=== PATIENT | male | born 1960 | race Caucasian/White ===

== ENCOUNTER 2023-09-20 12:23 | Outpatient (CLI) | payer BC, SELFPAY ==
--- OUTSIDE RECORDS SUMMARY | 2023-09-20 12:26 | XMS_ITS | Clinical Summary ---
Author Name Unknown Organization [facility] Address [address] [place] [address] Care Team Providers Care Welt Sole Layer Name Role Phone [facility]- Rabia vailable Irvin Lyons MD Primary Care Provider + Allergies No known active allergies Social History Tobacco Use Types Packs/Day Years Used Date Smoking Tobacco: Never Assessed Sex and Gender Information Value Date Recorded Sex Assigned at Not on file Gender Identity Not on file Sexual Orientation Not on file Last Filed Vital Signs Vital Sign Reading Time Taken Comments Blood Pressure - - Pulse - - Temperature - - Respiratory Rate - - Oxygen Saturation - - Inhaled Oxygen Concentration - - Weight 117.9 kg (260 lb) 05/26/2023 11:00 AM CDT Height 190.5 cm (6' 3) 05/26/2023 11:00 AM CDT Body Mass Index 32.5 05/26/2023 11:00 AM CDT Plan of Treatment Upcoming Encounters Date Type Department Care Team (Latest Contact Info) Description 09/26/2023 7:00 AM FAMILY PRACTICE PHYSICIAN ASSISTANT Hospital Encounter [facility] Patient Care Center [address] [place] [address] DARIANA CHEN [address] Jose L Marion MD [address] [place] [address] [place] [address] Malignant neoplasm of prostate (HCC) 09/26/2023 7:00 AM FAMILY PRACTICE PHYSICIAN ASSISTANT - 09/26/2023 11:10 AM FAMILY PRACTICE PHYSICIAN ASSISTANT Surgery [facility] Operating Room [address] [place] [address] DARIANA Skinner [address] Jose L Marion MD [address] [place] [address] ROBOTIC XI ASSISTED LAPAROSCOPIC RADICAL PROSTATECTOMY, BILATERAL PELVIC LYMPH NODE DISSECTION Scheduled Procedures Name Priority Associated Diagnoses Date/Ti me ROBOTIC XI ASSISTED LAPAROSCOPIC PROSTATECTOMY RADICAL Malignant neoplasm of prostate (HCC) 09/26/2023 7:00 AM FAMILY PRACTICE PHYSICIAN ASSISTANT Health Maintenance Due Date Last Done Comments Colonoscopy 1961 Diabetes Screening 1961 Hepatitis C Screening 1961 Lipid Screening 1961 Anxiety Screening (ADRIANA-2) 1962 Depression Assessment (PHQ-2) 1962 Yearly Review of HCD 2011 RSV (1 - 1-dose 60+ series) 2021 Zoster Vaccine (2 of 2) 01/19/2023 11/24/2022 COVID-19 Vaccine (3 - 2022-2 4 season) 2023 12/26/2020, 12/05/2020 Influenza Vaccine (#1) 2023 Adult Tetanus Booster 11/24/2032 11/24/2022 Pneumococcal <65 Aged Out No longer e ligible based on patient's age to complete this topic Care Teams Welt Sole Layer Relationship Specialty Start Date End Date [facility]- [address] [place] [address] PCP - Primary Care Clinic 05/13/23 Irvin Lyons MD [address] [facility] [address] PCP - General Family Medicine 05/13/23
--- OUTSIDE RECORDS SUMMARY | 2023-09-20 12:26 | XMS_ITS | Referral Summary ---
Author Name Unknown Organization [facility] Address [address] [place] [address] Care Team Providers Care Dye And Chemical Coordinator Name Role Phone [facility]- Rabia vailable Irvin Lyons MD Primary Care [...] (Latest Contact Info) Description 09/26/2023 7:00 AM DOLL MAKER Hospital Encounter [facility] Patient Care Center [address] [facility] DARIANA CHEN [address] Jose L Marion MD [address] [place] [address] [place] Chen [address] Malignant neoplasm of prostate (HCC) 09/26/2023 7:00 AM DOLL MAKER - 09/26/2023 11:10 AM DOLL MAKER Surgery [facility] Operating Room [address] [place] [address] DARIANA Skinner [address] Jose L Marion MD [address] [place] [address] ROBOTIC XI ASSISTED LAPAROSCOPIC RADICAL PROSTATECTOMY, BILATERAL PELVIC LYMPH NODE DISSECTION Scheduled Procedures Name Priority Associated Diagnoses Date/Ti me ROBOTIC XI ASSISTED LAPAROSCOPIC PROSTATECTOMY RADICAL Malignant neoplasm of prostate (HCC) 09/26/2023 7:00 AM DOLL MAKER Care Teams Dye And Chemical Coordinator Relationship Specialty Start Date End Date [facility]- [address] [place] [address] PCP - Primary Care Clinic 05/13/23 Irvin Lyons MD [address] [place] [address] PCP - General Family Medicine 05/13/23
--- OUTSIDE RECORDS SUMMARY | 2023-09-20 12:27 | XMS_ITS | Encounter Summary ---
Author Name Unknown Organization [facility] Address [address] [place] [address] Care Team Providers Care Apprentice Pattern Maker Name Role Phone [facility]- Rabia vailable Irvin Lyons MD Primary Care Provider + Encounter Details Date Type Department Care Team (Latest Contact Info) Description 05/26/2023 Travel Social History Tobacco Use Types Packs/Day Years Used Date Smoking Tobacco: Never Assessed Sex and Gender Information Value Date Recorded Sex Assigned at Not on file Gender Identity Not on file Sexual Orientation Not on file documented as of this encounter Plan of Treatment Upcoming Encounters Date Type Department Care Team (Latest Contact Info) Description 09/26/2023 7:00 AM [facility] Hospital Encounter [facility] Patient Care Center [address] [place] [address] [place] [address] Jose L Marion MD [address] [address] Malignant neoplasm of prostate (HCC) 09/26/2023 7:00 AM [facility] - 09/26/2023 11:10 AM [facility] Surgery [facility] Operating Room [address] [place], [place] [address] [place] [address] Jose L Marion MD [address] [place] [address] [place] [address] ROBOTIC XI ASSISTED LAPAROSCOPIC RADICAL PROSTATECTOMY, BILATERAL PELVIC LYMPH NODE DISSECTION Scheduled Procedures Name Priority Associated Diagnoses Date/Ti mt ROBOTIC XI ASSISTED LAPAROSCOPIC PROSTATECTOMY RADICAL Malignant neoplasm of prostate (HCC) 09/26/2023 7:00 AM ACCOUNT RETENTION REPRESENTATIVE documented as of this encounter Visit Diagnoses Not on filedocumented in this encounter Care Teams Apprentice Pattern Maker Relationship Specialty Start Date End Date [facility]- [address] [place] [address] PCP - Primary Care Clinic 05/13/23 Irvin Lyons MD [address] [place] [address] PCP - General Family Medicine 05/13/23 documented as of this encounter
--- OUTSIDE RECORDS SUMMARY | 2023-09-20 12:27 | XMS_ITS | Encounter Summary ---
Author Name Unknown Organization [facility] Address [address] [place] [address] Care Team Providers Care Pizza Baker Name Role Phone [facility] [place]- Rabia vailable Irvin Lyons MD Primary Care Provider + Reason for Referral * (Routine) - Closed Specialty Diagnoses / Procedures Referred By Contac t Referred To Contact Diagnoses Malignant tumor of prostate (HCC) Procedures CT ABDOMEN & PELVIS W/O ORAL W IV Jose L Alfaro MD [address] [place] [address] [address] Referral ID Status Reason Start Date Expiration Date Visits Re quested Visits Authorized [id number] Closed 05/26/2023 1 1 Reason for Visit * (Routine) - Closed Specialty Diagnoses / Procedures Referred By Contstan lopez Referred To Contact Diagnoses Malignant tumor of prostate (HCC) Procedures CT ABDOMEN & PELVIS W/O ORAL W IV Jose L Alfaro MD [address] [place] [address] Referral ID Status Reason Start Date Expiration Date Visits Re quested Visits Authorized [id number] Closed 05/26/2023 1 1 Encounter Details Date Type Department Care Team (Latest Contact Info) Description 05/26/2023 11:04 AM CDT - 05/26/2023 11:59 PM CDT Hospital Encounter [facility] - [facility] [address] [facility] [place] [address] Discharge Disposition: Returning Home/Self Care Social History Tobacco Use Types Packs/Day Years Used Date Smoking Tobacco: Never Assessed Sex and Gender Information Value Date Recorded Sex Assigned at Not on file Gender Identity Not on file Sexual Orientation Not on file documented as of this encounter Plan of Treatment Upcoming Encounters Date Type Department Care Team (Latest Contact Info) Description 09/26/2023 7:00 AM WOODS OVERSEER Hospital Encounter [facility] Patient Care Center [address] [facility] [place] [address] Jose L Marion MD [address] [address] Malignant neoplasm of prostate (HCC) 09/26/2023 7:00 AM WOODS OVERSEER - 09/26/2023 11:10 AM WOODS OVERSEER Surgery [facility] Operating Room [address] [facility] [place] [address] Jose L Marion MD [address] [address] ROBOTIC XI ASSISTED LAPAROSCOPIC RADICAL PROSTATECTOMY, BILATERAL PELVIC LYMPH NODE DISSECTION Scheduled Procedures Name Priority Associated Diagnoses Date/Ti me ROBOTIC XI ASSISTED LAPAROSCOPIC PROSTATECTOMY RADICAL Malignant neoplasm of prostate (HCC) 09/26/2023 7:00 AM WOODS OVERSEER documented as of this encounter Procedures Procedure Name Priority Date/Time Associated Diagnosis Comments CT ABDOMEN & PELVIS W/O ORAL W IV CON Routine 05/26/2023 11:38 AM CDT Malignant tumor of prostate (HCC) documented in this encounter Results * CT ABDOMEN & PELVIS W/O ORAL W IV CON (05/26/2023 11:38 AM CDT) Anatomical Region Laterality Modality ABD/Pelvis Computed Tomogra phy 05/26/2023 1:29 PM CDT Impressions 05/26/2023 1:34 PM CDT IMPRESSION: ?? 1. ??No finding of metastatic disease. No adenopathy. No suspicious bone lesion. REPORT SIGNED BY DR. TIN VIDALES Narrative 05/26/2023 1:34 PM CDT EXAM: ??CT ABDOMEN & PELVIS W/O ORAL W IV CON DATE: 05/26/2023 11:37 AM CLINICAL DATA: ??C61 Malignant neoplasm of prostate COMPARISON: ??None available TECHNIQUE: Thin section contiguous transaxial images were obtained through the abdomen and pelvis with intravenous contrast. ??No oral contrast given. ??Coronal reformations were also obtained through the abdomen and pelvis. ?? CONTRAST: 100 cc intravenous injection of nonionic contrast. FINDINGS: ?? Bibasilar atelectasis. Calcified granuloma at the right lung base. No pleural effusion. Cardiomegaly. Heterogeneous density to the hepatic parenchyma, in part related to the phase of the intravenous contrast. No perceptible hepatic mass. Normal liver contour. No calcified gallstones. Coarse calcifications near the head of the pancreas. No dilatation of the main pancreatic duct. Splenic vein remains patent. Splenic calcification. No adrenal mass. The nephrograms are symmetric. No hydronephrosis or renal parenchymal thinning. Punctate nonobstructing calcification in the upper left kidney suspected. Visible ureters are decompressed. Bladder is partially distended. Mild enlargement of the prostate. Seminal vesicles are normal. Colonic diverticulosis. No extraluminal gas or drainable fluid collection. Small bowel is decompressed. Stomach is collapsed. No aortic aneurysm. Atherosclerotic changes in the aorta and its major branches. Distended IVC. Subcentimeter retroperitoneal and pelvic lymph nodes are typically reactive. No distinct lytic or blastic bone lesion. Degenerative changes. Curvature of the spine. Procedure Note Tin Vidales MD - 05/26/2023 EXAM: CT ABDOMEN & PELVIS W/O ORAL W IV CON DATE: 05/26/2023 11:37 AM CLINICAL DATA: C61 Malignant neoplasm of prostate COMPARISON: None available TECHNIQUE: Thin section contiguous transaxial images were obtained throughthe abdomen and pelvis with intravenous contrast. No oral contrast given.Coronal reformations were also obtained through the abdomen and pelvis. CONTRAST: 100 cc intravenous injection of nonionic contrast. FINDINGS: Bibasilar atelectasis. Calcified granuloma at the right lung base. Nopleural effusion. Cardiomegaly. Heterogeneous density to the hepatic parenchyma, in part related to thephase of the intravenous contrast. No perceptible hepatic mass. Normalliver contour. No calcified gallstones. Coarse calcifications near thehead of the pancreas. No dilatation of the main pancreatic duct. Splenicvein remains patent. Splenic calcification. No adrenal mass. The nephrograms are symmetric. No hydronephrosis or renalparenchymal thinning. Punctate nonobstructing calcification in the upperleft kidney suspected. Visible ureters are decompressed. Bladder ispartially distended. Mild enlargement of the prostate. Seminal vesiclesare normal. Colonic diverticulosis. No extraluminal gas or drainable fluid collection.Small bowel is decompressed. Stomach is collapsed. No aortic aneurysm. Atherosclerotic changes in the aorta and its majorbranches. Distended IVC. Subcentimeter retroperitoneal and pelvic lymphnodes are typically reactive. No distinct lytic or blastic bone lesion. Degenerative changes. Curvatureof the spine. IMPRESSION IMPRESSION: 1. No finding of metastatic disease. No adenopathy. No suspicious bonelesion. REPORT SIGNED BY DR. TIN VIDALES Jose L Marion MD CT ORDERABLE documented in this encounter Visit Diagnoses Diagnosis Malignant tumor of prostate (HCC) Malignant neoplasm of prostate Malignant neoplasm of prostate (HCC) Malignant neoplasm of prostate documented in this encounter Administered Medications Inactive Administered Medications - up to 3 most recent administrations Medication Order MAR Action Action Date Dose Rate Site saline FLUSH syringe 1-10 mL 1-10 mL, Intravenous, INTRA-PROCEDURE NEEDED, Starting on Neli 05/26/23 at 1139, Until Neli 05/26/23 at 2338, Line Care, per procedure Given 05/26/2023 11:39 AM CDT 20 mL iohexol 350 mgI/mL (OMNIPAQUE) 1-150 mL 1-150 mL, Intravenous, INTRA-PROCEDURE ONE TIME DOSE NEEDED, 1 dose, Starting on Neli 05/26/23 at 1139, Until Neli 05/26/23 at 1139, per procedure Given 05/26/2023 11:39 AM CDT 100 mL documented in this encounter Care Teams Pizza Baker Relationship Specialty Start Date End Date [facility] [place]- [address] [place] [address] PCP - Primary Care Clinic 05/13/23 Irvin Lyons MD [address] [place] [address] DARIANA RIVERA [address] PCP - General Family Medicine 05/13/23 documented as of this encounter
--- OUTSIDE RECORDS SUMMARY | 2023-09-20 12:27 | XMS_ITS | Encounter Summary ---
Author Name Unknown Organization [facility] Address [address] [place] [address] Care Team Providers Care Ingredient Handler Name Role Phone [facility]- Rabia vailable Irvin Lyons MD Primary Care Provider + Reason for Referral * (Routine) - Closed Specialty Diagnoses / Procedures Referred By Contac t Referred To Contact Diagnoses Malignant tumor of prostate (HCC) Procedures NM BONE SCAN WHOLE BODY Jose L Marion MD [address] [place] [address] Referral ID Status Reason Start Date Expiration Date Visits Re quested Visits Authorized [id number] Closed 05/26/2023 2 2 Reason for Visit * (Routine) - Closed Specialty Diagnoses / Procedures Referred By Contac t Referred To Contact Diagnoses Malignant tumor of prostate (HCC) Procedures NM BONE SCAN WHOLE BODY Jose L Marion MD [address] [place] [address] Referral ID Status Reason Start Date Expiration Date Visits Re quested Visits Authorized [id number] Closed 05/26/2023 2 2 Encounter Details Date Type Department Care Team (Latest Contact Info) Description 05/26/2023 10:56 AM CDT - 05/26/2023 11:03 AM CDT Hospital Encounter [facility] Imaging - Nuclear Medicine [address] [place] [address] Discharge Disposition: Returning Home/Self Care Social History Tobacco Use Types Packs/Day Years Used Date Smoking Tobacco: Never Assessed Sex and Gender Information Value Date Recorded Sex Assigned at Not on file Gender Identity Not on file Sexual Orientation Not on file documented as of this encounter Last Filed Vital Signs Vital Sign Reading Time Taken Comments Blood Pressure - - Pulse - - Temperature - - Respiratory Rate - - Oxygen Saturation - - Inhaled Oxygen Concentration - - Weight 117.9 kg (260 lb) 05/26/2023 11:00 AM CDT Height 190.5 cm (6' 3) 05/26/2023 11:00 AM CDT Body Mass Index 32.5 05/26/2023 11:00 AM CDT documented in this encounter Plan of Treatment Upcoming Encounters Date Type Department Care Team (Latest Contact Info) Description 09/26/2023 7:00 AM ALTERATIONS WORKROOM CLERK Hospital Encounter [facility] Patient Care Center [address] [facility] [place] [address] Jose L Marion MD [address] [id number] Malignant neoplasm of prostate (HCC) 09/26/2023 7:00 AM ALTERATIONS WORKROOM CLERK - 09/26/2023 11:10 AM ALTERATIONS WORKROOM CLERK Surgery [facility] Operating Room [address] [place] [address] Jose L Marion MD [address] [place] [address] [place], [place] [address] ROBOTIC XI ASSISTED LAPAROSCOPIC RADICAL PROSTATECTOMY, BILATERAL PELVIC LYMPH NODE DISSECTION Scheduled Procedures Name Priority Associated Diagnoses Date/Ti me ROBOTIC XI ASSISTED LAPAROSCOPIC PROSTATECTOMY RADICAL Malignant neoplasm of prostate (HCC) 09/26/2023 7:00 AM ALTERATIONS WORKROOM CLERK documented as of this encounter Procedures Procedure Name Priority Date/Time Associated Diagnosis Comments NM BONE SCAN WHOLE BODY Routine 05/26/2023 2:33 PM CDT Malignant tumor of prostate (HCC) documented in this encounter Results * NM BONE SCAN WHOLE BODY (05/26/2023 2:33 PM CDT) Anatomical Region Laterality Modality Nuclear Medicine 05/26/2023 3:35 PM CDT Impressions 05/26/2023 3:37 PM CDT IMPRESSION: 1. ??No scintigraphic finding of osseous metastatic disease. REPORT SIGNED BY DR. Giancarlo Mendoza [facility] 05/26/2023 3:37 PM CDT EXAM: NM BONE SCAN WHOLE BODY DATE: 05/26/2023 11:11 AM CLINICAL DATA: C61 Malignant neoplasm of prostate - COMPARISON: Same day DOSE: ??25.6 mCi Tc99m MDP IV BMI: 32.5 TECHNIQUE: Following IV administration of radiopharmaceutical, 3 hour delayed whole body images acquired. FINDINGS: Expected distribution of the radiotracer throughout the axial and appendicular skeleton. Faint excreted activity from both kidneys. Collected activity in the urinary bladder. Procedure Note Giancarlo Mendoza MD - 05/26/2023 EXAM: NM BONE SCAN WHOLE BODY DATE: 05/26/2023 11:11 AM CLINICAL DATA: C61 Malignant neoplasm of prostate - COMPARISON: Same day DOSE: 25.6 mCi Tc99m MDP IV BMI: 32.5 TECHNIQUE: Following IV administration of radiopharmaceutical, 3 hourdelayed whole body images acquired. FINDINGS: Expected distribution of the radiotracer throughout the axialand appendicular skeleton. Faint excreted activity from both kidneys. Collected activity in theurinary bladder. IMPRESSION IMPRESSION: 1. No scintigraphic finding of osseous metastatic disease. REPORT SIGNED BY DR. Giancarlo Mendoza Jose L Marion MD [facility] ORDERABLE documented in this encounter Visit Diagnoses Diagnosis Malignant tumor of prostate (HCC) Malignant neoplasm of prostate Malignant neoplasm of prostate (HCC) Malignant neoplasm of prostate documented in this encounter Care Teams Ingredient Handler Relationship Specialty Start Date End Date [facility]- [address] [place] [address] PCP - Primary Care Clinic 05/13/23 Irvin Lynos MD [address] [place] [address] PCP - General Family Medicine 05/13/23 documented as of this encounter
--- OUTSIDE RECORDS SUMMARY | 2023-09-20 12:27 | XMS_ITS | Encounter Summary ---
Author Name Unknown Organization [facility] Address [address] [place] [address] Care Team Providers Care Drier Take Off Tender Name Role Phone [facility]- Rabia vailable Irvin Lyons MD Primary Care Provider + Reason for Visit * (Routine) - Closed Specialty Diagnoses / Procedures Referred By Sabine t Referred To Contact Diagnoses Malignant tumor of prostate (HCC) Procedures NM BONE SCAN WHOLE BODY Jose L Marion MD [address] [address] Referral ID Status Reason Start Date Expiration Date Visits Re quested Visits Authorized [id number] Closed 05/26/2023 2 2 Encounter Details Date Type Department Care Team (Latest Contact Info) Description 05/26/2023 11:04 AM CDT - 05/26/2023 11:59 PM CDT Hospital Encounter [facility] Imaging - Nuclear Medicine [address] [place] [address] [place], [place] [id number] Discharge Disposition: Returning Home/Self Care Social History Tobacco Use Types Packs/Day Years Used Date Smoking Tobacco: Never Assessed Sex and Gender Information Value Date Recorded Sex Assigned at Not on file Gender Identity Not on file Sexual Orientation Not on file documented as of this encounter Plan of Treatment Upcoming Encounters Date Type Department Care Team (Latest Contact Info) Description 09/26/2023 7:00 AM AUTOMATIC TIRE TESTER Hospital Encounter [facility] Patient Care Center [address] [facility] [place] [address] [place] [address] [place] [address] [address] z[address]orano [address] Malignant neoplasm of prostate (HCC) 09/26/2023 7:00 AM AUTOMATIC TIRE TESTER - 09/26/2023 11:10 AM AUTOMATIC TIRE TESTER Surgery [facility] Operating Room [address] [place] [address] Jose L Marion MD [address] [place] [address] ROBOTIC XI ASSISTED LAPAROSCOPIC RADICAL PROSTATECTOMY, BILATERAL PELVIC LYMPH NODE DISSECTION Scheduled Procedures Name Priority Associated Diagnoses Date/Ti me ROBOTIC XI ASSISTED LAPAROSCOPIC PROSTATECTOMY RADICAL Malignant neoplasm of prostate (HCC) 09/26/2023 7:00 AM AUTOMATIC TIRE TESTER documented as of this encounter Procedures Procedure Name Priority Date/Time Associated Diagnosis Comments NM BONE SCAN WHOLE BODY Routine 05/26/2023 2:33 PM CDT Malignant tumor of prostate (HCC) documented in this encounter Visit Diagnoses Not on filedocumented in this encounter Administered Medications Inactive Administered Medications - up to 3 most recent administrations Medication Order MAR Action Action Date Dose Rate Site Tc-99m medronate (MDP) injection 5-30 millicurie 5-30 millicurie, Intravenous, INTRA-PROCEDURE ONE TIME DOSE NEEDED, 1 dose, Starting on Neli 05/26/23 at 1432, Until Neli 05/26/23 at 1115, per procedure Given 05/26/2023 11:15 AM CDT 25 millicuries documented in this encounter Care Teams Drier Take Off Tender Relationship Specialty Start Date End Date [facility]- [address] [place] [address] PCP - Primary Care Clinic 05/13/23 Irvin Lyons MD [address] [place] [address] DARIANA RIVERA [address] PCP - General Family Medicine 05/13/23 documented as of this encounter
== END 2023-09-20 12:24 | disposition home or self-care (01) ==
PROVIDERS: PCP Family Medicine; Visit Provider Family Medicine
DX: I10 Essential (primary) hypertension (principal); R53.83 Other fatigue; Z13.220 Encounter for screening for lipoid disorders
CPT/HCPCS: 80048; 80061; 84443; 85025

== ENCOUNTER 2024-01-11 20:06 | Outpatient (CLI) | payer BC, SELFPAY ==
--- OUTSIDE RECORDS SUMMARY | 2024-01-11 20:10 | XMS_ITS ---
Author Name Unknown Organization [facility] Address [address] [place] [address] Care Team Providers Care Medical Research Tech Name Role Phone Irvin Lyons MD Primary Care Provider + Active Problems Problem Noted Date Diagnosed Date Elevated serum creatinine 10/02/2023 NOÉ (obstructive sleep apnea) 09/29/2023 HFrEF (heart failure with reduced ejection fract ion) 09/29/2023 Atrial fibrillation with rapid ventricular respo nse 09/29/2023 Prostate cancer 09/26/2023 Current Oncology Plans No current plan information found. Past Plans No past plan information found. Radiation Treatments * No radiation treatments are documented for this patient in [facility]. Treatments may have been administered in another system. Lifetime Dose Tracking * Chemical Lifetime Dose Automatic Entry Manual Entr y CT Radiation 1,104.6 mGy 1,104.6 mGy 0 mGy Resolved Problems Problem Noted Date Diagnosed Date Resolved Date Acute hypoxic respiratory failure 09/29/2023 09/29/2023 Severe Pneumonia, Suspected Bacterial 09/26/2023 09/29/2023
--- OUTSIDE RECORDS SUMMARY | 2024-01-11 20:10 | XMS_ITS | Encounter Summary ---
Author Name Unknown Organization [facility] Address [address] [place] [address] Care Team Providers Care Construction Project Coordinator Name Role Phone Irvin Lyons MD Primary Care Provider + Encounter Details Date Type Department Care Team (Late st Contact Info) Description 10/03/2023 Test Claim [facility] - [address] [address] Jose Antonio Roldan, Pharm D [address] [place] [phone] Social History Tobacco Use Types Packs/Day Years Used Date Smoking Tobacco: Every Day Cigarettes 1 40 Smokeless Tobacco: Never Comments:Trying to quit Alcohol Use Standard Drinks/Week Comments Yes 0 (1 standard drink = 0.6 oz pur e alcohol) very little Sex and Gender Information Value Date Recorded Sex Assigned at Not on file Gender Identity Not on file Sexual Orientation Lesbian or Salcedo 09/26/2023 10 :52 AM JUNIOR ACCOUNT MANAGER documented as of this encounter Progress Notes * Jose Antonio Roldan, Pharm D - 10/03/2023 11:03 AM CST On 10/03/2023 [facility] was consulted by Dr. Toeny to ensure adequate outpatient insurance coverage before starting a new medication. Pharmacy ran a test claim through [employer] for Eliquis quantity of 60. As of today's date the peres of the medication is $169.60. Xarelto quantity of 30. As of today's date the peres of the medication is $162.52 Jardiance quantity of 30. As of today's date the peres of the medication is $174.36. Farxiga quantity of 30. As of today's date the peres of the medication is $166.13. Entresto quantity of 60. This medication requires a prior authorization. The phone number is The patient has commercial insurance so would currently be eligible for coupons Thank you for the consult to participate in care of the patient. Bridgett Regalado D OR ACCOUNT MANAGER documented in this encounter Plan of Treatment Not on file documented as of this encounter Visit Diagnoses Not on filedocumented in this encounter Care Teams Construction Project Coordinator Relationship Specialty Start Date End Date Irvin Lyons MD [address] [place] [id number] PCP - General Family Medicine 05/13/23 documented as of this encounter
--- OUTSIDE RECORDS SUMMARY | 2024-01-11 20:10 | XMS_ITS | Referral Summary ---
Author Name Unknown Organization [facility] Address [address] [place] [address] Care Team Providers Care E Business Project Manager Name Role Phone Irvin Lyons MD Primary Care Provider + Allergies No known active allergies Medications Medication Sig Dispensed Refills Start Date End Date Status metoprolol succinate, XL, (TOPROL XL) 100 mg oral extended release tablet 24 HR Take 1 tablet (100 mg) by mouth twice a day. 180 tablet 3 10/03/2023 Active acetaminophen (TYLENOL) 500 mg oral tablet Take 2 tablets (1,000 mg) by mouth every 6 (six) hours as needed for fever or pain. 20 tablet 10/03/2023 Active apixaban (ELIQUIS) 5 mg oral tabletIndications:A trial Fibrillation (Non-Valvular) Take 1 tablet (5 mg) by mouth twice a day Indications: Atrial Fibrillation (Non-Valvular). 180 tablet 3 10/03/2023 Active bacitracin 500 unit/gram Top Oint ointment Apply 1 Application to skin twice a day as needed (for discomfort). 28 g 1 10/03/2023 Active digoxin (LANOXIN) 125 mcg (0.125 mg) oral tablet Take 0.5 tablets (62.5 mcg) by mouth once daily. 90 tablet 3 10/04/2023 Active polyethylene glycol (MIRALAX) 17 gram oral powder Take 17 g by mouth once a day as needed for constipation. Mix each dose in 4-8 ounces of liquid as directed. 510 g 10/03/2023 Active cefuroxime (CEFTIN) 500 mg oral tablet Take 1 tablet (500 mg) by mouth once daily. 7 tablet 10/03/2023 Active Active Problems Problem Noted Date Diagnosed Date Elevated serum creatinine 10/02/2023 NOÉ (obstructive sleep apnea) 09/29/2023 HFrEF (heart failure with reduced ejection fract ion) 09/29/2023 Atrial fibrillation with rapid ventricular respo nse 09/29/2023 Prostate cancer 09/26/2023 Resolved Problems Problem Noted Date Diagnosed Date Resolved Date Acute hypoxic respiratory failure 09/29/2023 09/29/2023 Severe Pneumonia, Suspected Bacterial 09/26/2023 09/29/2023 Social History Tobacco Use Types Packs/Day Years [...] Lesbian or Salcedo 09/26/2023 10 :52 AM CLOTH SHRINKER Last Filed Vital Signs Vital Sign Reading Time Taken Comments Blood Pressure 95/70 10/03/2023 10:37 AM CLOTH SHRINKER Pulse 49 10/03/2023 8:57 AM CLOTH SHRINKER Temperature 36.6 ??C (97.8 ??F) 10/03/2023 8:53 AM CS T Respiratory Rate 18 10/03/2023 8:53 AM CLOTH SHRINKER Oxygen Saturation 94% 10/03/2023 8:53 AM CLOTH SHRINKER Inhaled Oxygen Concentration - - Weight 118.4 kg (261 lb 1.6 oz) 10/01/2023 6:20 AM CLOTH SHRINKER Height 190.5 cm (6' 3) 09/22/2023 1:18 PM CLOTH SHRINKER Body Mass Index 32.64 09/22/2023 1:18 PM CLOTH SHRINKER Plan of Treatment Not on file Procedures Procedure Name Priority Date/Time Associated Diagnosis Comments BASIC METAB PROFILE Routine 10/03/2023 8 :17 AM CLOTH SHRINKER LIPID PROFILE CASCADE Add On 09/27/2023 8:[address] CHEST PULMONARY ANGIO Routine 09/26/2023 5:13 PM CLOTH SHRINKER from Last 3 Months or Most Recently Relevant to Health Maintenance Results * (ABNORMAL) Basic Metab Profile (10/03/2023 8:17 AM CLOTH SHRINKER) Sodium 137 136 - 145 mmol/L 10/03/2023 8:58 AM [facility] Potassium 4.2 3.4 - 5.1 mmol/L 10/03/2023 8:58 AM [facility] Chloride 107 98 - 108 mmol/L 10/03/2023 8:58 AM [facility] Carbon Dioxide 23 20 - 31 mmol/L 10/03/2023 8:58 AM [facility] BUN (Urea Nitro) 21 9 - 23 mg/dL 10/03/2023 8:58 AM [facility] Creatinine 1.38(H) 0.73 - 1.18 mg/dL 10/03/2023 8:58 AM [facility] Est GFR (CKD-EPI) 57.82(L) >60.00 mL/min/1. 73m2 10/03/2023 8:58 AM [facility] Comment:Calculation based on the Chronic Kidney Disease Epidemiology Collaboration (CKD-EPI) equation refit without adjustment for race. Glucose 97 74 - 106 mg/dL 10/03/2023 8:58 AM [facility] Calcium, Serum 9.4 8.7 - 10.4 mg/dL 10/03/2023 8:58 AM [facility] Anion Gap 7.0 0.0 - 15.0 mmol/L 10/03/2023 8:58 AM [facility] Blood Venipuncture / Unknown 10/03/2023 8:17 AM CLOTH SHRINKER 10/03/2023 8:27 AM [facility] Pastor Burch MD CHEMISTRY ORDERABLE [facility] [address] [place] [address] * (ABNORMAL) Lipid Profile [place] (09/27/2023 8:18 AM [facility]) SPECIMEN TYPE 09/27/2023 2:26 PM [facility] CHOLESTEROL 144 <200 mg/dL 09/27/2023 2:26 PM [facility] Triglycerides Profile 123 <150 mg/dL 09/27/2023 2:26 PM [facility] LDL CHOL, CALC 81 <100 mg/dL 09/27/2023 2:26 PM [facility] HDL CHOLESTEROL 38(L) >=40 mg/dL 2:26 PM [facility] CHOL/HDL RATIO 3.8 0.0 - 4.9 09/27/2023 2:26 PM [facility] Blood Venipuncture / Unknown 09/27/2023 8:18 AM CLOTH SHRINKER 09/27/2023 8:38 AM CLOTH SHRINKER Narrative [facility] - 09/27/2023 2:26 PM CLOTH SHRINKER LDL CHOLESTEROL REFERENCE RANGES: (FOR PATIENTS W/O HEART DISEASE) <100 mg/dL = Optimal 100-129 mg/dL = Near/Above Optimal 130-159 mg/dL = Borderline High 160-189 mg/dL = High >/= 190 mg/dL = Very High Pastor Burch MD CHEMISTRY ORDERABLE Performing Organization Address City/State/[facility] Co de Phone Number [facility] [address] [place] [address] * CT Chest Pulmonary Angio (09/26/2023 5:13 PM CLOTH SHRINKER) Anatomical Region Laterality Modality Chest Computed Tomogra phy 09/26/2023 5:18 PM CLOTH SHRINKER Impressions 09/26/2023 5:21 PM CLOTH SHRINKER IMPRESSION: 1. ??No pulmonary embolus identified. 2. ??Bilateral lower lobe infiltrates left greater than right. 3. ??Postoperative free air in the upper abdomen. REPORT SIGNED BY DR. Fabio Wesley Narrative 09/26/2023 5:21 PM CLOTH SHRINKER EXAM: CT CHEST PULMONARY ANGIO DATE: 09/26/2023 5:03 PM CLINICAL DATA: Shortness of breath. Assess for pulmonary embolus.. COMPARISON: None TECHNIQUE: A CT angiogram (CTA) of the pulmonary arteries and chest was performed. ??Specifically, preliminary unenhanced images were obtained through the pulmonary arteries. ??Following this, during bolus infusion of intravenous contrast, thin-section contiguous transaxial images were obtained through the thorax. ?? In addition, multiplanar and three dimensional (3D) reformations through the pulmonary arterial tree were generated from the acquisition scanner and reviewed. A total of 100 cc's of Omnipaque 350 IV FINDINGS: No filling defect in the pulmonary arterial system. Bilateral perihilar and lower lobe infiltrates left greater than right. Atelectasis. No significant effusion. No endobronchial pathology. No acute mediastinal findings. No pericardial effusion. No acute upper abdominal findings. Nonspecific perinephric stranding noted bilaterally. Postoperative free air in the upper abdomen. Procedure Note de Fabio Noonan MD - 09/26/2023 EXAM: CT CHEST PULMONARY ANGIO DATE: 09/26/2023 5:03 PM CLINICAL DATA: Shortness of breath. Assess for pulmonary embolus.. COMPARISON: None TECHNIQUE: A CT angiogram (CTA) of the pulmonary arteries and chest wasperformed. Specifically, preliminary unenhanced images were obtainedthrough the pulmonary arteries. Following this, during bolus infusion ofintravenous contrast, thin- section contiguous transaxial images wereobtained through the thorax. In addition, multiplanar and three dimensional (3D) reformations throughthe pulmonary arterial tree were generated from the acquisition scannerand reviewed. A total of 100 cc's of Omnipaque 350 IV FINDINGS: No filling defect in the pulmonary arterial system. Bilateral perihilar and lower lobe infiltrates left greater than right.Atelectasis. No significant effusion. No endobronchial pathology. No acute mediastinal findings. No pericardial effusion. No acute upper abdominal findings. Nonspecific perinephric stranding notedbilaterally. Postoperative free air in the upper abdomen. IMPRESSION IMPRESSION: 1. No pulmonary embolus identified. 2. Bilateral lower lobe infiltrates left greater than right. 3. Postoperative free air in the upper abdomen. REPORT SIGNED BY DR. Fabio Wesley Yaneth Cornelius MD CT ORDERABLE from Last 3 Months or Most Recently Relevant to Health Maintenance Advance Directives For more information, please contact: [phone] * Full Code (Latest Code Status on File) Date Activated Date Inactivated Comments 09/26/2023 10:38 AM 10/03/2023 9:03 PM Question Answer Comments How was code status determined? Patient Care Teams E Business Project Manager Relationship Specialty Start Date End Date Irvin Lyons MD [address] [place] [address] EVERAnitra D[place]IANA DAY [address] PCP - General Family Medicine 05/13/23
--- OUTSIDE RECORDS SUMMARY | 2024-01-11 20:10 | XMS_ITS | Clinical Summary ---
Author Name Unknown Organization [facility] Address [address] [place] [address] Care Team Providers Care Otr Flatbed Driver Name Role Phone Irvin Lyons MD Primary [...] 09/29/2023 Severe Pneumonia, Suspected Bacterial 09/26/2023 09/29/2023 Family History Medical History Relation Comments No Known Problems Mother Relation Status Comments Mother Social History Tobacco Use Types Packs/Day Years [...] Lesbian or Salcedo 09/26/2023 10 :52 AM CALENDER ROLL OPERATOR Last Filed Vital Signs Vital Sign Reading Time Taken Comments Blood Pressure 95/70 10/03/2023 10:37 AM CALENDER ROLL OPERATOR Pulse 49 10/03/2023 8:57 AM CALENDER ROLL OPERATOR Temperature 36.6 ??C (97.8 ??F) 10/03/2023 8:53 AM CS T Respiratory Rate 18 10/03/2023 8:53 AM CALENDER ROLL OPERATOR Oxygen Saturation 94% 10/03/2023 8:53 AM CALENDER ROLL OPERATOR Inhaled Oxygen Concentration - - Weight 118.4 kg (261 lb 1.6 oz) 10/01/2023 6:20 AM CALENDER ROLL OPERATOR Height 190.5 cm (6' 3) 09/22/2023 1:18 PM CALENDER ROLL OPERATOR Body Mass Index 32.64 09/22/2023 1:18 PM CALENDER ROLL OPERATOR Plan of Treatment Health Maintenance Due Date Last Done Comments Colonoscopy 1961 Hepatitis C Screening 1961 Anxiety Screening (ADRIANA-2) 1962 Depression Assessment (PHQ-2) 1962 Pneumococcal <65 (1 of 2 - PCV) 1967 Yearly Review of HCD 2011 RSV 60+ Yrs (1 - 1-dose 60+ series) 2021 Zoster Vaccine (2 of 2) 01/19/2023 11/24/2022 COVID-19 Vaccine (3 - 2022-2 4 season) 2023 12/26/2020, 12/05/2020 Influenza Vaccine (Season Ended) [address] 09/26/2024 09/26/2023 Diabetes Screening 10/03/2026 10/03/2023, 0 10/02/2023, 10/01/2023, Additional history exists Lipid Screening 09/27/2028 09/27/2023 Adult Tetanus Booster 11/24/2032 11/24/2022 Procedures Procedure Name Priority Date/Time Associated Diagnosis Comments BASIC METAB PROFILE Routine 10/03/2023 8 :17 AM CALENDER ROLL OPERATOR LIPID PROFILE CASCADE Add On 09/27/2023 8:18 AM CALENDER ROLL OPERATOR CT CHEST PULMONARY ANGIO Routine 09/26/2023 5:13 PM CALENDER ROLL OPERATOR from Last 3 Months or Most Recently Relevant to Health Maintenance Results * (ABNORMAL) Basic Metab Profile (10/03/2023 8:17 AM CALENDER ROLL OPERATOR) Sodium 137 136 - 145 mmol/L 10/03/2023 8:58 AM [facility] Potassium 4.2 3.4 - 5.1 mmol/L 10/03/2023 8:58 AM [facility] Chloride 107 98 - 108 mmol/L 10/03/2023 8:58 AM [facility] Carbon Dioxide 23 20 - 31 mmol/L 10/03/2023 8:58 AM [facility] BUN (Urea Nitro) 21 9 - 23 mg/dL 10/03/2023 8:58 AM [facility] Creatinine 1.38(H) 0.73 - 1.18 mg/dL 10/03/2023 8:58 AM [facility] Est GFR (CKD-EPI) 57.82(L) >60.00 mL/min/1. 73m2 10/03/2023 8:58 AM [facility] Comment:Calculation based on the Chronic Kidney Disease Epidemiology Collaboration (CKD-EPI) equation refit without adjustment for race. Glucose 97 74 - 106 mg/dL 10/03/2023 8:58 AM [facility] Calcium, Serum 9.4 8.7 - 10.4 mg/dL 10/03/2023 8:58 AM [facility] Anion Gap 7.0 0.0 - 15.0 mmol/L 10/03/2023 8:58 AM [facility] Blood Venipuncture / Unknown 10/03/2023 8:17 AM CALENDER ROLL OPERATOR 10/03/2023 8:27 AM CALENDER ROLL OPERATOR Pastor Burch MD CHEMISTRY ORDERABLE [facility] [address] [place] [address] * (ABNORMAL) Lipid Profile [place] (09/27/2023 8:18 AM [facility]) SPECIMEN TYPE 09/27/2023 2:26 PM [facility] CHOLESTEROL 144 <200 mg/dL 09/27/2023 2:26 PM [facility] Triglycerides Profile 123 <150 mg/dL 09/27/2023 2:26 PM [facility] LDL CHOL, CALC 81 <100 mg/dL 09/27/2023 2:26 PM [facility] HDL CHOLESTEROL 38(L) >=40 mg/dL 2:26 PM [facility] CHOL/HDL RATIO 3.8 0.0 - 4.9 09/27/2023 2:26 PM [facility] Blood Venipuncture / Unknown 09/27/2023 8:18 AM CALENDER ROLL OPERATOR 09/27/2023 8:38 AM CALENDER ROLL OPERATOR Narrative [facility] - 09/27/2023 2:26 PM [facility] LDL CHOLESTEROL REFERENCE RANGES: (FOR PATIENTS W/O HEART DISEASE) <100 mg/dL = Optimal 100-129 mg/dL = Near/Above Optimal 130-159 mg/dL = Borderline High 160-189 mg/dL = High >/= 190 mg/dL = Very High Pastor Burch MD CHEMISTRY ORDERABLE [facility] [address] [place] [id number] * CT Chest Pulmonary Angio (09/26/2023 5:13 PM CALENDER ROLL OPERATOR) Anatomical Region Laterality Modality Chest Computed Tomogra phy 09/26/2023 5:18 PM CALENDER ROLL OPERATOR Impressions 09/26/2023 5:21 PM CALENDER ROLL OPERATOR IMPRESSION: 1. ??No pulmonary embolus identified. 2. ??Bilateral lower lobe infiltrates left greater than right. 3. ??Postoperative free air in the upper abdomen. REPORT SIGNED BY DR. Fabio Wesley Narrative 09/26/2023 5:21 PM CALENDER ROLL OPERATOR EXAM: CT CHEST PULMONARY ANGIO DATE: 09/26/2023 [...] Advance Directives For more information, please contact: [phone] * Full Code (Latest Code Status on File) Date Activated Date Inactivated Comments 09/26/2023 10:38 AM 10/03/2023 9:03 PM Question Answer Comments How was code status determined? Patient Care Teams Otr Flatbed Driver Relationship Specialty Start Date End Date Irvin Lyons MD [address] [facility] [address] PCP - General Family Medicine 05/13/23
--- OUTSIDE RECORDS SUMMARY | 2024-01-11 20:10 | XMS_ITS | Clinical Summary ---
Author Name Unknown Organization [employer] Address [place], [place] [address] Care Team Providers Care Counselor Supervisor Name Role Phone Isabella Raza Primary Care Provider Allergies No known active allergies Medications Medication Sig Dispensed Refills Start Date End Date Status apixaban (ELIQUIS) 5 mg tabletIndications: Chronic atrial fibrillation (HC) Take 1 Tablet (5 mg) by mouth two times daily. 180 Tablet 1 10/31/2023 Active losartan (COZAAR) 25 mg tabletIndications: HFrEF (heart failure with reduced ejection fraction) (HC) Take 0.5 Tablets (12.5 mg) by mouth once daily. 30 Tablet 5 11/22/2023 Active amiodarone (CORDARONE) 200 mg tabletIndications: Atrial fibrillation, unspecified type (HC) Take 1 Tablet (200 mg) by mouth once daily. Take amiodarone 400 mg (2 tablets) 2 times daily. On 12/19/23 decrease to 200 mg (1 tablet) 2 times daily. On 01/02/24 decrease amiodarone to 200 mg (1 tablet) once daily and continue on this dose. 63 Tablet 3 12/12/2023 Active metoprolol succinate (TOPROL XL) 25 mg Sustained-Release tabletIndications: HFrEF (heart failure with reduced ejection fraction) (HC),Atrial fibrillation, unspecified type (HC),Primary hypertension Take 1 Tablet (25 mg) by mouth once daily. 90 Tablet 3 12/16/2023 Active dapagliflozin propanediol (Farxiga) 5 mg tabletIndications: HFrEF (heart failure with reduced ejection fraction) (HC) Take 2 Tablets (10 mg) by mouth once daily. 180 Tablet 3 12/16/2023 Active digoxin (LANOXIN) 125 mcg (0.125 mg) tablet Take by mouth once daily. 10/04/2023 4 Discontinued (*IP Discontinued ) metoprolol succinate (TOPROL XL) 100 mg Sustained-Release tabletIndications: Atrial fibrillation, unspecified type (HC),HFrEF (heart failure with reduced ejection fraction) (HC),HTN (hypertension) Take 0.5 Tablets (50 mg) by mouth once daily. 90 Tablet 12/12/2023 4 Discontinued (*Medication adjustment) amoxicillin-clavul anate 875-125 mg tablet (AUGMENTIN)Indicat ions:Recurrent boils Take 1 Tablet by mouth two times daily with meals for 10 days. 20 Tablet 12/26/2023 4 Active Problems Problem Noted Date Diagnosed Date HTN (hypertension) 10/24/2023 Colon polyp 10/24/2023 Vitamin D deficiency 10/24/2023 H/O acute pancreatitis 10/24/2023 History of DVT (deep vein thrombosis) 10/24/2023 Prediabetes 10/24/2023 Tobacco dependence 10/24/2023 Overview: Quit in August 2023 Elevated serum creatinine 10/02/2023 Chronic atrial fibrillation 09/29/2023 HFrEF (heart failure with reduced ejection fract ion) 09/29/2023 NOÉ (obstructive sleep apnea) 09/29/2023 Prostate cancer 06/13/2023 Overview: [place] 3+4 from left apex and 3+3 in other sites. Encounters Date Type Department Care Team Description 01/11/2024 9:00 AM CDT Orders Only [facility] [address] [facility] [place] [address] 1 scan: (1-Ord) ECHO TTE LIMITED WO CONTRAST W COLOR W LTD DOPPLER ([id number]) 01/11/2024 Travel 01/05/[address] [facility] [address] [place] [address] [address] [place] [address] Rosa Suarez NP Results (Zio ) 01/03/[address] [address] Isabella Raza, Follow Up 12/27/2023 9:25 AM CDT Telemedicine [facility] [address] [place] [phone] Martha Lima PA Arrhythmia (Virtual- no vitals taken) 12/27/[address] [facility] [place] [address] [place] [address] [address] [place] [phone] Rosa Suarez NP Medication Management 12/26/2023 11:30 AM CDT Office Visit [address] [address] Leonid Hernandez MD Consult (Recurrent boil on top of buttocks. Bumped into cactus and that may have caused the issue) 12/26/2023 Travel 12/19/2023 Telephone [facility] [address] [place] [address] Ronni Verdugo MD schedule sleep study at hospital 12/16/2023 1:40 PM CDT Office Visit [address] [address] Isabella Raza, Hospital F/U (Heart issues, cardioversion 12/12/23); Sleep Problem (Discuss sleep study) 12/16/2023 9:30 AM CDT Office Visit [facility] [address] [facility] [address] [place] [phone] Rosa Suarez NP Follow Up; Consult (initial champ ref by mark, labs prior, ekg prior, cardioversion 12/11. Pt states feeling good, had a headache start last night and today - worried about blood thinners. No cardiac symptoms at this time.) 12/16/[address] [address] Ry, Isabella Orozco, Referral 12/16/2023 Orders Only [facility] [address] [facility] [address] [place] [address] Rosa Suarez NP <No scans attached> 12/16/2023 Travel 12/12/2023 12:58 PM CDT Anesthesia Event [facility] [address] [place] [address] Miki Vasquez MD Leech, Jeffrey Alan II, NOY 12/12/2023 10:12 AM CDT - 12/12/2023 3:30 PM CDT Hospital Encounter [facility] [address] [place] [address] Shane Zamora MD Atrial fibrillation, unspecified type (HC); HFrEF (heart failure with reduced ejection fraction) (HC); HTN (hypertension) Discharge Disposition: Home Self Care 12/12/2023 Orders Only [facility] [address] [place] [address] Carol Allred PA <No scans attached> 12/12/2023 Travel 12/06/2023 10:50 AM CDT Orders Only [address] [address] [facility] 12/06/2023 Travel 12/05/2023 Orders Only [facility] [address] [place] [address] [facility] <No scans attached> 12/05/2023 Telephone [facility] [address] [place] [address] Shane Zamora MD Lab 12/02/2023 Telephone [facility] [address] [place] [address] Cardiology, Anw Cardiology Appointment 11/25/2023 Telephone [facility] [address] [place] [address] Clinic, [place] Referral ([facility] referral) 11/24/[address] [address] Isabella Raza DO Questions (call back) 11/22/2023 1:50 PM CDT Orders Only [address] [phone] Lab, [facility] 11/22/2023 11:00 AM CDT Office Visit [facility] [address] [address] Shane Zamora MD Telehealth; Consult (HFrEF; Afib) 11/22/2023 Telephone [facility] [address] [address] Shane Zamora MD Results 11/22/2023 Telephone [facility] [address] [address] Shane Zamora MD Form 11/22/[address] [address] Isabella Raza DO Occ Med (Needs disability paperwork?) 11/22/2023 Travel 11/17/2023 11:18 AM CDT - 11/17/2023 11:59 PM CDT Hospital Encounter [facility] [id number] [place] [address] Isabella Raza DO HFrEF (heart failure with reduced ejection fraction) (HC) 11/17/2023 Travel 11/03/2023 9:50 AM RETAIL PHARMACY TECHNICIAN Nurse/Clinic Staff Only [address] [address] Device Check (HST drop off - [place] ) 11/03/2023 Procedure Only [address] [address] Ronni Verdugo MD Results (HST) 11/02/2023 1:30 PM RETAIL PHARMACY TECHNICIAN Nurse/Clinic Staff Only [address] [place] [address] Device Check (HSt mechanical supervisor - [place] ) 11/02/2023 Travel 10/31/[address] [place] [address] Isabella Raza DO Letter For Work (form) 10/31/[address] [place] [address] Isabella Raza DO Refill Request (ELIQUIS) 10/25/[address] [place] [address] Isabella Raza DO Form 10/24/2023 1:50 PM RETAIL PHARMACY TECHNICIAN Nurse/Clinic Staff Only [address] [place] [address] Testing (7 Day Zio Patch Application, Isabella Raza DO) 10/24/2023 11:30 AM RETAIL PHARMACY TECHNICIAN Office Visit [address] [place] [address] Isabella Raza DO Heart Problem 10/24/2023 Travel 10/21/2023 Orders Only [facility] Scanner 1 scan: (1-Ord) INCOMING RECORDS-SLEEP STUDY, [facility], 10/21/2023 10/21/2023 Orders Only [facility] Scanner 1 scan: (1-Ord) INCOMING RECORDS-AUDIOGRAM, [facility], 10/21/2023 10/21/2023 Orders Only [facility] Scanner 1 scan: (1-Ord) INCOMING RECORDS-EKG, [facility], 10/21/2023 10/21/2023 Orders Only [facility] Scanner 1 scan: (1-Ord) INCOMING RECORDS-LABS, [facility], 10/21/2023 from Last 3 Months Immunizations Name Administration Dates Next Due Tdap 11/24/2022 Zoster (Shingrix-RZV, recombinant) 11/24/2022 Family History Medical History Relation Name Comments Cancer-colon Father Diabetes Father Relation Name Status Comments Father Social History Tobacco Use Types Packs/Day Years Used Date Smoking Tobacco: Former Cigarettes Q uit: 09/24/2023 Passive Smoke Exposure: Past Smokeless Tobacco: Never Tobacco Cessation:Counseling Given: Not Answered Alcohol Use Standard Drinks/Week Comments Not Currently 0 (1 standard drink = 0.6 oz pur e alcohol) Social Connections Answer Date Recorded Frequency of Communication with Friends and Fami ly Not on file 10/24/2023 Sex and Gender Information Value Date Recorded Sex Assigned at Not on file Gender Identity Not on file Sexual Orientation Not on file Obstetrics History Last Filed Vital Signs Vital Sign Reading Time Taken Comments Blood Pressure 98/58 12/26/2023 11:17 AM CDT Pulse 55 12/26/2023 11:17 AM CDT Temperature 36.4 ??C (97.5 ??F) 12/12/2023 2:04 PM CD T Respiratory Rate 16 12/16/2023 2:03 PM CDT Oxygen Saturation 96% 12/26/2023 11:17 AM CDT Inhaled Oxygen Concentration - - Weight 123.4 kg (272 lb) 12/26/2023 11:17 AM CDT Height 190.5 cm (6' 3) 12/16/2023 9:40 AM CDT Body Mass Index 34 12/16/2023 9:40 AM CDT Plan of Treatment Upcoming Encounters Date Type Department Care Team (Late st Contact Info) Description 01/13/2024 1:00 PM CDT Office Visit [facility] [address] [place] [address] Isabella Raza DO [address] [place] [address] 01/16/2024 11:30 AM CDT Office Visit [facility] [address] [place] [address] Ronni Verdugo MD [address] [place] [address] 01/18/2024 10:30 AM CDT Office Visit [facility] [address] [facility] [address] [place] [phone] Rosa Suarez, ADVISORY SERVICES ASSOCIATE [address] [place] [address] 01/27/2024 10:30 AM CDT Office Visit [facility] [address] [place] [address] Leonid Hernandez MD [address] [place], [place] [phone] Health Maintenance Due Date Last Done Comments Pneumococcal series for age 6-64 (1 of 2 - PCV) 1967 Depression screening for age 12+ 1973 HIV for age 15-65 1976 Hepatitis C screening for age 18-79 1979 Colonoscopy through age 75 2006 Lipids for age 45-75 2006 COVID-19 vaccine series (3 - Pfizer risk series) 01/23/2021 12/26/2020, 12/05/2020 Zoster (shingles) series for age 50+ (2 of 2) 01/19/2023 11/24/2022 Influenza for age 50-64 04/29/2024 BMI (ht and wt on same day) for age 18+ 12/15/2024 0 12/16/2023, 11/02/2023 Tetanus booster 11/24/2032 11/24/2022 Tdap Completed 11/24/2022 Procedures Procedure Name Priority Date/Time Associated Diagnosis Comments ECHO TTE LIMITED WO CONTRAST W COLOR W LTD DOPPLER Routine 01/11/2024 9:39 AM CDT HFrEF (heart failure with reduced ejection fraction) (HC) EXTENDED HOLTER Routine 01/06/2024 8:35 AM CDT Atrial fibrillation, unspecified type (HC) EKG 12 LEAD Today 12/16/2023 9:31 AM CDT Routine general medical examination at a health care facility CT CARDIAC CORONARY ARTERIES DUAL READ Routine 12/12/2023 3:12 PM CDT HFrEF (heart failure with reduced ejection fraction) (HC) Atrial fibrillation, unspecified type (HC) ECHO ZHANE WO CONTRAST W COLOR Routine 12/12/2023 1:15 PM CDT Atrial fibrillation, unspecified type (HC) EKG 12 LEAD Post Op 12/12/2023 1:06 PM CDT POTASSIUM,ISTAT Timed 12/12/2023 11:07 AM CDT EKG 12 LEAD Preop 12/12/2023 10:29 AM CDT SCAN-CARDIAC STRIP 12/12/2023 12 :00 AM CDT PRO-BNP Routine 12/06/2023 10:52 AM CDT HFrEF (heart failure with reduced ejection fraction) (HC) BASIC METABOLIC PANEL Routine 12/06/2023 10:52 AM CDT HFrEF (heart failure with reduced ejection fraction) (HC) PRO-BNP Routine 11/22/2023 12:54 PM CDT HFrEF (heart failure with reduced ejection fraction) (HC) T4,FREE Routine 11/22/2023 12:54 PM CDT HFrEF (heart failure with reduced ejection fraction) (HC) TSH Routine 11/22/2023 12:54 PM CDT HFrEF (heart failure with reduced ejection fraction) (HC) BASIC METABOLIC PANEL Routine 11/22/2023 12:54 PM CDT HFrEF (heart failure with reduced ejection fraction) (HC) ECHO TTE COMPLETE W CONTRAST Routine 11/17/2023 12:33 PM CDT HFrEF (heart failure with reduced ejection fraction) (HC) EXTENDED HOLTER Routine 11/08/2023 Atrial fibrillation, unspecified type (HC) HOME SLEEP STUDY UNATTENDED BY TECH Routine 11/03/2023 11:59 PM RETAIL PHARMACY TECHNICIAN NOÉ (obstructive sleep apnea) BASIC METABOLIC PANEL Routine 10/24/2023 1:50 PM RETAIL PHARMACY TECHNICIAN Elevated serum creatinine SCAN CORRESP-EKG RESULTS 10/21/2023 12:00 AM RETAIL PHARMACY TECHNICIAN SCAN CORRESP-LABORATORY RESULTS 10/21/2023 12:00 AM RETAIL PHARMACY TECHNICIAN SCAN CORRESP-DIAGNOSTICS 10/21/2023 12:00 AM RETAIL PHARMACY TECHNICIAN SCAN CORRESP-DIAGNOSTICS 10/21/2023 12:00 AM RETAIL PHARMACY TECHNICIAN from Last 3 Months Results * ECHO TTE LIMITED WO CONTRAST W COLOR W LTD DOPPLER (01/11/2024 9:39 AM CDT) AORTIC VALVE MEAN PG 4 mmHg EJECTION FRACTION 51 % LVEDD 5.2 cm Anatomical Region Laterality Modality Ultrasound 01/11/2024 9:15 AM CDT Narrative 01/11/2024 10:07 AM CDT ECHOCARDIOGRAM ALEKS URENA ?Accession#: ?? [id number] : ?1960 63 years Study Date: ?? 01/11/2024 9:15:59 AM Gender: M ? BP: ? 110/62 mmHg Height: 191.00 cm ? BSA: ?2.51 m? ? ? Weight: 124.00 kg ? Tech: ? MCK ?Referring MD: CAROL ALLRED Site: ? [facility] Reading Location: Mobile-OP Patient Location: Outpatient. Procedure: Limited 2D , Color Doppler and Limited Spectral Doppler. Indication for study: Heart Failure with reduced EF Cardiac Rhythm: Sinus bradycardia.Study quality: Fair. Imaging limitations: This study was subject to imaging limitations due to body habitus and a prominent lung artifact. Final Impressions: Limited Echocardiogram performed 1. Normal left ventricular size, borderline wall thickness, low normal global systolic function, calculated EF of 51 %. 2. Right ventricular cavity size is normal, global systolic RV function is normal. 3. The aortic valve is trileaflet, and no regurgitation. Comparison Compared to prior exam images and report of 11/17/2023: - The left ventricular function has increased. Chamber Sizes and Function Normal left ventricular size, borderline wall thickness, low normal global systolic function, calculated EF of 51 %. Left atrial size is normal. Right ventricular cavity size is normal, global systolic RV function is normal. RV wall thickness is normal. The pulmonary artery is not well visualized. Valves, RV Pressures and Diastolic Function The aortic valve is trileaflet, and no regurgitation. Masses, Effusion, Shunts There is no pericardial effusion. The inferior vena cava is normal sized, respiratory size variation greater than 50%. MEASUREMENTS AND CALCULATIONS 2-D Measurements and LV Function: LVID (d) 5.2 cm Planimetered EF 51 % LVID (s) 3.9 cm LV FS% (2D) ? 24 % IVS (d) ??1.2 cm LVOT diameter ?? 2.5 cm LVPW (d) 1.3 cm HR ?43 bpm Ao Sinus 4.1 cm LA Vol index ?24 ml/m2 Asc Ao ?? 4.1 cm LA ? 4.6 cm Diastology: Mitral E Peak 0.49 m/s A Peak 0.73 m/s E/A ?0.7 DT ? 274 msec Aortic Valve: Vmax ? 1.4 m/s ??GILLES (V) ?? 3.44 cm? ? ? VTI ?0.33 m ?? GILLES (I) ?? 3.20 cm? ? ? LVOT V max 1.0 m/s ??Max PG ?7 mmHg LVOT VTI ?? 0.22 m ?? Mean PG ?? 4 mmHg SV ? 106 ml ?? Dim Index 0.65 SV index ?? 42 ml/m? ? ? CO ?4.6 l/min ?CI ?1.8 l/min/m? ? ? Mitral Valve: MVA ?2.8 cm? ? ? MV P 1/2 79 msec . This study was interpreted by an [facility] accredited facility. ??Final ?? Procedure Note Irvin Espana MD - 01/11/2024 ECHOCARDIOGRAM ALEKS URENA : 1960 63 years Study Date: 01/11/2024 9:15:59 AM Gender: M BP: 110/62 mmHg Height: 191.00 cm BSA: 2.51 m? ? ? Weight: 124.00 kg Tech: [facility] Referring MD: CAROL ALLRED Site: [facility] Reading Location: Mobile-OP Patient Location: Outpatient. Procedure: Limited 2D , Color Doppler and Limited Spectral Doppler. Indication for study: Heart Failure with reduced EF Cardiac Rhythm: Sinus bradycardia.Study quality: Fair. Imaging limitations: This study was subject to imaging limitations due tobody habitus and a prominent lung artifact. Final Impressions: Limited Echocardiogram performed 1. Normal left ventricular size, borderline wall thickness, low normalglobal systolic function, calculated EF of 51 %. 2. Right ventricular cavity size is normal, global systolic RV functionis normal. 3. The aortic valve is trileaflet, and no regurgitation. Comparison Compared to prior exam images and report of 11/17/2023: - The left ventricular function has increased. Chamber Sizes and Function Normal left ventricular size, borderline wall thickness, low normal globalsystolic function, calculated EF of 51 %. Left atrial size is normal.Right ventricular cavity size is normal, global systolic RV function isnormal. RV wall thickness is normal. The pulmonary artery is not wellvisualized. Valves, RV Pressures and Diastolic Function The aortic valve is trileaflet, and no regurgitation. Masses, Effusion, Shunts There is no pericardial effusion. The inferior vena cava is normal sized,respiratory size variation greater than 50%. MEASUREMENTS AND CALCULATIONS 2-D Measurements and LV Function: LVID (d) 5.2 cm Planimetered EF 51 % LVID (s) 3.9 cm LV FS% (2D) 24 % IVS (d) 1.2 cm LVOT diameter 2.5 cm LVPW (d) 1.3 cm HR 43 bpm Ao Sinus 4.1 cm LA Vol index 24 ml/m2 Asc Ao 4.1 cm LA 4.6 cm Diastology: Mitral E Peak 0.49 m/s A Peak 0.73 m/s E/A 0.7 DT 274 msec Aortic Valve: Vmax 1.4 m/s GILLES (V) 3.44 cm? ? ? VTI 0.33 m GILLES (I) 3.20 cm? ? ? LVOT V max 1.0 m/s Max PG 7 mmHg LVOT VTI 0.22 m Mean PG 4 mmHg SV 106 ml Dim Index 0.65 SV index 42 ml/m? ? ? CO 4.6 l/min CI 1.8 l/min/m? ? ? Mitral Valve: MVA 2.8 cm? ? ? MV P 1/2 79 msec . This study was interpreted by an [facility] accredited facility. Final Carol CARMONA ECHO ORD * ZIO PATCH XT - weekly to monthly symptoms. (01/06/2024 8:35 AM CDT) Rosa Suarez NP CARDIAC SERVICES O RD * EKG 12 LEAD (12/16/2023 9:31 AM CDT) Only the most recent of3 resultswithin the time period is included. Interpretation Marked sinus bradycardia T wave abnormality, consider anterolateral ischemia Abnormal ECG When compared with ECG of 12-DEC-2023 13:06, Nonspecific T wave abnormality no longer evident in Inferior leads T wave inversion more evident in Lateral leads Ventricular Rate 43 BPM Atrial Rate 43 BPM P-R Interval 174 ms QRS Duration 100 ms QT 538 ms QTc 454 ms P [place] 42 degrees R [place] 82 degrees T [place] 113 degrees 12/16/2023 9:31 AM CDT 12/27/2023 10:43 AM CDT Rosa Suarez ADVISORY SERVICES ASSOCIATE EKG ORD * CT CARDIAC CORONARY ARTERIES DUAL READ (12/12/2023 3:12 PM CDT) Anatomical Region Laterality Modality HEART Computed Tomogra phy 12/12/2023 3:16 PM CDT Impressions 12/14/2023 3:16 PM CDT 1. ??Please see dedicated cardiac imaging report 2. ??No acute or suspicious extracardiac imaging abnormality. Narrative 12/14/2023 3:16 PM CDT ?[facility] ? Cardiac CT Report ??MRN: ?[id number] ?Name: ? ALEKS URENA ?: ?Scan Date: ?Accession Number: ?[id number] ?Status: ?Final ? Electronically signed by Allison Osullivan 15:51:19 VITALS HEIGHT: 75 in ?(190 cm) WEIGHT: 264 lbs ?(120 kgs) BSA: 2.47 m^2 BMI: 33 kg/m^2 BP: 90 / 63 mmHg BASELINE HR: 60 BPM HEART RHYTHM: PACs FINAL IMPRESSION 1. Normal epicardial coronary arteries without atherosclerosis, stenosis, or anomaly. 2. Coronary calcium score is 0. 3. Dilated aortic root at 4.2 cm maximum diameter (cusp to cusp). No evidence of epicardial coronary artery disease to explain recent finding of biventricular systolic dysfunction. Please see radiology section at end of report for noncardiac findings. RECOMMENDATIONS: Consider potential noncoronary causes of patient? s symptoms. STUDY QUALITY: Study quality is adequate. Misalignment artifact(s) due to patient breathing noted. CAD-RADS: CAD-RADS Classification 0 (0% stenosis). CALCIUM SCORING: Total coronary artery calcium score 0. DOMINANCE: Right dominant coronary artery system. LM: The LM is normal. LAD: The LAD is normal. D1: The first diagonal is normal. D2: The second diagonal is normal. D3: The third diagonal is normal. RAMUS: The ramus is normal. LCX: The LCx is normal. OM1: The first obtuse marginal is normal. OM2: The second obtuse marginal is normal. LEFT PLB: The left posterolateral branch is normal. RCA: The RCA is normal. RIGHT PDA: The right PDA is normal. RIGHT PLB: The right posterolateral branch is normal. OTHER FINDINGS: Thoracic aorta: ??Aortic sinus maximum cusp-cusp: 42 x 40 x 37 mm and area of 11.4 cm2. ??Ascending aorta maximum diameters: 33 x 32 mm and area of 8.4 cm2. ??Descending thoracic aorta maximum diameters: 25 x 26 mm. Pericardium: No effusion. Left atrium: Incomplete ANDREA opacification (no delayed acquisition was performed). Atrial septum: No evidence of shunt. Pulmonary veins: Normal anatomy. CALCIUM SCORING TABLE . . ? Number of Lesions Pattern of Calcium Volume Total Score +-------+ + +--------+ + LM ? 0 ? 0 LAD ? 0 ? 0 LCx ? 0 ? 0 RCA ? 0 ? 0 Ramus ? 0 ? 0 '-------+ + +--------+ ' SCAN INFO TEST TYPE: ??Calcium score, Coronary CT Angiography SCANNER CERTIFIED PEDIATRIC NURSE PRACTITIONER: ??SIEMENS SCANNER MODEL: ??Biogenic Reagents DOSE REDUCTION ALGORITHM: ??Prospective/[id number] PHASE UNITS: ??ms START PHASE: ??280 ms END PHASE: ??400 ms EKG GATED: ??Yes PRE-CONTRAST: ??Yes POST-CONTRAST: ??Yes 3D RECONSTRUCTION: ??Yes GENERAL ?CONTRAST AGENT ?CONTRAST AGENT USED?: ??Yes ?TYPE: ??Omnipaque 350 ?DOSE: ??135 ml ?RATE: ??8 ml/s ?ROUTE: ??IV ?ARM: ??Right ?BOLUS TECHNIQUE: ??Biphasic ?SERUM CREATININE: ??1.27 mg/dL ?CREATININE DATE: ??2023- ?CT CONTRAST REACTION: ??None ?MEDICATION ADMINISTERED DURING SCAN ?TYPE: ??Nitroglycerin, sublingual ?NITROGLYCERIN, TOTAL DOSE: ??0.8 mg ?RADIATION DOSE ?DLP: ??240 ?KV: ??110 ?SETUP ?PATIENT TYPE: ??Outpatient ?REASON(S) FOR SCAN: ??Other... ?OTHER, SPECIFY:: ??HF, afib ?REFERRING PHYSICIAN: ??SHANE ZAMORA ?ATTENDING PHYSICIAN: ??SHANE ZAMORA ?TECHNOLOGIST: ??Livier Aponte BILLING Patient Account ?[id number] ICD10 Codes ?I50.20, I48.91 Report generated by doo, a product of [employer] OVER READ OVER READ OVER READ OVER READ CARDIAC CTA RADIOLOGY REPORT (NONCARDIAC STRUCTURES) TECHNIQUE CT evaluation of the extracardiac structures. Please see the dedicated cardiac imaging report. COMPARISON: No comparison. FINDINGS Mediastinal structures: No suspicious adenopathy. Aorta: ??No signs for dissection for acute aortic syndrome. Pulmonary arteries: Bolus timing limits evaluation. Lungs and pleura: No suspicious nodules, acute consolidation or pleural fluid. Miscellaneous: Benign granulomatous mediastinal lymph node calcification. Shane Zamora MD CT * ECHO ZHANE WO CONTRAST W COLOR (12/12/2023 1:15 PM CDT) EJECTION FRACTION 20 - 25% Anatomical Region Laterality Modality Ultrasound 12/12/2023 10:1 5 AM CDT Narrative 12/12/2023 1:26 PM CDT TRANSESOPHAGEAL ECHOCARDIOGRAM ALEKS URENA ?Accession#: ?? [id number] : ?1960 63 years Study Date: ?? 12/12/2023 10:15:46 AM Gender: M ? BP: ? 99/77 mmHg Height: 190.50 cm ? BSA: ?2.46 m? ? ? Weight: 119.01 kg ? Tech: ? Dr. Zacarias ?Referring MD: SHANE ZAMORA Site: ? [facility] Reading Location: [facility] ZHANE Patient Location: Outpatient. Procedure: ZHANE and Color Doppler. Indication for study: DCCV Cardiac Rhythm: Atrial fibrillation.Study quality: Final Impressions: 1. Mildly increased left ventricular size, severe decreased global systolic function with an estimated EF of 20 - 25%. 2. Right ventricular cavity size is enlarged, global systolic RV function is moderately reduced. 3. Severe biatrial enlargement. 4. No intracardiac thrombus identified. 5. No significant valve disease detected. Procedure comments: Indications, goals, risks and alternatives of the procedure were discussed with the patient and informed consent was obtained. The patient received sedation of intravenous Propofol . See procedural record for anesthesia details. Prior to performance of procedure, time out was called to accurately identify the patient and procedure. The Delta probe was passed without difficulty. ZHANE and Color Doppler was performed. The patient developed no apparent complications during the procedure. Estimated Blood Loss: 0 ml Chamber Sizes and Function Mildly increased left ventricular size, severe decreased global systolic function with an estimated EF of 20 - 25%. Left atrial size is severely enlarged. The left atrial appendage is well visualized and there is evidence of significant smoke. Not well visualized left atrial appendage flow velocities. Right ventricular cavity size is mildly enlarged, global systolic RV function is moderately reduced. The right atrium is severely enlarged. The pulmonary artery is not well visualized. The sinus of Valsalva is normal sized. The ascending aorta is normal sized. Aortic arch is normal sized with no significant plaque visualized. Descending aorta is normal sized with no significant plaque visualized. Valves, RV Pressures and Diastolic Function The aortic valve is normal in structure and trileaflet, no stenosis and no regurgitation. The mitral valve is normal in structure, trace mitral regurgitation. The tricuspid valve is normal in structure. Tricuspid regurgitation is trace regurgitation. The pulmonic valve is normal. Trace pulmonary regurgitation. Masses, Effusion, Shunts There is no pericardial effusion. Atrial septum is intact. Agitated saline injection not done. MEASUREMENTS AND CALCULATIONS 2-D Measurements and LV Function: HR 127 bpm . This study was interpreted by an [facility] accredited facility. ??Final ?? Procedure Note Lance Zacarias MD - 12/12/2023 TRANSESOPHAGEAL ECHOCARDIOGRAM ALEKS URENA : 1960 63 years Study Date: 12/12/2023 10:15:46 AM Gender: M BP: 99/77 mmHg Height: 190.50 cm BSA: 2.46 m? ? ? Weight: 119.01 kg Tech: Dr. Rell Harmon MD: SHANE ZAMORA Site: [facility] Reading Location: [facility] Patient Location: Outpatient. Procedure: ZHANE and Color Doppler. Indication for study: DCCV Cardiac Rhythm: Atrial fibrillation.Study quality: Final Impressions: 1. Mildly increased left ventricular size, severe decreased globalsystolic function with an estimated EF of 20 - 25%. 2. Right ventricular cavity size is enlarged, global systolic RV functionis moderately reduced. 3. Severe biatrial enlargement. 4. No intracardiac thrombus identified. 5. No significant valve disease detected. Procedure comments: Indications, goals, risks and alternatives of theprocedure were discussed with the patient and informed consent wasobtained. The patient received sedation of intravenous Propofol . Seeprocedural record for anesthesia details. Prior to performance ofprocedure, time out was called to accurately identify the patient andprocedure. The Delta probe was passed without difficulty. ZHANE and ColorDoppler was performed. The patient developed no apparent complicationsduring the procedure. Estimated Blood Loss: 0 ml Chamber Sizes and Function Mildly increased left ventricular size, severe decreased global systolicfunction with an estimated EF of 20 - 25%. Left atrial size is severelyenlarged. The left atrial appendage is well visualized and there isevidence of significant smoke. Not well visualized left atrial appendageflow velocities. Right ventricular cavity size is mildly enlarged, globalsystolic RV function is moderately reduced. The right atrium is severelyenlarged. The pulmonary artery is not well visualized. The sinus ofValsalva is normal sized. The ascending aorta is normal sized. Aortic archis normal sized with no significant plaque visualized. Descending aorta isnormal sized with no significant plaque visualized. Valves, RV Pressures and Diastolic Function The aortic valve is normal in structure and trileaflet, no stenosis and noregurgitation. The mitral valve is normal in structure, trace mitralregurgitation. The tricuspid valve is normal in structure. Tricuspidregurgitation is trace regurgitation. The pulmonic valve is normal. Tracepulmonary regurgitation. Masses, Effusion, Shunts There is no pericardial effusion. Atrial septum is intact. Agitated salineinjection not done. MEASUREMENTS AND CALCULATIONS 2-D Measurements and LV Function: HR 127 bpm . This study was interpreted by an [facility] accredited facility. Final Shane Zamora MD ECHO ORD * POTASSIUM,ISTAT (12/12/2023 11:07 AM CDT) Pathologist [facility] POTASSIUM, POCT 4.5 3.5 - 5.0 mmol/L 12/12/2023 3:12 PM CDT [facility] Blood BLOOD SPECIMEN / Unknown 12/12/2023 11:07 AM CDT 12/12/2023 3:12 PM CDT Shane Zamora MD CHEMISTRY [facility] [address] [place] [address], * SCAN-CARDIAC STRIP (12/12/2023 12:00 AM CDT) Narrative 12/12/2023 12:00 AM CDT Ordered by an unspecified provider. Other Clinical Staff OTHER * (ABNORMAL) PRO-BNP (12/06/2023 10:52 AM CDT) Only the most recent of2 resultswithin the time period is included. PRO-BNP 947(H) <125 pg/mL 12/06/2023 12:04 PM CDT [facility] Blood BLOOD SPECIMEN / Unknown Venipuncture / Unknown 12/06/2023 10:52 AM CDT 12/06/2023 10:52 AM CDT Narrative [facility] - 12/06/2023 12:04 PM CDT The following cut-points have been suggested for the use of proBNP for the diagnostic evaluation of heart failure (HF) in patient with acute dyspnea. Patients with eGFR >= 60 Diagnosis (rule in CHF) ? <50 Years Old ?450 pg/mL 50 - 75 Years Old ?900 pg/mL >75 Years Old ? 1800 pg/mL Exclusion (rule out CHF) Age Independent ?300 pg/mL A cutoff of 1200 pg/mL for patients with an eGFR <60 yields a diagnostic sensitivity of 89% and specificity of 72% for acute congestive heart failure. ? Rosa Suarez ADVISORY SERVICES ASSOCIATE SEND OUTS [facility] [address] [place] [address] * (ABNORMAL) BASIC METABOLIC PANEL (12/06/2023 10:52 AM CDT) Only the most recent of3 resultswithin the time period is included. SODIUM 140 136 - 145 mmol/L 12/06/2023 12:04 PM [facility] POTASSIUM 4.5 3.5 - 5.1 mmol/L 12/06/2023 12:04 PM [facility] CHLORIDE 105 98 - 107 mmol/L 12/06/2023 12:04 PM [facility] CO2,TOTAL 25 22 - 29 mmol/L 12/06/2023 12:04 PM [facility] ANION GAP 10 5 - 18 12/06/2023 12:04 PM [facility] GLUCOSE 83 70 - 99 mg/dL 12/06/2023 12:04 PM [facility] CALCIUM 9.3 8.8 - 10.2 mg/dL 12/06/2023 12:04 PM [facility] BUN 25(H) 8 - 23 mg/dL 12/06/2023 12:04 PM [facility] CREATININE 1.27(H) 0.70 - 1.20 mg/dL 12/06/2023 12:04 PM [facility] BUN/CREAT RATIO 20 10 - 20 12:04 PM [facility] eGFR 64(L) >90 mL/min/1.7 3m2 12/06/2023 12:04 PM [facility] Comment:As of 2021, eG FR is calculated by the CKD-EPI creatinine equation without race adjustment. ??eGFR can be influenced by muscle mass, exercise, and diet. ??The reported eGFR is an estimation only and is only applicable if the renal function is stable. Blood BLOOD SPECIMEN / Unknown Venipuncture / Unknown 12/06/2023 10:52 AM CDT 12/06/2023 10:52 AM CDT Shane Zamora MD CHEMISTRY Performing Organization Address [facility] Co de Phone Number [facility] [address] [place] [address] * TSH (11/22/2023 12:54 PM CDT) TSH 2.67 0.27 - 4.20 uIU/mL 11/22/2023 1:46 PM CDT [facility] Blood BLOOD SPECIMEN / Unknown Venipuncture / Unknown 11/22/2023 12:54 PM CDT 11/22/2023 12:55 PM CDT Narrative [facility] - 11/22/2023 1:46 PM CDT In Adults, TSH values between 5.00 and 10.00 uIU/ml do not necessarily indicate the presence of Hypothyroidism. Correlation with clinical findings such as presence of goiter and/or Thyroperoxidase (TPO) Antibody may be helpful. For more information please refer to HUSSEIN 2004; 291: 228-238. Shane Zamora MD CHEMISTRY Performing Organization Address [facility]/ZIP Co de Phone Number [facility] [address] [place] [address] * T4,FREE (11/22/2023 12:54 PM CDT) T4,FREE 1.15 0.93 - 1.70 ng/dL 11/22/2023 9:47 PM CDT [facility] Blood BLOOD SPECIMEN / Unknown Venipuncture / Unknown 11/22/2023 12:54 PM CDT 11/22/2023 12:55 PM CDT Shane Zamora MD CHEMISTRY [facility] [address] [place] [address], * ECHO TTE COMPLETE W CONTRAST (11/17/2023 12:33 PM CDT) AORTIC VALVE MEAN PG 3 mmHg LVEDD 5.7 cm EJECTION FRACTION 20 - 25% Anatomical Region Laterality Modality Ultrasound, Comp uted Tomography 11/17/2023 11:3 4 AM CDT Narrative 11/17/2023 4:56 PM CDT ECHOCARDIOGRAM ALEKS URENA ?Accession#: ?? [id number] : ?1960 63 years Study Date: ?? 11/17/2023 11:34:00 AM Gender: M ? BP: ? 140/67 mmHg Height: 193.00 cm ? BSA: ?2.49 m? ? ? Weight: 119.01 kg ? Tech: ? NKM ?Referring MD: ISABELLA RAZA Site: ? [facility] Reading Location: [facility] Patient Location: Outpatient. Procedure: 2D w/ Contrast, Color Doppler and Spectral Doppler. Indication for study: HFrEF Cardiac Rhythm: Atrial fibrillation.Study quality: Final Impressions: 1. Mildly increased LV size, mildly increased wall thickness, severely reduced global systolic function with an estimated EF of 20 - 25%. 2. There is severe global left ventricular hypokinesis. 3. Mildly enlarged left atrium. 4. Right ventricular cavity size is mildly enlarged, global systolic RV function is mildly reduced. 5. Echo contrast was administered to enhance visualization of all left ventricular segments. 6. The aortic sinus is dilated with a maximal diameter of 4.3 cm. Comparison Compared to prior exam report of [facility], there has been no significant change. EF was 20-25% on prior echo at [facility]. Chamber Sizes and Function Mildly increased left ventricular size, mildly increased wall thickness, severely reduced global systolic function with an estimated EF of 20 - 25%. There is severe global left ventricular hypokinesis. Left atrial size is mildly enlarged. Right ventricular cavity size is mildly enlarged, global systolic RV function is mildly reduced. The right atrium is moderately enlarged. Right atrial area is 23 cm? ? ?. The pulmonary artery is not well visualized. The sinus of Valsalva is dilated. The ascending aorta is normal sized. Valves, RV Pressures and Diastolic Function The aortic valve is trileaflet, no stenosis and no regurgitation. The mitral valve is normal in structure, no mitral regurgitation. Indeterminate pattern of LV diastolic filling. The tricuspid valve is normal in structure. Tricuspid regurgitation is regurgitation is not evident. The pulmonic valve is normal. Trace pulmonary regurgitation. Masses, Effusion, Shunts There is no pericardial effusion. The inferior vena cava is normal sized, respiratory size variation greater than 50%. No left to right shunting was detected by limited color flow Doppler interrogation of the interatrial septum. MEASUREMENTS AND CALCULATIONS 2-D Measurements and LV Function: LVID (d) 5.7 cm LVOT diameter 2.5 cm IVS (d) ??1.1 cm HR ?97 bpm LVPW (d) 1.2 cm LA Vol index ??41 ml/m2 Ao Sinus 4.3 cm RA area ? 23 cm? ? ? Asc Ao ?? 3.6 cm RV Max 4C (d) 4.8 cm LA ? 4.5 cm Diastology: Mitral E Peak 0.5 m/s Aortic Valve: Vmax ? 1.1 m/s ??GILLES (V) ?? 3.43 cm? ? ? VTI ?0.19 m ?? GILLES (I) ?? 3.07 cm? ? ? LVOT V max 0.8 m/s ??Max PG ?5 mmHg LVOT VTI ?? 0.12 m ?? Mean PG ?? 3 mmHg SV ? 57 ml ?Dim Index 0.62 SV index ?? 23 ml/m? ? ? CO ?5.6 l/min ?CI ?2.2 l/min/m? ? ? Tricuspid Valve and estimated PA pressures: TAPSE 1.5 cm Pulmonic Valve: PV Vmax 0.6 m/s PADP 5 mmHg Contrast documentation: 5.0 ml diluted Definity, lot #[id number] was administered peripherally to enhance visualization of all left ventricular segments. . This study was interpreted by an [facility] accredited facility. ??Final ?? Procedure Note Shane Zamora MD - 11/17/2023 ECHOCARDIOGRAM ALEKS URENA : 1960 63 years Study Date: 11/17/2023 11:34:00 AM Gender: M BP: 140/67 mmHg Height: 193.00 cm BSA: 2.49 m? ? ? Weight: 119.01 kg Tech: ERIC Referring MD: ISABELLA RAZA Site: [facility] Reading Location: [facility] Patient Location: Outpatient. Procedure: 2D w/ Contrast, Color Doppler and Spectral Doppler. Indication for study: HFrEF Cardiac Rhythm: Atrial fibrillation.Study quality: Final Impressions: 1. Mildly increased LV size, mildly increased wall thickness, severelyreduced global systolic function with an estimated EF of 20 - 25%. 2. There is severe global left ventricular hypokinesis. 3. Mildly enlarged left atrium. 4. Right ventricular cavity size is mildly enlarged, global systolic RVfunction is mildly reduced. 5. Echo contrast was administered to enhance visualization of all leftventricular segments. 6. The aortic sinus is dilated with a maximal diameter of 4.3 cm. Comparison Compared to prior exam report of [facility], there has been no significantchange. EF was 20-25% on prior echo at [facility]. Chamber Sizes and Function Mildly increased left ventricular size, mildly increased wall thickness,severely reduced global systolic function with an estimated EF of 20 -25%. There is severe global left ventricular hypokinesis. Left atrial sizeis mildly enlarged. Right ventricular cavity size is mildly enlarged,global systolic RV function is mildly reduced. The right atrium ismoderately enlarged. Right atrial area is 23 cm? ? ?. The pulmonary artery isnot well visualized. The sinus of Valsalva is dilated. The ascending aortais normal sized. Valves, RV Pressures and Diastolic Function The aortic valve is trileaflet, no stenosis and no regurgitation. Themitral valve is normal in structure, no mitral regurgitation.Indeterminate pattern of LV diastolic filling. The tricuspid valve isnormal in structure. Tricuspid regurgitation is regurgitation is notevident. The pulmonic valve is normal. Trace pulmonary regurgitation. Masses, Effusion, Shunts There is no pericardial effusion. The inferior vena cava is normal sized,respiratory size variation greater than 50%. No left to right shunting wasdetected by limited color flow Doppler interrogation of the interatrialseptum. MEASUREMENTS AND CALCULATIONS 2-D Measurements and LV Function: LVID (d) 5.7 cm LVOT diameter 2.5 cm IVS (d) 1.1 cm HR 97 bpm LVPW (d) 1.2 cm LA Vol index 41 ml/m2 Ao Sinus 4.3 cm RA area 23 cm? ? ? Asc Ao 3.6 cm RV Max 4C (d) 4.8 cm LA 4.5 cm Diastology: Mitral E Peak 0.5 m/s Aortic Valve: Vmax 1.1 m/s GILLES (V) 3.43 cm? ? ? VTI 0.19 m GILLES (I) 3.07 cm? ? ? LVOT V max 0.8 m/s Max PG 5 mmHg LVOT VTI 0.12 m Mean PG 3 mmHg SV 57 ml Dim Index 0.62 SV index 23 ml/m? ? ? CO 5.6 l/min CI 2.2 l/min/m? ? ? Tricuspid Valve and estimated PA pressures: TAPSE 1.5 cm Pulmonic Valve: PV Vmax 0.6 m/s PADP 5 mmHg Contrast documentation: 5.0 ml diluted Definity, lot #[id number] wasadministered peripherally to enhance visualization of all left ventricularsegments. . This study was interpreted by an [facility] accredited facility. Final Isabella Raza DO ECHO ORD * ZIO PATCH XT - weekly to monthly symptoms. (11/08/2023) Isabella Raza DO CARDIAC SERVICES ORD * HOME SLEEP STUDY UNATTENDED BY TECH (11/03/2023 11:59 PM RETAIL PHARMACY TECHNICIAN) Narrative Ronni Verdugo MD - 11/03/2023 11:59 PM RETAIL PHARMACY TECHNICIAN Ronni Verdugo MD ? 11/08/2023 ??8:10 PM Home Sleep Test Name: ??Aleks ??Romel Location: ??[facility] Study notes: This is a single night home sleep apnea test. The study is performed in the context of a clinical suspicion for sleep apnea. Aleks ??Romel ( 1960) is studied using a T3 Device using nasal pressure transducer, thoracoabdominal respiratory impedence plethysmography belts, pulse oximetry, snore microphone and actigraphy for body position. ?? The study is scored by a RPSGT and interpreted by a Diplomate of the [employer]. ??Raw summary data is scanned into this report as a separate document. ??An epoch by epoch review of the data has been performed by the interpreting physician. Scored following the AASM Manual for the Scoring of Sleep and Associated Events v 2.6. Respiratory Event Index (FLORIAN) ??Oxygen Desaturation Index (LIANG) REI4% ??14.4 ??ODI4%: ??10.7 Supine FLORIAN: 17.5 ??ODI3%: ??10.7 Lateral FLORIAN: 14.1 ??Maco Saturation 81 % ?? Time Below 88% 179.7 ??minutes ?? Weight: Wt Readings from Last 1 Encounters: 11/02/23 119.2 kg (262 lb 12.8 oz) Other data: Recording Duration: 600.0 minutes Time in Bed: ??596 minutes Estimated sleep efficiency [%]: 96 % Oximeter Quality: 99.6 % Flow Quality: 100.0 % RIP Quality: 100.0 % Supine time: 44.5 minutes Average SpO2: 89.7 % Pulse Average: 68.2 bpm Additional Comments: None IMPRESSION: Obstructive Sleep Apnea (327.23, G47.33) Primary Central Sleep Apnea (327.21, G47.31) RECOMMENDATIONS: - This is mild to moderate sleep apnea. ??There were many central events- they did not appear to be ya myers. - Consider a PSG- hospital based if concerned about central apneas. ??Chest Straps from the HST can be loose and give central events - Follow-up with a provider to discuss results is recommended. - Patients should be advised to avoid critical tasks, such as driving, whenever drowsy. - Patients should try to achieve at least 7-8 hours of sleep on a consistent basis. - The FLORIAN is a surrogate for AHI. ??For reimbursement and/or prior authorization purposes, it would be appropriate to list the FLORIAN as an AHI when the latter is accepted, but not the former. Ronni Verdugo M.D. Diplomate, Board of Sleep Medicine Recording Information Recording Date: 11/02/2023 ??Analysis Start Time: 10:04 PM Recording Tags: ?? Analysis Stop Time: 8:00 AM Device Type: T3S ??Analysis Duration (TRT): 9h 56m ?? Est. Total Sleep Time: 9h 51m Position and Analysis Time Duration Percentage Supine (in TST): 44.5 m 7.5 % Non-Supine (in TST): 547.3 m 92.5 % Upright (in TRT): 4.3 m 0.7 % Movement (in TST): 25.1 m 4.2 % Invalid Data (Excluded): 0 m 0 % Respiratory Indices Index ?? Total ??Supine ??Non-supine Count Apneas + Hypopneas (AH): 14.4 /h 17.5 /h 14.1 /h 142 Apneas: 8.1 /h 17.5 /h 7.3 /h 80 Obstructive (OA): 0.2 /h 0 /h 0.2 /h 2 Mixed (MA): 0.4 /h 1.3 /h 0.3 /h 4 Central (CA): 7.5 /h 16.2 /h 6.8 /h 74 Hypopneas: ??6.3 /h 0 /h 6.8 /h 62 Respiration Rate (per m): 16.1 /m 11.7 /m 16.4 /m ?? Percentage of Sleep Duration Snore: 13.6 % 25.5 % 12.7 % 80.6 m Flow Limitation: 0 % 0 % 0 % 0 m Average Snore Volume 66.6 dB Percent of time greater than 80dB: Percent of 9.2 % Oxygen Saturation (SpO2) Total Supine ?Non-supine Oxygen Desaturation Index (LIANG): 10.7 /h ??1.3 /h 11.5 /h Average SpO2: 89.7 % ??93 % 89.4 % Minimum SpO2: 81 % ??88 % 81 % SpO2 Duration < 90% 52.4 % (310.2m) 0.4 % 56.6 % SpO2 Duration ? 88% 30.4 % (179.7m) 0.1 % 32.8 % Pulse in TST ?? Quality ?? Average: 68.2 bpm Oximeter: 99.6 % Maximum: 97 bpm Nasal Cannula: 100 % Minimum: 37 bpm Abdomen RIP: 100 % Duration < 40 bpm: 0.1 m Thorax RIP: 100 % Duration > 100 bpm: 0 m ? [facility] * SCAN CORRESP-LABORATORY RESULTS (10/21/2023 12:00 AM RETAIL PHARMACY TECHNICIAN) Scanner OTHER * SCAN CORRESP-EKG RESULTS (10/21/2023 12:00 AM RETAIL PHARMACY TECHNICIAN) Scanner OTHER * SCAN CORRESP-DIAGNOSTICS (10/21/2023 12:00 AM RETAIL PHARMACY TECHNICIAN) Scanner OTHER * SCAN CORRESP-DIAGNOSTICS (10/21/2023 12:00 AM RETAIL PHARMACY TECHNICIAN) Scanner OTHER from Last 3 Months Care Teams Counselor Supervisor Relationship Specialty Start Date End Date Isabella Raza DO [address] [place] [address] Ave [place]ARIANA DAY [id number] PCP - General Internal Medicine 10/24/23
--- OUTSIDE RECORDS SUMMARY | 2024-01-11 20:11 | XMS_ITS | Encounter Summary ---
Author Name Unknown Organization [facility] Address [address] [place] [address] Care Team Providers Care Solvent Mixer Name Role Phone Shama Olmstead MD Primary Care Provider + Reason for Referral * (Routine) - Open Specialty Diagnoses / Procedures Referred By Contac t Referred To Contact Alysha Lane PA-C [address] [place] [address] Jose L Cruz MD [address] [facility] [address] [place] [address] Referral ID Status Reason Start Date Expiration Date Visits Re quested Visits Authorized [id number] Open 10/03/2023 1 1 Question Answer Specify time frame for follow up? 1 Week Instructions to follow-up provider postop Comments Follow up with Dr. Cruz next Tuesday, October 10, at 1:20pm at the [facility] for staple and catheter removal. Please call [phone] with any questions or changes. [place] MAINTENANCE TECHNICIAN * (Routine) - Open Specialty Diagnoses / Procedures Referred By Contac t Referred To Contact Procedures Soft Alysha Lane PA-C [address] [place] [address] Referral ID Status Reason Start Date Expiration Date Visits Re quested Visits Authorized [id number] Open 10/03/2023 1 1 [place] MAINTENANCE TECHNICIAN * (Routine) - Open Specialty Diagnoses / Procedures Referred By Contac t Referred To Contact Procedures Change dressing (specify) Alysha Lane PA-C [address] [place] [address] Referral ID Status Reason Start Date Expiration Date Visits Re quested Visits Authorized [id number] Open 10/03/2023 1 1 [place] MAINTENANCE TECHNICIAN * (Routine) - Open Specialty Diagnoses / Procedures Referred By Contac t Referred To Contact Procedures Showering instructions Alysha Lane PA-C [address] [place] [address] Referral ID Status Reason Start Date Expiration Date Visits Re quested Visits Authorized [id number] Open 10/03/2023 1 1 [place] MAINTENANCE TECHNICIAN * (Routine) - Open Specialty Diagnoses / Procedures Referred By Contac t Referred To Contact Procedures No driving Alysha Lane PA-C [address] [place] [address] Referral ID Status Reason Start Date Expiration Date Visits Re quested Visits Authorized [id number] Open 10/03/2023 1 1 [place] MAINTENANCE TECHNICIAN * (Routine) - Open Specialty Diagnoses / Procedures Referred By Contac t Referred To Contact Procedures No strenuous activity Alysha Lane PA-C [address] [place] [address] Referral ID Status Reason Start Date Expiration Date Visits Re quested Visits Authorized [id number] Open 10/03/2023 1 1 [place] MAINTENANCE TECHNICIAN * (Routine) - Open Specialty Diagnoses / Procedures Referred By Contac t Referred To Contact Procedures Discharge Instructions Kerry Lucas MD [address] [place] [address] Referral ID Status Reason Start Date Expiration Date Visits Re quested Visits Authorized [id number] Open 10/03/2023 1 1 [place] MAINTENANCE TECHNICIAN * (Routine) - Open Specialty Diagnoses / Procedures Referred By Contac t Referred To Contact Kerry Lucas MD [address] [place] [place] [address] Shama Olmstead MD [address] [place] [id number] Referral ID Status Reason Start Date Expiration Date Visits Re quested Visits Authorized [id number] Open 10/03/2023 1 1 Question Answer Specify time frame for follow up? 1 Week Instructions to follow-up provider hospital follow up [place] MAINTENANCE TECHNICIAN * (Routine) - Open Specialty Diagnoses / Procedures Referred By Contac t Referred To Contact Procedures Other restrictions Cydney Toney APRN, CRITICAL CARE CNS [address] [facility] [address] [place] [address] Referral ID Status Reason Start Date Expiration Date Visits Re quested Visits Authorized [id number] Open 10/03/2023 1 1 [place] MAINTENANCE TECHNICIAN * (Routine) - Open Specialty Diagnoses / Procedures Referred By Contac t Referred To Contact Cardiology Cydney Toney APRN, CRITICAL CARE CNS [address] [facility] [address] [place] [address] [facility] [address] [facility], [facility] [address] [place] [address] Referral ID Status Reason Start Date Expiration Date Visits Re quested Visits Authorized [id number] Open 10/03/2023 1 1 Question Answer To be seen by: [employer]PA Reason for follow up: CHF Clinic (ACT) Follow up appointment Other: please specify - 4-5 weeks Comments Follow up appointment on 11/02/[address] [facility] on second floor. Check in at 1:20pm Please bring in a list of all current medications and daily weights with you to your follow up appointments. [place] MAINTENANCE TECHNICIAN Reason for Visit * Inpatient Admission (Routine) Specialty Diagnoses / Procedures Referred By Sabine lopez Referred To Contact Diagnoses Malignant neoplasm of prostate (HCC) Malignant neoplasm of prostate (HCC) [C61] Procedures LAP,PROSTATECTOMY,RADICAL,W/NERVE SPARE,INCL ROBOTIC LAP,PELVIC LYMPHADENECTOMY ROBOTIC XI ASSISTED LAPAROSCOPIC RADICAL PROSTATECTOMY, BILATERAL PELVIC LYMPH NODE DISSECTION Referral ID Status Reason Start Date Expiration Date Visits Re quested Visits Authorized [id number] 1 1 Encounter Details Date Type Department Care Team (Latest Contact Info) Description 09/26/2023 5:44 AM RETAIL MAINTENANCE TECHNICIAN - 10/03/2023 2:58 PM RETAIL MAINTENANCE TECHNICIAN Hospital Encounter [id number] [facility] [place] [address] Jose L Cruz MD [address] [facility] [address] [place], [place] [address] Prostate cancer (HCC) Discharge Disposition: Returning Home/Self Care Social History [...] Lesbian or Salcedo 09/26/2023 10 :52 AM RETAIL MAINTENANCE TECHNICIAN documented as of this encounter Last Filed Vital Signs Vital Sign Reading Time Taken Comments Blood Pressure 95/70 10/03/2023 10:37 AM RETAIL MAINTENANCE TECHNICIAN Pulse 49 10/03/2023 8:57 AM RETAIL MAINTENANCE TECHNICIAN Temperature 36.6 ??C (97.8 ??F) 10/03/2023 8:53 AM CS T Respiratory Rate 18 10/03/2023 8:53 AM RETAIL MAINTENANCE TECHNICIAN Oxygen Saturation 94% 10/03/2023 8:53 AM RETAIL MAINTENANCE TECHNICIAN Inhaled Oxygen Concentration - - Weight 118.4 kg (261 lb 1.6 oz) 10/01/2023 6:20 AM RETAIL MAINTENANCE TECHNICIAN Height 190.5 cm (6' 3) 09/22/2023 1:18 PM RETAIL MAINTENANCE TECHNICIAN Body Mass Index 32.64 09/22/2023 1:18 PM RETAIL MAINTENANCE TECHNICIAN documented in this encounter Discharge Summaries * Alysha Lane PA-C - 10/03/2023 2:58 PM CST HOSPITAL DISCHARGE SUMMARY Patient Name: Aleks Moura Date of : 1960 Attending Provider: Jose L Cruz MD Admission Date: 09/26/2023 Discharge Date: 10/03/2023 He will be discharged on 10/03/2023 to home. PRINCIPAL DIAGNOSIS 1. Prostate cancer PROCEDURES PERFORMED DURING HOSPITALIZATION 1. Robot-assisted laparoscopic prostatectomy with bilateral pelvic lymph node dissection BRIEF HOSPITAL COURSE: Pt underwent above surgery without complication. Postoperatively, pt developed respiratory insufficiency and afib with RVR. Hospitalist was consulted. Pt was started on beta-jasmina. Echocardiogram revealed ejection fraction of 26% as well as bilateral atrial enlargement and moderate mitral regurgitation. Cardiology was also consulted who started pt on Eliquis. Pt underwent further evaluation with HANSEL on 09/30 which demonstrated ANDREA thrombus. Pt ultimately was cleared for discharge on 10/03. He will follow up with cardiology in ~4 weeks for repeat echocardiogram. In additional, nephrology was also consulted for elevated creatinine. Plan to recheck BMP in one month. If Cr still elevated, then pt can f/u as outpatient with nephrology. Prior to discharge, pt was ambulating, tolerating diet, and passing flatus. CORINNE drain was removed. Pt was discharged home on 10/03 in stable condition with delatorre to leg bag. LABS: Recent Labs 10/03/23 0817 WBC 11.3* RBC 5.13 HEMOGLOBIN 16.2 HEMATOCRIT 46.7 MCV 91 MCH 32 RDW 13.0 PLATELETCT 248 Recent Labs 10/03/23 0817 SODIUM 137 POTASSIUM 4.2 CHLORIDE 107 CARBONDIOXI 23 ANIONGAP 7.0 GLUCOSE 97 BUNUREANRO 21 CREATININE 1.38* CALCIUMSERUM 9.4 ESTGFRMDRD 57.82* PATHOLOGY: Final Diagnosis A.Prostate, prostatectomy: Milagros 3+4=7 adenocarcinoma, acinar type B. Lymph node, left, NOS biopsy:1 lymph node negative for malignancy C. Lymph node, right, NOS biopsy:1 lymph node negative for malignancy CAP Synoptic Report (v4.3.0.0) Procedure: Radical prostatectomy Histologic Type: Acinar adenocarcinoma, conventional (usual) Histologic Grade Grade group and Amarillo score: Grade group 2 (Amarillo score 3+4=7) Percentage of pattern 4 in Milagros Score 7: 6 - 10% Minor Tertiary Pattern 5 (less than 5%) in overall Amar[place] score 7: Not applicable Intraductal Carcinoma (not incorporated into grade): Not identified Cribriform Glands (Milagros score 7 or 8 cancer only): Not applicable Treatment Effect: No known presurgical therapy Tumor Quantitation Estimated percentage of prostate involved: 11 - 20% Dominant nodule: 9 mm Extraprostatic Extension: Not identified Urinary Bladder Neck Invasion: Cannot be determined Seminal Vesicle Invasion: Not identified Lymphatic and / or Vascular Invasion: Not identified Perineural Invasion: Present Margin Status: Invasive carcinoma present at margin(s); less than 3 mm (limited); location(s) left bladder base Regional Lymph Node Status: 0/2 (number involved/examined) Distant Metastasis: Not applicable Tumor block(s) for molecular/send out tests: A12 Pathologic Stage Classification (AJCC 8th ed): pT2 N 0 DISCHARGE MEDICATIONS Medication List START taking these medications acetaminophen 500 mg tablet Commonly known as: TYLENOL Take 2 tablets (1,000 mg) by mouth every 6 (six) hours as needed for fever or pain. bacitracin 500 unit/gram Oint ointment Apply 1 Application to skin twice a day as needed (for discomfort). cefuroxime 500 mg tablet Commonly known as: CEFTIN Take 1 tablet (500 mg) by mouth once daily. digoxin 125 mcg (0.125 mg) tablet Commonly known as: Lanoxin Take 0.5 tablets (62.5 mcg) by mouth once daily. Eliquis 5 mg tablet Generic drug: apixaban Take 1 tablet (5 mg) by mouth twice a day Indications: Atrial Fibrillation (Non-Valvular). polyethylene glycol 17 gram powder Commonly known as: MIRALAX Take 17 g by mouth once a day as needed for constipation. Mix each dose in 4-8 ounces of liquid as directed. CHANGE how you take these medications metoprolol succinate (XL) 100 mg extended release tablet 24 HR Commonly known as: TOPROL XL Take 1 tablet (100 mg) by mouth twice a day. What changed: medication strength how much to take when to take this Where to Get Your Medications These medications were sent to [address] [address] Hours: Mon-Fri: 7:30AM-6PM / Sat: 9AM-3PM / Sun: 9AM-3PM acetaminophen 500 mg tablet bacitracin 500 unit/gram Oint ointment cefuroxime 500 mg tablet digoxin 125 mcg (0.125 mg) tablet Eliquis 5 mg tablet metoprolol succinate (XL) 100 mg extended release tablet 24 HR polyethylene glycol 17 gram powder DISCHARGE PROCEDURES AND FOLLOW-UP Discharge Procedure Orders Other restrictions Remember the importance of maintaining a low sodium diet, with no more than 2,000 mg daily or 140 mg per serving. Remember to avoid table salt to food and to avoid canned goods, frozen or boxed meals, and processed meats. Weigh yourself on a daily basis. Please call if you notice any of the following: -A 3-pound weight gain overnight, or a 5-pound weight gain in one week - Increased shortness of breath when lying flat. - Increased edema in the lower extremities Elevated legs when sitting Please call the office if you develop any new/worsening symptoms at [phone], select option 3 The following are good ways to add flavor to food without extra sodium: NuSalt Pleasonings Mini-Mini Salt Garlic powder Pepper Onion powder MrsAvtar Hernandez Things you can do to help prevent/manage atrial fibrillation: Treatment of a sleep disorder if present- follow-up with sleep medicine Continue to limit alcohol and caffeine Stay hydrated (48-64 oz of fluid a day with more than half being water) Exercise (120-150 minutes/week) Keep blood pressure controlled (goal <130/80) Keep blood sugars controlled Do not smoke or vape Keep weight controlled Discharge Instructions You will need to follow up with PCP in 1-2 weeks to monitor blood work (need BMP to check Creatinine/kidney function). If elevated, you will need to see a kidney doctor. Please follow up with heart doctors in 4 weeks. No strenuous activity Avoid strenuous activity, heavy lifting over 10-15 pounds for 1 month No driving No driving while you have the catheter in Showering instructions OK to shower Change dressing (specify) Change dressing as needed. Once wound (previous drain site) heals over, OK to leave open to air. Change Dressing: other Soft Eat small meals frequently Follow Up with Cardiology Referral Priority: Routine Referral Location: [facility] - [facility] Specialty: Cardiology Number of Visits Requested: 1 Follow Up with External Provider Referral Priority: Routine Referred to Provider: SHAMA OLMSTEAD Number of Visits Requested: 1 Follow Up with External Provider Referral Priority: Routine Referred to Provider: JOSE L CRUZ Number of Visits Requested: [address] PA-C [facility] Office [phone] [place] MAINTENANCE TECHNICIAN documented in this encounter Discharge Instructions * Attachments The following attachments cannot be sent through Care Everywhere. * How to Change a Catheter Drainage Bag (Discharge Care) (Sierra Leonean) * Delatorre Catheter Placement and Care (Discharge Care) ([place]an) * Heart Healthy Diet (Video Poker Floorman) ([place]an) documented in this encounter Medications at Time of Discharge Medication Sig Dispensed Refills Start Date End Date acetaminophen (TYLENOL) 500 mg oral tablet Take 2 tablets (1,000 mg) by mouth every 6 (six) hours as needed for fever or pain. 20 tablet 10/03/2023 apixaban (ELIQUIS) 5 mg oral tabletIndications:Atri al Fibrillation (Non-Valvular) Take 1 tablet (5 mg) by mouth twice a day Indications: Atrial Fibrillation (Non-Valvular). 180 tablet 3 10/03/2023 bacitracin 500 unit/gram Top Oint ointment Apply 1 Application to skin twice a day as needed (for discomfort). 28 g 1 10/03/2023 cefuroxime (CEFTIN) 500 mg oral tablet Take 1 tablet (500 mg) by mouth once daily. 7 tablet 10/03/2023 digoxin (LANOXIN) 125 mcg (0.125 mg) oral tablet Take 0.5 tablets (62.5 mcg) by mouth once daily. 90 tablet 3 10/04/2023 metoprolol succinate, XL, (TOPROL XL) 100 mg oral extended release tablet 24 HR Take 1 tablet (100 mg) by mouth twice a day. 180 tablet 3 10/03/2023 polyethylene glycol (MIRALAX) 17 gram oral powder Take 17 g by mouth once a day as needed for constipation. Mix each dose in 4-8 ounces of liquid as directed. 510 g 10/03/2023 documented as of this encounter Progress Notes * Emerita eRno RN - 10/03/2023 2:52 PM CST Aleks Moura [id number] P: Discharge A: Discharged via wheelchair to home at 1450 escorted by volunteer I: Discharge information and arrangements included: review of written discharge instructions R:Patient expressed understanding of information.. [place] MAINTENANCE TECHNICIAN * Frank [place] - 10/03/2023 1:53 PM CST I visited Aleks to provide support and care. Aleks was with his Sofía when I came in. Aleks informed me he is not interested in spiritual care at this time as he is about to be discharged. He saidhe and his are in a good place right now. I wished him well in his recovery. Rev. Randall [place] Electro Mechanical Engineer IL MAINTENANCE TECHNICIAN * Emerita Reno RN - 10/03/2023 1:25 PM CST Pt is alert and oriented, denies any pain. Pt is d/c this afternoon with the Delatorre , Delatorre teaching was done and able to understand [place] MAINTENANCE TECHNICIAN * Kerry Lucas MD - 10/03/2023 1:16 PM CST Images from the original note were not included. HOSPITALIST DIVISION CONSULTATION PROGRESS NOTE CHIEF COMPLAINT: Shortness of breath ASSESSMENT & PLAN Principal Problem: Prostate cancer (HCC) Active Problems: NOÉ (obstructive sleep apnea) HFrEF (heart failure with reduced ejection fraction) (HCC) Atrial fibrillation with rapid ventricular response (HCC) Elevated serum creatinine Patient is a 63-year-old male with past medical history of paroxysmal A-fib not on anticoagulation prior to admission, NOÉ not on CPAP prior to admission who was admitted following elective prostatectomy for malignant neoplasm of the prostate. #. Malignant neoplasm of prostate status post laparoscopic prostatectomy and lymph node dissection 09/26 -Pain management, drain management, dietary progression, therapy assessment, anticoagulation, and disposition planning per primary team -Follow-up surgical pathology #. Heart failure with reduced ejection fraction, not in acute exacerbation, new diagnosis As part of evaluation for respiratory insufficiency as below, BNP was obtained and noted to be mildly elevated. Because of this, an echocardiogram was ordered. The echocardiogram was revealing of a severely reduced ejection fraction at 26% as well as bilateral atrial enlargement and moderate mitralregurgitation. All of these represent new findings. Patient with no known history of ischemic coronary disease. Patient does have history of atrial fibrillation and NOÉ. No current exam findings suggestive of decompensation. -Cardiology consult placed, appreciate recommendations and management - new cardiomyopathy in setting of rapid afib. If LVEF does not show improvement in future, recommend ischemic evaluation. -Patient currently unable to tolerate further GDMT given hypotension -Continue metoprolol as below per cardiology recommendations #. Atrial fibrillation with RVR Patient developed A-fib with RVR in the postoperative setting. He does have known history of atrialfibrillation and does take metoprolol prior to admission. He reports not taking his metoprolol since the morning of the day prior to surgery. Initially, his heart rate improved with maintenance IV fluid administration as well as resumption of beta-blockade. However, the patient experienced recurrent episodes of atrial fibrillation with RVR overnight 09/27 to 09/28 and has intermittently continued to have rapid rates. -Cardiology consulted as above -Continue telemetry -transition metoprolol tartrate to metoprolol succinate 100 mg BID -Patient initiated on digoxin load 2/3 per cardiology, maintenance dosing to initiate 10/03 with doseof 62.5 mcg daily -Patient initiated on Eliquis 09/28, continue lifelong. After 4 weeks of AC therapy, recommend outpatient cardioversion/HANSEL. Follow up with cardiology outpatient in 4 weeks. -Plan for HANSEL cardioversion 2/2 per cardiology, unfortunately patient found to have a left atrial appendage thrombus so cardioversion was not pursued during this hospitalization. #. SHANNAN #. Concern for possible underlying CKD Baseline renal function unknown. Patient noted to have elevated serum creatinine to 1.44 on initialassessment. Suspect prerenal injury given hypovolemia. Creatinine somewhat improved following fluidadministration. FeNa obtained and consistent with prerenal injury. To range of 1.3. Creatinine failed to improve with further IV fluid administration. IV fluids discontinued as patient was having fair oral intake. Creatinine now downtrending to Cr 1.38 -Nephrology consult placed, appreciate recommendations -Continue to monitor - recommend repeat BMP in 1 month with PCP. If Cr still elevated, recommend follow up with nephrology. Follow up with PCP in 1-2 weeks. #. Acute postoperative respiratory insufficiency, resolved # Acute respiratory failure with hypoxia, resolved #. Untreated NOÉ Patient developed postoperative respiratory insufficiency initially requiring as much is 8 L/min nasal cannula prior to being down titrated. Initial concern for possible pulmonary embolus based off patient's history of atrial fibrillation not on anticoagulation. CT PE obtained and unrevealing. Pneumonia considered as well, but imaging more suggestive of possible atelectasis and procalcitonin not significantly elevated. Pulmonary edema was considered as well especially given elevated BNP as above. Imaging did not reveal significant pulmonary edema; however, echocardiogram was pursued as above.Overall suggest postoperative atelectasis complicated by untreated sleep apnea. Empiric antibioticswere discontinued and patient showed no ongoing evidence of infection and was stable on room air. -Patient will need referral for outpatient sleep study at discharge #. Hyperkalemia, mild Patient noted to have mild hyperkalemia 2/4 AM with potassium level of 5.4. Possibly related to digoxin load. -Continue to monitor #. Leukocytosis, resolved Suspect stress reaction in the postoperative setting. Consideration of possible pneumonia as above.No additional acute infectious symptoms. -Continue to monitor #. Acute blood loss anemia, resolved Mild. In postoperative setting. Resolved. -Continue to monitor #. Chronic constipation -Bowel regimen ordered #. Small pustular lesion on glute Patient reports he has intermittently suffered from pustular lesions in this area for many months. He reported some discomfort on his backside which she felt was consistent with recurrent lesion. Exam notable for a small approximately half a centimeter diameter pustular lesion. -Will trial ordered bacitracin # Code status: Full code Remainder of cares per primary team. Patient medically stable for discharge. I thank Dr. Cruz for allowing me to take part in the care of this patient. Kerry Lucas MD [facility] Medicine SUBJECTIVE No acute events overnight. Patient's heart rate ranging from 50-90, Denies lightheadedness, dizziness, or chest pain. Eager to go home OBJECTIVE BP 95/70 Pulse (!) 49 Temp 97.8 ??F (36.6 ??C) Resp 18 Ht 6' 3 (1.905 m) Wt 118.4 kg (261 lb 1.6 oz) SpO2 94% BMI 32.64 kg/m?? Intake/Output Summary (Last 24 hours) at 10/03/2023 1317 Last data filed at 10/03/2023 0603 Gross per 24 hour Intake 900 ml Output 1050 ml Net -150 ml GENERAL APPEARANCE: He is awake, alert and in no acute distress. HEENT: Head - Normocephalic, atraumatic. Eyes - Normal lids and conjuntivae, PERRLA, EOMs intact. Nose - No deformity. Moist mucous membranes. NECK: Supple, no appreciated JVD RESPIRATORY: Good air entry, no wheezes, rhonchi, rales, or increased work of breathing CARDIOVASCULAR: Normal S1, normal S2, irregularly irregular GASTROINTESTINAL: Soft, non-tender, normal bowel sounds, mildly distended, no rebound SKIN: Intact, warm, dry. No appreciated rashes NEUROLOGIC: Alert and oriented X 4, moves all extremities equally. Non-focal exam, power 5/5 in UE,sensation grossly intact EXTREMITIES: Distal Pulses are palpable, no lower extremity edema. Current Facility-Administered Medications: acetaminophen (TYLENOL) tablet 1,000 mg, 1,000 mg, oral, Q6H PRN OR acetaminophen (TYLENOL) rectal suppository 650 mg, 650 mg, Rectal, Q6H PRN, Stephanie Zacarias, INTERDISCIPLINARY PROFESSOR, CRITICAL CARE CNS apixaban (ELIQUIS) tablet 5 mg, 5 mg, oral, Twice Daily, Jericho Batista MD, 5 mg at 10/03/23 0858 bacitracin (BACIGUENT) packet 1 Application , 1 Application , topical, BID PRN, Jose L Cruz MD, 1 Application at 10/02/23 1240 bisacodyl (DULCOLAX) delayed released tablet 5-15 mg, 5-15 mg, oral, DAILY PRN, Jericho Batista MD digoxin (Lanoxin) tablet 62.5 mcg, 62.5 mcg, oral, DAILY, Fruechte, Arnulfo Kruger MD, 62.5 mcg at 10/03/23 1037 diphenhydrAMINE (BENADRYL) injection 12.5-25 mg, 12.5-25 mg, Intravenous, Q4H PRN, Jose L Cruz MD docusate sodium (COLACE) capsule 100 mg, 100 mg, oral, Twice Daily, Jose L Cruz MD, 100 mg at 10/01/23 0801 glycopyrrolate (ROBINUL) injection 0.1 mg, 0.1 mg, IntraMUSCULAR, Q4H PRN, Jose L Cruz MD magnesium hydroxide (MILK OF MAGNESIA) suspension 30 mL, 30 mL, oral, DAILY PRN, Jericho Batista MD MAGNESIUM REPLACEMENT INTRAVENOUS - NOT FOR DOCUMENTATION PURPOSES, , Intravenous, PER PROTOCOL, Jericho Batista MD metoprolol (LOPRESSOR) injection 5 mg, 5 mg, Intravenous, Q6H PRN, Yaneth Cornelius MD, 5 mg at 09/29/23 1626 metoprolol succinate (XL) (TOPROL XL) extended release tablet 24 HR 100 mg, 100 mg, oral, Twice Daily, Cydney Toney, INTERDISCIPLINARY PROFESSOR, CRITICAL CARE CNS naloxone (NARCAN) injection 0.1 mg, 0.1 mg, Intravenous, Q1 MINUTE PRN, Jose L Cruz MD naloxone (NARCAN) injection 0.1 mg, 0.1 mg, Intravenous, Q1 MINUTE PRN, Jose L Cruz MD ondansetron (ZOFRAN) injection 4 mg, 4 mg, Intravenous, Q12H PRN, Jose L Cruz MD oxyCODONE (immediate release) (ROXICODONE) tablet 5-10 mg, 5-10 mg, oral, Q4H PRN, Jose L Cruz MD polyethylene glycol (MIRALAX) packet 17 g, 17 g, oral, DAILY PRN, Jericho Batista MD POTASSIUM REPLACEMENT ORAL - NOT FOR DOCUMENTATION PURPOSES, , oral, PER PROTOCOL OR POTASSIUM REPLACEMENT INTRAVENOUS - NOT FOR DOCUMENTATION PURPOSES, , Intravenous, PER PROTOCOL, Jericho Batista MD senna (SENOKOT) tablet 8.6-17.2 mg, 1-2 tablet, oral, Twice Daily, Jericho Batista MD, 8.6 mg at 10/01/23 0802 sodium chloride 0.9 % IV solution, , Intravenous, CONTINUOUS PRN, Jose L Cruz MD sodium chloride 0.9% irrigation solution 250 mL, 250 mL, Irrigation, PRN, Jose L Cruz MD LABS Recent Labs 10/01/23195410/03/23 0817 WBC -- 11.3* RBC -- 5.13 HEMOGLOBIN 15.4 16.2 HEMATOCRIT -- 46.7 MCV -- 91 MCH -- 32 RDW -- 13.0 PLATELETCT -- 248 No Lab Results Found (last 72 hours) Recent Labs 10/01/23 0837 10/01/23195410/02/23 0805 10/03/23 0817 SODIUM 138 -- 139 137 POTASSIUM 3.9 4.0 5.4* 4.2 CHLORIDE 107 -- 107 107 CARBONDIOXI 25 -- 25 23 ANIONGAP 6.0 -- 7.0 7.0 GLUCOSE 91 -- 93 97 BUNUREANRO 18 -- 21 21 CREATININE 1.47* 1.53* 1.48* 1.38* CALCIUMSERUM 9.0 -- 9.4 9.4 ESTGFRMDRD 53.60* 51.08* 53.16* 57.82* ABG: No Lab Results Found (last 72 hours) VBG: No Lab Results Found (last 72 hours) Invalid input(s): O2SV Micro: No results found for this visit on 09/26/23. Surgical/Procedure Site Anterior;Lower Abdomen (Active) Incision Date/Incision Time: 09/26/23 0818 Incision Type: Incision Orientation: Anterior;Lower Location: Abdomen Description: Trochar sites x 6 Additional comments: I reviewed the patient's new clinical lab test results. I reviewed the patient's medications. I reviewed the patient's new imaging test results. I discussed the patient's care with the patient, his spouse, nephrology team provider. Imaging Reviewed in [facility] [place] MAINTENANCE TECHNICIAN * Lance Loza MD - 10/03/2023 11:37 AM CST Images from the original note were not included. Renal Follow-up Note Date of Service: 10/03/2023 Chief Complaint: Elevated Creatinine Subjective: Since last evaluation he says he feels fine and is looking forward to discharge. Assessment/Plan: Elevated Creatinine. Unclear whether this is new. He says he had labs done last April in [place]. CT scan has shown normal looking kidneys without hydro. A prerenal / cardiorenal state could be a factor as he has a low EF and is in atrial fibrillation. Cr 1.48-->1.38. - Check UA, urine pr/cr, FLC. - If discharged would recheck bmp in one month. If cr still elevated, then we can see in fu. - OK from renal standpoint for dc. 2. Atrial Fibrillation - On metoprolol and Eliquis. 3. Prostate Cancer. S/P Robotic prostatectomy 09/26. Path pending. - Per urology. 4. Cardiomyopathy. - Per cards. Lance Loza MD Office [phone] [facility] Objective: BP 95/70 Pulse (!) 49 Temp 97.8 ??F (36.6 ??C) Resp 18 Ht 6' 3 (1.905 m) Wt 118.4 kg (261 lb 1.6 oz) SpO2 94% BMI 32.64 kg/m?? Intake/Output Summary (Last 24 hours) at 10/03/2023 1138 Last data filed at 10/03/2023 0603 Gross per 24 hour Intake 1389.91 ml Output 1050 ml Net 339.91 ml Patient Vitals for the past 120 hrs: Weight 10/01/23 0620 118.4 kg (261 lb 1.6 oz) 09/30/23 0600 119.2 kg (262 lb 11.2 oz) GENERAL APPEARANCE: He is alert, cooperative, in no acute distress. EYES: sclera nonicteric, PERRL EARS/NOSE/THROAT: hearing intact, mucous membranes moist. NECK: supple, no JVD. RESPIRATORY: good breath sounds bilaterally, normal effort. CARDIOVASCULAR: RRR, normal S1, S2 no murmurs. GASTROINTESTINAL: soft, no masses, tenderness. SKIN: warm, dry, no rashes. NEUROLOGIC: Alert, oriented, no focal neurologic deficits. EXTREMITIES: No cyanosis, no edema. Recent Labs 10/01/23 0837 10/01/23195410/02/23 0810/03/23 0817 CREATININE 1.47* 1.53* 1.48* 1.38* ESTGFRMDRD 53.60* 51.08* 53.16* 57.82* BUNUREANRO 18 -- 21 21 CALCIUMSERUM 9.0 -- 9.4 9.4 SODIUM 138 -- 139 137 POTASSIUM 3.9 4.0 5.4* 4.2 CHLORIDE 107 -- 107 107 CARBONDIOXI 25 -- 25 23 ANIONGAP 6.0 -- 7.0 7.0 WBC -- -- -- 11.3* HEMOGLOBIN -- 15.4 -- 16.2 HEMATOCRIT -- -- -- 46.7 PLATELETCT -- -- -- 248 No results found for: GLUCOWBMETER Labs were reviewed personally by me from 10/03/2023 Lance Loza MD [place] MAINTENANCE TECHNICIAN * Ana Greene MD - 10/03/2023 10:38 AM CST CARDIOLOGY PROGRESS NOTE Patient Name: Aleks Moura Age:63 y.o. Gender: male Admission Date/Time: 09/26/2023 5:44 AM Hospital Attending Physician: Jose L Cruz MD Summary: This patient is a pleasant 63 y.o. male with past medical history significant for paroxysmal atrial fibrillation, suspected sleep apnea, tobacco use disorder, prostate adenocarcinoma s/p robot-assisted laparoscopic prostatectomy. 09/26/23: Patient came in for elective surgery for malignant neoplasm of prostate s/p robot-assistedlaparoscopic prostatectomy with bilateral pelvic lymph node dissection. Required increased oxygen needs postoperatively, was hypoxic. Cardiology consulted due to abnormal echocardiogram. TTE revealedLVEF 26% with mild-moderate MR. BP remained on lower side. BNP 336. Denied LE edema, weight gain, orthopnea, PND, CP, SOB. Per , patient with sleep apnea not using CPAP. Noted to be in A-fib during preoperative evaluation. Had been on and off his metoprolol. Suspected tachycardia mediated cardiomyopathy. On 09/30/23 went in for HANSEL/cardioversion however unable to cardiovert given presence of LA thrombus. Subjective: Laying in bed, eating breakfast with at bedside. Denies CP, SOB, heart racing/palpitations, orthopnea, PND. Woke up last evening sweating- states this happens at home as well. [place] hot and was restricted with blankets, was uncomfortable. Ready to go home. Objective: Current Facility-Administered Medications Medication Dose Route Frequency Provider Last Rate Last Admin acetaminophen (TYLENOL) tablet 1,000 mg 1,000 mg oral Q6H PRN Stephanie Zacarias APRN, CNP Or acetaminophen (TYLENOL) rectal suppository 650 mg 650 mg Rectal Q6H PRN Stephanie Zacarias APRN, CNP apixaban (ELIQUIS) tablet 5 mg 5 mg oral Twice Daily Jericho Batista MD 5 mg at 10/03/23 0858 bacitracin (BACIGUENT) packet 1 Application 1 Application topical BID PRN Jose L Cruz MD 1 Application at 10/02/23 1240 bisacodyl (DULCOLAX) delayed released tablet 5-15 mg 5-15 mg oral DAILY PRN Jericho Batista MD digoxin (Lanoxin) tablet 62.5 mcg 62.5 mcg oral DAILY Fruechte, Arnulfo Kruger MD diphenhydrAMINE (BENADRYL) injection 12.5-25 mg 12.5-25 mg Intravenous Q4H PRN Jose L Cruz MD docusate sodium (COLACE) capsule 100 mg 100 mg oral Twice Daily Jose L Cruz MD 100 mg at 10/01/23 0801 glycopyrrolate (ROBINUL) injection 0.1 mg 0.1 mg IntraMUSCULAR Q4H PRN Jose L Cruz MD magnesium hydroxide (MILK OF MAGNESIA) suspension 30 mL 30 mL oral DAILY PRN Jericho Batista MD MAGNESIUM REPLACEMENT INTRAVENOUS - NOT FOR DOCUMENTATION PURPOSES Intravenous PER PROTOCOL Jericho Batista MD metoprolol (LOPRESSOR) injection 5 mg 5 mg Intravenous Q6H PRN Yaneth Cornelius MD 5 mg at 09/29/23 1626 metoprolol tartrate (LOPRESSOR) tablet 50 mg 50 mg oral QID Ana Greene MD 50 mg at 10/02/23 2208 naloxone (NARCAN) injection 0.1 mg 0.1 mg Intravenous Q1 MINUTE PRN Jose L Cruz MD naloxone (NARCAN) injection 0.1 mg 0.1 mg Intravenous Q1 MINUTE PRN Jose L Cruz MD ondansetron (ZOFRAN) injection 4 mg 4 mg Intravenous Q12H PRN Jose L Cruz MD oxyCODONE (immediate release) (ROXICODONE) tablet 5-10 mg 5-10 mg oral Q4H PRN Jose L Cruz MD polyethylene glycol (MIRALAX) packet 17 g 17 g oral DAILY PRN Jericho Batista MD POTASSIUM REPLACEMENT ORAL - NOT FOR DOCUMENTATION PURPOSES oral PER PROTOCOL Jericho Batista MD Or POTASSIUM REPLACEMENT INTRAVENOUS - NOT FOR DOCUMENTATION PURPOSES Intravenous PER PROTOCOL Jericho Batista MD senna (SENOKOT) tablet 8.6-17.2 mg 1-2 tablet oral Twice Daily Jericho Batista MD 8.6 mg at 10/01/23 0802 sodium chloride 0.9 % IV solution Intravenous CONTINUOUS PRN Jose L Cruz MD sodium chloride 0.9% irrigation solution 250 mL 250 mL Irrigation PRN Jose L Cruz MD Physical exam: BP 95/70 Pulse (!) 49 Temp 97.8 ??F (36.6 ??C) Resp 18 Ht 6' 3 (1.905 m) Wt 118.4 kg (261 lb 1.6 oz) SpO2 94% BMI 32.64 kg/m?? Body mass index is 32.64 kg/m??. General Appearance/Constitutional: Alert and in no distress Neck: Supple, no JVD, no hepatojugular reflex. Chest/Lungs: Clear to auscultation bilaterally. No wheezing or crackles. Cardiovascular: irregular rhythm, no murmur. Abdomen: Soft, non-tender, non-distended, active bowel sounds Extremities: There is no bilateral LE edema. Radial pulses +2 bilaterally. Labs: Recent Labs 10/01/23 19510/02/23 0805 10/02/23 1549 10/03/23 0817 SODIUM -- 139 -- 137 POTASSIUM 4.0 5.4* -- 4.2 MAGNESIUM 2.0 1.9 2.2 1.9 BUNUREANRO -- 21 -- 21 CREATININE 1.53* 1.48* -- 1.38* GLUCOSE -- 93 -- 97 HEMOGLOBIN 15.4 -- -- 16.2 WBC -- -- -- 11.3* PLATELETCT -- -- -- 248 No Lab Results Found (last 72 hours) Invalid input(s): HBGA1C Intake/Output Summary (Last 24 hours) at 10/03/2023 1038 Last data filed at 10/03/2023 0603 Gross per 24 hour Intake 1389.91 ml Output 1050 ml Net 339.91 ml Telemetry: personally reviewd Afib, rates 80-low 100s EK09/30/23 Afib, 96bpm EK09/26/23 Afib, 98bpm HANSEL: 09/30/23 LVEF 20-25%, mobile thrombus formation in left atrial appendage, moderate MR, did not proceed with cardioversion given LA thrombus. Echo: 09/27/23 * LV systolic function is severely reduced, quantified EF is 26%. * Bi-atrial enlargement. * There is mild to moderate mitral regurgitation. * No prior study. Other Pertinent Imaging: Chest X-ray: 09/26/23 1. Vascular congestion with perihilar atelectasis versus infiltrates. Recommend follow-up. CT chest pulmonary: 09/26/23 1. No pulmonary embolus identified. 2. Bilateral lower lobe infiltrates left greater than right. 3. Postoperative free air in the upper abdomen. Assessment/Plan: 1. New HFrEF Etiology unknown possibly secondary to tachycardia mediated cardiomyopathy versus stress induced cardiomyopathy. Have not ruled out CAD/ischemic CM. Anterolateral ST/T findings may be ischemic versusstrain related NYHA class I Admit weight 265lbs >261lbs, daily net +389ml (cumulative neg 4.1L) euvolemic Denies HF symptoms Labs Cr 1.38, GFR 57, K+ 4.2, Mag 1.9 Stop metoprolol tartrate 50 mg 4x daily Start metoprolol succinate 100mg BID Hold on NICKOLAS/ARB, MRA given SHANNAN- consider as outpatient Placed test claim for SGLT2i 2. Persistent atrial fibrillation Unclear onset, present at least since pre-op eval one week prior to surgery. Per family patient diagnosed ~7 years ago. Previously treated with diltiazem and ASA, (both discontinued around 2019) 09/30/23 HANSEL demonstrated ANDREA thrombus, not a candidate for cardioversion currently Recommend continue rate control approach Stop metoprolol tartrate 50 mg 4x daily Start metoprolol succinate 100mg BID Continue Digoxin 62.5mcg daily [id number] score at least: 1 (CHF ) Continue Eliquis 5mg BID (recommend lifelong AC therapy in setting of LA thrombus New cardiomyopathy in setting of rapid A-fib. Recommend rate control at this time. After 4 weeks ofAC therapy recommend outpatient cardioversion/HANSEL If LVEF does not show improvement with rate control or pentecostalism of SR- recommend ischemic evaluation 3. SHANNAN Cr since admission 1.3-1.4s Nephrology consult ordered 4. Untreated Sleep Apnea Recommended follow up with sleep medicine as outpatient 5. Tobacco Use Recommend complete cessation 6. Venous insufficiency S/p prior vein stripping x 2 Diffuse venous varicosities though no edema currently Recommendations: Stop metoprolol tartrate 50 mg 4x daily Start metoprolol succinate 100mg BID Placed test claim for SGLT2i Continue Eliquis 5mg BID Follow up with PCP in 1-2 weeks Follow up with [facility] in ~ 4 week Cardiology will sign-off. Thank you for allowing us to participate in the care of this patient. Please do not hesitate to contact us if we can be of further assistance. Plan discussed with Dr. Ana Greene, patient and Cydney Tim, INTERDISCIPLINARY PROFESSOR, [facility] [place] [phone] Available on pager via Am[employer] ADDENDUM BY DR GREENE I have independently seen and examined the patient, and discussed the care with Cydney Rondon NP. Please see her note for additional details. HPI: Aleks Moura is a 63 year old male with a history of paroxysmal atrial fibrillation, NOÉ, tobacco, prostate cancer who was admitted 09/26/2023 for planned robotic assisted prostatectomy. Post-op he developed rapid atrial fibrillation, echocardiogram with EF markedly reduced and moderate MR, no prior echocardiogram for comparison. He underwent HANSEL that showed ANDREA clot so was unable to have CDV, is on rate control. BP somewhat limiting so Digoxin added. Past Cardiac History: Atrial fibrillation, persistent Cardiomyopathy Mitral regurgitation, moderate Venous insufficiency: s/p prior vein stripping HANSEL: 09/30/2023 * Mobile thrombus formation in the left atrial appendage. * Agitated saline/dextrose study is negative, with no evidence of intracardiac shunt. * The left ventricle is normal size. * The left ventricular systolic function is severely decreased, estimated LVEF 20-25%. * Left ventricular wall motion is abnormal with severe global hypokinesis. * There is moderate mitral regurgitation. Most Recent Echocardiogram: 09/27/2023 * The left ventricular systolic function is severely reduced, quantified ejection fraction is 26%. * Bi-atrial enlargement. * There is mild to moderate mitral regurgitation. * No prior study. Most Recent Stress Test: None Most Recent Angiogram: None Review of Systems, Past Medical History, Family History, Social History, Meds, Labs, ECG, tele per Cydney Rondon NP Exam: BP 95/70 Pulse (!) 49 Temp 97.8 ??F (36.6 ??C) Resp 18 Ht 6' 3 (1.905 m) Wt 118.4 kg (261 lb 1.6 oz) SpO2 94% BMI 32.64 kg/m?? Per Cydney Assessment: 63 year old male with persistent atrial fibrillation, cardiomyopathy Plan: Atrial fibrillation, persistent Unable to have CDV due to ANDREA clot so on rate control -Change Lopressor to Toprol 100mg BID -Continue Eliquis 5mg BID, Digoxin 62.5mcg -Plan recheck HANSEL in 4 weeks and CDV if clot resolved Cardiomyopathy Unclear etiology, but suspect tachycardia-mediated -Change Lopressor to Toprol 100mg BID -Test claim for Empagiflozin -Not currently on diuretic, monitor weight (261), I/O (-3.7L), creatinine (1.38) -No NICKOLAS/ARB or Spironolactone due to renal insufficiency. Can add at follow up or use nitrates/Hydralazine as BP allows -Plan recheck echocardiogram 4 weeks, if EF does not improve with control of atrial fibrillation can pursue out-patient ischemic evaluation Mitral regurgitation Likely functional from reduced EF -Recheck echocardiogram 4 weeks as above Cardiology will sign off. If additional questions arise or there is a change in patient's status please do not hesitate to contact cardiology service and we will be happy to reassess. Thank you very much for allowing me to participate in the care of your patient Aleks Moura.Please do not hesitate to contact me if you have questions, or if I can be of further assistance. Ana Greene MD [facility] [place] 10/03/2023 [place] MAINTENANCE TECHNICIAN * Tru Melo PA-C - 10/03/2023 8:13 AM CST Urology Progress Note Patient Name: Aleks Moura [address]: [address] [place] [address] Age:63 y.o. Sex: male Admission Date/Time: 09/26/2023 5:44 AM Hospital Attending Physician: Jose L Cruz MD Subjective: Patient evaluated. Patient denies pain, tolerating diet, continuing to have normal bowel movement. No concerns for urology today. Started digoxin, waiting to ensure he is tolerating well. Developed SHANNAN, appreciate nephrology input. Patient afebrile. ALLERGIES/SENSITIVITIES No Known Allergies LABS: Recent Labs 10/01/23 1955 HEMOGLOBIN 15.4 Recent Labs 10/02/23 0805 SODIUM 139 POTASSIUM 5.4* CHLORIDE 107 CARBONDIOXI 25 ANIONGAP 7.0 GLUCOSE 93 BUNUREANRO 21 CREATININE 1.48* CALCIUMSERUM 9.4 ESTGFRMDRD 53.16* Intake/Output Summary (Last 24 hours) at 10/03/2023 0813 Last data filed at 10/03/2023 0603 Gross per 24 hour Intake 1439.91 ml Output 1050 ml Net 389.91 ml BP 95/72 Pulse 85 Temp 97.5 ??F (36.4 ??C) Resp 18 Ht 6' 3 (1.905 m) Wt 118.4 kg (261 lb1.6 oz) SpO2 94% BMI 32.64 kg/m?? Physical exam Gen: alert and oriented, no acute distress, laying in bed Abdomen: soft, nontender. Surgical incisions closed with earl without dehiscence, bleeding, or purulence. CORINNE has been previously removed. : Delatorre in place draining clear/rajat urine. ASSESSMENT AND PLAN: Prostate cancer status post robotic assisted laparoscopic radical prostatectomy with bilateral pelvic lymph node dissection 09/26/[address] Cruz; Atrial fibrillation with rapid ventricular response status post HANSEL 09/30 Principal Problem: Prostate cancer (HCC) Active Problems: NOÉ (obstructive sleep apnea) HFrEF (heart failure with reduced ejection fraction) (HCC) Atrial fibrillation with rapid ventricular response (HCC) Elevated serum creatinine 1. Regular diet, pain management as needed, encourage ambulation. 2. From a surgical standpoint patient is doing well. He is cleared from discharge from a urologic perspective. Patient will keep catheter discharge and follow-up with Dr. Cruz at his scheduled visitfor catheter and staple removal 3. Patient will be discharged once cleared by primary, nephrology, and cardiology. From notes patient likely discharge today once it is confirmed he is tolerating digoxin, will await clearance from consulted services. Tru Melo PA-C [facility] Pager [phone] After 4pm or on weekends, or if no call back, please call our office at [phone] [place] MAINTENANCE TECHNICIAN * Shashi Madrid RN - 10/03/2023 12:28 AM CST Med-Surg Care Progression Note Type: Shift to shift summary Length of stay: 7 days Code Status: Full Code Primary Problem: Prostate CA, L atrial thrombus Hx: NOÉ, HFrEF, Afib with RVR, tobacco use. Had HANSEL on 09/30 Summary: On digoxin and metoprolol-- neph and cardiology is following. Checked BP q4h. Pt instructed staff not to wake him up unless absolutely necessary. F- Feeding & Fluids: Tolerating regular diet. Pills whole with water. 2000 mL fluid restriction. A- Analgesic & Anticoagulation: Comfort Goal: Numeric, Verbal, Faces: 0 - None Analgesic No pain Anticoagulation/DVT prevention & plan Anticoagulant plan po eliquis S- Skin: Levi Subcategory Concern(s): Sensory Perception: No Impairment Moisture: Rarely Moist Activity: Walks Occasionally Activity Interventions: Safer bundle Nutrition: Adequate Nutrition Interventions: Calorie intake Mobility: No Limitations Friction and Shear: No Apparent Problem Total Levi Score: 21: Has mepilex in place. Also has a blister in his butt on the L side just below the dressing. T- Telemetry: Rhythm: Atrial Fibrillation Ectopy: None No calls E- Emotional & Neuro: Participating in cares but gets irritated easily. Neuro Alert and Oriented R- Respiratory: On room air H- Head OUT of Bed & Activity: Activate Fall Alert? (Enter 1 or 0): (not recorded) Ambulating independently Early mobility Phases 1-4: Phase 4: Ambulation U- Urologic/bowel: Size: Medium (09/30/2023 8:00 PM) Bowel regimen in place, but refusing even after education. G- Glycemic Control: Not applicable T- Treatment: Urology, hospitalist, cardiology following. Nephrology consult. Delatorre teaching. K+/Mg+ protocol. I- Invasive Devices: PIV x 1, Delatorre D- Discharge: Home today pending tolerance of digoxin. [place] MAINTENANCE TECHNICIAN * Del De La Torre - 10/02/2023 10:27 PM CST Med-Surg Care Progression Note Type: Shift to shift summary Length of stay: 6 days Code Status: Full Code Primary Problem: Prostate CA, L atrial thrombus Hx: NOÉ, HFrEF, Afib with RVR, tobacco use. Had AHNSEL on 09/30 Summary: No acute events this shift. BP tends to run low. On digoxin and metoprolol given. Metoprolol held this evening d/t to low SBP. Wants staffs to not wake him up overnight unless they have to. F- Feeding & Fluids: Tolerating regular diet. Pills whole with water. 2000 mL fluid restriction. A- Analgesic & Anticoagulation: Comfort Goal: Numeric, Verbal, Faces: 0 - None Analgesic No pain Anticoagulation/DVT prevention & plan Anticoagulant plan po eliquis S- Skin: Levi Subcategory Concern(s): Sensory Perception: No Impairment Moisture: Rarely Moist Activity: Walks Occasionally Activity Interventions: Safer bundle Nutrition: Adequate Nutrition Interventions: Calorie intake Mobility: No Limitations Friction and Shear: No Apparent Problem Total Levi Score: 21: Has mepilex in place. Also has a blister in his butt crack on the L side just below the dressing. T- Telemetry: Rhythm: Atrial Fibrillation Ectopy: None No calls E- Emotional & Neuro: Participating in cares but gets irritated easily. Neuro Alert and Oriented R- Respiratory: On room air H- Head OUT of Bed & Activity: Activate Fall Alert? (Enter 1 or 0): (not recorded) Ambulating independently Early mobility Phases 1-4: Phase 4: Ambulation U- Urologic/bowel: Size: Medium (09/30/2023 8:00 PM) Bowel regimen in place, but refusing even after education. G- Glycemic Control: Not applicable T- Treatment: Urology, hospitalist, cardiology following. Nephrology consult. Delatorre teaching. K+/Mg+ protocol. I- Invasive Devices: PIV x 1, Delatorre D- Discharge: Home tomorrow pending tolerance of digoxin. [place] MAINTENANCE TECHNICIAN * Shonna Hill RN - 10/02/2023 2:56 PM CST Med-Surg Care Progression Note Type: Shift to shift summary Length of stay: 6 days Code Status: Full Code Primary Problem: Prostate CA, L atrial thrombus Hx: NOÉ, HFrEF, Afib with RVR, tobacco use. Had HANSEL on 09/30 Summary: No acute events this shift. BP tends to run low but Hgb stable. On digoxin and metoprolol.Metoprolol held this a.m. d/t HR less that parameters, but given at noon. Extra dose of digoxin ordered. Denies pain, but is frustrated because he has to have vitals every 4 hours and he's trying to sleep. Stated he would just go off the floor and only come back for vitals every 4 hours. Can be pleasant but also can be rude and demanding. At 1500, Delatorre was noted to be empty and neither this adjusto writer operator nor the NA had emptied it. Aleks statedthat someone else did but it was not recorded in the flow sheets. K+/Mg+ protocol--K+ at goal, Mg+ 1.9, replaced this morning, redraw this evening. F- Feeding & Fluids: Tolerating regular diet. Pills whole with water. 2000 mL fluid restriction. A- Analgesic & Anticoagulation: Comfort Goal: Numeric, Verbal, Faces: 0 - None Analgesic No pain Anticoagulation/DVT prevention & plan Anticoagulant plan po eliquis S- Skin: Levi Subcategory Concern(s): Sensory Perception: No Impairment Moisture: Rarely Moist Activity: Walks Occasionally Activity Interventions: Safer bundle Nutrition: Adequate Nutrition Interventions: Calorie intake Mobility: No Limitations Friction and Shear: No Apparent Problem Total Levi Score: 21: Has mepilex in place. Also has a blister in his butt crack on the L side just below the dressing, bacitracin applied per MD request. T- Telemetry: Rhythm: Atrial Fibrillation Ectopy: None No calls E- Emotional & Neuro: Participating in cares but gets irritated easily. Neuro Alert and Oriented R- Respiratory: On room air H- Head OUT of Bed & Activity: Activate Fall Alert? (Enter 1 or 0): (not recorded) Ambulating independently Early mobility Phases 1-4: Phase 4: Ambulation U- Urologic/bowel: Size: Medium (09/30/2023 8:00 PM) Bowel regimen in place, but refusing even after education. Has delatorre in place which he will discharge with. G- Glycemic Control: Not applicable T- Treatment: Urology, hospitalist, cardiology following. Nephrology consult. Delatorre teaching. K+/Mg+ protocol. I- Invasive Devices: PIV x 1, Delatorre D- Discharge: Home tomorrow pending tolerance of digoxin. Shonna Hill RN [place] MAINTENANCE TECHNICIAN * Arnulfo Case MD - 10/02/2023 12:29 PM CST CARDIOLOGY CONSULTATION FOLLOW-UP NOTE Patient Name: Aleks Moura Address: [address] [place] [address] [place] [id number] Age:63 y.o. Gender: male Admission Date/Time: 09/26/2023 5:44 AM Hospital Attending Physician: Jose L Cruz MD The cardiology consult service is following this patient for evaluation/management of atrial fibrillation and acute HFrEF with new severe cardiomyopathy.. Background: 63 y.o. male with PAF, suspected NOÉ, tobacco use, prostate cancer admitted post robot-assisted laparoscopic prostatectomy with new cardiomyopathy (EF 26% with global hypokinesis) of unclear etiology and atrial fibrillation of unclear chronicity with RVR. Suspect tachymyopathy though have not excluded an ischemic etiology. Euvolemic, with CHF symptoms primarily limited to fatigue. TEE09/30/23 demonstrated ANDREA thrombus; unable to proceed with cardioversion. Pursuing rate-control approach currently. Elevated Cr of unclear chronicity; nephrology following. Subjective: Tired today, frustrated with frequent interruptions and hoping to get some sleep. Hoping to d/c home tomorrow if HR trends are in acceptable range. Objective: Meds: Current Facility-Administered Medications Medication Dose Route Frequency Provider Last Rate Last Admin acetaminophen (TYLENOL) tablet 1,000 mg 1,000 mg oral Q6H PRN Stephanie Zacarias APRN, CNP Or acetaminophen (TYLENOL) rectal suppository 650 mg 650 mg Rectal Q6H PRN Stephanie Zacarias APRN, CNP apixaban (ELIQUIS) tablet 5 mg 5 mg oral Twice Daily Jericho Batista MD 5 mg at 10/02/23 0820 bacitracin (BACIGUENT) packet 1 Application 1 Application topical BID PRN Jose L Cruz MD bisacodyl (DULCOLAX) delayed released tablet 5-15 mg 5-15 mg oral DAILY PRN Jericho Batista MD [START ON 10/03/2023] digoxin (Lanoxin) tablet 62.5 mcg 62.5 mcg oral DAILY Fruechte, Arnulfo Kruger MD diphenhydrAMINE (BENADRYL) injection 12.5-25 mg 12.5-25 mg Intravenous Q4H PRN Jose L Cruz MD docusate sodium (COLACE) capsule 100 mg 100 mg oral Twice Daily Jose L Cruz MD 100 mg at 10/01/23 0801 glycopyrrolate (ROBINUL) injection 0.1 mg 0.1 mg IntraMUSCULAR Q4H PRN Jose L Cruz MD magnesium hydroxide (MILK OF MAGNESIA) suspension 30 mL 30 mL oral DAILY PRN Jericho Batista MD MAGNESIUM REPLACEMENT INTRAVENOUS - NOT FOR DOCUMENTATION PURPOSES Intravenous PER PROTOCOL Jericho Batista MD magnesium sulfate 2 gram / 50mL (4%) IV piggyback (PREMIX) 2 g 2 g Intravenous ONCE Jericho Batista MD 25 mL/hr at 10/02/23 1050 2 g at 10/02/23 1050 metoprolol (LOPRESSOR) injection 5 mg 5 mg Intravenous Q6H PRN Yaneth Cornelius MD 5 mg at 09/29/23 1626 metoprolol tartrate (LOPRESSOR) tablet 50 mg 50 mg oral QID ZoeCallie Q, PA-C 50 mg at 10/01/23 1755 naloxone (NARCAN) injection 0.1 mg 0.1 mg Intravenous Q1 MINUTE PRN Jose L rCuz MD naloxone (NARCAN) injection 0.1 mg 0.1 mg Intravenous Q1 MINUTE PRN Jose L Cruz MD ondansetron (ZOFRAN) injection 4 mg 4 mg Intravenous Q12H PRN Jose L Cruz MD oxyCODONE (immediate release) (ROXICODONE) tablet 5-10 mg 5-10 mg oral Q4H PRN Jose L Cruz MD polyethylene glycol (MIRALAX) packet 17 g 17 g oral DAILY PRN Jericho Batista MD POTASSIUM REPLACEMENT ORAL - NOT FOR DOCUMENTATION PURPOSES oral PER PROTOCOL Jericho Batista MD Or POTASSIUM REPLACEMENT INTRAVENOUS - NOT FOR DOCUMENTATION PURPOSES Intravenous PER PROTOCOL Jericho Batista MD senna (SENOKOT) tablet 8.6-17.2 mg 1-2 tablet oral Twice Daily Jericho Batista MD 8.6 mg at 10/01/23 0802 sodium chloride 0.9 % IV solution Intravenous CONTINUOUS PRN Jose L Cruz MD sodium chloride 0.9% irrigation solution 250 mL 250 mL Irrigation PRN Jose L Cruz MD Physical exam: BP 94/68 Pulse (!) 59 Temp 97.5 ??F (36.4 ??C) Resp 18 Ht 6' 3 (1.905 m) Wt 118.4 kg (261 lb 1.6 oz) SpO2 94% BMI 32.64 kg/m?? Body mass index is 32.64 kg/m??. Vitals: 10/02/23 0433 10/02/23 0800 10/02/23 0813 10/02/23 1130 BP: 96/71 96/71 94/68 Pulse: 90 (!) 51 (!) 51 (!) 59 Resp: 18 18 Temp: 97.5 ??F (36.4 ??C) SpO2: 94% Weight: Height: Const: NAD, interactive, conversational. Eyes: Nonicteric sclerae, PERRL. Neck: Symmetric-appearing, without visible thyromegaly. Resp: Normal respiratory effort. Lungfields CTAB with good air movement. CV: Irreg irreg S1/S2, no murmur. No rub or gallop. JVP not elevated. No carotid bruits. Extremities warm, dry, well-perfused. No edema. Diffuse bilat LE venous varicosities. GI: Abd SNDNT, + BS four quadrants. Skin: No obvious rashes. Neuro: Alert and oriented, CN II-XII gr intact. Psych: Normal mood and affect. Labs: Results for orders placed or performed during the hospital encounter of 09/26/23 (from the past 24 hour(s)) Potassium, Serum Result Value Ref Range Potassium 4.0 3.4 - 5.1 mmol/L Magnesium Result Value Ref Range Magnesium 2.0 1.6 - 2.6 mg/dL Creatinine / eGFR Result Value Ref Range Creatinine 1.53 (H) 0.73 - 1.18 mg/dL Est GFR (CKD-EPI) 51.08 (L) >60.00 mL/min/1.73m2 Hemoglobin Result Value Ref Range Hemoglobin 15.4 14.0 - 18.0 gm/dL Basic Metab Profile Result Value Ref Range Sodium 139 136 - 145 mmol/L Potassium 5.4 (H) 3.4 - 5.1 mmol/L Chloride 107 98 - 108 mmol/L Carbon Dioxide 25 20 - 31 mmol/L BUN (Urea Nitro) 21 9 - 23 mg/dL Creatinine 1.48 (H) 0.73 - 1.18 mg/dL Est GFR (CKD-EPI) 53.16 (L) >60.00 mL/min/1.73m2 Glucose 93 74 - 106 mg/dL Calcium, Serum 9.4 8.7 - 10.4 mg/dL Anion Gap 7.0 0.0 - 15.0 mmol/L Magnesium Result Value Ref Range Magnesium 1.9 1.6 - 2.6 mg/dL Tracings personally visualized: Telemetry: AF 80s to low-100s, rarely to 130s. Impression / Recommendations: 1) New HFrEF 2' cardiomyopathy of unclear etiology: Echo 09/26/23 with severely reduced LVSF; EF 26%. Suspect tachy-mediated cardiomyopathy vs stress cardiomyopathy; have not ruled out CAD / ischemic CM. Anterolateral ST/T findings may be ischemic vs strain-related. Euvolemic, with CHF symptoms limited to fatigue. On metoprolol tartrate 50 mg QID; will change to metoprolol succinate at discharge after stable dose achieved. Has required intermittent med holds due to hypotension, precluding add'l HF medications at this time. Will eventually need NICKOLAS-I/ARB vs Entresto. Deferring coronary angiography at this time, given SHANNAN and increased risk of contrast nephropathy. Nuclear stress could be considered for initial eval prior to discharge or electively. 2) Atrial Fibrillation, persistent: Unclear onset; present at least since pre-op eval one week prior to surgery. Per family, paroxysmalAF previously diagnosed ~ 7 years ago and previously treated with diltiazem and ASA (both discontinued around 2019). HANSEL 09/30/23 demonstrated ANDREA thrombus; not a candidate for cardioversion currently. Currently managing with rate-control approach with metoprolol tartrate 50 mg QID, with exertional tachycardia. Higher doses limited by soft BPs. Loading digoxin orally; given persistently elevated ventricular rates despite initial 750 mcg load will give add'l 250 mcg now for a full 1 mg load, followed by 62.5 mcg daily. Presence of mild left atrial enlargement and right atrial enlargement increase risk of recurrent AF, but would not preclude attempts at rhythm control. Future rhythm control options include antiarrhythmic medical therapy vs catheter ablation, pending resolution of ANDREA thrombus. [id number] score of 1 (CHF) though with ANDREA thrombus; on Eliquis 5 mg BID. Recommend lifelong anticoagulation in setting of thrombus. 3) SHANNAN Initially consistent with prerenal etiology, though ? component of CKD. Cr holding in 1.4-1.5 range despite fluids. Avoid nephrotoxic agents at this time. Nephrology following. 4) Prostate adenocarcinoma: S/p prostatectomy this admission Mgmt as per urology 5) Suspected untreated NOÉ: Sleep study recommended 6) Tobacco use: Cessation recommended 7) Venous insufficiency: S/p prior vein stripping x 2. Diffuse venous varicosities though not edema currently. Consult service following. Arnulfo Case MD Data Technical Lead, Cardiac [employer] [place] MAINTENANCE TECHNICIAN * Jericho Batista MD - 10/02/2023 10:34 AM CST Images from the original note were not included. HOSPITALIST DIVISION CONSULTATION PROGRESS NOTE CHIEF COMPLAINT: Shortness of breath ASSESSMENT & PLAN Principal Problem: Prostate cancer (HCC) Active Problems: NOÉ (obstructive sleep apnea) HFrEF (heart failure with reduced ejection fraction) (HCC) Atrial fibrillation with rapid ventricular response (HCC) Patient is a 63-year-old male with past medical history of paroxysmal A-fib not on anticoagulation prior to admission, NOÉ not on CPAP prior to admission who was admitted following elective prostatectomy for malignant neoplasm of the prostate. #. Malignant neoplasm of prostate status post laparoscopic prostatectomy and lymph node dissection 09/26 -Pain management, drain management, dietary progression, therapy assessment, anticoagulation, and disposition planning per primary team -Follow-up surgical pathology #. Heart failure with reduced ejection fraction, not in acute exacerbation, new diagnosis As part of evaluation for respiratory insufficiency as below, BNP was obtained and noted to be mildly elevated. Because of this, an echocardiogram was ordered. The echocardiogram was revealing of a severely reduced ejection fraction at 26% as well as bilateral atrial enlargement and moderate mitralregurgitation. All of these represent new findings. Patient with no known history of ischemic coronary disease. Patient does have history of atrial fibrillation and NOÉ. No current exam findings suggestive of decompensation. -Cardiology consult placed, appreciate recommendations and management -Patient currently unable to tolerate further GDMT given hypotension -Continue metoprolol as below per cardiology recommendations #. Atrial fibrillation with RVR Patient developed A-fib with RVR in the postoperative setting. He does have known history of atrialfibrillation and does take metoprolol prior to admission. He reports not taking his metoprolol since the morning of the day prior to surgery. Initially, his heart rate improved with maintenance IV fluid administration as well as resumption of beta-blockade. However, the patient experienced recurrent episodes of atrial fibrillation with RVR overnight 09/27 to 09/28 and has intermittently continued to have rapid rates. -Cardiology consulted as above -Continue telemetry -Patient currently on metoprolol 50 mg 4 times daily with as needed IV dosing also ordered with continued episodes of RVR -Patient initiated on digoxin load 10/01 per cardiology, maintenance dosing to initiate 10/03 with doseof 62.5 mcg daily -Patient initiated on Eliquis 09/28 -Plan for HANSEL cardioversion 09/30 per cardiology, unfortunately patient found to have a left atrial appendage thrombus so cardioversion was not pursued #. SHANNAN #. Concern for possible underlying CKD Baseline renal function unknown. Patient noted to have elevated serum creatinine to 1.44 on initialassessment. Suspect prerenal injury given hypovolemia. Creatinine somewhat improved following fluidadministration. FeNa obtained and consistent with prerenal injury. To range of 1.3. Creatinine failed to improve with further IV fluid administration. IV fluids discontinued as patient was having fair oral intake. Creatinine now up trending. -Nephrology consult placed, appreciate recommendations -Continue to monitor #. Acute postoperative respiratory insufficiency, resolved #. Untreated NOÉ Patient developed postoperative respiratory insufficiency initially requiring as much is 8 L/min nasal cannula prior to being down titrated. Initial concern for possible pulmonary embolus based off patient's history of atrial fibrillation not on anticoagulation. CT PE obtained and unrevealing. Pneumonia considered as well, but imaging more suggestive of possible atelectasis and procalcitonin not significantly elevated. Pulmonary edema was considered as well especially given elevated BNP as above. Imaging did not reveal significant pulmonary edema; however, echocardiogram was pursued as above.Overall suggest postoperative atelectasis complicated by untreated sleep apnea. Empiric antibioticswere discontinued and patient showed no ongoing evidence of infection and was stable on room air. -Patient will need referral for outpatient sleep study at discharge #. Hyperkalemia, mild Patient noted to have mild hyperkalemia 2/4 AM with potassium level of 5.4. Possibly related to digoxin load. -Continue to monitor #. Leukocytosis, resolved Suspect stress reaction in the postoperative setting. Consideration of possible pneumonia as above.No additional acute infectious symptoms. -Continue to monitor #. Acute blood loss anemia, resolved Mild. In postoperative setting. Resolved. -Continue to monitor #. Chronic constipation -Bowel regimen ordered #. Small pustular lesion on glute Patient reports he has intermittently suffered from pustular lesions in this area for many months. He reported some discomfort on his backside which she felt was consistent with recurrent lesion. Exam notable for a small approximately half a centimeter diameter pustular lesion. -Will trial ordered bacitracin -Consider bedside I&D if worsening # Code status: Full code Remainder of cares per primary team. I thank Dr. Cruz for allowing me to take part in the care of this patient. Jericho Batista MD [facility] Medicine SUBJECTIVE No acute events overnight. Nursing notes reviewed. The patient reports he had a poor night of sleeplast night. 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 He otherwise denies any acute symptoms at this time including shortness of breath, chest discomfort, palpitations, or lightheadedness. 4-point ROS otherwise negative. OBJECTIVE BP 96/71 Pulse (!) 51 Temp 97.5 ??F (36.4 ??C) Resp 18 Ht 6' 3 (1.905 m) Wt 118.4 kg (261 lb 1.6 oz) SpO2 95% BMI 32.64 kg/m?? Intake/Output Summary (Last 24 hours) at 10/02/2023 1034 Last data filed at 10/02/2023 0815 Gross per 24 hour Intake 1000 ml Output 1450 ml Net -450 ml GENERAL APPEARANCE: He is awake, alert and in no acute distress. HEENT: Head - Normocephalic, atraumatic. Eyes - Normal lids and conjuntivae, PERRLA, EOMs intact. Nose - No deformity. Moist mucous membranes. NECK: Supple, no appreciated JVD RESPIRATORY: Good air entry, no wheezes, rhonchi, rales, or increased work of breathing CARDIOVASCULAR: Normal S1, normal S2, irregularly irregular and rapid rate with no appreciated murmur. GASTROINTESTINAL: Soft, non-tender, normal bowel sounds, mildly distended, no rebound SKIN: Intact, warm, dry. No appreciated rashes NEUROLOGIC: Alert and oriented X 4, moves all extremities equally. Non-focal exam, power 5/5 in UE,sensation grossly intact EXTREMITIES: Distal Pulses are palpable, no lower extremity edema. Current Facility-Administered Medications: acetaminophen (TYLENOL) tablet 1,000 mg, 1,000 mg, oral, Q6H PRN OR acetaminophen (TYLENOL) rectal suppository 650 mg, 650 mg, Rectal, Q6H PRN, Stephanie Zacarias APRN, CRITICAL CARE CNS apixaban (ELIQUIS) tablet 5 mg, 5 mg, oral, Twice Daily, Jericho Batista MD, 5 mg at 10/02/23 0820 bacitracin (BACIGUENT) packet 1 Application , 1 Application , topical, BID PRN, Jose L Cruz MD bisacodyl (DULCOLAX) delayed released tablet 5-15 mg, 5-15 mg, oral, DAILY PRN, Jericho Batista MD digoxin (Lanoxin) tablet 250 mcg, 250 mcg, oral, Q6H, Arnulfo Case MD, 250 mcg at 10/02/23 0410 [START ON 10/03/2023] digoxin (Lanoxin) tablet 62.5 mcg, 62.5 mcg, oral, DAILY, Arnulfo Case MD diphenhydrAMINE (BENADRYL) injection 12.5-25 mg, 12.5-25 mg, Intravenous, Q4H PRN, Jose L Cruz MD docusate sodium (COLACE) capsule 100 mg, 100 mg, oral, Twice Daily, Jose L Cruz MD, 100 mg at 10/01/23 0801 glycopyrrolate (ROBINUL) injection 0.1 mg, 0.1 mg, IntraMUSCULAR, Q4H PRN, Jose L Cruz MD magnesium hydroxide (MILK OF MAGNESIA) suspension 30 mL, 30 mL, oral, DAILY PRN, Jericho Batista MD MAGNESIUM REPLACEMENT INTRAVENOUS - NOT FOR DOCUMENTATION PURPOSES, , Intravenous, PER PROTOCOL, Jericho Batista MD magnesium sulfate 2 gram / 50mL (4%) IV piggyback (PREMIX) 2 g, 2 g, Intravenous, ONCE, Jericho Batista MD metoprolol (LOPRESSOR) injection 5 mg, 5 mg, Intravenous, Q6H PRN, Yaneth Cornelius MD, 5 mg at 09/29/23 1626 metoprolol tartrate (LOPRESSOR) tablet 50 mg, 50 mg, oral, QID, Zoe, Callie Q, PA-C, 50 mg at 10/01/23 1755 naloxone (NARCAN) injection 0.1 mg, 0.1 mg, Intravenous, Q1 MINUTE PRN, Jose L Cruz MD naloxone (NARCAN) injection 0.1 mg, 0.1 mg, Intravenous, Q1 MINUTE PRN, Jose L Cruz MD ondansetron (ZOFRAN) injection 4 mg, 4 mg, Intravenous, Q12H PRN, Jose L Cruz MD oxyCODONE (immediate release) (ROXICODONE) tablet 5-10 mg, 5-10 mg, oral, Q4H PRN, Jose L Cruz MD polyethylene glycol (MIRALAX) packet 17 g, 17 g, oral, DAILY PRN, Jerihco Batista MD POTASSIUM REPLACEMENT ORAL - NOT FOR DOCUMENTATION PURPOSES, , oral, PER PROTOCOL OR POTASSIUM REPLACEMENT INTRAVENOUS - NOT FOR DOCUMENTATION PURPOSES, , Intravenous, PER PROTOCOL, Jericho Batista MD senna (SENOKOT) tablet 8.6-17.2 mg, 1-2 tablet, oral, Twice Daily, Jericho Batista MD, 8.6 mg at 10/01/23 0802 sodium chloride 0.9 % IV solution, , Intravenous, CONTINUOUS PRN, Jose L Cruz MD sodium chloride 0.9% irrigation solution 250 mL, 250 mL, Irrigation, PRN, Jose L Cruz MD LABS Recent Labs 09/30/23 0746 10/01/231954 WBC 9.2 -- RBC 4.86 -- HEMOGLOBIN 16.0 15.4 HEMATOCRIT 43.7 -- MCV 90 -- MCH 33 -- RDW 12.9 -- PLATELETCT 206 -- No Lab Results Found (last 72 hours) Recent Labs 09/30/23 0746 10/01/23 0837 10/01/23 19510/02/23 0805 SODIUM 139 138 -- 139 POTASSIUM 4.2 3.9 4.0 5.4* CHLORIDE 108 107 -- 107 CARBONDIOXI 25 25 -- 25 ANIONGAP 6.0 6.0 -- 7.0 GLUCOSE 89 91 -- 93 BUNUREANRO 20 18 -- 21 CREATININE 1.33* 1.47* 1.53* 1.48* CALCIUMSERUM 9.4 9.0 -- 9.4 ESTGFRMDRD >60.00 53.60* 51.08* 53.16* ABG: No Lab Results Found (last 72 hours) VBG: No Lab Results Found (last 72 hours) Invalid input(s): O2SV Micro: No results found for this visit on 09/26/23. Surgical/Procedure Site Anterior;Lower Abdomen (Active) Incision Date/Incision Time: 09/26/23817 Incision Type: Incision Orientation: Anterior;Lower Location: Abdomen Description: Trochar sites x 6 Additional comments: I reviewed the patient's new clinical lab test results. I reviewed the patient's medications. I reviewed the patient's new imaging test results. I discussed the patient's care with the patient, his spouse, nephrology team provider. Imaging Reviewed in [facility] [place] MAINTENANCE TECHNICIAN * Jose L Conrad DO - 10/02/2023 9:45 AM CST Urology PROGRESS NOTE POD# 6 following Robotic assisted laparoscopic radical prostatectomy with bilateral pelvic lymph node dissection secondary to prostate cancer SUBJECTIVE: Patient was seen, examined and chart reviewed. Patient seen by cardiology yesterday where digoxin was started. Continue on Eliquis. Patient continues to do well from a surgical standpoint. Plan is for discharge home tomorrow if doing well on digoxin History obtained from chart review and the patient. OBJECTIVE: BP 96/71 Pulse (!) 51 Temp 97.5 ??F (36.4 ??C) Resp 18 Ht 6' 3 (1.905 m) Wt 118.4 kg (261 lb 1.6 oz) SpO2 95% BMI 32.64 kg/m?? Intake/Output Summary (Last 24 hours) at 10/02/2023 0945 Last data filed at 10/02/2023 0815 Gross per 24 hour Intake 1000 ml Output 1450 ml Net -450 ml Recent Labs 09/30/23 0746 10/01/23 0837 10/01/23195410/02/23 0805 SODIUM 139 138 -- 139 POTASSIUM 4.2 3.9 4.0 5.4* CHLORIDE 108 107 -- 107 CARBONDIOXI 25 25 -- 25 ANIONGAP 6.0 6.0 -- 7.0 GLUCOSE 89 91 -- 93 BUNUREANRO 20 18 -- 21 CREATININE 1.33* 1.47* 1.53* 1.48* CALCIUMSERUM 9.4 9.0 -- 9.4 ESTGFRMDRD >60.00 53.60* 51.08* 53.16* Recent Labs 09/30/23 0746 10/01/231954 WBC 9.2 -- RBC 4.86 -- HEMOGLOBIN 16.0 15.4 HEMATOCRIT 43.7 -- MCV 90 -- MCH 33 -- RDW 12.9 -- PLATELETCT 206 -- Exam: GEN: Laying in bed, A&O, NAD SKIN: Dry and warm HEENT: Normocephalic, atraumatic NECK: Symmetric CHEST: Normal respiratory effort, symmetric chest expansion, no audible wheezing GI: Soft, nontender nondistended. [place] in place. Mild ecchymosis near the midline incision. : Delatorre catheter in place draining yellow urine EXT: No LE tenderness / edema Assessment Prostate cancer status post robotic assisted laparoscopic radical prostatectomy with bilateral pelvic lymph node dissection 09/26/[address] Cruz Atrial fibrillation with rapid ventricular response status post HANSEL 09/30 Plan Regular diet Pain management Encourage ambulation From a surgical standpoint patient is doing well. He is cleared from discharge from a urologic perspective. Patient will keep catheter discharge and follow-up with Dr. Cruz at his scheduled visit for catheter and staple removal Patient will be discharged once cleared by primary and cardiology. From notes yesterday patient likely discharge tomorrow once it is confirmed he is tolerating digoxin Jose L Conrad DO [facility] [place] MAINTENANCE TECHNICIAN * Stephanie Edwards RN - 10/02/2023 3:07 AM CST Med-Surg Care Progression Note Type: Shift to shift summary Shift [id number] Length of stay: 6 days Code Status: Full Code Primary Problem: Prostate cancer, thrombus Lt atrium 09/26 s/p RALP w/ bilateral pelvic lymph node dissection Hx: NOÉ (obstructive sleep apnea), HFrEF (heart failure with reduced ejection fraction), Atrial fibrillation with rapid ventricular response, tobacco use 09/30: HANSEL with no cardioversion d/t ANDREA thrombus. Summary: Pt's BPs have been low, 86/56 at the beginning of the shift. MD paged and ordered stat Hgbcheck, and albumin IV x1. Hgb stable. Recheck BP was 100/64. Scheduled 1st dose of Digoxin given, and scheduled metoprolol was held per MD. Denied pain this shift, and requested not to be woken up ovenight for pain meds. F- Feeding & Fluids: Tolerating regular, thin liquids, 2g sodium, 2000mL fluid restriction A- Analgesic & Anticoagulation: Comfort Goal: Numeric, Verbal, Faces: 0 - None Analgesic No pain Anticoagulation/DVT prevention & plan Eliquis & SCDs S- Skin: Levi Subcategory Concern(s): Pt shifts weight independently. Total Levi Score: 21: Earl on abd intact and edges approximated, open to air. Abd is round, distended & firm. Refused to take scheduled stool softeners tonight stating that he had a BM lastnight. T- Telemetry: Rhythm: Atrial Fibrillation; Atrial Fibrillation with Rapid Ventricular Response Ectopy: None On tele - No calls K-mag - recheck was at goal tonight E- Emotional & Neuro: Calm affect Neuro Alert and Oriented R- Respiratory: On room air H- Head OUT of Bed & Activity: Activate Fall Alert? (Enter 1 or 0): (not recorded) Ambulating independently in room U- Urologic/bowel: Size: Medium (09/30/2023 8:00 PM) Indwelling Delatorre, reports having BM yesterday G- Glycemic Control: Not applicable T- Treatment: Labs, telemetry - cardiology following, delatorre care education (completed yesterday & written instructions provided), K/mag protocol, recommended sleep study outpatient for untreated NOÉ, tobacco cessation, hold scheduled metoprolol if HR <55 and /or SBP <90 I- Invasive Devices: PIV- SL, Indwelling Delatorre D- Discharge: Likely tomorrow 2/5 to Home, pending pt's tolerance to Digoxin medication. [place] MAINTENANCE TECHNICIAN * Ovidio Doshi MD - 10/01/2023 7:53 PM CST Images from the original note were not included. Notified patient BP 86/56; previous SBP in 90s today Will check hemoglobin and give albumin infusion Hold antihypertensives for now Ovidio Doshi MD [place] MAINTENANCE TECHNICIAN * Krista Rodriguez RN - 10/01/2023 6:09 PM CST Med-Surg Care Progression Note Type: Shift to shift summary Length of stay: 5 days Code Status: Full Code Primary Problem: Prostate cancer - RALP w/ bilateral pelvic lymph node dissection Hx: NOÉ (obstructive sleep apnea), HFrEF (heart failure with reduced ejection fraction), & Atrial fibrillation with rapid ventricular response 2/: HANSEL with no cardioversion d/t ANDREA thrombus. Summary: No acute events this shift. Pt calm and cooperative with family ( and mom) visiting bedside today requesting additional information on discharge timing. Mag and potassium replaced. Educated pt on use of leg bag for delatorre and provided written delatorre management materials. Education on heart healthy diet given. Digoxin added to treatment plan. F- Feeding & Fluids: Tolerating regular, thin liquids, 2g sodium, 2000mL fluid restriction A- Analgesic & Anticoagulation: Comfort Goal: Numeric, Verbal, Faces: 4 - Moderate Analgesic No pain Anticoagulation/DVT prevention & plan Eliquis & SCDs S- Skin: Levi Subcategory Concern(s): Pt shifts weight independently. Total Levi Score: 21: [place] on abd intact and edges approximated, open to air. T- Telemetry: Rhythm: Atrial Fibrillation with Rapid Ventricular Response Ectopy: None On tele - No calls K-mag - both replaced today E- Emotional & Neuro: Calm affect, politely refused to complete a bed bath or ambulate today. Neuro Alert and Oriented R- Respiratory: On room air H- Head OUT of Bed & Activity: Activate Fall Alert? (Enter 1 or 0): (not recorded) Ambulating independently in room (not OOB for RN today d/t request to rest). U- Urologic/bowel: Size: Medium (09/30/2023 8:00 PM) Delatorre, no BM reported today. G- Glycemic Control: Not applicable T- Treatment: Labs, telemetry - cardiology following, delatorre care education (completed today and written instructions provided), K/mag - both replaced. I- Invasive Devices: PIV x 1, Delatorre D- Discharge: Pt met with cardiology today, they estimated DC likely Tuesday to determine how digoxin is tolerated Problem: Falls/Injury-Risk of Goal: Absence of Falls/Injury Outcome: Met this shift Flowsheets (Taken 10/01/2023 0101 by Del De La Torre) Environmental Safety Interventions: Standard Interventions in Place Mobility Safety Interventions: Standard Interventions in Place Elimination Safety Interventions: Standard Interventions in Place Medication: Standard Interventions in Place Problem: Communication Goal: Demonstrates/exhibits ability to communicate needs effectively Outcome: Met this shift Problem: Pain Goal: Exhibits reduction in pain to a level of acceptable comfort Outcome: Met this shift [place] MAINTENANCE TECHNICIAN * Arnulfo Case MD - 10/01/2023 4:24 PM CST CARDIOLOGY CONSULTATION FOLLOW-UP NOTE Patient Name: Aleks Moura Address: [address] [place] [address] Age:63 y.o. Gender: male Admission Date/Time: 09/26/2023 5:44 AM Hospital Attending Physician: Jose L Cruz MD The cardiology consult service is following this patient for evaluation/management of atrial fibrillation and acute HFrEF with new severe cardiomyopathy. Background: 63 y.o. male with PAF, suspected NOÉ, tobacco use, prostate cancer admitted post robot-assisted laparoscopic prostatectomy with new cardiomyopathy (EF 26% with global hypokinesis) of unclear etiology and atrial fibrillation of unclear chronicity with RVR. Suspect tachymyopathy though have not excluded an ischemic etiology. Euvolemic, with CHF symptoms primarily limited to fatigue. TEE09/30/23 demonstrated ANDREA thrombus; unable to proceed with cardioversion. Pursuing rate-control approach currently. Subjective: Extensive discussion with Aleks and his Sofía, who joined via telephone. Sofía recalls Aleks being diagnosed with AF ~ 7 years ago in [place] at the time of a sleep study, and treated with ASA and diltiazem. His diltiazem was discontinued after moving to [place], presumably in the setting of rhythm stability. Aleks also reports a hx of venous insufficiency s/p vein stripping x 2. Objective: Meds: Current Facility-Administered Medications Medication Dose Route Frequency Provider Last Rate Last Admin acetaminophen (TYLENOL) tablet 1,000 mg 1,000 mg oral Q6H PRN Stephanie Zacarias APRN, CNP Or acetaminophen (TYLENOL) rectal suppository 650 mg 650 mg Rectal Q6H PRN Stephanie Zacarias APRN, CNP apixaban (ELIQUIS) tablet 5 mg 5 mg oral Twice Daily Jericho Batista MD 5 mg at 10/01/23 0801 bacitracin (BACIGUENT) packet 1 Application 1 Application topical BID PRN Jose L Cruz MD bisacodyl (DULCOLAX) delayed released tablet 5-15 mg 5-15 mg oral DAILY PRN Jericho Batista MD diphenhydrAMINE (BENADRYL) injection 12.5-25 mg 12.5-25 mg Intravenous Q4H PRN Jose L Cruz MD docusate sodium (COLACE) capsule 100 mg 100 mg oral Twice Daily Jose L Cruz MD 100 mg at 10/01/23 0801 glycopyrrolate (ROBINUL) injection 0.1 mg 0.1 mg IntraMUSCULAR Q4H PRN Jose L Cruz MD magnesium hydroxide (MILK OF MAGNESIA) suspension 30 mL 30 mL oral DAILY PRN Jericho Batista MD MAGNESIUM REPLACEMENT INTRAVENOUS - NOT FOR DOCUMENTATION PURPOSES Intravenous PER PROTOCOL Jericho Batista MD metoprolol (LOPRESSOR) injection 5 mg 5 mg Intravenous Q6H PRN Yaneth Cornelius MD 5 mg at 09/29/23 1626 metoprolol tartrate (LOPRESSOR) tablet 50 mg 50 mg oral QID ZoeCallie sosa, MATHEW-C 50 mg at 10/01/23 1246 naloxone (NARCAN) injection 0.1 mg 0.1 mg Intravenous Q1 MINUTE PRN Jose L Cruz MD naloxone (NARCAN) injection 0.1 mg 0.1 mg Intravenous Q1 MINUTE PRN Jose L Cruz MD ondansetron (ZOFRAN) injection 4 mg 4 mg Intravenous Q12H PRN Jose L Cruz MD oxyCODONE (immediate release) (ROXICODONE) tablet 5-10 mg 5-10 mg oral Q4H PRN Jose L Cruz MD polyethylene glycol (MIRALAX) packet 17 g 17 g oral DAILY PRN Jericho Batista MD POTASSIUM REPLACEMENT ORAL - NOT FOR DOCUMENTATION PURPOSES oral PER PROTOCOL Jericho Batista MD Or POTASSIUM REPLACEMENT INTRAVENOUS - NOT FOR DOCUMENTATION PURPOSES Intravenous PER PROTOCOL Jericho Batista MD senna (SENOKOT) tablet 8.6-17.2 mg 1-2 tablet oral Twice Daily Jericho Batista MD 8.6 mg at 10/01/23 0802 sodium chloride 0.9 % IV solution Intravenous CONTINUOUS PRN Jose L Cruz MD sodium chloride 0.9% irrigation solution 250 mL 250 mL Irrigation PRN Jose L Cruz MD Physical exam: BP 95/79 Pulse 79 Temp 97.6 ??F (36.4 ??C) Resp 18 Ht 6' 3 (1.905 m) Wt 118.4 kg (261 lb1.6 oz) SpO2 94% BMI 32.64 kg/m?? Body mass index is 32.64 kg/m??. Vitals: 10/01/23 0756 10/01/23 0801 10/01/23 1202 10/01/23 1530 BP: 90/75 101/65 96/81 95/79 Pulse: 75 (!) 105 79 Resp: 18 18 Temp: 97.6 ??F (36.4 ??C) SpO2: 95% 95% 94% Weight: Height: Const: NAD, interactive, conversational. Eyes: Nonicteric sclerae, PERRL. Neck: Symmetric-appearing, without visible thyromegaly. Resp: Normal respiratory effort. Lungfields CTAB with good air movement. CV: Irreg irreg S1/S2, no murmur. No rub or gallop. JVP not elevated. No carotid bruits. Extremities warm, dry, well-perfused. No edema. Diffuse bilat LE venous varicosities. GI: Abd SNDNT, + BS four quadrants. Skin: No obvious rashes. Neuro: Alert and oriented, CN II-XII gr intact. Psych: Normal mood and affect. Labs: Results for orders placed or performed during the hospital encounter of 09/26/23 (from the past 24 hour(s)) Basic Metab Profile Result Value Ref Range Sodium 138 136 - 145 mmol/L Potassium 3.9 3.4 - 5.1 mmol/L Chloride 107 98 - 108 mmol/L Carbon Dioxide 25 20 - 31 mmol/L BUN (Urea Nitro) 18 9 - 23 mg/dL Creatinine 1.47 (H) 0.73 - 1.18 mg/dL Est GFR (CKD-EPI) 53.60 (L) >60.00 mL/min/1.73m2 Glucose 91 74 - 106 mg/dL Calcium, Serum 9.0 8.7 - 10.4 mg/dL Anion Gap 6.0 0.0 - 15.0 mmol/L Magnesium Result Value Ref Range Magnesium 1.8 1.6 - 2.6 mg/dL Tracings personally visualized: Telemetry: AF 70s to 110s Impression / Recommendations: 1) New HFrEF 2' cardiomyopathy of unclear etiology: Echo 09/26/23 with severely reduced LVSF; EF 26%. Suspect tachy-mediated cardiomyopathy vs stress cardiomyopathy; have not ruled out CAD / ischemic CM. Anterolateral ST/T findings may be ischemic vs strain-related. Euvolemic, with CHF symptoms limited to fatigue. On metoprolol tartrate 50 mg QID; will change to metoprolol succinate at discharge after stable dose achieved. Has required intermittent med holds due to hypotension, precluding add'l HF medications at this time. Will eventually need NICKOLAS-I/ARB vs Entresto. Deferring coronary angiography at this time, given SHANNAN and increased risk of contrast nephropathy. Nuclear stress could be considered for initial eval prior to discharge or electively. 2) Atrial Fibrillation, persistent: Unclear onset; present at least since pre-op eval one week prior to surgery. Per family, paroxysmalAF previously diagnosed ~ 7 years ago and previously treated with diltiazem and ASA (both discontinued around 2019). HANSEL 09/30/23 demonstrated ANDREA thrombus; not a candidate for cardioversion currently. Currently managing with rate-control approach with metoprolol tartrate 50 mg QID, with exertional tachycardia. Higher doses limited by soft BPs. Will start digoxin with reduced oral load (250 mcg q6h x 3 doses), followed by 62.5 mcg daily. Presence of mild left atrial enlargement and right atrial enlargement increase risk of recurrent AF, but would not preclude attempts at rhythm control. Future rhythm control options include antiarrhythmic medical therapy vs catheter ablation, pending resolution of ANDREA thrombus. [id number] score of 1 (CHF) though with ANDREA thrombus; on Eliquis 5 mg BID. Recommend lifelong anticoagulation in setting of thrombus. 3) SHANNAN Initially consistent with prerenal etiology, though ? component of CKD. Cr holding in 1.4 range despite fluids. Avoid nephrotoxic agents at this time. 4) Prostate adenocarcinoma: S/p prostatectomy this admission Mgmt as per urology 5) Suspected untreated NOÉ: Sleep study recommended 6) Tobacco use: Cessation recommended Consult service following. Arnulfo Case MD Data Technical Lead, Cardiac Brick Siding [employer]ator [place] MAINTENANCE TECHNICIAN * Jericho Batista MD - 10/01/2023 11:54 AM CST Images from the original note were not included. HOSPITALIST DIVISION CONSULTATION PROGRESS NOTE CHIEF COMPLAINT: Shortness of breath ASSESSMENT & PLAN Principal Problem: Prostate cancer (HCC) Active Problems: NOÉ (obstructive sleep apnea) HFrEF (heart failure with reduced ejection fraction) (HCC) Atrial fibrillation with rapid ventricular response (HCC) Patient is a 63-year-old male with past medical history of paroxysmal A-fib not on anticoagulation prior to admission, NOÉ not on CPAP prior to admission who was admitted following elective prostatectomy for malignant neoplasm of the prostate. #. Malignant neoplasm of prostate status post laparoscopic prostatectomy and lymph node dissection 09/26 -Pain management, drain management, dietary progression, therapy assessment, anticoagulation, and disposition planning per primary team -Follow-up surgical pathology #. Heart failure with reduced ejection fraction, not in acute exacerbation, new diagnosis As part of evaluation for respiratory insufficiency as below, BNP was obtained and noted to be mildly elevated. Because of this, an echocardiogram was ordered. The echocardiogram was revealing of a severely reduced ejection fraction at 26% as well as bilateral atrial enlargement and moderate mitralregurgitation. All of these represent new findings. Patient with no known history of ischemic coronary disease. Patient does have history of atrial fibrillation and NOÉ. No current exam findings suggestive of decompensation. -Cardiology consult placed, appreciate recommendations and management -Isordil 2.5 mg 3 times daily and hydralazine 10 mg 3 times daily discontinued due to hypotension -Continue metoprolol as below per cardiology recommendations #. Acute postoperative respiratory insufficiency, resolved #. Untreated NOÉ Patient developed postoperative respiratory insufficiency initially requiring as much is 8 L/min nasal cannula prior to being down titrated. Initial concern for possible pulmonary embolus based off patient's history of atrial fibrillation not on anticoagulation. CT PE obtained and unrevealing. Pneumonia considered as well, but imaging more suggestive of possible atelectasis and procalcitonin not significantly elevated. Pulmonary edema was considered as well especially given elevated BNP as above. Imaging did not reveal significant pulmonary edema; however, echocardiogram was pursued as above.Overall suggest postoperative atelectasis complicated by untreated sleep apnea. Empiric antibioticswere discontinued and patient showed no ongoing evidence of infection and was stable on room air. -Patient will need referral for outpatient sleep study at discharge #. Atrial fibrillation with RVR Patient developed A-fib with RVR in the postoperative setting. He does have known history of atrialfibrillation and does take metoprolol prior to admission. He reports not taking his metoprolol since the morning of the day prior to surgery. Initially, his heart rate improved with maintenance IV fluid administration as well as resumption of beta-blockade. However, the patient experienced recurrent episodes of atrial fibrillation with RVR overnight 09/27 to 09/28 and has intermittently continued to have rapid rates. -Cardiology consulted as above -Continue telemetry -Patient currently on metoprolol 50 mg 4 times daily with as needed IV dosing also ordered with continued episodes of RVR -Patient initiated on Eliquis 09/28 -Plan for HANSEL cardioversion 2/2 per cardiology, unfortunately patient found to have a left atrial appendage thrombus so cardioversion was not pursued -Patient to be reevaluated by EP provider with cardiology team today for ongoing recommendations #. Leukocytosis, resolved Suspect stress reaction in the postoperative setting. Consideration of possible pneumonia as above.No additional acute infectious symptoms. -Continue to monitor #. Acute blood loss anemia, resolved Mild. In postoperative setting. Resolved. -Continue to monitor #. SHANNAN, improving Baseline renal function unknown. Patient noted to have elevated serum creatinine to 1.44 on initialassessment. Suspect prerenal injury given hypovolemia. Creatinine somewhat improved following fluidadministration. FeNa obtained and consistent with prerenal injury. -Continue to monitor #. Chronic constipation -Bowel regimen ordered # Code status: Full code Remainder of cares per primary team. I thank Dr. Cruz for allowing me to take part in the care of this patient. Jericho Batista MD [facility] Medicine SUBJECTIVE No acute events overnight. Nursing notes reviewed. The patient reports he feels well at this time. Patient had many questions about ongoing care plan, but was understanding that treatment plan development is in process and his ongoing care will involve further outpatient evaluation and testing and a multidisciplinary team as well. Otherwise, denies acute concerns at this time. 4-point ROS otherwise negative. OBJECTIVE BP 101/65 Pulse 75 Temp 98 ??F (36.7 ??C) Resp 18 Ht 6' 3 (1.905 m) Wt 118.4 kg (261 lb 1.6 oz) SpO2 95% BMI 32.64 kg/m?? Intake/Output Summary (Last 24 hours) at 10/01/2023 1154 Last data filed at 10/01/2023 0622 Gross per 24 hour Intake 1000 ml Output 1200 ml Net -200 ml GENERAL APPEARANCE: He is awake, alert and in no acute distress. HEENT: Head - Normocephalic, atraumatic. Eyes - Normal lids and conjuntivae, PERRLA, EOMs intact. Nose - No deformity. Moist mucous membranes. NECK: Supple, no appreciated JVD RESPIRATORY: Good air entry, no wheezes, rhonchi, rales, or increased work of breathing CARDIOVASCULAR: Normal S1, normal S2, irregularly irregular and rapid rate with no appreciated murmur. GASTROINTESTINAL: Soft, non-tender, normal bowel sounds, mildly distended, no rebound SKIN: Intact, warm, dry. No appreciated rashes NEUROLOGIC: Alert and oriented X 4, moves all extremities equally. Non-focal exam, power 5/5 in UE,sensation grossly intact EXTREMITIES: Distal Pulses are palpable, no lower extremity edema. Current Facility-Administered Medications: acetaminophen (TYLENOL) tablet 1,000 mg, 1,000 mg, oral, Q6H PRN OR acetaminophen (TYLENOL) rectal suppository 650 mg, 650 mg, Rectal, Q6H PRN, Stephanie Zacarias, INTERDISCIPLINARY PROFESSOR, CRITICAL CARE CNS apixaban (ELIQUIS) tablet 5 mg, 5 mg, oral, Twice Daily, Jericho Batista MD, 5 mg at 10/01/23 0801 bacitracin (BACIGUENT) packet 1 Application , 1 Application , topical, BID PRN, Jose L Cruz MD bisacodyl (DULCOLAX) delayed released tablet 5-15 mg, 5-15 mg, oral, DAILY PRN, Jericho Batista MD diphenhydrAMINE (BENADRYL) injection 12.5-25 mg, 12.5-25 mg, Intravenous, Q4H PRN, Jose L Cruz MD docusate sodium (COLACE) capsule 100 mg, 100 mg, oral, Twice Daily, Jose L Cruz MD, 100 mg at 10/01/23 0801 glycopyrrolate (ROBINUL) injection 0.1 mg, 0.1 mg, IntraMUSCULAR, Q4H PRN, Jose L Cruz MD magnesium hydroxide (MILK OF MAGNESIA) suspension 30 mL, 30 mL, oral, DAILY PRN, Jericho Batista MD MAGNESIUM REPLACEMENT INTRAVENOUS - NOT FOR DOCUMENTATION PURPOSES, , Intravenous, PER PROTOCOL, Jericho Batista MD magnesium sulfate 2 gram / 50mL (4%) IV piggyback (PREMIX) 2 g, 2 g, Intravenous, ONCE, Krista Rodriguez RN, Last Rate: 25 mL/hr at 10/01/23 1042, 2 g at 10/01/23 1042 metoprolol (LOPRESSOR) injection 5 mg, 5 mg, Intravenous, Q6H PRN, Yaneth Cornelius MD, 5 mg at 09/29/23 1626 metoprolol tartrate (LOPRESSOR) tablet 50 mg, 50 mg, oral, QID, Zoe, Callie Q, PA-C, 50 mg at 10/01/23 0801 naloxone (NARCAN) injection 0.1 mg, 0.1 mg, Intravenous, Q1 MINUTE PRN, Jose L Cruz MD naloxone (NARCAN) injection 0.1 mg, 0.1 mg, Intravenous, Q1 MINUTE PRN, Jose L Cruz MD ondansetron (ZOFRAN) injection 4 mg, 4 mg, Intravenous, Q12H PRN, Jose L Cruz MD oxyCODONE (immediate release) (ROXICODONE) tablet 5-10 mg, 5-10 mg, oral, Q4H PRN, Jose L Cruz MD polyethylene glycol (MIRALAX) packet 17 g, 17 g, oral, DAILY PRN, Jericho Batista MD POTASSIUM REPLACEMENT ORAL - NOT FOR DOCUMENTATION PURPOSES, , oral, PER PROTOCOL OR POTASSIUM REPLACEMENT INTRAVENOUS - NOT FOR DOCUMENTATION PURPOSES, , Intravenous, PER PROTOCOL, Jericho Batista MD senna (SENOKOT) tablet 8.6-17.2 mg, 1-2 tablet, oral, Twice Daily, Jericho Batista MD, 8.6 mg at 10/01/23 0802 sodium chloride 0.9 % IV solution, , Intravenous, CONTINUOUS PRN, Jose L Cruz MD sodium chloride 0.9% irrigation solution 250 mL, 250 mL, Irrigation, PRN, Jose L Cruz MD LABS Recent Labs 09/29/23 0744 09/30/23 0746 WBC 9.9 9.2 RBC 4.71 4.86 HEMOGLOBIN 15.0 16.0 HEMATOCRIT 42.8 43.7 MCV 91 90 MCH 32 33 RDW 12.9 12.9 PLATELETCT 182 206 No Lab Results Found (last 72 hours) Recent Labs 09/29/23 0744 09/29/23 1800 09/30/23 0746 10/01/23 0837 SODIUM 139 -- 139 138 POTASSIUM 3.9 3.8 4.2 3.9 CHLORIDE 108 -- 108 107 CARBONDIOXI 27 -- 25 25 ANIONGAP 4.0 -- 6.0 6.0 GLUCOSE 98 -- 89 91 BUNUREANRO 19 -- 20 18 CREATININE 1.32* -- 1.33* 1.47* CALCIUMSERUM 8.9 -- 9.4 9.0 ESTGFRMDRD >60.00 -- >60.00 53.60* ABG: No Lab Results Found (last 72 hours) VBG: No Lab Results Found (last 72 hours) Invalid input(s): O2SV Micro: No results found for this visit on 09/26/23. Surgical/Procedure Site Anterior;Lower Abdomen (Active) Incision Date/Incision Time: 09/26/23817 Incision Type: Incision Orientation: Anterior;Lower Location: Abdomen Description: Trochar sites x 6 Additional comments: I reviewed the patient's new clinical lab test results. I reviewed the patient's medications. I reviewed the patient's new imaging test results. I discussed the patient's care with the patient, his spouse, primary team provider. Imaging Review[facility] [place] MAINTENANCE TECHNICIAN * Jose L Conrad DO - 10/01/2023 11:45 AM CST Urology PROGRESS NOTE POD# 5 following Robotic assisted laparoscopic radical prostatectomy with bilateral pelvic lymph node dissection secondary to prostate cancer SUBJECTIVE: Patient was seen, examined and chart reviewed. Yesterday patient had HANSEL. Found to have a clot. No cardioversion completed. Patient on Eliquis for anticoagulation. Doing well with his diet, pain is well-controlled, ambulating, passing gas. History obtained from chart review and the patient. OBJECTIVE: BP 101/65 Pulse 75 Temp 98 ??F (36.7 ??C) Resp 18 Ht 6' 3 (1.905 m) Wt 118.4 kg (261 lb 1.6 oz) SpO2 95% BMI 32.64 kg/m?? Intake/Output Summary (Last 24 hours) at 10/01/2023 1145 Last data filed at 10/01/2023 0622 Gross per 24 hour Intake 1000 ml Output 1200 ml Net -200 ml Recent Labs 09/29/23 0744 09/29/23 1800 09/30/23 0746 10/01/23 0837 SODIUM 139 -- 139 138 POTASSIUM 3.9 3.8 4.2 3.9 CHLORIDE 108 -- 108 107 CARBONDIOXI 27 -- 25 25 ANIONGAP 4.0 -- 6.0 6.0 GLUCOSE 98 -- 89 91 BUNUREANRO 19 -- 20 18 CREATININE 1.32* -- 1.33* 1.47* CALCIUMSERUM 8.9 -- 9.4 9.0 ESTGFRMDRD >60.00 -- >60.00 53.60* Recent Labs 09/29/23 0744 09/30/23 0746 WBC 9.9 9.2 RBC 4.71 4.86 HEMOGLOBIN 15.0 16.0 HEMATOCRIT 42.8 43.7 MCV 91 90 MCH 32 33 RDW 12.9 12.9 PLATELETCT 182 206 Exam: GEN: Laying in bed, A&O, NAD SKIN: Dry and warm HEENT: Normocephalic, atraumatic NECK: Symmetric CHEST: Normal respiratory effort, symmetric chest expansion, no audible wheezing GI: Soft, nontender nondistended. [place] in place. Mild ecchymosis near the midline incision. : Delatorre catheter in place draining yellow urine EXT: No LE tenderness / edema Assessment Prostate cancer status post robotic assisted laparoscopic radical prostatectomy with bilateral pelvic lymph node dissection 09/26/[address] Cruz Atrial fibrillation with rapid ventricular response status post HANSEL 09/30 Plan Regular diet Pain management Encourage ambulation From a surgical standpoint patient is doing well. He is cleared from discharge from a urologic perspective. Patient will keep catheter discharge and follow-up with Dr. Cruz at his scheduled visit for catheter and staple removal Patient will be discharged once cleared by primary and cardiology. Jose L Conrad DO [facility] [place] MAINTENANCE TECHNICIAN * Del De La Torre - 10/01/2023 6:23 AM CST Med-Surg Care Progression Note Type: Shift to shift summary Length of stay: 5 days Code Status: Full Code Primary Problem: RALP with bilateral pelvic lymph node dissection Summary: No acute changes this changes overnight. Had HANSEL done but cardioversion was cancelled. TEEressult showed ANDREA thrombus. F- Feeding & Fluids: Tolerating regular diet with sodium restriction and 2000ml fluid restriction. A- Analgesic & Anticoagulation: Comfort Goal: Numeric, Verbal, Faces: 4 - Moderate Analgesic Denies pain Anticoagulation/DVT prevention & plan Anticoagulant plan Eliquis BID S- Skin: Levi Subcategory Concern(s): Sensory Perception: No Impairment Moisture: Rarely Moist Activity: Walks Occasionally Activity Interventions: Low air loss mattress and Safer bundle Nutrition: Adequate Nutrition Interventions: Calorie intake Mobility: No Limitations Friction and Shear: No Apparent Problem Total Levi Score: 21: Pt shifts weight independently T- Telemetry: Rhythm: Atrial Fibrillation with Rapid Ventricular Response Ectopy: None On Tele- no calls E- Emotional & Neuro: Participating in cares Neuro Alert and Oriented R- Respiratory: On room air H- Head OUT of Bed & Activity: Activate Fall Alert? (Enter 1 or 0): (not recorded) Ambulating independently in the room U- Urologic/bowel: Size: Medium (09/30/2023 8:00 PM) Delatorre in place; Last BM this evening G- Glycemic Control: Not applicable T- Treatment: Labs , Tele Cardiology following, Delatorre care education, K/Mg protocol I- Invasive Devices: PIV, Delatorre D- Discharge: Discharge criteria when medically stable [place] MAINTENANCE TECHNICIAN * Leia Medina RN - 09/30/2023 10:37 PM CST Med-Surg Care Progression Note Type: Shift to shift summary Length of stay: 4 days Code Status: Full Code Primary Problem: RALP with bilateral pelvic lymph node dissection Summary: Pt went down for HANSEL today, results showed a ANDREA thrombus therefor cardioversion was cancelled. EP MD will round tomorrow to finalized plan for pt's AF management. Pt's 2200 blood pressure check was 89/70 with HR 90, scheduled metropolol held. Recheck blood pressure at 2230 was 97/70. PRN available for HR > 120 Pt denied pain and SOB this shift. Family at bedside during the afternoon. Pt is ambulating independently. Abdominal earl heeling, pt to follow up with urology in 2 weeks. F- Feeding & Fluids: Tolerating regular diet with sodium restriction and 2000ml fluid restriction. A- Analgesic & Anticoagulation: Comfort Goal: Numeric, Verbal, Faces: 4 - Moderate Analgesic Denies pain Anticoagulation/DVT prevention & plan Anticoagulant plan Eliquis BID S- Skin: Levi Subcategory Concern(s): Sensory Perception: No Impairment Moisture: Rarely Moist Activity: Walks Occasionally Activity Interventions: Low air loss mattress and Safer bundle Nutrition: Adequate Nutrition Interventions: Calorie intake Mobility: No Limitations Friction and Shear: No Apparent Problem Total Levi Score: 21: Pt shifts weight independently T- Telemetry: Rhythm: Atrial Fibrillation with Rapid Ventricular Response Ectopy: None On Tele- no calls E- Emotional & Neuro: Participating in cares Neuro Alert and Oriented R- Respiratory: On room air H- Head OUT of Bed & Activity: Activate Fall Alert? (Enter 1 or 0): (not recorded) Ambulating independently in the room U- Urologic/bowel: Size: Medium (09/30/2023 8:00 PM) Delatorre in place; Last BM this evening G- Glycemic Control: Not applicable T- Treatment: Labs , Tele Cardiology following, Delatorre care education, K/Mg protocol, Monitor HR if above 120 give metoprolol I- Invasive Devices: PIV, Delatorre D- Discharge: TBD - when medically stable [place] MAINTENANCE TECHNICIAN * Roxane Aponte RN - 09/30/2023 2:41 PM CST Med-Surg Care Progression Note Type: Shift to shift summary Length of stay: 4 days Code Status: Full Code Primary Problem: RALP with bilateral pelvic lymph node dissection Summary:Pt remains on RA, A&O, went down for HANSEL, no cardioversion was done. Family was at bedside. Monitor HR and if above 120, give metoprolol, cardio following, ambulate independently to the BR.No acute changes. F- Feeding & Fluids: NPO for HANSEL and Cardioversion A- Analgesic & Anticoagulation: Comfort Goal: Numeric, Verbal, Faces: 4 - Moderate Analgesic Denies pain Anticoagulation/DVT prevention & plan SCDs S- Skin: Levi Subcategory Concern(s): Sensory Perception: No Impairment Moisture: Rarely Moist Activity: Walks Occasionally Activity Interventions: Low air loss mattress and Safer bundle Nutrition: Adequate Nutrition Interventions: Calorie intake Mobility: No Limitations Friction and Shear: No Apparent Problem Total Levi Score: 21: Pt shifts weight independently T- Telemetry: Rhythm: Atrial Fibrillation with Rapid Ventricular Response; Atrial Fibrillation Ectopy: None On Tele- no calls E- Emotional & Neuro: Participating in cares Neuro Alert and Oriented R- Respiratory: On room air H- Head OUT of Bed & Activity: Activate Fall Alert? (Enter 1 or 0): (not recorded) Ambulating independently in the room U- Urologic/bowel: Size: Small (09/27/2023 11:00 AM) Delatorre in place G- Glycemic Control: Not applicable T- Treatment: Labs , Tele Cardiology following, Delatorre care education, K/Mg protocol, Monitor HR if above 120 give metoprolol I- Invasive Devices: PIV, Delatorre D- Discharge: TBD - when medically stable [place] MAINTENANCE TECHNICIAN * Tania Ryan RN - 09/30/2023 2:34 PM CST Patient procdure complete. Report called to [facility] RN. Patient transported back to [facility]. MH/RN [place] MAINTENANCE TECHNICIAN * Tania Ryan RN - 09/30/2023 1:30 PM CST [facility]. Patient prepped for HANSEL. MH/RN [place] MAINTENANCE TECHNICIAN * Callie Enriquez PA-C - 09/30/2023 10:33 AM CST CARDIOLOGY PROGRESS NOTE Patient Name: Aleks Moura Age:63 y.o. Gender: male Admission Date/Time: 09/26/2023 5:44 AM Hospital Attending Physician: Jose L Cruz MD Summary: This patient is a 63 y.o. male with PMH significant for PAF, suspected NOÉ, tobacco use, prostate cancer admitted post robot-assisted laparoscopic prostatectomy who cardiology to see due to abnormal echocardiogram with reduced ejection fraction EF 26% and atrial fibrillation with RVR. Subjective: Patient and present with many questions about atrial fibrillation and cardioversion procedure. Objective: Current Facility-Administered Medications Medication Dose Route Frequency Provider Last Rate Last Admin acetaminophen (TYLENOL) tablet 1,000 mg 1,000 mg oral Q6H PRN Stephanie Zacarias APRN, CNP Or acetaminophen (TYLENOL) rectal suppository 650 mg 650 mg Rectal Q6H PRN Stephanie Zacarias APRN, DAMIÁN apixaban (ELIQUIS) tablet 5 mg 5 mg oral Twice Daily Jericho Batista MD 5 mg at 09/30/23 0809 bacitracin (BACIGUENT) packet 1 Application 1 Application topical BID PRN Jose L Cruz MD bisacodyl (DULCOLAX) delayed released tablet 5-15 mg 5-15 mg oral DAILY PRN Jericho Batista MD diphenhydrAMINE (BENADRYL) injection 12.5-25 mg 12.5-25 mg Intravenous Q4H PRN Jose L Cruz MD docusate sodium (COLACE) capsule 100 mg 100 mg oral Twice Daily Jose L Cruz MD 100 mg at 09/30/23 0809 glycopyrrolate (ROBINUL) injection 0.1 mg 0.1 mg IntraMUSCULAR Q4H PRN Jose L Cruz MD magnesium hydroxide (MILK OF MAGNESIA) suspension 30 mL 30 mL oral DAILY PRN Jericho Batista MD MAGNESIUM REPLACEMENT INTRAVENOUS - NOT FOR DOCUMENTATION PURPOSES Intravenous PER PROTOCOL Jericho Batista MD metoprolol (LOPRESSOR) injection 5 mg 5 mg Intravenous Q6H PRN Yaneth Cornelius MD 5 mg at 09/29/23 1626 metoprolol tartrate (LOPRESSOR) tablet 50 mg 50 mg oral QID Callie Enriquez, PA-C 50 mg at 09/29/23 2202 naloxone (NARCAN) injection 0.1 mg 0.1 mg Intravenous Q1 MINUTE PRN Jose L Cruz MD naloxone (NARCAN) injection 0.1 mg 0.1 mg Intravenous Q1 MINUTE PRN Jose L Cruz MD ondansetron (ZOFRAN) injection 4 mg 4 mg Intravenous Q12H PRN Jose L Cruz MD oxyCODONE (immediate release) (ROXICODONE) tablet 5-10 mg 5-10 mg oral Q4H PRN Jose L Cruz MD polyethylene glycol (MIRALAX) packet 17 g 17 g oral DAILY PRN Jericho Batista MD POTASSIUM REPLACEMENT ORAL - NOT FOR DOCUMENTATION PURPOSES oral PER PROTOCOL Jericho Batista MD Or POTASSIUM REPLACEMENT INTRAVENOUS - NOT FOR DOCUMENTATION PURPOSES Intravenous PER PROTOCOL Jericho Batista MD senna (SENOKOT) tablet 8.6-17.2 mg 1-2 tablet oral Twice Daily Jericho Batista MD 8.6 mg at 09/30/23 0809 sodium chloride 0.9 % IV solution Intravenous CONTINUOUS PRN Jose L Cruz MD sodium chloride 0.9% irrigation solution 250 mL 250 mL Irrigation PRN Jose L Cruz MD Physical exam: BP 92/74 Pulse 96 Temp 97.9 ??F (36.6 ??C) Resp 18 Ht 6' 3 (1.905 m) Wt 119.2 kg (262 lb11.2 oz) SpO2 93% BMI 32.84 kg/m?? Body mass index is 32.84 kg/m??. GEN: NAD NECK: supple RESPIRATORY: lungs clear to auscultation bilaterally without wheeze or rales CARDIOVASCULAR: IRIR, tachycardia. Normal S1,S2. No murmur EXTREMITIES: No clubbing, cyanosis. No edema. Labs: Recent Labs 09/29/23 0744 09/29/23 1800 09/29/23 2200 09/30/23 0746 SODIUM 139 -- -- 139 POTASSIUM 3.9 3.8 -- 4.2 MAGNESIUM 1.9 -- 2.1 1.9 BUNUREANRO 19 -- -- 20 CREATININE 1.32* -- -- 1.33* GLUCOSE 98 -- -- 89 HEMOGLOBIN 15.0 -- -- 16.0 WBC 9.9 -- -- 9.2 PLATELETCT 182 -- -- 206 No Lab Results Found (last 72 hours) Invalid input(s): HBGA1C Intake/Output Summary (Last 24 hours) at 09/30/2023 1033 Last data filed at 09/30/2023 0600 Gross per 24 hour Intake 240 ml Output 1600 ml Net -1360 ml Telemetry: Personally reviewed Atrial fibrillation HR 90-110s with few spikes to 170s Echo: 09/26/23 Interpretation Summary * The left ventricular systolic function is severely reduced, quantified ejection fraction is 26%. * Bi-atrial enlargement. * There is mild to moderate mitral regurgitation. * No prior study. Assessment: 1) New HFrEF 2) Cardiomyopathy - new finding on echo from Aug 2023 - euvolemic, no CHF symptoms - suspect tachy-mediated cardiomyopathy, but have not ruled out CAD, also possible stress CM - on metoprolol tartrate 50 mg QID (change to metoprolol succinate on discharge) - meds have been held intermittently due to hypotension - BP too low to add additional CHF medications at this time - repeat echo in 1-3 months - if EF not improved, consider ischemic evaluation at that time 3) Atrial Fibrillation, Persistent - present since his pre-op one week prior, but possibly longer - on metoprolol tartrate 50 mg QID - rates at rest 90-110s but spike to 170s with activity despite max dose Bblocker - plan for HANSEL / DCCV today - CHADsVasc 1, continue Eliquis 5 mg BID - will need follow up with EP clinic to discuss correction management of AF, less likely to maintainSR given untreated NOÉ and enlarged atrial size 4) Prostate Adenocarcinoma - s/p prostatectomy this admission - mgmt as per urology 5) Suspected Sleep Apnea - sleep study - CPAP recommended 6) Tobacco Use Disorder - cessation recommended Plan: NPO for HANSEL / DCCV today Consider adding Amiodarone post DCCV if successful Continue Eliquis 5 mg daily Reduce dose of Metoprolol if DCCV successful Outpatient sleep study EP follow up on discharge ADDENDUM: HANSEL today with ANDREA thrombus and DCCV cancelled. Continue Eliquis 5 mg BID. At this time we need to focus on rate control as presence of LA clot inhibits rhythm control for now. Continue Metoprol tartrate 50 mg QID (with hold parameters for SBP<90). Could also consider Digoxin if needed. EP MD will round on patient tomorrow to finalize plan for his AF management. Plan discussed with Dr. Endy Enriquez PA-C [facility] [place] MAINTENANCE TECHNICIAN * Jericho Batista MD - 09/30/2023 9:55 AM CST Images from the original note were not included. HOSPITALIST DIVISION CONSULTATION PROGRESS NOTE CHIEF COMPLAINT: Shortness of breath ASSESSMENT & PLAN Principal Problem: Prostate cancer (HCC) Active Problems: NOÉ (obstructive sleep apnea) HFrEF (heart failure with reduced ejection fraction) (HCC) Atrial fibrillation with rapid ventricular response (HCC) Patient is a 63-year-old male with past medical history of paroxysmal A-fib not on anticoagulation prior to admission, NOÉ not on CPAP prior to admission who was admitted following elective prostatectomy for malignant neoplasm of the prostate. #. Malignant neoplasm of prostate status post laparoscopic prostatectomy and lymph node dissection 09/26 -Pain management, drain management, dietary progression, therapy assessment, anticoagulation, and disposition planning per primary team -Follow-up surgical pathology #. Heart failure with reduced ejection fraction, not in acute exacerbation, new diagnosis As part of evaluation for respiratory insufficiency as below, BNP was obtained and noted to be mildly elevated. Because of this, an echocardiogram was ordered. The echocardiogram was revealing of a severely reduced ejection fraction at 26% as well as bilateral atrial enlargement and moderate mitralregurgitation. All of these represent new findings. Patient with no known history of ischemic coronary disease. Patient does have history of atrial fibrillation and NOÉ. No current exam findings suggestive of decompensation. -Cardiology consult placed, appreciate recommendations and management -Isordil 2.5 mg 3 times daily and hydralazine 10 mg 3 times daily discontinued due to hypotension -Continue metoprolol as below per cardiology recommendations #. Acute postoperative respiratory insufficiency, resolved #. Untreated NOÉ Patient developed postoperative respiratory insufficiency initially requiring as much is 8 L/min nasal cannula prior to being down titrated. Initial concern for possible pulmonary embolus based off patient's history of atrial fibrillation not on anticoagulation. CT PE obtained and unrevealing. Pneumonia considered as well, but imaging more suggestive of possible atelectasis and procalcitonin not significantly elevated. Pulmonary edema was considered as well especially given elevated BNP as above. Imaging did not reveal significant pulmonary edema; however, echocardiogram was pursued as above.Overall suggest postoperative atelectasis complicated by untreated sleep apnea. Empiric antibioticswere discontinued and patient showed no ongoing evidence of infection and was stable on room air. -Patient reports plan in place for outpatient sleep study #. Atrial fibrillation with RVR Patient developed A-fib with RVR in the postoperative setting. He does have known history of atrialfibrillation and does take metoprolol prior to admission. He reports not taking his metoprolol since the morning of the day prior to surgery. Initially, his heart rate improved with maintenance IV fluid administration as well as resumption of beta-blockade. However, the patient experienced recurrent episodes of atrial fibrillation with RVR overnight 09/27 to 09/28 and has intermittently continued to have rapid rates. -Cardiology consulted as above -Continue telemetry -Will administer an additional 500 mL IV fluid bolus as below -Patient currently on metoprolol 50 mg 4 times daily with as needed IV dosing also ordered with continued episodes of RVR -Patient initiated on Eliquis 09/28 -Plan for HANSEL cardioversion 09/30 per cardiology #. Leukocytosis, resolved Suspect stress reaction in the postoperative setting. Consideration of possible pneumonia as above.No additional acute infectious symptoms. -Continue to monitor #. Acute blood loss anemia, resolved Mild. In postoperative setting. Resolved. -Continue to monitor #. SHANNAN, improving Baseline renal function unknown. Patient noted to have elevated serum creatinine to 1.44 on initialassessment. Suspect prerenal injury given hypovolemia. Creatinine somewhat improved following fluidadministration. FeNa obtained and consistent with prerenal injury. -Continue to monitor #. Chronic constipation -Bowel regimen ordered # Code status: Full code Remainder of cares per primary team. I thank Dr. Cruz for allowing me to take part in the care of this patient. Jericho Batista MD [facility] Medicine SUBJECTIVE No acute events overnight. Nursing notes reviewed. The patient reports he is tired but otherwise feels well this morning. Waiting for cardioversion. No additional concerns. 4-point ROS otherwise negative. OBJECTIVE BP 92/74 Pulse 96 Temp 97.9 ??F (36.6 ??C) Resp 18 Ht 6' 3 (1.905 m) Wt 119.2 kg (262 lb11.2 oz) SpO2 93% BMI 32.84 kg/m?? Intake/Output Summary (Last 24 hours) at 09/30/2023 0955 Last data filed at 09/30/2023 0600 Gross per 24 hour Intake 240 ml Output 1600 ml Net -1360 ml GENERAL APPEARANCE: He is awake, alert and in no acute distress. HEENT: Head - Normocephalic, atraumatic. Eyes - Normal lids and conjuntivae, PERRLA, EOMs intact. Nose - No deformity. Moist mucous membranes. NECK: Supple, no appreciated JVD RESPIRATORY: Good air entry, no wheezes, rhonchi, rales, or increased work of breathing CARDIOVASCULAR: Normal S1, normal S2, irregularly irregular and rapid rate with no appreciated murmur. GASTROINTESTINAL: Soft, non-tender, normal bowel sounds, mildly distended, no rebound SKIN: Intact, warm, dry. No appreciated rashes NEUROLOGIC: Alert and oriented X 4, moves all extremities equally. Non-focal exam, power 5/5 in UE,sensation grossly intact EXTREMITIES: Distal Pulses are palpable, no lower extremity edema. Current Facility-Administered Medications: acetaminophen (TYLENOL) tablet 1,000 mg, 1,000 mg, oral, Q6H PRN OR acetaminophen (TYLENOL) rectal suppository 650 mg, 650 mg, Rectal, Q6H PRN, Stephanie Zacarias APRN, CRITICAL CARE CNS apixaban (ELIQUIS) tablet 5 mg, 5 mg, oral, Twice Daily, Jericho Batista MD, 5 mg at 09/30/23 0809 bacitracin (BACIGUENT) packet 1 Application , 1 Application , topical, BID PRN, Jose L Cruz MD bisacodyl (DULCOLAX) delayed released tablet 5-15 mg, 5-15 mg, oral, DAILY PRN, Jericho Batista MD diphenhydrAMINE (BENADRYL) injection 12.5-25 mg, 12.5-25 mg, Intravenous, Q4H PRN, Jose L Cruz MD docusate sodium (COLACE) capsule 100 mg, 100 mg, oral, Twice Daily, Jose L Cruz MD, 100 mg at 09/30/23 0809 glycopyrrolate (ROBINUL) injection 0.1 mg, 0.1 mg, IntraMUSCULAR, Q4H PRN, Jose L Cruz MD hydrALAZINE (APRESOLINE) tablet 10 mg, 10 mg, oral, TID, Tank Gallo MD, 10 mg at 09/29/23 2202 isosorbide dinitrate (ISORDIL) tablet 2.5 mg, 2.5 mg, oral, TID, Tank Gallo MD, 2.5 mg at 09/29/232201 magnesium hydroxide (MILK OF MAGNESIA) suspension 30 mL, 30 mL, oral, DAILY PRN, Jericho Batista MD MAGNESIUM REPLACEMENT INTRAVENOUS - NOT FOR DOCUMENTATION PURPOSES, , Intravenous, PER PROTOCOL, Jericho Batista MD metoprolol (LOPRESSOR) injection 5 mg, 5 mg, Intravenous, Q6H PRN, Yaneth Cornelius MD, 5 mg at 09/29/23 1626 metoprolol tartrate (LOPRESSOR) tablet 50 mg, 50 mg, oral, QID, Callie Enriquez, MATHEW-C, 50 mg at 09/29/232201 naloxone (NARCAN) injection 0.1 mg, 0.1 mg, Intravenous, Q1 MINUTE PRN, Jose L Cruz MD naloxone (NARCAN) injection 0.1 mg, 0.1 mg, Intravenous, Q1 MINUTE PRN, Jose L Cruz MD ondansetron (ZOFRAN) injection 4 mg, 4 mg, Intravenous, Q12H PRN, Jose L Cruz MD oxyCODONE (immediate release) (ROXICODONE) tablet 5-10 mg, 5-10 mg, oral, Q4H PRN, Jose L Cruz MD polyethylene glycol (MIRALAX) packet 17 g, 17 g, oral, DAILY PRN, Jericho Batista MD POTASSIUM REPLACEMENT ORAL - NOT FOR DOCUMENTATION PURPOSES, , oral, PER PROTOCOL OR POTASSIUM REPLACEMENT INTRAVENOUS - NOT FOR DOCUMENTATION PURPOSES, , Intravenous, PER PROTOCOL, Jericho Batista MD senna (SENOKOT) tablet 8.6-17.2 mg, 1-2 tablet, oral, Twice Daily, Jericho Batista MD, 8.6 mg at 09/30/23 0809 sodium chloride 0.9 % IV solution, , Intravenous, CONTINUOUS PRN, Jose L Cruz MD sodium chloride 0.9% irrigation solution 250 mL, 250 mL, Irrigation, PRN, Jose L Cruz MD LABS Recent Labs 09/28/23 0749 09/29/23 0744 09/30/23 0746 WBC 12.5* 9.9 9.2 RBC 4.63 4.71 4.86 HEMOGLOBIN 14.9 15.0 16.0 HEMATOCRIT 43.1 42.8 43.7 MCV 93 91 90 MCH 32 32 33 RDW 13.2 12.9 12.9 PLATELETCT 186 182 206 No Lab Results Found (last 72 hours) Recent Labs 09/28/23 0748 09/28/23 2119 09/29/23 0744 09/29/23 1800 09/30/23 0746 SODIUM 137 141 139 -- 139 POTASSIUM 4.1 -- 3.9 3.8 4.2 CHLORIDE 107 -- 108 -- 108 CARBONDIOXI 25 -- 27 -- 25 ANIONGAP 5.0 -- 4.0 -- 6.0 GLUCOSE 108* -- 98 -- 89 BUNUREANRO 15 -- 19 -- 20 CREATININE 1.33* 1.39* 1.32* -- 1.33* CALCIUMSERUM 9.1 -- 8.9 -- 9.4 ESTGFRMDRD >60.00 -- >60.00 -- >60.00 ABG: No Lab Results Found (last 72 hours) VBG: No Lab Results Found (last 72 hours) Invalid input(s): O2SV Micro: No results found for this visit on 09/26/23. Surgical/Procedure Site Anterior;Lower Abdomen (Active) Incision Date/Incision Time: 09/26/23817 Incision Type: Incision Orientation: Anterior;Lower Location: Abdomen Description: Trochar sites x 6 Additional comments: I reviewed the patient's new clinical lab test results. I reviewed the patient's medications. I reviewed the patient's new imaging test results. I discussed the patient's care with the patient, his spouse, primary team provider. Imaging Reviewed in [facility] [place] MAINTENANCE TECHNICIAN * Stephanie Zacarias APRN, CRITICAL CARE CNS - 09/30/2023 8:30 AM CST Urology Progress Note Patient Name: Aleks Moura Address: [address] [place] [id number] Age:63 y.o. Sex: male Admission Date/Time: 09/26/2023 5:44 AM Hospital Attending Physician: Jose L Cruz MD Subjective: Seen this morning resting in bed. Abdominal incisions CDI. Delatorre catheter to drainage bag with clear rajat urine. Requesting scheduled Tylenol be changed to as needed. Afebrile. NPO this morning for cardiology procedure. ALLERGIES/SENSITIVITIES No Known Allergies LABS: Recent Labs 09/29/23 0744 WBC 9.9 RBC 4.71 HEMOGLOBIN 15.0 HEMATOCRIT 42.8 MCV 91 MCH 32 RDW 12.9 PLATELETCT 182 Recent Labs 09/29/23 0744 09/29/23 1800 SODIUM 139 -- POTASSIUM 3.9 3.8 CHLORIDE 108 -- CARBONDIOXI 27 -- ANIONGAP 4.0 -- GLUCOSE 98 -- BUNUREANRO 19 -- CREATININE 1.32* -- CALCIUMSERUM 8.9 -- ESTGFRMDRD >60.00 -- Intake/Output Summary (Last 24 hours) at 09/30/2023 0830 Last data filed at 09/30/2023 0600 Gross per 24 hour Intake 480 ml Output 1600 ml Net -1120 ml BP 92/74 Pulse 96 Temp 97.9 ??F (36.6 ??C) Resp 18 Ht 6' 3 (1.905 m) Wt 119.2 kg (262 lb11.2 oz) SpO2 93% BMI 32.84 kg/m?? Physical exam GEN: Resting comfortably in bed. NAD, A&O RESP: Normal respiratory effort GI: Abdomen soft, non-tender, no CVA tenderness. Incisions CDI. : Delatorre catheter to drainage bag with clear rajat urine ASSESSMENT AND PLAN: POD #5 RALP; A fib w/RVR Principal Problem: Prostate cancer (HCC) Active Problems: NOÉ (obstructive sleep apnea) HFrEF (heart failure with reduced ejection fraction) (HCC) Atrial fibrillation with rapid ventricular response (HCC) 1. Continue with delatorre catheter. This will stay in place until 2 week follow up as an outpatient 2. Anticoagulation started. While on anticoagulation, may have hematuria with catheter in place. Okay for some tolerance of hematuria has long has the catheter is functional. 3. Appreciate Cardiology and Hospitalist recommendations. Currently NPO for Cardiology HANSEL/DCCV today. 4. Scheduled Tylenol changed to PRN. 5. From a Urology standpoint, would be appropriate for discharge once cleared per interdisciplinaryteam. 6. Patient scheduled to follow up with Dr. Cruz on 10/10/23 for 2 week post op appointment. Stephanie Zacarias DNP [facility] Pager [phone] After 4pm or on weekends, or if no call back, please call our office at [phone] Electronically signed by Stephanie Zacarias, INTERDISCIPLINARY PROFESSOR, CRITICAL CARE CNS at 09/30/2023 8:35 AM RETAIL MAINTENANCE TECHNICIAN * Grace Montes RT - 09/30/2023 5:26 AM CST Pt had orders for Xopenex Q4 PRN No indications for nebulizer since ordered BS: Clear O2: RA Per protocol, nebulizer discontinued. [place] MAINTENANCE TECHNICIAN * Giovani Arredondo RN - 09/30/2023 5:06 AM CST Med-Surg Care Progression Note Type: Shift to shift summary Length of stay: 4 days Code Status: Full Code Primary Problem: RALP with bilateral pelvic lymph node dissection Summary: No acute changes, Pt wanted to sleep throughout night, minimal disturbance. Plan for HANSEL and then cardioversion today. F- Feeding & Fluids: NPO for HANSEL and cardioversion A- Analgesic & Anticoagulation: Comfort Goal: Numeric, Verbal, Faces: 4 - Moderate Analgesic No pain, denied any Anticoagulation/DVT prevention & plan SCDs S- Skin: Levi Subcategory Concern(s): Sensory Perception: No Impairment Moisture: Rarely Moist Activity: Walks Occasionally Nutrition: Adequate Nutrition Interventions: Calorie intake Mobility: No Limitations Friction and Shear: No Apparent Problem Total Levi Score: 21: weight shifts independently T- Telemetry: Rhythm: Atrial Fibrillation with Rapid Ventricular Response Ectopy: None Tele on, no calls E- Emotional & Neuro: Participating in cares Neuro Alert and Oriented, able to make needs known R- Respiratory: On room air H- Head OUT of Bed & Activity: Activate Fall Alert? (Enter 1 or 0): (not recorded) Ambulating independently U- Urologic/bowel: Size: Small (09/27/2023 11:00 AM) Delatorre in place G- Glycemic Control: Not applicable T- Treatment: Labs, K/Mg protocol, tele, Cardiology following, Delatorre care education. HANSEL and Cardioversion today. Monitor HR and if above 120, give metoprolol. I- Invasive Devices: PIV, Delatorre D- Discharge: Discharge criteria when medically stable [place] MAINTENANCE TECHNICIAN * Del De La Torre - 09/29/2023 10:36 PM CST Med-Surg Care Progression Note Type: Shift to shift summary Length of stay: 3 days Code Status: Full Code Primary Problem: RALP with bilateral pelvic lymph node dissection Summary: PRN metoprolol for elevated HR(140s-170s). Plan for cardioversion tomorrow after HANSEL. NPO after midnight. Potassium and Magnesium at goal. F- Feeding & Fluids: Tolerating regular low sodium diet with 2000mL fluid restriction- NPO after midnight A- Analgesic & Anticoagulation: Comfort Goal: Numeric, Verbal, Faces: 4 - Moderate Analgesic No pain Anticoagulation/DVT prevention & plan SCDs S- Skin: Levi Subcategory Concern(s): Sensory Perception: No Impairment Moisture: Rarely Moist Activity: Walks frequently Nutrition: Adequate Nutrition Interventions: Calorie intake Mobility: No Limitations Friction and Shear: No Apparent Problem Total Levi Score: 22: T- Telemetry: Rhythm: Atrial Fibrillation with Rapid Ventricular Response Ectopy: None Tele on. Had episode of elevated HR (140s-170s). PRN metoprolol was given E- Emotional & Neuro: Participating in cares Neuro Alert and Oriented R- Respiratory: On room air H- Head OUT of Bed & Activity: Activate Fall Alert? (Enter 1 or 0): (not recorded) Ambulating independently U- Urologic/bowel: Size: Small (09/27/2023 11:00 AM) Delatorre in place G- Glycemic Control: Not applicable T- Treatment: Labs, K/Mg protocol, tele, Cardiology following, Delatorre care education. Cardioversion tomorrow I- Invasive Devices: PIV, Delatorre D- Discharge: Discharge criteria when medically stable [place] MAINTENANCE TECHNICIAN * Michelle Hernadez RN - 09/29/2023 1:29 PM CST Med-Surg Care Progression Note Type: Shift to shift summary Length of stay: 3 days Code Status: Full Code Primary Problem: 09/26 S/P ROBOTIC XI ASSISTED LAPAROSCOPIC RADICAL PROSTATECTOMY, BILATERAL PELVIC LYMPH NODE DISSECTION Heart failure with reduced ejection fraction Summary:Plan for cardioversion tomorrow after HANSEL. NPO after midnight. Potassium and Magnesium replaced- rechecks pending. F- Feeding & Fluids: Tolerating regular low sodium diet with 2000mL fluid restriction- NPO after midnight A- Analgesic & Anticoagulation: Comfort Goal: Numeric, Verbal, Faces: 4 - Moderate Analgesic No pain Anticoagulation/DVT prevention & plan SCDs S- Skin: Levi Subcategory Concern(s): Sensory Perception: No Impairment Moisture: Rarely Moist Activity: Walks frequently Nutrition: Adequate Nutrition Interventions: Calorie intake Mobility: No Limitations Friction and Shear: No Apparent Problem Total Levi Score: 22: T- Telemetry: Rhythm: Atrial Fibrillation with Rapid Ventricular Response Ectopy: None Tele on- no calls E- Emotional & Neuro: Participating in cares Neuro Alert and Oriented R- Respiratory: On room air H- Head OUT of Bed & Activity: Activate Fall Alert? (Enter 1 or 0): (not recorded) Ambulating independently U- Urologic/bowel: Size: Small (09/27/2023 11:00 AM) Delatorre in place G- Glycemic Control: Not applicable T- Treatment: Labs, K/Mg protocol, tele, Cardiology following, Delatorre care education. Cardioversion tomorrow I- Invasive Devices: PIV, Delatorre D- Discharge: TBD [place] MAINTENANCE TECHNICIAN * Jericho Batista MD - 09/29/2023 9:43 AM CST Images from the original note were not included. HOSPITALIST DIVISION CONSULTATION PROGRESS NOTE CHIEF COMPLAINT: Shortness of breath ASSESSMENT & PLAN Principal Problem: Prostate cancer (HCC) Active Problems: NOÉ (obstructive sleep apnea) HFrEF (heart failure with reduced ejection fraction) (HCC) Atrial fibrillation with rapid ventricular response (HCC) Patient is a 63-year-old male with past medical history of paroxysmal A-fib not on anticoagulation prior to admission, NOÉ not on CPAP prior to admission who was admitted following elective prostatectomy for malignant neoplasm of the prostate. #. Malignant neoplasm of prostate status post laparoscopic prostatectomy and lymph node dissection 09/26 -Pain management, drain management, dietary progression, therapy assessment, anticoagulation, and disposition planning per primary team -Follow-up surgical pathology #. Heart failure with reduced ejection fraction, not in acute exacerbation, new diagnosis As part of evaluation for respiratory insufficiency as below, BNP was obtained and noted to be mildly elevated. Because of this, an echocardiogram was ordered. The echocardiogram was revealing of a severely reduced ejection fraction at 26% as well as bilateral atrial enlargement and moderate mitralregurgitation. All of these represent new findings. Patient with no known history of ischemic coronary disease. Patient does have history of atrial fibrillation and NOÉ. No current exam findings suggestive of decompensation. -Cardiology consult placed, appreciate recommendations and management -Patient initiated on Isordil 2.5 mg 3 times daily and hydralazine 10 mg 3 times daily per cardiology -Continue metoprolol as below per cardiology recommendations #. Acute postoperative respiratory insufficiency, resolved #. Untreated NOÉ Patient developed postoperative respiratory insufficiency initially requiring as much is 8 L/min nasal cannula prior to being down titrated. Initial concern for possible pulmonary embolus based off patient's history of atrial fibrillation not on anticoagulation. CT PE obtained and unrevealing. Pneumonia considered as well, but imaging more suggestive of possible atelectasis and procalcitonin not significantly elevated. Pulmonary edema was considered as well especially given elevated BNP as above. Imaging did not reveal significant pulmonary edema; however, echocardiogram was pursued as above.Overall suggest postoperative atelectasis complicated by untreated sleep apnea. Empiric antibioticswere discontinued and patient showed no ongoing evidence of infection and was stable on room air. -Patient reports plan in place for outpatient sleep study #. Atrial fibrillation with RVR Patient developed A-fib with RVR in the postoperative setting. He does have known history of atrialfibrillation and does take metoprolol prior to admission. He reports not taking his metoprolol since the morning of the day prior to surgery. Initially, his heart rate improved with maintenance IV fluid administration as well as resumption of beta-blockade. However, the patient experienced recurrent episodes of atrial fibrillation with RVR overnight 09/27 to 09/28 and has intermittently continued to have rapid rates. -Cardiology consulted as above -Continue telemetry -Will administer an additional 500 mL IV fluid bolus as below -Patient currently on metoprolol 50 mg 4 times daily with as needed IV dosing also ordered with continued episodes of RVR -Patient initiated on Eliquis 09/28 -If heart rate not improving following these changes, consideration of cardioversion later in the week per cardiology provider, cardiology provider aware of patient's intent to leave and reports planto evaluate patient soon #. Leukocytosis, resolved Suspect stress reaction in the postoperative setting. Consideration of possible pneumonia as above.No additional acute infectious symptoms. -Continue to monitor #. Acute blood loss anemia, resolved Mild. In postoperative setting. Resolved. -Continue to monitor #. SHANNAN, improving Baseline renal function unknown. Patient noted to have elevated serum creatinine to 1.44 on initialassessment. Suspect prerenal injury given hypovolemia. Creatinine somewhat improved following fluidadministration. FeNa obtained and consistent with prerenal injury. -Will administer additional 500 mL of IV fluid -Continue to monitor #. Chronic constipation -Bowel regimen ordered # Code status: Full code Remainder of cares per primary team. I thank Dr. Cruz for allowing me to take part in the care of this patient. Greater than 60 minutes was spent in aiding the coordination of this patient's care. Jericho Batista MD Hospital Medicine SUBJECTIVE No acute events overnight. Nursing notes reviewed. The patient denies any symptoms of lightheadedness, shortness of breath, chest discomfort, palpitations. This morning, the patient is frustrated andstating he wishes to discharge from the hospital. He states he is concerned because he feels the hos pital is unhygienic. He says he would feel more comfortable working with his outpatient providers. It was explained to the patient that he remains in RVR and further evaluation by cardiology would berecommended. These concerns were discussed with the urology and cardiology team who are in agreement. Following prolonged discussion, the patient was agreeable to remaining in the hospital until he is able to discuss ongoing care plans with the manager of sales. He states that regardless of the recommendation he intends to leave the hospital today. This intent was discussed with the primary team provider who was in understanding and stated that pending cardiology recommendations this would likely represent an AGAINST MEDICAL ADVICE discharge. 4-point ROS otherwise negative. OBJECTIVE BP 97/70 Pulse 96 Temp 97.9 ??F (36.6 ??C) Resp 16 Ht 6' 3 (1.905 m) Wt 120.3 kg (265 lb3.2 oz) SpO2 96% BMI 33.15 kg/m?? Intake/Output Summary (Last 24 hours) at 09/29/2023 1141 Last data filed at 09/29/2023 0634 Gross per 24 hour Intake 350 ml Output 2370 ml Net -2020 ml GENERAL APPEARANCE: He is awake, alert and in no acute distress. HEENT: Head - Normocephalic, atraumatic. Eyes - Normal lids and conjuntivae, PERRLA, EOMs intact. Nose - No deformity. Moist mucous membranes. NECK: Supple, no appreciated JVD RESPIRATORY: Good air entry, no wheezes, rhonchi, rales, or increased work of breathing CARDIOVASCULAR: Normal S1, normal S2, irregularly irregular and rapid rate with no appreciated murmur. GASTROINTESTINAL: Soft, non-tender, normal bowel sounds, mildly distended, no rebound SKIN: Intact, warm, dry. No appreciated rashes NEUROLOGIC: Alert and oriented X 4, moves all extremities equally. Non-focal exam, power 5/5 in UE,sensation grossly intact EXTREMITIES: Distal Pulses are palpable, no lower extremity edema. Current Facility-Administered Medications: acetaminophen (TYLENOL) tablet 1,000 mg, 1,000 mg, oral, Q6H (NS), 1,000 mg at 09/29/23 0147 ORacetaminophen (TYLENOL) rectal suppository 650 mg, 650 mg, Rectal, Q6H (NS), Jose L Cruz MD apixaban (ELIQUIS) tablet 5 mg, 5 mg, oral, Twice Daily, Jericho Batista MD, 5 mg at 09/29/23 0841 bacitracin (BACIGUENT) packet 1 Application , 1 Application , topical, BID PRN, Jose L Cruz MD bisacodyl (DULCOLAX) delayed released tablet 5-15 mg, 5-15 mg, oral, DAILY PRN, Jericho Batista MD diphenhydrAMINE (BENADRYL) injection 12.5-25 mg, 12.5-25 mg, Intravenous, Q4H PRN, Jose L Cruz MD docusate sodium (COLACE) capsule 100 mg, 100 mg, oral, Twice Daily, Jose L Cruz MD, 100 mg at 09/27/231951 glycopyrrolate (ROBINUL) injection 0.1 mg, 0.1 mg, IntraMUSCULAR, Q4H PRN, Jose L Cruz MD hydrALAZINE (APRESOLINE) tablet 10 mg, 10 mg, oral, TID, Tank Gallo MD, 10 mg at 09/28/23 1429 isosorbide dinitrate (ISORDIL) tablet 2.5 mg, 2.5 mg, oral, TID, Tank Gallo MD, 2.5 mg at 09/28/23 1429 lactated ringers (LR) IV BOLUS 500 mL, 500 mL, Intravenous, ONCE, Jericho Batista MD, Last Rate: 125 mL/hr at 09/29/23 0842, 500 mL at 09/29/23 0842 levalbuteroL (Xopenex) nebulizer solution 1.25 mg, 1.25 mg, Nebulization, Q4H PRN, Kimberly Muro, RT magnesium hydroxide (MILK OF MAGNESIA) suspension 30 mL, 30 mL, oral, DAILY PRN, Jericho Batista MD MAGNESIUM REPLACEMENT INTRAVENOUS - NOT FOR DOCUMENTATION PURPOSES, , Intravenous, PER PROTOCOL, Jericho Batista MD metoprolol (LOPRESSOR) injection 5 mg, 5 mg, Intravenous, Q6H PRN, Yaneth Cornelius MD, 5 mg at 09/28/23 1006 metoprolol tartrate (LOPRESSOR) tablet 50 mg, 50 mg, oral, QID, Tank Gallo MD, 50 mg at 09/28/23 175 naloxone (NARCAN) injection 0.1 mg, 0.1 mg, Intravenous, Q1 MINUTE PRN, Jose L Cruz MD naloxone (NARCAN) injection 0.1 mg, 0.1 mg, Intravenous, Q1 MINUTE PRN, Jose L Cruz MD ondansetron (ZOFRAN) injection 4 mg, 4 mg, Intravenous, Q12H PRN, Jose L Cruz MD oxyCODONE (immediate release) (ROXICODONE) tablet 5-10 mg, 5-10 mg, oral, Q4H PRN, Jose L Cruz MD polyethylene glycol (MIRALAX) packet 17 g, 17 g, oral, DAILY PRN, Jericho Batista MD POTASSIUM REPLACEMENT ORAL - NOT FOR DOCUMENTATION PURPOSES, , oral, PER PROTOCOL OR POTASSIUM REPLACEMENT INTRAVENOUS - NOT FOR DOCUMENTATION PURPOSES, , Intravenous, PER PROTOCOL, Jericho Batista MD senna (SENOKOT) tablet 8.6-17.2 mg, 1-2 tablet, oral, Twice Daily, Jericho Batista MD, 17.2 mg at09/27/231951 sodium chloride 0.9 % IV solution, , Intravenous, CONTINUOUS PRN, Jose L Cruz MD sodium chloride 0.9% irrigation solution 250 mL, 250 mL, Irrigation, PRN, Jose L Cruz MD LABS Recent Labs 09/27/23 0818 09/28/23 0749 09/29/23 0744 WBC 12.9* 12.5* 9.9 RBC 4.28* 4.63 4.71 HEMOGLOBIN 13.7* 14.9 15.0 HEMATOCRIT 39.9* 43.1 42.8 MCV 93 93 91 MCH 32 32 32 RDW 13.5 13.2 12.9 PLATELETCT 190 186 182 No Lab Results Found (last 72 hours) Recent Labs 09/27/23 0818 09/28/23 0748 09/28/23 2119 09/29/23 0744 SODIUM 138 137 141 139 POTASSIUM 4.4 4.1 -- 3.9 CHLORIDE 111* 107 -- 108 CARBONDIOXI 22 25 -- 27 ANIONGAP 5.0 5.0 -- 4.0 GLUCOSE 117* 108* -- 98 BUNUREANRO 18 15 -- 19 CREATININE 1.26* 1.33* 1.39* 1.32* CALCIUMSERUM 8.4* 9.1 -- 8.9 ESTGFRMDRD >60.00 >60.00 -- >60.00 ABG: No Lab Results Found (last 72 hours) VBG: No Lab Results Found (last 72 hours) Invalid input(s): O2SV Micro: No results found for this visit on 09/26/23. Surgical/Procedure Site Anterior;Lower Abdomen (Active) Incision Date/Incision Time: 09/26/23 0818 Incision Type: Incision Orientation: Anterior;Lower Location: Abdomen Description: Trochar sites x 6 Additional comments: I reviewed the patient's new clinical lab test results. I reviewed the patient's medications. I reviewed the patient's new imaging test results. I discussed the patient's care with the patient, his spouse, primary team provider, cardiology provider. Imaging Reviewed in [facility] [place] MAINTENANCE TECHNICIAN * Callie Enriquez PA-C - 09/29/2023 9:24 AM CST CARDIOLOGY PROGRESS NOTE Patient Name: Aleks Moura Age:63 y.o. Gender: male Admission Date/Time: 09/26/2023 5:44 AM Hospital Attending Physician: Jose L Cruz MD Summary: This patient is a 63 y.o. male with PMH significant for PAF, suspected NOÉ, tobacco use, prostate cancer admitted post robot-assisted laparoscopic prostatectomy who cardiology to see due to abnormal echocardiogram with reduced ejection fraction and atrial fibrillation with RVR. Subjective: Many questions about atrial fibrillation Objective: Current Facility-Administered Medications Medication Dose Route Frequency Provider Last Rate Last Admin acetaminophen (TYLENOL) tablet 1,000 mg 1,000 mg oral Q6H (NS) Jose L Cruz MD 1,000 mg at 09/29/23 0147 Or acetaminophen (TYLENOL) rectal suppository 650 mg 650 mg Rectal Q6H (NS) Jose L Cruz MD apixaban (ELIQUIS) tablet 5 mg 5 mg oral Twice Daily Jericho Batista MD 5 mg at 09/29/23 0841 bacitracin (BACIGUENT) packet 1 Application 1 Application topical BID PRN Jose L Cruz MD bisacodyl (DULCOLAX) delayed released tablet 5-15 mg 5-15 mg oral DAILY PRN Jericho Batista MD diphenhydrAMINE (BENADRYL) injection 12.5-25 mg 12.5-25 mg Intravenous Q4H PRN Jose L Cruz MD docusate sodium (COLACE) capsule 100 mg 100 mg oral Twice Daily Jose L Cruz MD 100 mg at 09/27/231951 glycopyrrolate (ROBINUL) injection 0.1 mg 0.1 mg IntraMUSCULAR Q4H PRN Jose L Cruz MD hydrALAZINE (APRESOLINE) tablet 10 mg 10 mg oral TID Tank Gallo MD 10 mg at 09/28/23 1429 isosorbide dinitrate (ISORDIL) tablet 2.5 mg 2.5 mg oral TID Tank Gallo MD 2.5 mg at 09/28/23 1429 lactated ringers (LR) IV BOLUS 500 mL 500 mL Intravenous ONCE Jericho Batista MD 125 mL/hr at 09/29/23 0842 500 mL at 09/29/23 0842 levalbuteroL (Xopenex) nebulizer solution 1.25 mg 1.25 mg Nebulization Q4H PRN Kimberly Muro,RT magnesium hydroxide (MILK OF MAGNESIA) suspension 30 mL 30 mL oral DAILY PRN Jericho Batista MD MAGNESIUM REPLACEMENT INTRAVENOUS - NOT FOR DOCUMENTATION PURPOSES Intravenous PER PROTOCOL Jericho Batista MD metoprolol (LOPRESSOR) injection 5 mg 5 mg Intravenous Q6H PRN Yaneth Cornelius MD 5 mg at 09/28/23 1006 metoprolol tartrate (LOPRESSOR) tablet 50 mg 50 mg oral QID Tank Gallo MD 50 mg at 756 naloxone (NARCAN) injection 0.1 mg 0.1 mg Intravenous Q1 MINUTE PRN Jose L Cruz MD naloxone (NARCAN) injection 0.1 mg 0.1 mg Intravenous Q1 MINUTE PRN Jose L Cruz MD ondansetron (ZOFRAN) injection 4 mg 4 mg Intravenous Q12H PRN Jose L Cruz MD oxyCODONE (immediate release) (ROXICODONE) tablet 5-10 mg 5-10 mg oral Q4H PRN Jose L Cruz MD polyethylene glycol (MIRALAX) packet 17 g 17 g oral DAILY PRN Jericho Batista MD POTASSIUM REPLACEMENT ORAL - NOT FOR DOCUMENTATION PURPOSES oral PER PROTOCOL Jericho Batista MD Or POTASSIUM REPLACEMENT INTRAVENOUS - NOT FOR DOCUMENTATION PURPOSES Intravenous PER PROTOCOL Jericho Batista MD senna (SENOKOT) tablet 8.6-17.2 mg 1-2 tablet oral Twice Daily Jericho Batista MD 17.2 mg at 09/27/231951 sodium chloride 0.9 % IV solution Intravenous CONTINUOUS PRN Jose L Cruz MD sodium chloride 0.9% irrigation solution 250 mL 250 mL Irrigation PRN Jose L Cruz MD Physical exam: BP 97/70 Pulse 96 Temp 97.9 ??F (36.6 ??C) Resp 16 Ht 6' 3 (1.905 m) Wt 120.3 kg (265 lb3.2 oz) SpO2 96% BMI 33.15 kg/m?? Body mass index is 33.15 kg/m??. GEN: NAD NECK: supple RESPIRATORY: lungs clear to auscultation bilaterally without wheeze or rales CARDIOVASCULAR: IRIR, tachycardia. Normal S1,S2. No murmur EXTREMITIES: No clubbing, cyanosis. No edema. Labs: Recent Labs 09/26/23 1405 09/27/23 0818 09/27/23 0818 09/28/23 0748 09/28/23 0749 09/28/23 2119 09/29/23 0019 09/29/23 0744 SODIUM -- 138 -- 137 -- 141 -- 139 POTASSIUM -- 4.4 -- 4.1 -- -- -- 3.9 MAGNESIUM -- -- < > 1.6 -- -- 2.1 1.9 BUNUREANRO -- 18 -- 15 -- -- -- 19 CREATININE -- 1.26* -- 1.33* -- 1.39* -- 1.32* BNPBTYPNAPEP 336* -- -- -- -- -- -- -- TSH -- 0.499* -- -- -- -- -- -- GLUCOSE -- 117* -- 108* -- -- -- 98 HEMOGLOBIN -- 13.7* -- -- 14.9 -- -- 15.0 WBC -- 12.9* -- -- 12.5* -- -- 9.9 PLATELETCT -- 190 -- -- 186 -- -- 182 < > = values in this interval not displayed. Recent Labs 09/27/23 0818 CHOLESTEROL 144 HDLCHOLEST 38* LDLCHOLEST 81 CHOLHDL 3.8 TRIGLYCERIDE 123 Invalid input(s): HBGA1C Intake/Output Summary (Last 24 hours) at 09/29/2023 09 Last data filed at 09/29/2023 0634 Gross per 24 hour Intake 350 ml Output 2370 ml Net -2020 ml Telemetry: Personally reviewed Atrial fibrillation HR 110s with few spikes to 130s Echo: 09/26/23 Interpretation Summary * The left ventricular systolic function is severely reduced, quantified ejection fraction is 26%. * Bi-atrial enlargement. * There is mild to moderate mitral regurgitation. * No prior study. Assessment: 1) New HFrEF 2) Cardiomyopathy - new finding on echo from Aug 2023 - euvolemic, no CHF symptoms - suspect tachy-mediated cardiomyopathy, but have not ruled out CAD, also possible stress CM - on metoprolol tartrate 50 mg QID (change to metoprolol succinate on discharge) - Hydralazine 10 mg TID / Isordil 2.5 mg TID - repeat echo in 3 months - if EF not improved, consider ischemic evaluation at that time 3) Atrial Fibrillation, Persistent - present since his pre-op one week prior, but possibly longer - on metoprolol tartrate 50 mg QID - rates remain elevated despite max dose Bblocker - plan for possible HANSEL / DCCV tomorrow (patient to think it over and dsicuss with his ). Keep NPO at midnight - CHADsVasc 1, continue Eliquis 5 mg BID 4) Prostate Adenocarcinoma - s/p prostatectomy this admission - mgmt as per urology 5) Suspected Sleep Apnea - sleep study - CPAP recommended 6) Tobacco Use Disorder - cessation recommended Plan: NPO at midnight in case patient decides to proceed with HANSEL / DCCV tomorrow- asked RN to let us known what patient decides Consider adding Amiodarone Continue Eliquis Can likely reduce dose of Metoprolol tomorrow if DCCV successful Outpatient sleep study Plan will be discussed with Dr. Endy Enriquez PA-C [facility] [place] MAINTENANCE TECHNICIAN * Claire Escudero PA-C - 09/29/2023 9:20 AM CST Urology Progress Note Patient Name: Aleks Moura Address: [address] [place] [address] [place] [id number] Age:63 y.o. Sex: male Admission Date/Time: 09/26/2023 5:44 AM Hospital Attending Physician: Jose L Cruz MD Subjective: Patient evaluated. at bedside. Denies any pain this AM. Reports some night sweats and chills last night; no charted fevers. Denies any F/N/V. Tolerating diet. Ambulating without difficulty. Delatorre in place draining clear straw urine; last 24hr UOP 2350 cc. CORINNE drain removed yesterday. Incisions C/D/I. Afebrile. WBC 9.9 Hgb 15.0 Cr 1.39-->1.32 ALLERGIES/SENSITIVITIES No Known Allergies LABS: Recent Labs 09/29/23 0744 WBC 9.9 RBC 4.71 HEMOGLOBIN 15.0 HEMATOCRIT 42.8 MCV 91 MCH 32 RDW 12.9 PLATELETCT 182 Recent Labs 09/29/23 0744 SODIUM 139 POTASSIUM 3.9 CHLORIDE 108 CARBONDIOXI 27 ANIONGAP 4.0 GLUCOSE 98 BUNUREANRO 19 CREATININE 1.32* CALCIUMSERUM 8.9 ESTGFRMDRD >60.00 No Lab Results Found (last 72 hours) Intake/Output Summary (Last 24 hours) at 09/29/2023 0920 Last data filed at 09/29/2023 0634 Gross per 24 hour Intake 350 ml Output 2370 ml Net -2020 ml BP 97/70 Pulse 96 Temp 97.9 ??F (36.6 ??C) Resp 16 Ht 6' 3 (1.905 m) Wt 120.3 kg (265 lb3.2 oz) SpO2 96% BMI 33.15 kg/m?? Physical exam GEN: Awake, lying in bed. NAD, A&O RESP: Normal respiratory effort : Incisions CDI. Delatorre in place draining clear straw urine. ASSESSMENT AND PLAN: POD #4 RALP; A fib Principal Problem: Prostate cancer (HCC) Active Problems: Severe Pneumonia, Suspected Bacterial 1. Continue with delatorre catheter. This will stay in place until 2 week follow up as an outpatient. 2. Per Dr. Cruz, would be okay for anticoagulation now. However, would like to avoid bolus dosing of anticoagulation given his current postoperative status. While on anticoagulation, may have hematuria with catheter in place. Okay for some tolerance of hematuria has long has the catheter is functional. 3. Appreciate Cardiology and Hospitalist recommendations. 4. From a Urology standpoint, would be appropriate for discharge once cleared per interdisciplinaryteam. 5. Patient scheduled to follow up with Dr. Cruz on 10/10/23 for 2 week post op appointment. Claire Escudero PA-C [facility] Pager [phone] After 4pm or on weekends, or if no call back, please call our office at [phone] [place] MAINTENANCE TECHNICIAN * Vanesa Zarco RN - 09/29/2023 6:30 AM CST Med-Surg Care Progression Note Type: Shift to shift summary Length of stay: 3 days Code Status: Full Code Primary Problem: 09/26 S/P ROBOTIC XI ASSISTED LAPAROSCOPIC RADICAL PROSTATECTOMY, BILATERAL PELVIC LYMPH NODE DISSECTION Heart failure with reduced ejection fraction, not in acute exacerbation, new diagnosis Summary: Patient vitally stable this shift. Mg recheck at goal. No acute changes. F- Feeding & Fluids: Tolerating Regular 2gm sodium diet, 2000mL fluid restriction A- Analgesic & Anticoagulation: Comfort Goal: Numeric, Verbal, Faces: 4 - Moderate Analgesic No pain Anticoagulation/DVT prevention & plan SCDs S- Skin: Levi Subcategory Concern(s): Sensory Perception: No Impairment Moisture: Rarely Moist Activity: Walks Occasionally Activity Interventions: Nutrition: Adequate Nutrition Interventions: Calorie intake Mobility: No Limitations Friction and Shear: No Apparent Problem Total Levi Score: 21: T- Telemetry: Rhythm: Atrial Fibrillation with Rapid Ventricular Response; Atrial Fibrillation Ectopy: None On tele, no calls E- Emotional & Neuro: Participating in cares Neuro Alert and Oriented R- Respiratory: On room air H- Head OUT of Bed & Activity: Activate Fall Alert? (Enter 1 or 0): (not recorded) Ambulating independently U- Urologic/bowel: Size: Small (09/27/2023 11:00 AM) Delatorre in place, delatorre education G- Glycemic Control: Not applicable T- Treatment: Labs, K/Mg protocol, tele, Cardiology following, Delatorre care education I- Invasive Devices: PIV, Delatorre D- Discharge: TBD [place] MAINTENANCE TECHNICIAN * Nicolasa Montalvo, FAVIOLA - 09/28/2023 10:36 PM CST Shift update [id number] Patient denies pain. Delatorre with good urine output, rajat in color. Soft blood pressures. 82/62 in left arm, MAP 69. 91/67 in right arm at 2118, MAP 75. Scheduled hydralazine, metoprolol, and isosorbide were due, no hold parameters. Laisha SANCHEZ, Dr. Gallo notified. She placed hold parameters and stated to take future blood pressure measurements on the right arm to be consistent and recheck BP around 2330. Patient remains in afib with rates low 100's. He was asymptomatic with soft BP. [place] MAINTENANCE TECHNICIAN * Michelle Hernadez RN - 09/28/2023 1:40 PM CST Med-Surg Care Progression Note Type: Shift to shift summary Length of stay: 2 days Code Status: Full Code Primary Problem: 09/26 S/P ROBOTIC XI ASSISTED LAPAROSCOPIC RADICAL PROSTATECTOMY, BILATERAL PELVIC LYMPH NODE DISSECTION Heart failure with reduced ejection fraction, not in acute exacerbation, new diagnosis Summary:Cardiology following, adjusting medications. IV metoprolol given x1 this shift for HR 140-160s per tele. F- Feeding & Fluids: Tolerating Regular 2gm sodium diet, 2000mL fluid restriction A- Analgesic & Anticoagulation: Comfort Goal: Numeric, Verbal, Faces: 4 - Moderate Analgesic No pain Anticoagulation/DVT prevention & plan SCDs S- Skin: Levi Subcategory Concern(s): Sensory Perception: No Impairment Moisture: Rarely Moist Activity: Walks Occasionally Activity Interventions: Nutrition: Adequate Nutrition Interventions: Calorie intake Mobility: No Limitations Friction and Shear: No Apparent Problem Total Levi Score: 21: T- Telemetry: Rhythm: Atrial Fibrillation with Rapid Ventricular Response Ectopy: None Tele on E- Emotional & Neuro: Participating in cares Neuro Alert and Oriented R- Respiratory: On room air H- Head OUT of Bed & Activity: Activate Fall Alert? (Enter 1 or 0): (not recorded) Ambulating independently U- Urologic/bowel: Size: Small (09/27/2023 11:00 AM) Delatorre in place, delatorre education started- please continue G- Glycemic Control: Not applicable T- Treatment: Magnesium being replaced, remote tele, Cardiology following, CORINNE removed this shift, Delatorre care education I- Invasive Devices: PIV, Delatorre D- Discharge: TBD [place] MAINTENANCE TECHNICIAN * Jericho Batista MD - 09/28/2023 12:02 PM CST Images from the original note were not included. HOSPITALIST DIVISION CONSULTATION PROGRESS NOTE CHIEF COMPLAINT: Shortness of breath ASSESSMENT & PLAN Principal Problem: Prostate cancer (HCC) Active Problems: Severe Pneumonia, Suspected Bacterial Patient is a 63-year-old male with past medical history of paroxysmal A-fib not on anticoagulation prior to admission, NOÉ not on CPAP prior to admission who was admitted following elective prostatectomy for malignant neoplasm of the prostate. #. Malignant neoplasm of prostate status post laparoscopic prostatectomy and lymph node dissection 09/26 -Pain management, drain management, dietary progression, therapy assessment, anticoagulation, and disposition planning per primary team -Follow-up surgical pathology #. Heart failure with reduced ejection fraction, not in acute exacerbation, new diagnosis As part of evaluation for respiratory insufficiency as below, BNP was obtained and noted to be mildly elevated. Because of this, an echocardiogram was ordered. The echocardiogram was revealing of a severely reduced ejection fraction at 26% as well as bilateral atrial enlargement and moderate mitralregurgitation. All of these represent new findings. Patient with no known history of ischemic coronary disease. Patient does have history of atrial fibrillation and NOÉ. No current exam findings suggestive of decompensation. -Cardiology consult placed, appreciate recommendations and management -Patient initiated on Isordil 2.5 mg 3 times daily and hydralazine 10 mg 3 times daily per cardiology -Continue metoprolol as below per cardiology recommendations #. Acute postoperative respiratory insufficiency, resolved #. Untreated NOÉ Patient developed postoperative respiratory insufficiency initially requiring as much is 8 L/min nasal cannula prior to being down titrated. Initial concern for possible pulmonary embolus based off patient's history of atrial fibrillation not on anticoagulation. CT PE obtained and unrevealing. Pneumonia considered as well, but imaging more suggestive of possible atelectasis and procalcitonin not significantly elevated. Pulmonary edema was considered as well especially given elevated BNP as above. Imaging did not reveal significant pulmonary edema; however, echocardiogram was pursued as above.Overall suggest postoperative atelectasis complicated by untreated sleep apnea. -Patient now on room air -Continue incentive spirometry -Discontinue empiric antibiotics and monitor clinically, no evidence of ongoing infectious process since discontinuation -Patient reports plan in place for outpatient sleep study #. Atrial fibrillation with RVR Patient developed A-fib with RVR in the postoperative setting. He does have known history of atrialfibrillation and does take metoprolol prior to admission. He reports not taking his metoprolol since the morning of the day prior to surgery. Initially, his heart rate improved with maintenance IV fluid administration as well as resumption of beta-blockade. However, the patient experienced recurrent episodes of atrial fibrillation with RVR overnight 09/27 to 09/28 and during the day of 09/28. -Cardiology consulted as above -Continue telemetry -Will administer 500 mL IV fluid bolus -Discussed with cardiology provider, will increase metoprolol dosing to 50 mg 4 times daily with asneeded IV dosing also ordered -Per discussion with urology and cardiology provider, will initiate patient on anticoagulation withEliquis -If heart rate not improving following these changes, consideration of cardioversion later in the week per cardiology provider #. Leukocytosis Suspect stress reaction in the postoperative setting. Consideration of possible pneumonia as above.No additional acute infectious symptoms. -Continue to monitor #. Acute blood loss anemia, resolved Mild. In postoperative setting. Resolved. -Continue to monitor #. SHANNAN Baseline renal function unknown. Patient noted to have elevated serum creatinine to 1.44 on initialassessment. Suspect prerenal injury given hypovolemia. Creatinine somewhat improved following fluidadministration. -FeNa pending -Continue to monitor -Will administer IV fluid bolus as above #. Chronic constipation -Bowel regimen ordered # Code status: Full code Remainder of cares per primary team. I thank Dr. Cruz for allowing me to take part in the care of this patient. Jericho Batista MD Hospital Medicine SUBJECTIVE Overnight, the patient developed recurrent A-fib with RVR and was given additional dosing of metoprolol. No additional acute events overnight. Nursing notes reviewed. This morning, the patient reports no symptoms of chest pain, shortness of breath, or palpitations. He reports his postoperative painremains manageable. Denies additional acute concerns at this time. 4-point ROS otherwise negative. OBJECTIVE BP 108/88 Pulse 90 Temp 98.1 ??F (36.7 ??C) Resp 18 Ht 6' 3 (1.905 m) Wt 120.3 kg (265 lb 3.2 oz) SpO2 92% BMI 33.15 kg/m?? Intake/Output Summary (Last 24 hours) at 09/28/2023 1202 Last data filed at 09/28/2023 0545 Gross per 24 hour Intake 1113 ml Output 3880 ml Net -2767 ml GENERAL APPEARANCE: He is awake, alert and in no acute distress. HEENT: Head - Normocephalic, atraumatic. Eyes - Normal lids and conjuntivae, PERRLA, EOMs intact. Nose - No deformity. Moist mucous membranes. NECK: Supple, no appreciated JVD RESPIRATORY: Good air entry, no wheezes, rhonchi, rales, or increased work of breathing CARDIOVASCULAR: Normal S1, normal S2, irregularly irregular and rapid rate with no appreciated murmur. GASTROINTESTINAL: Soft, non-tender, normal bowel sounds, mildly distended, no rebound SKIN: Intact, warm, dry. No appreciated rashes NEUROLOGIC: Alert and oriented X 4, moves all extremities equally. Non-focal exam, power 5/5 in UE,sensation grossly intact EXTREMITIES: Distal Pulses are palpable, no lower extremity edema. Current Facility-Administered Medications: acetaminophen (TYLENOL) tablet 1,000 mg, 1,000 mg, oral, Q6H (NS), 1,000 mg at 09/26/232043 ORacetaminophen (TYLENOL) rectal suppository 650 mg, 650 mg, Rectal, Q6H (NS), Jose L Cruz MD apixaban (ELIQUIS) tablet 5 mg, 5 mg, oral, Twice Daily, Jericho Batista MD bacitracin (BACIGUENT) packet 1 Application , 1 Application , topical, BID PRN, Jose L Cruz MD bisacodyl (DULCOLAX) delayed released tablet 5-15 mg, 5-15 mg, oral, DAILY PRN, Jericho Batista MD diphenhydrAMINE (BENADRYL) injection 12.5-25 mg, 12.5-25 mg, Intravenous, Q4H PRN, Jose L Cruz MD docusate sodium (COLACE) capsule 100 mg, 100 mg, oral, Twice Daily, Jose L Cruz MD, 100 mg at 09/27/231951 glycopyrrolate (ROBINUL) injection 0.1 mg, 0.1 mg, IntraMUSCULAR, Q4H PRN, Jose L Cruz MD hydrALAZINE (APRESOLINE) tablet 10 mg, 10 mg, oral, TID, Westley Uribe MD, 10 mg at 09/28/23923 isosorbide dinitrate (ISORDIL) tablet 2.5 mg, 2.5 mg, oral, TID, Westley Uribe MD, 2.5 mg at 09/28/23923 levalbuteroL (Xopenex) nebulizer solution 1.25 mg, 1.25 mg, Nebulization, Q4H PRN, Kimberly Muro, RT magnesium hydroxide (MILK OF MAGNESIA) suspension 30 mL, 30 mL, oral, DAILY PRN, Jericho Batista MD metoprolol (LOPRESSOR) injection 5 mg, 5 mg, Intravenous, Q6H PRN, Yaneth Cornelius MD, 5 mg at 09/28/23 1006 metoprolol tartrate (LOPRESSOR) tablet 50 mg, 50 mg, oral, QID, Westley Uribe MD naloxone (NARCAN) injection 0.1 mg, 0.1 mg, Intravenous, Q1 MINUTE PRN, Jose L Cruz MD naloxone (NARCAN) injection 0.1 mg, 0.1 mg, Intravenous, Q1 MINUTE PRN, Jose L Cruz MD ondansetron (ZOFRAN) injection 4 mg, 4 mg, Intravenous, Q12H PRN, Jose L Cruz MD oxyCODONE (immediate release) (ROXICODONE) tablet 5-10 mg, 5-10 mg, oral, Q4H PRN, Jose L Cruz MD polyethylene glycol (MIRALAX) packet 17 g, 17 g, oral, DAILY PRN, Jericho Batista MD senna (SENOKOT) tablet 8.6-17.2 mg, 1-2 tablet, oral, Twice Daily, Jericho Batista MD, 17.2 mg at09/27/231951 sodium chloride 0.9 % IV solution, , Intravenous, CONTINUOUS PRN, Jose L Cruz MD sodium chloride 0.9% irrigation solution 250 mL, 250 mL, Irrigation, PRN, Jose L Cruz MD LABS Recent Labs 09/26/23 1404 09/27/23 0818 09/28/23 0749 WBC 14.8* 12.9* 12.5* RBC 4.89 4.28* 4.63 HEMOGLOBIN 15.9 13.7* 14.9 HEMATOCRIT 47.1 39.9* 43.1 MCV 96 93 93 MCH 33 32 32 RDW 13.6 13.5 13.2 PLATELETCT 205 190 186 No Lab Results Found (last 72 hours) Recent Labs 09/26/23 1404 09/27/23 0818 09/28/23 0748 SODIUM 141 138 137 POTASSIUM 4.4 4.4 4.1 CHLORIDE 110* 111* 107 CARBONDIOXI 25 22 25 ANIONGAP 6.0 5.0 5.0 GLUCOSE 130* 117* 108* BUNUREANRO 21 18 15 CREATININE 1.44* 1.26* 1.33* CALCIUMSERUM 9.1 8.4* 9.1 ESTGFRMDRD 54.94* >60.00 >60.00 ABG: No Lab Results Found (last 72 hours) VBG: No Lab Results Found (last 72 hours) Invalid input(s): O2SV Micro: No results found for this visit on 09/26/23. Surgical/Procedure Site Anterior;Lower Abdomen (Active) Incision Date/Incision Time: 09/26/23817 Incision Type: Incision Orientation: Anterior;Lower Location: Abdomen Description: Trochar sites x 6 Additional comments: I reviewed the patient's new clinical lab test results. I reviewed the patient's medications. I reviewed the patient's new imaging test results. I discussed the patient's care with the patient, his spouse, primary team provider, cardiology provider. Imaging Reviewed in [facility] [place] MAINTENANCE TECHNICIAN * Stephanie Zacarias, INTERDISCIPLINARY PROFESSOR, CRITICAL CARE CNS - 09/28/2023 9:16 AM CST Urology PROGRESS NOTE POD# 3 - RALP SUBJECTIVE: Patient seen this morning with present at bedside. Delatorre catheter to drainage bag with clear straw urine. Abdominal CORINNE to bulb suction with serous output. Reports some incisional discomfort and discomfort from delatorre catheter. Passing gas. Denies nausea or vomiting. Incisions CDI. Creatinine 1.23 --> 1.33 Output: Delatorre 4850 ml CORINNE 130 ml OBJECTIVE: BP 108/88 Pulse (!) 57 Temp 98.1 ??F (36.7 ??C) Resp 18 Ht 6' 3 (1.905 m) Wt 120.3 kg (265 lb 3.2 oz) SpO2 92% BMI 33.15 kg/m?? Intake/Output Summary (Last 24 hours) at 09/28/2023 0916 Last data filed at 09/28/2023 0545 Gross per 24 hour Intake 1373 ml Output 4980 ml Net -3607 ml Recent Labs 09/26/23 1404 09/27/23 0818 09/28/23 0748 SODIUM 141 138 137 POTASSIUM 4.4 4.4 4.1 CHLORIDE 110* 111* 107 CARBONDIOXI 25 22 25 ANIONGAP 6.0 5.0 5.0 GLUCOSE 130* 117* 108* BUNUREANRO 21 18 15 CREATININE 1.44* 1.26* 1.33* CALCIUMSERUM 9.1 8.4* 9.1 ESTGFRMDRD 54.94* >60.00 >60.00 Recent Labs 09/26/23 1404 09/27/23 0818 09/28/23 0749 WBC 14.8* 12.9* 12.5* RBC 4.89 4.28* 4.63 HEMOGLOBIN 15.9 13.7* 14.9 HEMATOCRIT 47.1 39.9* 43.1 MCV 96 93 93 MCH 33 32 32 RDW 13.6 13.5 13.2 PLATELETCT 205 190 186 Exam: Gen: Resting comfortably in bed. NAD. A&O. Ab: Normal respiratory effort. Incisions CDI. : Delatorre catheter to drainage bag with clear straw urine. Abdominal CORINNE to bulb suction with serous output. Ext: Denies bilateral calf pain or tenderness. A/P: 1. Case discussed with Dr. Cruz. Patient is doing well from a surgical standpoint. 2. Diet advanced to regular, will keep fluid restriction and low salt dietary modifications. 3. Plan to remove CORINNE today. 4. Continue with delatorre catheter. This will stay in place until 2 week follow up as an outpatient. 5. Per Dr. Cruz, would be okay for anticoagulation now. However, would like to avoid bolus dosing of anticoagulation given his current postoperative status. While on anticoagulation, may have hematuria with catheter in place. Okay for some tolerance of hematuria has long has the catheter is functional. 6. Appreciate Cardiology and Hospitalist recommendations. 7. From a Urology standpoint, would be appropriate for discharge once cleared per interdisciplinaryteam. Stephanie Zacarias DNP [place] [facility] Pager [phone] After 4pm or on weekends, or if no call back, please call our office at [phone] [place] MAINTENANCE TECHNICIAN * Westley Uribe MD - 09/28/2023 9:12 AM CST CARDIOLOGY INPATIENT PROGRESS NOTE Brief History: Aleks Moura is a 63 y.o. male with history of paroxysmal atrial fibrillation, suspected sleep apnea, tobacco use disorder, prostate adenocarcinoma status post robot-assisted laparoscopic prostatectomy who was admitted on 09/26/2023 following his prostate surgery. Cardiology isfollowing due to abnormal echocardiogram with reduced ejection fraction. Overnight: continued episodes of atrial fibrillation with rapid rates Subjective: no chest pain, shortness of breath, lightheadedness Objective: Personal review of telemetry data: atrial fibrillation 100s-140s BP 108/88 Pulse (!) 57 Temp 98.1 ??F (36.7 ??C) Resp 18 Ht 6' 3 (1.905 m) Wt 120.3 kg (265 lb 3.2 oz) SpO2 92% BMI 33.15 kg/m?? Intake/Output Summary (Last 24 hours) at 09/28/2023 0912 Last data filed at 09/28/2023 0545 Gross per 24 hour Intake 4943.14 ml Output 4980 ml Net -36.86 ml GENERAL: alert and oriented; in no acute distress HEENT: pupils equal round; extraocular movement intact RESPIRATORY: lungs clear to auscultation CARDIOVASCULAR: no jugular venous distention; irregular rate and irregular rhythm; audible S1, audible S2 PULSES: dorsalis pedis pulses bilateral - symmetrical, 2+ GASTROINTESTINAL: soft, non-tender, no palpable masses, no bruits MUSCULOSKELETAL: no clubbing, cyanosis, edema SKIN: warm/dry; no rashes NEURO: moves all extremities; non-focal PSYCHIATRIC: appropriate mood and affect Labs/Data (personally reviewed): - slight increase in creatinine - WBC slightly elevated Assessment and Plan: 63 y.o. male with history of paroxysmal atrial fibrillation, suspected sleep apnea, tobacco use disorder, prostate adenocarcinoma status post robot-assisted laparoscopic prostatectomy who cardiology to see due to abnormal echocardiogram with reduced ejection fraction. 1) New HFrEF 2) Cardiomyopathy - new finding on echo from Aug 2023 - patient currently denies PND, orthopnea, LE edema - recent surgery, but no chest pain - has h/o a-fib and is in rapid atrial fibrillation currently - arrhythmia with tachy-mediated cardiomyopathy a possibility, but also considering coronary disease, stress leading to reduced EF - daily weights, strict I's/O's, fluid restrict, sodium restrict - continue telemetry - BP has been on lower end likely due to surgery and pain medications - when able, would transition from metoprolol tartrate to metoprolol succinate and add ACEi/ARB 3) Atrial Fibrillation, Persistent - present since his pre-op one week prior, but possibly longer - rates are not well controlled - increase metoprolol tartrate to 50 mg q6h - monitor BP as well with increase - no chest pain reported - anticoagulation when safe from surgical perspective - if rates remain poorly controlled, would consider cardioversion in future provided on anticoagulation - has [id number] of 1 (reduced EF) 4) Prostate Adenocarcinoma - s/p prostatectomy this admission - mgmt as per urology 5) Suspected Sleep Apnea - sleep study - CPAP recommended 6) Tobacco Use Disorder - cessation recommended Thank you very much for allowing me to participate in the care of your patient, Aleks Moura. Cardiology team will continue to follow. Westley Dangelo Obi, MD [facility] Pager: [phone] [place] MAINTENANCE TECHNICIAN * Fatuma Dixon, RN - 09/28/2023 6:15 AM CST Med-Surg Care Progression Note Type: Shift to shift summary Length of stay: 2 days Code Status: Full Code Primary Problem: Prostate cancer 09/26 S/P ROBOTIC XI ASSISTED LAPAROSCOPIC RADICAL PROSTATECTOMY, BILATERAL PELVIC LYMPH NODE DISSECTION Summary:Patient alert and oriented.Denied pain,declined schedule Acetaminophen. HR 150-160 for short periods of time scheduled metoprolol given and HR went up again to 120-150.MD informed STAT Metoprolol 50 mg given. Vitals were stable. Has new diagnosis of heart failure with reduced ejection fraction CT Angio negative, Xray showed vascular congestion with perihilar atelectasis vs infiltrates. Has PRN Metoprolol if HR >120. F- Feeding & Fluids: Full liquid diet with 2L fluid rstriction IVF x 75 cc/hr A- Analgesic & Anticoagulation: Comfort Goal: Numeric, Verbal, Faces: 4 - Moderate Analgesic Denied pain,refused sched Acetaminophen Anticoagulation/DVT prevention & plan SCD's S- Skin: Turn Q 2 hrs 5 abd incisions with shadow drainage. Abd CORINNE Total Levi Score: 19: T- Telemetry: Rhythm: Atrial Fibrillation with Rapid Ventricular Response Ectopy: None Started on tele- in afib. HR 150-160 for short period of time then again 120 - 150 MD notified STAT Metoprolol 50 mg given. E- Emotional & Neuro: Calm Neuro alert and oriented R- Respiratory: O2 at 2L/NC stable at 93% H- Head OUT of Bed & Activity: Activate Fall Alert? (Enter 1 or 0): (not recorded) not OOB thisshift U- Urologic/bowel: Delatorre. No BM this shift G- Glycemic Control: NA T- Treatment: IVF,ABX I- Invasive Devices: Juan Ramon GABRIEL JP D- Discharge: Home with BP 101/82 Pulse (!) 110 Temp 98.5 ??F (36.9 ??C) Resp 18 Ht 1.905 m (6' 3) Wt 118.8 kg (262 lb) SpO2 91% BMI 32.75 kg/m?? 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 CT chest result no PE. Patient independent. Cardiology consulted for newly identified heart failure with reduced ejection fraction (20-30%). Per Urology full liquid for dinner and if tolerating well advance to regular diet tomorrow morning. Accurate I/O, and full liquid 2000 ML fluid restriction. No major changes this shift. F- Feeding & Fluids: Ice chips, sips of water. IVF A- Analgesic & Anticoagulation: Comfort Goal: Numeric, Verbal, Faces: 4 - Moderate Analgesic Mild abd/incisional pain MACHINE CANDLE MOLDER Dilaudid 0.1 mg Q 15 min demand only Ice pack to abd Anticoagulation/DVT prevention & plan Seq S- Skin: Turn Q 2 hrs 5 abd incisions with shadow drainage. Abd CORINNE Total Levi Score: 16: T- Telemetry: Rhythm: Atrial Fibrillation; Atrial Fibrillation with Rapid Ventricular Response Ectopy: None Started on tele- in afib. HR 110-130's. PO metoprolol given E- Emotional & Neuro: Anxious about needing to poop. Given bedpan and then pt insisted with using commode- which he was assisted to do Neuro Drowsy R- Respiratory: 2 liter O2 NC up to 8 liters oxymask. Now on 2 liter O2 NC again. Needs to be givenIS education H- Head OUT of Bed & Activity: Activate Fall Alert? (Enter 1 or 0): (not recorded) bedrest overnight- but pt already up to commode with A1 U- Urologic/bowel: Delatorre. No BM this shift G- Glycemic Control: NA T- Treatment: Post op cares I- Invasive Devices: Juan Ramon GABRIEL JP D- Discharge: Home with [place] MAINTENANCE TECHNICIAN * Jericho Batista MD - 09/27/2023 1:52 PM CST Images from the original note were not included. HOSPITALIST DIVISION CONSULTATION PROGRESS NOTE CHIEF COMPLAINT: Shortness of breath ASSESSMENT & PLAN Principal Problem: Prostate cancer (HCC) Active Problems: Severe Pneumonia, Suspected Bacterial Patient is a 63-year-old male with past medical history of paroxysmal A-fib not on anticoagulation prior to admission, NOÉ not on CPAP prior to admission who was admitted following elective prostatectomy for malignant neoplasm of the prostate. #. Malignant neoplasm of prostate status post laparoscopic prostatectomy and lymph node dissection 09/26 -Pain management, drain management, dietary progression, therapy assessment, anticoagulation, and disposition planning per primary team -Follow-up surgical pathology #. Heart failure with reduced ejection fraction, not in acute exacerbation, new diagnosis As part of evaluation for respiratory insufficiency as below, BNP was obtained and noted to be mildly elevated. Because of this, an echocardiogram was ordered. The echocardiogram was revealing of a severely reduced ejection fraction at 26% as well as bilateral atrial enlargement and moderate mitralregurgitation. All of these represent new findings. Patient with no known history of ischemic coronary disease. Patient does have history of atrial fibrillation and NOÉ. No current exam findings suggestive of decompensation. -Cardiology consult placed, appreciate recommendations and management -Continue metoprolol as below pending further cardiology recommendations #. Acute postoperative respiratory insufficiency, resolved #. Untreated NOÉ Patient developed postoperative respiratory insufficiency initially requiring as much is 8 L/min nasal cannula prior to being down titrated. Initial concern for possible pulmonary embolus based off patient's history of atrial fibrillation not on anticoagulation. CT PE obtained and unrevealing. Pneumonia considered as well, but imaging more suggestive of possible atelectasis and procalcitonin not significantly elevated. Pulmonary edema was considered as well especially given elevated BNP as above. Imaging did not reveal significant pulmonary edema; however, echocardiogram was pursued as above.Overall suggest postoperative atelectasis complicated by untreated sleep apnea. -Patient now on room air -Continue incentive spirometry -Discontinue empiric antibiotics and monitor clinically -Patient reports plan in place for outpatient sleep study #. Atrial fibrillation with RVR Patient developed A-fib with RVR in the postoperative setting. He does have known history of atrialfibrillation and does take metoprolol prior to admission. He reports not taking his metoprolol since the morning of the day prior to surgery. Overall, suspect RVR in the setting of holding of [employer] medication and hypovolemia postoperatively. Improved with beta-jasmina initiation following surgery. -Cardiology consulted as above -Continue telemetry -Continue metoprolol tartrate 12.5 mg twice daily pending further cardiology recommendations, as needed IV dosing also ordered -Given new diagnosis of heart failure, it would be appropriate for patient to initiate lifelong anticoagulation when cleared from the post operative setting. Shared decision making discussion held with patient and his spouse who are in agreement to this. #. Leukocytosis Suspect stress reaction in the postoperative setting. Consideration of possible pneumonia as above.No additional acute infectious symptoms. -Continue to monitor #. Acute blood loss anemia Mild. In postoperative setting. -Continue to monitor #. SHANNAN Baseline renal function unknown. Patient noted to have elevated serum creatinine to 1.44 on initialassessment. Suspect prerenal injury given hypovolemia. Creatinine improving following fluid administration. -Continue to monitor #. Chronic constipation -Bowel regimen ordered # Code status: Full code Remainder of cares per primary team. I thank Dr. Cruz for allowing me to take part in the care of this patient. Jericho Batista MD Hospital Medicine SUBJECTIVE Overnight, the patient developed recurrent A-fib with RVR and was given additional dosing of metoprolol. No additional acute events overnight. Nursing notes reviewed. This morning, the patient reports his pain is well-controlled. He denies any ongoing shortness of breath. He denies any symptoms of cough, fevers, or chills. Denies any significant abdominal discomfort, though he does report significant chronic constipation. Denies additional acute concerns. 4-point ROS otherwise negative. OBJECTIVE BP (!) 88/71 Pulse 100 Temp 98 ??F (36.7 ??C) Resp 18 Ht 6' 3 (1.905 m) Wt 118.8 kg (262lb) SpO2 96% BMI 32.75 kg/m?? Intake/Output Summary (Last 24 hours) at 09/27/2023 1352 Last data filed at 09/27/2023 1317 Gross per 24 hour Intake 3980.14 ml Output 3005 ml Net 975.14 ml GENERAL APPEARANCE: He is awake, alert and in no acute distress. HEENT: Head - Normocephalic, atraumatic. Eyes - Normal lids and conjuntivae, PERRLA, EOMs intact. Nose - No deformity. Moist mucous membranes. NECK: Supple, no appreciated JVD RESPIRATORY: Good air entry, no wheezes, rhonchi, rales, or increased work of breathing CARDIOVASCULAR: Normal S1, normal S2, irregularly irregular and rapid rate with no appreciated murmur. GASTROINTESTINAL: Soft, non-tender, normal bowel sounds, mildly distended, no rebound SKIN: Intact, warm, dry. No appreciated rashes NEUROLOGIC: Alert and oriented X 4, moves all extremities equally. Non-focal exam, power 5/5 in UE,sensation grossly intact EXTREMITIES: Distal Pulses are palpable, no lower extremity edema. Current Facility-Administered Medications: acetaminophen (TYLENOL) tablet 1,000 mg, 1,000 mg, oral, Q6H (NS), 1,000 mg at 09/26/232043 ORacetaminophen (TYLENOL) rectal suppository 650 mg, 650 mg, Rectal, Q6H (NS), Jose L Cruz MD bacitracin (BACIGUENT) packet 1 Application , 1 Application , topical, BID PRN, Jose L Cruz MD bisacodyl (DULCOLAX) delayed released tablet 5-15 mg, 5-15 mg, oral, DAILY PRN, Jericho Batista MD diphenhydrAMINE (BENADRYL) injection 12.5-25 mg, 12.5-25 mg, Intravenous, Q4H PRN, Jose L Cruz MD docusate sodium (COLACE) capsule 100 mg, 100 mg, oral, Twice Daily, Jose L Cruz MD, 100 mg at 09/27/23 0855 glycopyrrolate (ROBINUL) injection 0.1 mg, 0.1 mg, IntraMUSCULAR, Q4H PRN, Jose L Cruz MD levalbuteroL (Xopenex) nebulizer solution 1.25 mg, 1.25 mg, Nebulization, Q4H PRN, Kimberly Muro, RT magnesium hydroxide (MILK OF MAGNESIA) suspension 30 mL, 30 mL, oral, DAILY PRN, Jericho Batista MD metoprolol (LOPRESSOR) injection 5 mg, 5 mg, Intravenous, Q6H PRN, Yaneth Cornelius MD, 5 mg at 09/27/23 0238 metoprolol tartrate (LOPRESSOR) tablet 12.5 mg, 12.5 mg, oral, Twice Daily, Jericho Batista MD, 12.5 mg at 09/26/23 1528 naloxone (NARCAN) injection 0.1 mg, 0.1 mg, Intravenous, Q1 MINUTE PRN, Jose L Cruz MD naloxone (NARCAN) injection 0.1 mg, 0.1 mg, Intravenous, Q1 MINUTE PRN, Jose L Cruz MD ondansetron (ZOFRAN) injection 4 mg, 4 mg, Intravenous, Q12H PRN, Jose L Cruz MD oxyCODONE (immediate release) (ROXICODONE) tablet 5-10 mg, 5-10 mg, oral, Q4H PRN, Jose L Cruz MD polyethylene glycol (MIRALAX) packet 17 g, 17 g, oral, DAILY PRN, Jericho Batista MD potassium chloride 20 mEq in [id number] chloride 0.45% IV infusion 1000 mL, , Intravenous, CONTINUOUS, Jose L Cruz MD, Last Rate: 75 mL/hr at 09/27/23 0450, New Bag at 09/27/23 0450 senna (SENOKOT) tablet 8.6-17.2 mg, 1-2 tablet, oral, Twice Daily, Jericho Batista MD sodium chloride 0.9 % IV solution, , Intravenous, CONTINUOUS PRN, Jose L Cruz MD sodium chloride 0.9% irrigation solution 250 mL, 250 mL, Irrigation, PRN, Jose L Cruz MD LABS Recent Labs 09/26/23 1404 09/27/23 0818 WBC 14.8* 12.9* RBC 4.89 4.28* HEMOGLOBIN 15.9 13.7* HEMATOCRIT 47.1 39.9* MCV 96 93 MCH 33 32 RDW 13.6 13.5 PLATELETCT 205 190 No Lab Results Found (last 72 hours) Recent Labs 09/26/23 1404 09/27/23 08 SODIUM 141 138 POTASSIUM 4.4 4.4 CHLORIDE 110* 111* CARBONDIOXI 25 22 ANIONGAP 6.0 5.0 GLUCOSE 130* 117* BUNUREANRO 21 18 CREATININE 1.44* 1.26* CALCIUMSERUM 9.1 8.4* ESTGFRMDRD 54.94* >60.00 ABG: No Lab Results Found (last 72 hours) VBG: No Lab Results Found (last 72 hours) Invalid input(s): O2SV Micro: No results found for this visit on 09/26/23. Surgical/Procedure Site Anterior;Lower Abdomen (Active) Incision Date/Incision Time: 09/26/23817 Incision Type: Incision Orientation: Anterior;Lower Location: Abdomen Description: Trochar sites x 6 Additional comments: I reviewed the patient's new clinical lab test results. I reviewed the patient's medications. I reviewed the patient's new imaging test results. I discussed the patient's care with the patient, his spouse, primary team provider, cardiology provider. Imaging Reviewed in [facility] [place] MAINTENANCE TECHNICIAN * Tru Melo PA-C - 09/27/2023 9:11 AM CST Urology Progress Note Patient Name: Aleks Moura Address: [address] [place] [address] Age:63 y.o. Sex: male Admission Date/Time: 09/26/2023 5:44 AM Hospital Attending Physician: Jose L Cruz MD Subjective: Patient evaluated. Patient reports that he had small bowel movement this morning. Reports that he is having minimal pain and has not needed to use MACHINE CANDLE MOLDER at all. Patient afebrile. Creat 1.26. ALLERGIES/SENSITIVITIES No Known Allergies LABS: Recent Labs 09/26/23 1404 WBC 14.8* RBC 4.89 HEMOGLOBIN 15.9 HEMATOCRIT 47.1 MCV 96 MCH 33 RDW 13.6 PLATELETCT 205 Recent Labs 09/27/23 0818 SODIUM 138 POTASSIUM 4.4 CHLORIDE 111* CARBONDIOXI 22 ANIONGAP 5.0 GLUCOSE 117* BUNUREANRO 18 CREATININE 1.26* CALCIUMSERUM 8.4* ESTGFRMDRD >60.00 Intake/Output Summary (Last 24 hours) at 09/27/2023 0911 Last data filed at 09/27/2023 0718 Gross per 24 hour Intake 950 ml Output 2215 ml Net -1265 ml BP (!) 88/71 Pulse 100 Temp 98 ??F (36.7 ??C) Resp 18 Ht 6' 3 (1.905 m) Wt 118.8 kg (262lb) SpO2 96% BMI 32.75 kg/m?? Physical exam Gen: alert and oriented, no acute distress, laying in bed Abdomen: Surgical incisions closed with earl, no dehiscence, no discharge, no erythema. CORINNE in place draining serosanguinous output. Soft, appropriate tenderness to palpation. : Delatorre in place draining clear/rajat urine. Extremities: Nontender ASSESSMENT AND PLAN: POD #2 RALP; A fib Principal Problem: Prostate cancer (HCC) Active Problems: Severe Pneumonia, Suspected Bacterial 1. Encourage ambulation, IS, and sequential squeezers. 2. Advance to clear liquid diet. If tolerating well OK to advance to full liquid for dinner. If tolerating well will plan for regular diet tomorrow morning. 3. Maintain CORINNE at this time. Will plan to remove prior to discharge. Output yesterday 65cc. 4. Maintain delatorre catheter. This will stay in place until 2 week follow up as an outpatient. 5. CT without PE last night. Plan for echocardiogram today. Appreciate hospitalist recommendations. 6. Patient is not using MACHINE CANDLE MOLDER. Will discontinue and transition to oral pain medications as needed. Tru Melo PA-C [facility] Pager [phone] After 4pm or on weekends, or if no call back, please call our office at [phone] [place] MAINTENANCE TECHNICIAN * Fatuma Dixon RN - 09/27/2023 2:50 AM CST Med-Surg Care Progression Note Type: Shift to shift summary Length of stay: 1 days Code Status: Full Code Primary Problem: Prostate cancer S/P ROBOTIC XI ASSISTED LAPAROSCOPIC RADICAL PROSTATECTOMY, BILATERAL PELVIC LYMPH NODE DISSECTION Summary:Patient alert and oriented.Pain managed well with MACHINE CANDLE MOLDER Dilaudid.HR elevated 160.called Tele to verify HR into 120-130,s PRN IV metoprolol administered BP dropped lowest at 82/56 but HR remainshigh 120 - 140,MD notified ordered to give Oral Metoprolol Once. Patient refused and was told that he might need sleep study and wont take anything,explained to him several times about the PRN order.He called his and told her that People here are not listening to their patient and think that they are stupid,that he has been waken every 15 mins. notified about patient refusal of medication,called patient over the phone and answered all the his questions and agreed to take the medication.When the adjusto writer operator was about to give him the IV medication he started to ask again what medications I am giving to him,told him that its the same medication that he and the MD talked about. 0238 IV Metoprolol and PO metoprolol given.Bolus NS administered as ordered this time patient was compliant. CT Angio negative, Xray showed vascular congestion with perihilar atelectasis vs infiltrates. Echo today. Has PRN Metoprolol if HR >120. MACHINE CANDLE MOLDER dilaudid. To start Toprol XL today BP still low after Bolus but HR trending down.MD ordered another Bolus F- Feeding & Fluids: Ice chips, sips of water. IVF x 75 cc/hr A- Analgesic & Anticoagulation: Comfort Goal: Numeric, Verbal, Faces: 4 - Moderate Analgesic Mild abd/incisional pain MACHINE CANDLE MOLDER Dilaudid 0.1 mg Q 15 min demand only Anticoagulation/DVT prevention & plan SCD's S- Skin: Turn Q 2 hrs 5 abd incisions with shadow drainage. Abd CORINNE Total Levi Score: 16: T- Telemetry: Rhythm: Atrial Fibrillation with Rapid Ventricular Response Ectopy: None Started on tele- in afib. HR 110-140's. PO metoprolol given x 2 E- Emotional & Neuro: Anxious and irritable Neuro alert and oriented R- Respiratory: O2 at 2L/NC stable at 93% H- Head OUT of Bed & Activity: Activate Fall Alert? (Enter 1 or 0): (not recorded) bedrest overnight- not OOB this shift U- Urologic/bowel: Delatorre. No BM this shift G- Glycemic Control: NA T- Treatment: IVF,ABX I- Invasive Devices: HARVEY, Juan Ramon, CORINNE D- Discharge: Home with BP 106/77 Pulse 100 Temp 98.1 ??F (36.7 ??C) Resp 18 Ht 1.905 m (6' 3) Wt 118.8 kg (262 lb) SpO2 92% BMI 32.75 kg/m?? [place] MAINTENANCE TECHNICIAN * Tank Gallo MD - 09/27/2023 2:12 AM CST -paged by RN:afib rvr sustaining in 140s Spoke with tele: pt consistently in 120s-130s since 11:00pm and intermittently sustaining in 140s/170s Spoke with the pt on the phone/he has no symptoms and was sleeping He refused iv and po lopressor with RN/wants to talk to MD I called him and had lenghty discussion on why he needs additional lopressor either IV or po to improve his HR and pt aggreable 5mg of IV lopressor given x 2/50mg po lopressor given/2L NS total given/HR now in 100s Anticipate HR to continue to decrease Will continue to monitor Defer furthur mgmt to day team in AM Tank Gallo MD [facility] Hospitalist [place] MAINTENANCE TECHNICIAN * Yaneth Cornelius MD - 09/26/2023 6:15 PM CST Additional note; CT neg for PE. Concern for pneumonia vs fluid . Start on antibiotic, add procalcitonin, Echo tomorrow. Yaneth Cornelius [facility] [place] MAINTENANCE TECHNICIAN * Simran Sevilla RN - 09/26/2023 6:02 PM CST Med-Surg Care Progression Note Type: Admission summary Length of stay: 0 days Code Status: Full Code Primary Problem: Arrived from PACU at 1315 ROBOTIC XI ASSISTED LAPAROSCOPIC RADICAL PROSTATECTOMY, BILATERAL PELVIC LYMPH NODE DISSECTION Summary:Upon arrival from PACU- O2 sats 82% on 2 liter, HR 130's, decreased LOC, pt reporting the feeling of needing to have BM/pass flatus. RN flyer and Urology PAC to bedside and hospitalist consulted. New order for CT chest to rule out PE, Covid test, labs, chest xray, EKG, Tele. Metoprolol PRN if HR >120. MACHINE CANDLE MOLDER dilaudid. F- Feeding & Fluids: Ice chips, sips of water. IVF A- Analgesic & Anticoagulation: Comfort Goal: Numeric, Verbal, Faces: 4 - Moderate Analgesic Mild abd/incisional pain MACHINE CANDLE MOLDER Dilaudid 0.1 mg Q 15 min demand only Ice pack to abd Anticoagulation/DVT prevention & plan Seq S- Skin: Turn Q 2 hrs 5 abd incisions with shadow drainage. Abd CORINNE Total Levi Score: 16: T- Telemetry: Rhythm: Atrial Fibrillation with Rapid Ventricular Response Ectopy: None Started on tele- in afib. HR 110-130's. PO metoprolol given E- Emotional & Neuro: Anxious about needing to poop. Given bedpan and then pt insisted with using commode- which he was assisted to do Neuro Drowsy R- Respiratory: 2 liter O2 NC up to 8 liters oxymask. Now on 2 liter O2 NC again. Needs to be givenIS education H- Head OUT of Bed & Activity: Activate Fall Alert? (Enter 1 or 0): (not recorded) bedrest overnight- but pt already up to commode with A1 U- Urologic/bowel: Delatorre. No BM this shift G- Glycemic Control: NA T- Treatment: Post op cares I- Invasive Devices: Juan Ramon GABRIEL JP D- Discharge: Home with [place] MAINTENANCE TECHNICIAN * Gladys Borja RN - 09/26/2023 3:37 PM CST Med-Surg Care Progression Note Type: Admission summary Length of stay: 0 days Code Status: Full Code Primary Problem: Arrived from PACU at 1315 ROBOTIC XI ASSISTED LAPAROSCOPIC RADICAL PROSTATECTOMY, BILATERAL PELVIC LYMPH NODE DISSECTION Summary:Upon arrival from PACU- O2 sats 82% on 2 liter, HR 130's, decreased LOC, pt reporting the feeling of needing to have BM/pass flatus. RN flyer and Urology PAC to bedside and hospitalist consulted. New order for CT chest to rule out PE, Covid test, labs, chest xray, EKG, Tele. F- Feeding & Fluids: Ice chips, sips of water. IVF A- Analgesic & Anticoagulation: Comfort Goal: Numeric, Verbal, Faces: 4 - Moderate Analgesic Mild abd/incisional pain MACHINE CANDLE MOLDER Dilaudid 0.1 mg Q 15 min demand only Ice pack to abd Anticoagulation/DVT prevention & plan Seq S- Skin: Turn Q 2 hrs 5 abd incisions with shadow drainage. Abd CORINNE Total Levi Score: (not recorded): T- Telemetry: Rhythm: Atrial Fibrillation with Rapid Ventricular Response Ectopy: None Started on tele- in afib. HR 110-130's. PO metoprolol given E- Emotional & Neuro: Anxious about needing to poop. Given bedpan and then pt insisted with using commode- which he was assisted to do Neuro Drowsy R- Respiratory: 2 liter O2 NC up to 8 liters oxymask. Now on 2 liter O2 NC again. Needs to be givenIS education H- Head OUT of Bed & Activity: Activate Fall Alert? (Enter 1 or 0): (not recorded) bedrest overnight- but pt already up to commode with A1 U- Urologic/bowel: Delatorre. No BM this shift G- Glycemic Control: NA T- Treatment: Post op cares I- Invasive Devices: Juan Ramon GABRIEL JP D- Discharge: Home with [place] MAINTENANCE TECHNICIAN * Tru Melo PA-C - 09/26/2023 2:22 PM CST Urology Brief Note Paged by RN due to patient having increased oxygen requirements. Patient was requiring 8L and O2 sats were at 92%. I placed a hospitalist consult. EKG obtained which found atrial fibrillation, which patient has a history of. CXR completed without signs of fluid overload. BMP, CBC ordered. At this time Dr. Cornelius assessed patient and recommended CT chest pulmonary angio and echocardiogram. BNP also ordered. From a urologic perspective abdominal incisions clean and dry, closed with earl. Delatorre in place draining clear/rajat urine. Appreciate hospital teams recommendations. Tru Melo PA-C [facility] Pager [phone] Office [phone] If after 5pm (M-H), after 4pm on Fri, weekends, or if no call back, please call our office [place] MAINTENANCE TECHNICIAN * Gladys Borja RN - 09/26/2023 1:50 PM CST Patient arrived from PACU at 1315. Patient on 2 liter O2 NC with O2 sats 83%. Oxymask applied at 8 liters with O2 sats increased to 92%. HR in the 120-130's irregular. BP 102/82, RR 26. Patient drowsy. Patient has feeling as he needs to poop. Patient placed on bedpan. Patient also reports abd/incisional pain. RN flyer and urology paged to come to bedside. Urology PA at bedside to assess patient. EKG done. New order for hospitalist consult and chest xray. Hospitalist now at bedside at 1353 [place] MAINTENANCE TECHNICIAN documented in this encounter Procedure Notes * Tania Ryan RN - 09/30/2023 2:18 PM CST Hansel procedure completed without complication. 4 Versed 50 Fentanyl 150ml Saline No Cardioversion indicated due to findings of HANSEL See Cardiology note for further details. Patient sleepy but answering questions appropriately. [place] MAINTENANCE TECHNICIAN * Ana Greene MD - 09/30/2023 1:48 PM CSTAssociated Order(s): CARDIOVERSION Procedural Sedation Note Pre-Sedation Assessment Chief Complaint/Reason for Procedure: Atrial fibrillation Desired Level of Sedation: Deep Code Status: Full Code Medical History: Past Medical History: Diagnosis Date A-fib (HCC) Cancer (HCC) Motion sickness Prostate cancer (HCC) 08/29/2013 Sleep apnea no CPAP Past Surgical History: Past Surgical History: Procedure Laterality Date ABDOMEN SURGERY PROC UNLISTED umbilical hernia HX VEIN STRIPPING Previous reaction to anesthesia/sedation: No Allergies: Patient has no known allergies. Review of Medication Reconciliation: yes Physical Exam: Heart Exam: normal Lung Exam: normal Airway Exam: Mouth Opening: normal Neck Range of Motion: normal Review of Labs: yes History and Physical Reviewed: No changes in patient's medical status ASA Level: II = Patient with mild systemic disease Non-Emergent Monitoring: Cardiac Telemetry Pulse Oximetry Frequent Vitals Sedation: Start Time: 1:48pm Stop Time: 2:14pm Drugs Used: Midazolam IV - Dose: 4 mg, Fentanyl IV - Dose: 50 mcg Adverse Events: None External Direct-Current Cardioversion ANDREA clot demonstrated on the HANSEL, therefore no cardioversion could be done. Post Sedation Assessment Post-procedural sedation vital signs reviewed by me, please see nursing documentation for details. Respiratory: Status is Stable Cardiovascular: Status is Stable Mental Status: Status is Stable Temperature: Normothermic Pain: Adequately Controlled Nausea/Vomiting: Adequately Controlled Hydration: Hydrated Appropriately Ana Greene MD [facility] 09/30/2023 [place] MAINTENANCE TECHNICIAN documented in this encounter Consult Notes * Alejandra Sher, OT - 10/03/2023 12:00 PM CST Occupational Therapy Acute Evaluation Patient Name: Aleks Moura Today's Date: 10/03/2023 Admission Date: 09/26/2023 ASSESSMENT/PLAN/RECOMMENDATIONS Assessment/Plan/Recommendations OT Assessment Results: Pt functioning at ADL/IADL baseline status Strengths: Age, Supportive living environment, Good family support, Prior level of function, Patient motivation, Patient cooperation, Ambulatory, Good strength Limitations/Discharge Barriers: Current medical status OT Frequency: No further acute OT needed Discharge Support Recommendations: Is safe to discharge to previous living situation with prior level of assist/support Post Acute Therapy Needs: No OT needs OT Plan Comments: pt seen today for inital OT eval. pt with Malignant neoplasm of prostate status post laparoscopic prostatectomy and lymph node dissection 09/26. found to have new heart failure aftersurgery. At baseline, pt is indp in all I/ADLs. Lives with in home and able to live on main level. Today, pt mod I- indp in all ADLs. ambulates in hallway with distant SBA- progressing to mod I.pt has been indp in room and completing toileting indp for bowel movements. anticpate pt will have safe discharge home at this time with assist for heavier IADLs. acute OT will sign off, please reconsult if needed. Recommendations For Next Session: n/A INPATIENT REHAB FACILITY CANDIDATE Inpatient Rehabilitation Facility Candidate Appropriate for Acute Inpatient Rehab?: No GENERAL General Visit Type: Initial Evaluation Diagnosis: Prostate cancer Admission/Diagnosis Details: pt is a 63 year old male with PMH of A-fib and NOÉ. pt with Malignant neoplasm of prostate status post laparoscopic prostatectomy and lymph node dissection 09/26. found tohave new heart failure after surgery. Pertinent Past Medical History: Patient does have history of atrial fibrillation and NOÉ. Patient Seen In: Room Family/Caregiver Present: Yes Who was present?: Production Team Advisor Used?: NA Hearing: Within Functional Limits Co-Treatment: PT Lines and Tubes: Delatorre Catheter SAFETY INTERVENTIONS Safety Interventions Fall Risk?: Yes Safety Interventions/Patient Disposition: Standard interventions, All needs within reach, In bed PAIN Patient complained of no pain HOME LIVING Home Setup Type of Home: House Lives With: Spouse Home Layout: Two level Stairs within Home: Able to live on main level PRIOR FUNCTION ADL/IADL Prior Function ADL/IADL Patient is independent with: All ADLs/IADLs, ADLs, Feeding, Grooming, Dressing, Bathing, Toileting,Meal Preparation, Vacuum Closing Machine Operator, Shopping, Homemaking, Medication Management, Driving, Yardwork Receives Help From: Family Leisure/Occupation: [employer]. needs to climb ladders and reports high stress PRIOR FUNCTION MOBILITY Prior Level of Functional Mobility Independent with: All Mobility Mobility Equipment Used: None Comment: walk in shower, reports going to purchase shower chair COGNITIVE STATUS Cognitive Status Overall Cognitive Status: Within Functional Limits UPPER EXTREMITY ASSESSMENTS ROM RUE ROM: Functional LUE ROM : Functional Strength RUE Strength: Functional LUE Strength: Functional AM-PAC Outcome Measure 6 Clicks Daily ADL AM-PAC Putting on and taking off regular lower body clothing?: None Bathing (including washing, rinsing, drying)?: A Little Toileting, which includes using toilet, bedpan or urinal?: None Putting on and taking off regular upper body clothing?: None Taking care of personal grooming such as brushing teeth?: None Eating meals?: None AM-PAC Daily Activity Raw Score: 23 AM-PAC Daily Activity CMS 0-100% Score: 15.86 AM-PAC Daily Activity t-Scale Score: 51.12 The following scores are predictive of discharge disposition during acute hospitalization: Home= 20.1; Home with Home Health= 17.9; TCU=14; IRF=13.6; LTACH=11.5 Please refer to narrative for assessment of functional performance and discharge recommendations asscores may not always reflect mobility, cognitive aspects of performance or instrumental activitiesof daily living (IADLs) CURRENT ADL/IADL STATUS Current ADL Status ADL Comments: pt reports indp donning undergarments eariler this morning. reports being indp in room and getting on/off toilet indp. upon arrival, pt eating in bed indp. Current IADL Status Other (Comment): pt educated on tackling heavier IADLs when he feels better and having assist with heavier IADLs for now. FUNCTIONAL MOBILITY Bed Mobility Scooting: Independent Supine to Sit: Modified independent Sit to Supine: Independent Dangling: Independent Functional Transfers Sit to Stand: Modified independent Stand to Sit: Modified independent Functional Mobility Functional Mobility: pt ambulates in hallway with distant SBA , progresses to Mod I for approx, 150ft to increase and assess endurance and indp in ADLs. ACTIVITY TOLERANCE Activity Tolerance Endurance: Participates 10-20 min of therapy session PATIENT EDUCATION Patient Education Patient Education: Role of OT, Plan of care, Discharge recommendations TIME SPENT WITH PATIENT OT Timed Code Treatment Minutes OT Evaluation: 12 OT Total Minutes Spent with Patient Total Minutes Spent With Patient (billable): 12 Minutes [place] MAINTENANCE TECHNICIAN * Adan Elena, PT - 10/03/2023 11:55 AM CST Acute Physical Therapy Evaluation Patient Name: Aleks Moura Today's Date: 10/03/2023 Admission Date: 09/26/2023 Precautions Assessment PT Assessment/Recommendations Assessment: Pt is a 63 yo male admitted for Robot-assisted laparoscopic prostatectomy with bilateral pelvic lymph node dissection 09/26. Pt lives with spouse in 2 story house and IND with mobility andADLs without use of AD. Pt demoing transfers and ambulation of 300' IND with no AD. Good gait speedand steady throughout. Able to complete dynamic gait/balance tasks without concern. Pt appears close to his baseline and safe to return home with no further PT needs anticipated. Acute PT signing off. Strengths: Age, Prior level of function, Ambulatory, Good strength, Strong discharge support Limitations/Discharge Barriers: None identified Endurance: Participates 10-20 min of therapy session Prognosis: Good Recommendations for Nursing: Up independently, Up to chair 2-3x/day, Ambulate 2-3x/day Discharge Support Recommendations: Is safe to discharge to previous living situation with prior level of assist/support Post Acute Therapy Needs: No PT needs Plan PT Frequency: No further acute PT needed Encounter Details General Diagnosis: Prostate cancer Admission/Diagnosis Details: pt is a 63 year old male with PMH of A-fib and NOÉ. pt with Malignant neoplasm of prostate status post laparoscopic prostatectomy and lymph node dissection 09/26. found tohave new heart failure after surgery. Pertinent Past Medical History: Patient does have history of atrial fibrillation and NOÉ. Patient Seen In: Room Family/Caregiver Present: Yes Who was present?: Subjective Comments: Pt agreeable to therapy Lines and Tubes: Delatorre Catheter Subjective/Social History Home Setup Type of Home: House Lives With: Spouse Home Layout: Two level Home Entry: Stairs to enter with rails Rails: Unilateral Number of stairs: 3 Stairs within Home: Able to live on main level, Stairs with rails Rails: Unilateral Number of stairs: 12 Prior Level of Functional Mobility Independent with: All Mobility Mobility Equipment Used: None DME owned: None History of falls: Denies Comment: walk in shower, reports going to purchase shower chair Pain Patient complained of no pain throughout session Objective Cognitive Status Orientation Level: Oriented X4 Arousal/Alertness: Appropriate responses to stimuli Following Commands: Follows multistep commands Safety Judgment: Intact Motor Planning/Processing: Within Functional Limits ROM RLE: WFL LLE: WFL Strength Overall RLE Strength: WFL Overall LLE Strength: WFL Sensation Light Touch: No apparent deficits Patient is functioning as follows: Bed Mobility Roll Right: Independent Roll Left: Independent Supine to Sit: Independent Sit to Supine: Independent Dangling: Independent Scooting: Independent Setup/Equipment: HOB flat Transfers Transfer Type: Sit to/from Stand, Stand Pivot Sit to/from Stand Level of Assist: Independent Assistive Device: No assistive device Stand Pivot Stand Pivot Level of Assistance: Independent Stand Pivot Assistive Device: No assistive device Ambulation Ambulation Assessment: Bout 1 Bout 1 Distance (ft): 300' Assistive Device: No assistive device Level of Assist: Independent Quality of Gait: Good gait speed and steady throughout Stairs/Curb Negotiation Stairs/Curb Negotiation: Bout 1 Bout 1 Method: Ambulation Number of Stairs: 12 UE Support: Unilateral Rail Level of Assist: Independent Pattern: Reciprocal [facility] AM-PAC 6-Clicks Turning over in bed (including adjusting bed clothes, sheets, and blankets): Modified independent/independent Sitting down and standing up from a chair with arms: Modified independent/independent Moving from lying on back to sitting on the side of bed: Modified independent/independent Moving to and from a bed to a chair: Modified independent/independent Walk in hospital room?: Modified independent/independent Climbing 3-5 steps with a railing: Modified independent/independent AM-PAC 6 Clicks: Mobility Total Score: 24 The following scores are predictive of discharge disposition during acute hospitalization: Home= 20or greater; Home with Home Health=18; Continued skilled care at appropriate facility= 14 or less. Education/Safety Education Provided Patient Education: Role of PT, Bed mobility, Transfers, Ambulation, Safety with mobility, Plan of care, Risk of falls, Discharge recommendations Family Education: Discharge recommendations Safety Interventions Fall Risk?: Yes Safety Interventions/Patient Disposition: Standard interventions, In bed, All needs within reach Goals Time Frame Goals target date: 10/03/23 Patient/family participation in goal setting Patient/family participation in goal setting: Yes Patient goal preference: Return home Patient will Participate in PT Evaluation Patient will participate in PT evaluation in order to provide safe discharge mobility recommendations: Goal met TIME SPENT WITH PATIENT PT Time Spent with Patient for Evaluation PT Evaluation: 10 PT Timed Code Treatment Minutes PT Total Billable Minutes: 10 Minutes [place] MAINTENANCE TECHNICIAN * Lance Loza MD - 10/02/2023 11:34 AM CST Images from the original note were not included. 10/02/2023 October 02, 2023 11:34 AM Impression and Plan: 1.Elevated Creatinine. Unclear whether this is new. He says he had labs done last April in [place]. CT scan has shown normal looking kidneys without hydro. A prerenal / cardiorenal state couldbe a factor as he has a low EF and is in atrial fibrillation. - Get [place] results. - Check UA, urine pr/cr, FLC. 2. Atrial Fibrillation - On metoprolol and Eliquis. 3. Prostate Cancer. S/P Robotic prostatectomy 09/26. Path pending. - Per urology. 4. Cardiomyopathy. - Per cards. Lance Loza MD Office [phone] [facility] Reason for Consult: Elevated Creatinine. HPI: Aleks Moura is a 63 year old male who is seen to assist in management of his elevated creatinine. He was admitted 09/26 following elective robotic prostatectomy for [place] 7 prostate cancer. He subsequently was noted to atrial fibrillation with RVR. Echo showed a decreased EF and left atrial thrombus so cardioversion was not attempted and he was placed on anticoagulation. Cr was 1.44 on 09/26 and is 1.[address] pulm angio was done 09/26 due to sob but was negative. He presently feels fine and denies pain or sob. He has a delatorre with clear yellow urine. He denies any prior kidney problems and denies NSAID use. There is no family history of kidney disease but his father also had prostate cancer. Medical History: Past Medical History: Diagnosis Date A-fib (HCC) Cancer (HCC) Motion sickness Prostate cancer (HCC) 08/29/2013 Sleep apnea no CPAP Surgical History: Past Surgical History: Procedure Laterality Date ABDOMEN SURGERY PROC UNLISTED umbilical hernia HX VEIN STRIPPING Medications: Prior to admission: Medications Prior to Admission Medication Sig Dispense Refill Last Dose metoprolol succinate, XL, (TOPROL XL) 25 mg oral extended release tablet 24 HR Take 1 tablet (25 mg) by mouth Daily at Noon. 09/25/2023 Current: Current Facility-Administered Medications: acetaminophen (TYLENOL) tablet 1,000 mg, 1,000 mg, oral, Q6H PRN OR acetaminophen (TYLENOL) rectal suppository 650 mg, 650 mg, Rectal, Q6H PRN, Stephanie Zacarias, INTERDISCIPLINARY PROFESSOR, CRITICAL CARE CNS apixaban (ELIQUIS) tablet 5 mg, 5 mg, oral, Twice Daily, Jericho Batista MD, 5 mg at 10/02/23 0820 bacitracin (BACIGUENT) packet 1 Application , 1 Application , topical, BID PRN, Jose L Cruz MD bisacodyl (DULCOLAX) delayed released tablet 5-15 mg, 5-15 mg, oral, DAILY PRN, Jericho Batista MD [START ON 10/03/2023] digoxin (Lanoxin) tablet 62.5 mcg, 62.5 mcg, oral, DAILY, Arnulfo Case MD diphenhydrAMINE (BENADRYL) injection 12.5-25 mg, 12.5-25 mg, Intravenous, Q4H PRN, Jose L Cruz MD docusate sodium (COLACE) capsule 100 mg, 100 mg, oral, Twice Daily, Jos eL Cruz MD, 100 mg at 10/01/23 0801 glycopyrrolate (ROBINUL) injection 0.1 mg, 0.1 mg, IntraMUSCULAR, Q4H PRN, Jose L Cruz MD magnesium hydroxide (MILK OF MAGNESIA) suspension 30 mL, 30 mL, oral, DAILY PRN, Jericho Batista MD MAGNESIUM REPLACEMENT INTRAVENOUS - NOT FOR DOCUMENTATION PURPOSES, , Intravenous, PER PROTOCOL, Jericho Batista MD magnesium sulfate 2 gram / 50mL (4%) IV piggyback (PREMIX) 2 g, 2 g, Intravenous, ONCE, Jericho Batista MD, Last Rate: 25 mL/hr at 10/02/23 1050, 2 g at 10/02/23 1050 metoprolol (LOPRESSOR) injection 5 mg, 5 mg, Intravenous, Q6H PRN, Yaneth Cornelius MD, 5 mg at 09/29/23 1626 metoprolol tartrate (LOPRESSOR) tablet 50 mg, 50 mg, oral, QID, Zoe, Callie Q, PA-C, 50 mg at 10/01/23 1755 naloxone (NARCAN) injection 0.1 mg, 0.1 mg, Intravenous, Q1 MINUTE PRN, Jose L Cruz MD naloxone (NARCAN) injection 0.1 mg, 0.1 mg, Intravenous, Q1 MINUTE PRN, Jose L Cruz MD ondansetron (ZOFRAN) injection 4 mg, 4 mg, Intravenous, Q12H PRN, Jose L Cruz MD oxyCODONE (immediate release) (ROXICODONE) tablet 5-10 mg, 5-10 mg, oral, Q4H PRN, Jose L Cruz MD polyethylene glycol (MIRALAX) packet 17 g, 17 g, oral, DAILY PRN, Jericho Batista MD POTASSIUM REPLACEMENT ORAL - NOT FOR DOCUMENTATION PURPOSES, , oral, PER PROTOCOL OR POTASSIUM REPLACEMENT INTRAVENOUS - NOT FOR DOCUMENTATION PURPOSES, , Intravenous, PER PROTOCOL, Jericho Batista MD senna (SENOKOT) tablet 8.6-17.2 mg, 1-2 tablet, oral, Twice Daily, Jericho Batista MD, 8.6 mg at 10/01/23 0802 sodium chloride 0.9 % IV solution, , Intravenous, CONTINUOUS PRN, Jose L Cruz MD sodium chloride 0.9% irrigation solution 250 mL, 250 mL, Irrigation, PRN, Jose L Cruz MD Allergies: Patient has no known allergies. Social History: Social History Socioeconomic History Marital status: Tobacco Use Smoking status: Every Day Packs/day: 1.00 Years: 40.00 Additional pack years: 0.00 Total pack years: 40.00 Types: Cigarettes Smokeless tobacco: Never Tobacco comments: Trying to quit Substance and Sexual Activity Alcohol use: Yes Comment: very little Drug use: Never Family History: Family History Problem Relation Name Age of Onset No Known Problems Mother Review of Systems: : Comprehensive 10 point review of symptoms is negative except as listed in the HPI. Physical Exam: BP 94/68 Pulse (!) 59 Temp 97.5 ??F (36.4 ??C) Resp 18 Ht 6' 3 (1.905 m) Wt 118.4 kg (261 lb 1.6 oz) SpO2 94% BMI 32.64 kg/m?? In general this is a 63 y.o. male in no acute distress. Eyes: Non icteric, EOMI. PERRL. ENT: Hearing intact. Oral mucus membranes are moist and intact. Neck: is supple, thyroid normal. No JVD. Heart: iRRR w/o with normal S1/S2 without murmurs, rubs. Lungs: good b.s. bilaterally w/o wheezes, crackles or rhonchi. Normal effort. Abdomen: (+) b.s. soft and non-tender, non-distended w/o masses or HSM. Extremities: No cyanosis, clubbing, or edema. Hematologic / Lymphatic: No palpable adenopathy. No bruising. Neurological: Cranial nerves II-XII are grossly intact. There are no focal neurological deficits. Psychiatric: Normal affect, oriented x 3. Musculoskeletal: No joint deformities or effusions. Skin: no rashes or ulcerations. Labs and XRays: Reviewed. Recent Labs 09/30/23 0746 10/01/23 0810/01/23195410/02/23 0805 SODIUM 139 138 -- 139 POTASSIUM 4.2 3.9 4.0 5.4* CHLORIDE 108 107 -- 107 CARBONDIOXI 25 25 -- 25 ANIONGAP 6.0 6.0 -- 7.0 GLUCOSE 89 91 -- 93 BUNUREANRO 20 18 -- 21 CREATININE 1.33* 1.47* 1.53* 1.48* CALCIUMSERUM 9.4 9.0 -- 9.4 ESTGFRMDRD >60.00 53.60* 51.08* 53.16* Recent Labs 09/30/23 0746 10/01/231954 WBC 9.2 -- RBC 4.86 -- HEMOGLOBIN 16.0 15.4 HEMATOCRIT 43.7 -- MCV 90 -- MCH 33 -- RDW 12.9 -- PLATELETCT 206 -- No Lab Results Found (last 72 hours) Lance Loza MD Office [phone] [facility] [place] MAINTENANCE TECHNICIAN * Westley Uribe MD - 09/27/2023 2:31 PM CSTAssociated Order(s): CONSULT CARDIOLOGY [facility] Consultation Note Patient Name: Aleks Moura Age:63 y.o. Sex: male Primary Care Provider: Shama Olmstead MD Referring Provider: Jose L Cruz MD Primary Data Technical Lead: none History of Present Illness: Aleks Moura is a 63 y.o. male with history of paroxysmal atrial fibrillation, suspected sleep apnea, tobacco use disorder, prostate adenocarcinoma status post robot-assisted laparoscopic prostatectomy who cardiology to see due to abnormal echocardiogram. Patient underwent surgery on 09/26/2023. Following the procedure he had postoperative hypotension as well as hypoxia. He was noted to have atrial fibrillation with rapid ventricular response. Echocardiogram was ordered for further evaluation and this revealed reduced ejection fraction at 26% with mild to moderate mitral regurgitation. P atient blood pressures have remained on the lower side. His oxygen requirements have decreased. HisBNP was elevated at 336. He denies lower extremity edema, weight gain, PND, orthopnea, chest pain, shortness of breath. His notes that he does have sleep apnea for which he is not using CPAP. Hehas been on and off his metoprolol. Recently resumed when he was noted to be in atrial fibrillationduring his preoperative evaluation. He notes some abdominal discomfort. Review of Systems: A review of systems was performed. See HPI for additional details. Past Medical History: Past Medical History: Diagnosis Date A-fib (HCC) Cancer (HCC) Motion sickness Prostate cancer (HCC) 08/29/2013 Sleep apnea no CPAP Past Surgical History: Past Surgical History: Procedure Laterality Date ABDOMEN SURGERY PROC UNLISTED umbilical hernia HX VEIN STRIPPING Medications: Current Facility-Administered Medications: acetaminophen (TYLENOL) tablet 1,000 mg, 1,000 mg, oral, Q6H (NS), 1,000 mg at 09/26/232043 ORacetaminophen (TYLENOL) rectal suppository 650 mg, 650 mg, Rectal, Q6H (NS), Jose L Cruz MD bacitracin (BACIGUENT) packet 1 Application , 1 Application , topical, BID PRN, Jose L Cruz MD bisacodyl (DULCOLAX) delayed released tablet 5-15 mg, 5-15 mg, oral, DAILY PRN, Jericho Batista MD diphenhydrAMINE (BENADRYL) injection 12.5-25 mg, 12.5-25 mg, Intravenous, Q4H PRN, Jose L Cruz MD docusate sodium (COLACE) capsule 100 mg, 100 mg, oral, Twice Daily, Jose L Cruz MD, 100 mg at 09/27/23 0855 glycopyrrolate (ROBINUL) injection 0.1 mg, 0.1 mg, IntraMUSCULAR, Q4H PRN, Jose L Cruz MD levalbuteroL (Xopenex) nebulizer solution 1.25 mg, 1.25 mg, Nebulization, Q4H PRN, Kimberly Muro, RT magnesium hydroxide (MILK OF MAGNESIA) suspension 30 mL, 30 mL, oral, DAILY PRN, Jericho Batista MD metoprolol (LOPRESSOR) injection 5 mg, 5 mg, Intravenous, Q6H PRN, Yaneth Cornelius MD, 5 mg at 09/27/23 0238 metoprolol tartrate (LOPRESSOR) tablet 12.5 mg, 12.5 mg, oral, Twice Daily, Jericho Batista MD, 12.5 mg at 09/26/23 1528 naloxone (NARCAN) injection 0.1 mg, 0.1 mg, Intravenous, Q1 MINUTE PRN, Jose L Cruz MD naloxone (NARCAN) injection 0.1 mg, 0.1 mg, Intravenous, Q1 MINUTE PRN, Jose L Cruz MD ondansetron (ZOFRAN) injection 4 mg, 4 mg, Intravenous, Q12H PRN, Jose L Cruz MD oxyCODONE (immediate release) (ROXICODONE) tablet 5-10 mg, 5-10 mg, oral, Q4H PRN, Jose L Cruz MD polyethylene glycol (MIRALAX) packet 17 g, 17 g, oral, DAILY PRN, Jericho Batista MD potassium chloride 20 mEq in [id number] chloride 0.45% IV infusion 1000 mL, , Intravenous, CONTINUOUS, Jose L Cruz MD, Last Rate: 75 mL/hr at 09/27/23 0450, New Bag at 09/27/23 0450 senna (SENOKOT) tablet 8.6-17.2 mg, 1-2 tablet, oral, Twice Daily, Jericho Batista MD sodium chloride 0.9 % IV solution, , Intravenous, CONTINUOUS PRN, Jose L Cruz MD sodium chloride 0.9% irrigation solution 250 mL, 250 mL, Irrigation, PRN, Jose L Cruz MD Allergies/Sensitivities: No Known Allergies Family History: Family History Problem Relation Name Age of Onset No Known Problems Mother Social History: Social History Tobacco Use Smoking status: Every Day Packs/day: 1.00 Years: 40.00 Additional pack years: 0.00 Total pack years: 40.00 Types: Cigarettes Smokeless tobacco: Never Tobacco comments: Trying to quit Substance Use Topics Alcohol use: Yes Comment: very little Drug use: Never Physical Exam: BP (!) 88/71 Pulse 100 Temp 98 ??F (36.7 ??C) Resp 18 Ht 6' 3 (1.905 m) Wt 118.8 kg (262lb) SpO2 96% BMI 32.75 kg/m?? Weight change: Intake/Output Summary (Last 24 hours) at 09/27/2023 1431 Last data filed at 09/27/2023 1317 Gross per 24 hour Intake 3980.14 ml Output 3005 ml Net 975.14 ml GENERAL: alert and oriented; in no acute distress HEENT: pupils equal round; extraocular movement intact RESPIRATORY: lungs clear to auscultation CARDIOVASCULAR: mild jugular venous distention; regular rate and rhythm; audible S1, audible S2 PULSES: dorsalis pedis pulses bilateral - symmetrical, 2+ GASTROINTESTINAL: soft, non-tender, no palpable masses, no bruits MUSCULOSKELETAL: no clubbing, cyanosis; trace edema SKIN: warm/dry; no rashes NEURO: moves all extremities; non-focal PSYCHIATRIC: appropriate mood and affect Laboratory Results: Labs from [facility] were personally reviewed. Electrocardiogram: I have personally reviewed the patient's ECGs. The most recent ECG shows atrial fibrillation. Echocardiogram: 09/27/2023 Interpretation Summary * The left ventricular systolic function is severely reduced, quantified ejection fraction is 26%. * Bi-atrial enlargement. * There is mild to moderate mitral regurgitation. * No prior study. CT Chest/Pulm Angio: 09/26/2023 IMPRESSION: 1. No pulmonary embolus identified. 2. Bilateral lower lobe infiltrates left greater than right. 3. Postoperative free air in the upper abdomen. Coronary Angiogram: - none for review Assessment and Plan/Recommendations: 63 y.o. male with history of paroxysmal atrial fibrillation, suspected sleep apnea, tobacco use disorder, prostate adenocarcinoma status post robot-assisted laparoscopic prostatectomy who cardiology to see due to abnormal echocardiogram with reduced ejection fraction. 1) New HFrEF 2) Cardiomyopathy - new finding on echo from Aug 2023 - patient currently denies PND, orthopnea, LE edema - recent surgery, but no chest pain - has h/o a-fib - possible arrhythmia, coronary disease, stress leading to reduced EF - daily weights, strict I's/O's, fluid restrict, sodium restrict - continue telemetry - check labs - BP has been on lower end likely due to surgery and pain medications - when able, would start on metoprolol succinate and losartan 3) Atrial Fibrillation, Persistent - present since his pre-op one week prior, but possibly longer - no chest pain reported - anticoagulation when safe from surgical perspective as may consider cardioversion in future - has [id number] of 1 (reduced EF) - rates have been elevated; thus would benefit from oral beta-blockade with metoprolol as able 4) Prostate Adenocarcinoma - s/p prostatectomy this admission - mgmt as per urology 5) Suspected Sleep Apnea - sleep study - CPAP 6) Tobacco Use Disorder Thank you very much for allowing me to participate in the care of your patient, Aleks Moura. Cardiology team will continue to follow. Westley Dangelo Obi, MD Data Technical Lead [facility] Pager: amion [place] MAINTENANCE TECHNICIAN * Yaneth Cornelius MD - 09/26/2023 2:24 PM CSTAssociated Order(s): CONSULT HOSPITALIST Images from the original note were not included. HOSPITALIST DIVISION ADMISSION HISTORY AND PHYSICAL Patient Name: Aleks Moura [address]: [address] [place] [address] [place] [id number] Age: 63 y.o. Sex: male Admission Date/Time: 09/26/2023 5:44 AM Primary Care Provider: Shama Olmstead MD Informant: patient and spouse CHIEF COMPLAINT: Postop hypoxia HPI: This is a 63 years old with paroxysmal A-fib not anticoagulated, untreated sleep apnea, elective admission for prostate surgery, postop become hypoxic, A- fib with RVR. Patient is mildly confused, mostly focused on having bowel movement. Denies any chest pain, no cold symptoms, but noticed some difficulty with breathing even before surgery. He is on Toprol-XL, did not take any medication this morning. PAST MEDICAL HISTORY: Past Medical History: Diagnosis Date A-fib (HCC) Cancer (HCC) Motion sickness Prostate cancer (HCC) 08/29/2013 Sleep apnea no CPAP PAST SURGICAL HISTORY: Past Surgical History: Procedure Laterality Date ABDOMEN SURGERY PROC UNLISTED umbilical hernia HX VEIN STRIPPING PRIOR TO ADMISSION MEDICATIONS: Prior to Admission Medications Prescriptions Last Dose Informant Patient Reported? Taking? metoprolol succinate, XL, (TOPROL XL) 25 mg oral extended release tablet 24 HR 09/25/2023 Patient Yes Yes Sig: Take 1 tablet (25 mg) by mouth Daily at Noon. Facility-Administered Medications: None ALLERGIES: Patient has no known allergies. FAMILY HISTORY: Family History Problem Relation Name Age of Onset No Known Problems Mother SOCIAL HISTORY: Social History Socioeconomic History Marital status: Spouse name: Not on file Number of children: Not on file Years of education: Not on file Highest education level: Not on file Occupational History Not on file Tobacco Use Smoking status: Every Day Packs/day: 1.00 Years: 40.00 Additional pack years: 0.00 Total pack years: 40.00 Types: Cigarettes Smokeless tobacco: Never Tobacco comments: Trying to quit Substance and Sexual Activity Alcohol use: Yes Comment: very little Drug use: Never Sexual activity: Not on file Other Topics Concern Not on file Social History Narrative Not on file Social Determinants of Health Food Insecurity: Not on file Transportation Needs: Not on file Intimate Partner Violence: Not on file Housing Stability: Not on file REVIEW OF SYSTEMS: A comprehensive review of systems was negative except for items noted in the HPI/Subjective: PHYSICAL EXAM: General Appearance: Pt is alert and oriented x3, episode of confusion, on facemask Vitals: 09/26/23 1336 09/26/23 1337 09/26/23 1338 09/26/23 1400 BP: 128/84 (!) 125/103 Pulse: (!) 123 (!) 103 Resp: Temp: 97.2 ??F (36.2 ??C) SpO2: (!) 89% 92% 91% 96% Weight: Height: HEENT: Eyes are clear, EOMI, and PERRL. Oropharynx is clear and moist. No evidence of cranial trauma. NECK: Supple, trachea is midline and there is no thyromegaly appreciated. LYMPHATICS: There is no epitrochlear, axillary, cervical or supraclavicular lymphadenopathy appreciated. RESPIRATORY: Diminished breath sounds, no active wheezing CARDIOVASCULAR: Irregular, normal S1/S2 with no murmur. No carotid or abdominal bruit. Pulses are symmetric in wrists. No edema. GASTROINTESTINAL: Abdomen is obese, soft, non tender, with normal bowel sounds, no masses or hepatosplenomegaly. MUSCULOSKELETAL: Normal muscle bulk and tone for age. SKIN: Warm, dry, no rashes. NEUROLOGIC: Awake and alert, knows he is in the hospital, with episode of confusion/agitation mostly focused on having bowel movement. Extremities: Distal Pulses are palpable, no edema Skin: No mottling of the skin PROCEDURES: IMAGING: XR CHEST AP PORT Final Result IMPRESSION: 1. Vascular congestion with perihilar atelectasis versus infiltrates. Recommend follow-up. REPORT SIGNED BY DR. Fabio Wesley CT Chest Pulmonary Angio (Results Pending) LABS: Results for orders placed or performed during the hospital encounter of 09/26/23 (from the past 24 hour(s)) EKG Result Value Ref Range EKG CBC (Hgb,Hct,WBC,RBC,Platelet) Result Value Ref Range WBC 14.8 (H) 4.3 - 10.8 K/uL RBC 4.89 4.60 - 6.20 M/uL Hemoglobin 15.9 14.0 - 18.0 gm/dL Hematocrit 47.1 40.0 - 54.0 % MCV 96 80 - 100 fL MCH 33 27 - 33 pg MCHC 34 33 - 36 gm/dL RDW 13.6 11.5 - 14.5 % Platelet Count 205 150 - 400 K/UL MPV 10.1 6.5 - 12 fL EKG: A-fib ADDITIONAL COMMENTS: I reviewed the patient's new clinical lab test results. I reviewed the patient's medications. I reviewed the patient's new imaging test results. Principal Problem: Prostate cancer (HCC) ASSESSMENT: This is a 63 years old with paroxysmal A-fib, not anticoagulated, untreated sleep apnea, ongoing smoking Elective admission for prostate surgery, postop complicated with A-fib with RVR, acute respiratory failure with hypoxia currently on facemask. PLAN: Acute respiratory failure with hypoxia (multifactorial postop volume overload, A-fib with RVR, concern for pulmonary embolism) He was in PACU, initial oxygen saturation was 83%, initial to lead 2 L applied, later oxy mask applied with 8 L oxygen saturation increased up to 92%. mentioned patient had some dyspnea with activity even before surgery. Plan; Stat CT pulmonary angio ordered, BNP and echo ordered. Chest x-ray has mild pulmonary congestion, COVID test ordered for rule out Paroxysmal atrial fibrillation; Patient and family knows about it. Not anticoagulated. His CHADvasc score 0. Placed on telemetry, started on low-dose beta-jasmina, will start Toprol-XL tomorrow. Echo ordered Malignant neoplasm of prostate Status post robotic assisted laparoscopic prostatectomy with bilateral pelvic node dissection Managed by urology. CODE STATUS: Full Code Yaneth Cornelius MD [place] MAINTENANCE TECHNICIAN documented in this encounter Nursing Notes * Emerita Reno RN - 10/03/2023 11:38 AM CST Problem: Falls/Injury-Risk of Goal: Absence of Falls/Injury Outcome: Met this shift Flowsheets Taken 10/03/2023 0900 by Emerita Reno, sharepoint developer: Standard Interventions in Place Taken 10/03/2023 0100 by Shashi Madrid RN Environmental Safety Interventions: Standard Interventions in Place Mobility Safety Interventions: Standard Interventions in Place Elimination Safety Interventions: Standard Interventions in Place Problem: SAFETY Goal: *Communicates safety needs Outcome: Met this shift Problem: Pain Goal: Exhibits reduction in pain to a level of acceptable comfort Outcome: Met this shift Problem: Anticoagulation, pharmacologic therapy Goal: Adheres to therapeutic regimen Outcome: Met this shift [place] MAINTENANCE TECHNICIAN * Dianna Corea LSW - 10/03/2023 10:42 AM CST Care Management - Progress Note Patient's chart reviewed. Patient discussed in rounds. Overview: Primary Problem: Prostate CA, L atrial thrombus Hx: NOÉ, HFrEF, Afib with RVR, tobacco use. Had HANSEL on 09/30 Anticipated Discharge Date: 1-2 days Anticipated Discharge Needs: No SW needs at this time. Case Management Barriers: No SW barriers identified at this time. Care Coordination Plan & Communication with Patient/Family: Patient is on digoxin and metoprolol for pain management. Neph and cardiology is following. Per provider in rounds, patient will be here 1-2 more days. Patient's family will transport upon discharge. No SW needs identified at this time, please reach out if needs arise. BLANCA Lim 5NW Sleeve Maker 10/03/2023 10:44 AM IL MAINTENANCE TECHNICIAN * Shashi Madrid RN - 10/03/2023 5:44 AM CST Problem: Communication Goal: Demonstrates/exhibits ability to communicate needs effectively Outcome: Met this shift Problem: Pain Goal: Exhibits reduction in pain to a level of acceptable comfort Outcome: Met this shift IL MAINTENANCE TECHNICIAN * Del De La Torre - 10/02/2023 10:25 PM CST Problem: Falls/Injury-Risk of Goal: Absence of Falls/Injury Outcome: Met this shift Flowsheets (Taken 10/02/2023 1700) Environmental Safety Interventions: Standard Interventions in Place Mobility Safety Interventions: Standard Interventions in Place Elimination Safety Interventions: Standard Interventions in Place Medication: Standard Interventions in Place Problem: Anticoagulation, pharmacologic therapy Goal: Adheres to therapeutic regimen Outcome: Met this shift IL MAINTENANCE TECHNICIAN * Shonna Hill RN - 10/02/2023 11:32 AM CST Problem: Falls/Injury-Risk of Goal: Absence of Falls/Injury Outcome: Met this shift Problem: Communication Goal: Demonstrates/exhibits ability to communicate needs effectively Outcome: Met this shift Problem: Pain Goal: Exhibits reduction in pain to a level of acceptable comfort Outcome: Met this shift Problem: Anticoagulation, pharmacologic therapy Goal: Adheres to therapeutic regimen Outcome: Met this shift IL MAINTENANCE TECHNICIAN * Stephanie Edwards RN - 10/02/2023 12:53 AM CST Problem: Pain Goal: Exhibits reduction in pain to a level of acceptable comfort Outcome: Met this shift Problem: Fluid Volume - Risk of, Imbalanced Goal: Balanced intake and output Outcome: Ongoing IL MAINTENANCE TECHNICIAN * Del De La Torre - 10/01/2023 6:23 AM CST Problem: Pain Goal: Exhibits reduction in pain to a level of acceptable comfort Outcome: Met this shift Problem: Venous Thromboembolism (VTE) Goal: Absence of venous thromboembolism (VTE) Outcome: Met this shift IL MAINTENANCE TECHNICIAN * Leia Medina RN - 09/30/2023 8:15 PM CST Problem: Falls/Injury-Risk of Goal: Absence of Falls/Injury Outcome: Met this shift Problem: Pain Goal: Exhibits reduction in pain to a level of acceptable comfort Outcome: Met this shift Problem: Anticoagulation, pharmacologic therapy Goal: Adheres to therapeutic regimen Outcome: Met this shift IL MAINTENANCE TECHNICIAN * Roxane Aponte RN - 09/30/2023 2:35 PM CST Problem: Falls/Injury-Risk of Goal: Absence of Falls/Injury Outcome: Met this shift Problem: SAFETY Goal: *Communicates safety needs Outcome: Met this shift Problem: Communication Goal: Demonstrates/exhibits ability to communicate needs effectively Outcome: Met this shift Problem: Pain Goal: Exhibits reduction in pain to a level of acceptable comfort Outcome: Met this shift Problem: Pressure Injury - Risk of Goal: Absence of pressure injury Outcome: Met this shift Blood pressure 96/81, pulse (!) 111, temperature 97.4 ??F (36.3 ??C), resp. rate 16, height 6' 3 (1.905 m), weight 119.2 kg (262 lb 11.2 oz), SpO2 94%. IL MAINTENANCE TECHNICIAN * Giovani Arredondo RN - 09/30/2023 1:38 AM CST Problem: Falls/Injury-Risk of Goal: Absence of Falls/Injury Outcome: Completed IL MAINTENANCE TECHNICIAN * Del De La Torre - 09/29/2023 10:36 PM CST Problem: Falls/Injury-Risk of Goal: Absence of Falls/Injury Outcome: Met this shift Flowsheets (Taken 09/29/2023 1648) Environmental Safety Interventions: Standard Interventions in Place Mobility Safety Interventions: Standard Interventions in Place Bed Alarm on Elimination Safety Interventions: Standard Interventions in Place Medication: Standard Interventions in Place Problem: Pain Goal: Exhibits reduction in pain to a level of acceptable comfort Outcome: Met this shift IL MAINTENANCE TECHNICIAN * Dianna Corea LSW - 09/29/2023 2:03 PM CST Care Management - Progress Note Patient's chart reviewed. Patient discussed in rounds. Overview: Primary Problem: 09/26 S/P ROBOTIC XI ASSISTED LAPAROSCOPIC RADICAL PROSTATECTOMY, BILATERAL PELVIC LYMPH NODE DISSECTION Heart failure with reduced ejection fraction Summary: Cardiology following, Delatorre care education. Plan for cardioversion tomorrow after HANSEL. NPOafter midnight. Anticipated Discharge Date: TBD Anticipated Discharge Needs: No SW needs identified at this time. Case Management Barriers: No SW barriers identified at this time. Care Coordination Plan & Communication with Patient/Family: Patient's daughter, Nikki ([phone]), asked about POA paperwork, stated she thought her mom signed this already, no record of itin file. Nikki said her mom gets confused, may have filled out HCD paperwork. Nikki was given POA short form paperwork and was given patient career services representative phone number. BLANCA Lim 5NW Sleeve Maker 09/29/2023 2:09 PM IL MAINTENANCE TECHNICIAN * Michelle Hernadez RN - 09/29/2023 1:37 PM CST Problem: Falls/Injury-Risk of Goal: Absence of Falls/Injury Outcome: Met this shift Problem: SAFETY Goal: *Communicates safety needs Outcome: Met this shift Problem: Pain Goal: Exhibits reduction in pain to a level of acceptable comfort Outcome: Met this shift Problem: Mobility - Impaired Goal: Verbalizes an understanding of immobility risks and complications Outcome: Met this shift IL MAINTENANCE TECHNICIAN * Vanesa Zarco RN - 09/29/2023 1:51 AM CST Problem: Communication Goal: Demonstrates/exhibits ability to communicate needs effectively Outcome: Met this shift Problem: Mobility - Impaired Goal: Demonstrates ability to perform physical activity independently or with assistive devices as needed Outcome: Met this shift IL MAINTENANCE TECHNICIAN * Michelle Hernadez RN - 09/28/2023 11:54 AM CST Problem: Falls/Injury-Risk of Goal: Absence of Falls/Injury Outcome: Met this shift Problem: Communication Goal: Demonstrates/exhibits ability to communicate needs effectively Outcome: Met this shift Problem: SAFETY Goal: *Communicates safety needs Outcome: Met this shift Problem: Pain Goal: Exhibits reduction in pain to a level of acceptable comfort Outcome: Met this shift IL MAINTENANCE TECHNICIAN * Fatuma Dixon RN - 09/28/2023 4:57 AM CST Problem: Falls/Injury-Risk of Goal: Absence of Falls/Injury Outcome: Met this shift Problem: Communication Goal: Demonstrates/exhibits ability to communicate needs effectively Outcome: Met this shift Problem: Pain Goal: Exhibits reduction in pain to a level of acceptable comfort Outcome: Met this shift IL MAINTENANCE TECHNICIAN * Dianna Corea LSW - 09/27/2023 2:41 PM CST Discharge Planning Initial Assessment Patients chart reviewed. Patient discussed in rounds. Admitting diagnoses: Malignant neoplasm of prostate (HCC) [C61] Prostate cancer (HCC) [C61] Admitted from: Home Prior: Living Arrangements: Spouse/significant other Support Systems: Spouse/significant other Primary decision maker: Patient DME prior to admission: none Anticipated Discharge Needs: NN Care coordination initiated: Chart reviewed;Care discussed during rounds with nursing Barriers to discharge: none identified SW reviewed chart. Pt lives with spouse, is own decision maker. Pt is ambulatory, independent with ADLs, no DME at baseline. Pt admitted for Malignant neoplasm of prostate POD#1 ROBOTIC XI ASSISTED LAPAROSCOPIC RADICAL PROSTATECTOMY, BILATERAL PELVIC LYMPH NODE DISSECTION. Pt is A&O, on 2l NC, b edrest. Plan for IVF, abs, delatorre, CORINNE, Urology, RT consulted. Anticipate pt will progress for dc to home NN. Family to transport. Met with patient, no TCU/HC history, no DME. Wants family to transport at time of discharge. No SW needs at this time. Care management will continue to follow. BLANCA Lim 5NW Sleeve Maker 09/27/2023 2:47 PM IL MAINTENANCE TECHNICIAN * Kimberly Muro RT - 09/27/2023 12:19 PM CST Pt is on RA BS are clear. IS: 2000 ml. EzPAP not indicated at this time Pt does not take pulmonary meds at home and does not have a significant pulmonary HX. Xopenex QID neb changed to Q4H PRN RT will continue to follow IL MAINTENANCE TECHNICIAN * Simran Sevilla RN - 09/27/2023 9:10 AM CST Problem: Falls/Injury-Risk of Goal: Absence of Falls/Injury Outcome: Met this shift Problem: Pain Goal: Exhibits reduction in pain to a level of acceptable comfort Outcome: Met this shift IL MAINTENANCE TECHNICIAN * Fatuma Dixon RN - 09/27/2023 5:22 AM CST Problem: Falls/Injury-Risk of Goal: Absence of Falls/Injury 09/27/2023521 by Fatuma Dixon RN Outcome: Met this shift Problem: Communication Goal: Demonstrates/exhibits ability to communicate needs effectively Outcome: Met this shift Problem: Pain Goal: Exhibits reduction in pain to a level of acceptable comfort 09/27/2023521 by Fatuma Dixon RN Outcome: Met this shift IL MAINTENANCE TECHNICIAN * Fatuma Dixon RN - 09/26/2023 10:50 PM CST Problem: Falls/Injury-Risk of Goal: Absence of Falls/Injury Outcome: Met this shift Problem: Communication Goal: Demonstrates/exhibits ability to communicate needs effectively Outcome: Met this shift Problem: Pain Goal: Exhibits reduction in pain to a level of acceptable comfort Outcome: Met this shift IL MAINTENANCE TECHNICIAN * Moon Ivory RT - 09/26/2023 7:43 PM CST Patient seen on Nasal Cannula at 2 LPM. SpO2: 93 %, Respirations: 18, Pulse: (!) 51. Breath sounds All Marie: Diminished;Clear: Patient received Ezpap with xopenex via Device: Mouthpiece. Ran O2 Flow Rate LPM: 10 LPM for PEEP: 10 cmH2O. Patient tolerated treatment well. IS obtained 2500 ml Refer to flowsheet for additional information if needed. IL MAINTENANCE TECHNICIAN * Simran Sevilla RN - 09/26/2023 3:58 PM CST Problem: Pain Goal: Exhibits reduction in pain to a level of acceptable comfort Outcome: Ongoing Problem: Communication Goal: Demonstrates/exhibits ability to communicate needs effectively Outcome: Met this shift Problem: SAFETY Goal: *Communicates safety needs Outcome: Met this shift IL MAINTENANCE TECHNICIAN * La Khan RN - 09/26/2023 12:46 PM CST Report called IL MAINTENANCE TECHNICIAN * La Khan RN - 09/26/2023 12:44 PM CST Patient denies pain, NV Lungs clear, sats 94% on 2L NC VSS updated and patient meets criteria to be transferred to [facility] IL MAINTENANCE TECHNICIAN * La Khan RN - 09/26/2023 12:11 PM CST Assumed care at 1215 from [facility] PACU Patient sleepy, arouses easily. Dressing to abdomen D/I, ice on BP 114/89, HR 105 A-fib IL MAINTENANCE TECHNICIAN * Melinda Moreau RN - 09/26/2023 11:41 AM CST Patient had very restless wake up calmer now oriented remains in atrial fib with a ventricular response 100 to 125 denies real pain just presssure to have bm message DR. Arriola saw at the bedside willgive metoprolol IL MAINTENANCE TECHNICIAN documented in this encounter OR Notes * OR Surgeon - Jose L Cruz MD - 09/26/2023 8:18 AM CST POST-OPERATIVE NOTE Surgeon: Jose L Cruz MD Business Machine Operator(s): Madison Torres MD Preoperative Diagnosis: Malignant neoplasm of prostate (HCC) [C61] Postoperative Diagnosis: Same Procedure(s): Robot-assisted laparoscopic prostatectomy with bilateral pelvic lymph node dissection Complications: None EBL: 50 mL Anesthesia: General Operative Findings: Anterior abdominal wall mesh, unremarkable prostate Packing: None Specimen(s): Prostate and bilateral pelvic lymph nodes Grafts and/or Implants:None Condition on Discharge from Operating Room: Satisfactory Indication: The patient is a 63-year-old gentleman who presented for evaluation of elevated PSA. Heunderwent prostate biopsy and was found to have multifocal prostate cancer some of which was Milagros 7 as favorable intermediate risk disease. He wished surgical intervention. Therefore after appropriate informed consent was obtained including a thorough discussion of potential risks, benefits, complications, alternatives, as well as anticipated outcomes he was taken to the operating room for theabove procedure. REPORT OF OPERATION/ PROCEDURE The patient was brought to the operating room and after general anesthetic was achieved he was placed in the lithotomy position and prepped and draped in usual sterile fashion. A Delatorre catheter was placed yearly. An incision was then made above the umbilicus and carried down to subcutaneous tissues. The anterior fascia was incised and an abdominal mesh was encountered. Using Metzenbaum scissors we were able to cut through this mesh and then into the abdomen without too much difficulty. A GelPort trocar was position and pneumoperitoneum established. A brief look with a camera revealed no abnormalities. Ports were then placed as follows: 2 robotic ports in the left lower quadrant and 1 in the right lower quadrant. Additionally, a 12 mm port was placed in the right lower quadrant as was a 5 mm port in the right upper quadrant and the patient was placed in steep Trendelenburg and the robot was docked. The medial billable ligaments were identified and the peritoneum incised lateral to these down to the level of the vas which were incised on both sides. The anterior peritoneal apron was then droppeddown exposing the symphysis pubis. The anterior surface of prostate was pink free of surrounding fat. The endopelvic fascia was sharply incised and the prostate dissected laterally and then up towards the apex. Dorsal vein was isolated and ligated with an 0 Vicryl stitch for excellent hemostasis. Some gentle tugging on the catheter helped identify the plane of dissection between the bladder and the prostate. This was carried down using electrocautery until the anterior vesical neck was encountered. Here the previously placed catheter was deflated, pulled through, and then placed on some gentle upward traction to facilitate the posterior dissection which was uneventful. An excellent bladder neck remained and some bladder wall thickening was also noted. Posteriorly both ambulatory vasa as well as seminal vesicles were then encountered. I dissected each Willie down to about the tip of the middle vesicles where LigaSure was used to ligate and divide it. Both seminal vesicles were then dissected free and the specimen included the entirety of the left and the majority of the right due to tearing. Some gentle upward traction on these facilitated the dissection between the prostate and the rectum. Once this was accomplished up to the apex I performed bilateral neurovascular preservation by incising the prostatic fascia laterally and sweeping this gently posteriorly. Then both vascular pedicles were taken down with the LigaSure device. Apically the dorsal vein was then taken down. The apex of the prostate was carefully dissected back and then the anterior and posterior urethra were incised leaving behind an excellent urethral stump. The specimen was placed in a laparoscopic retrieval sac for later removal. Bilateral pelvic lymph node dissection was then done in standard fashion. I used the typical boundaries of dissection including the external iliac vein, lateral pelvic sidewall, as well as the obturator nerve. This tissue was sent from both sides for permanent review and no damage to the obturator nerve on either side that occurred. I then performed my standard urethrovesical anastomosis using a double-armed 3-0 Monocryl suture which I began at the 6 o'clock position and ran 1 arm clockwise and the other counterclockwise to tie the 12 o'clock position. A fresh Delatorre catheter was placed and irrigated without evidence for leak. #15 round CORINNE drain was placed through the 5 mm port and ultimately secured with a silk suture. String to the laparoscopic retrieval sac was brought out the GelPort trocar after the robot had been undocked. The 12 mm port site was closed using the fascial closure device and Manny-Florence needle. Some additional lengthening of the supraumbilical incision was required in order to remove the prostate intact within the sac. Once removed this incision was closed with interrupted 0 Vicryl. Skin incisions were closed with earl following infusion of 30 cc of 0.25% ropivacaine. Sponge and needle counts were correct. Sterile dressings were applied. Tolerated surgery well. There were no complications. He was transferred to PACU in satisfactory condition. IL MAINTENANCE TECHNICIAN documented in this encounter Miscellaneous Notes * Result Encounter Note - Mary Thrasher PA-C - 10/03/2023 2:58 PM RETAIL MAINTENANCE TECHNICIAN Rodriguez Hevia FLC elevated, Rodriguez Hevia/Lamda FLC ratio wnl. Forwarded to Dr. Loza, ordering provider for further review Mary Thrasher PA-C [facility] IL MAINTENANCE TECHNICIAN documented in this encounter Plan of Treatment Pending Results Name Type Priority Associated Diagnoses Date /Time Cardioversion Echo Routine Atrial fibrillation with rapid ventricular response (HCC) 09/30/2023 2:22 PM RETAIL MAINTENANCE TECHNICIAN Scheduled Referrals Name Type Priority Associated Diagnoses Orde r Schedule Follow Up with Cardiology Follow Up Routine Ordered: 10/03/2023 Follow Up with External Provider Follow Up Routine Ordered: 024 Follow Up with External Provider Follow Up Routine Ordered: 024 documented as of this encounter Procedures Procedure Name Priority Date/Time Associated Diagnosis Comments MAGNESIUM Routine 10/03/2023 8:17 AM RETAIL MAINTENANCE TECHNICIAN BASIC METAB PROFILE Routine 10/03/2023 8 :17 AM RETAIL MAINTENANCE TECHNICIAN CBC (HGB,HCT,WBC,RBC,PLATEL ET) Routine 10/03/2023 8:17 AM RETAIL MAINTENANCE TECHNICIAN MAGNESIUM Timed Procedure 10/02/2023 3:49 PM RETAIL MAINTENANCE TECHNICIAN IMMUNOGLOBULIN FREE LIGHT CHAINS, SERUM Routine 10/02/2023 3:49 PM RETAIL MAINTENANCE TECHNICIAN EXTRA TUBE-EDTA Routine 10/02/2023 8:05 AM RETAIL MAINTENANCE TECHNICIAN MAGNESIUM Routine 10/02/2023 8:05 AM RETAIL MAINTENANCE TECHNICIAN BASIC METAB PROFILE Routine 10/02/2023 8 :05 AM RETAIL MAINTENANCE TECHNICIAN MAGNESIUM STAT 10/01/2023 7:55 PM RETAIL MAINTENANCE TECHNICIAN CREATININE EGFR STAT 10/01/2023 7:55 PM RETAIL MAINTENANCE TECHNICIAN POTASSIUM STAT 10/01/2023 7:55 PM RETAIL MAINTENANCE TECHNICIAN HEMOGLOBIN STAT 10/01/2023 7:55 PM RETAIL MAINTENANCE TECHNICIAN MAGNESIUM Routine 10/01/2023 8:37 AM RETAIL MAINTENANCE TECHNICIAN BASIC METAB PROFILE Routine 10/01/2023 8 :37 AM RETAIL MAINTENANCE TECHNICIAN EXTRA TUBE-EDTA Routine 10/01/2023 8:36 AM RETAIL MAINTENANCE TECHNICIAN CARDIOVERSION Routine 09/30/2023 2:22 PM RETAIL MAINTENANCE TECHNICIAN Atrial fibrillation with rapid ventricular response (HCC) HANSEL W/ BUBBLE STUDY & COLOR Routine 09/30/2023 2:22 PM RETAIL MAINTENANCE TECHNICIAN Atrial fibrillation with rapid ventricular response (HCC) ELECTROCARDIOGRAM Routine 09/30/2023 12:58 PM RETAIL MAINTENANCE TECHNICIAN EXTRA TUBE-COAG Routine 09/30/2023 7:46 AM RETAIL MAINTENANCE TECHNICIAN MAGNESIUM Routine 09/30/2023 7:46 AM RETAIL MAINTENANCE TECHNICIAN BASIC METAB PROFILE Routine 09/30/2023 7 :46 AM RETAIL MAINTENANCE TECHNICIAN CBC (HGB,HCT,WBC,RBC,PLATEL ET) Routine 09/30/2023 7:46 AM RETAIL MAINTENANCE TECHNICIAN MAGNESIUM Timed Procedure 09/29/2023 10:00 PM RETAIL MAINTENANCE TECHNICIAN POTASSIUM Timed Procedure 09/29/2023 6:00 PM RETAIL MAINTENANCE TECHNICIAN MAGNESIUM Routine 09/29/2023 7:44 AM RETAIL MAINTENANCE TECHNICIAN BASIC METAB PROFILE Routine 09/29/2023 7 :44 AM RETAIL MAINTENANCE TECHNICIAN CBC (HGB,HCT,WBC,RBC,PLATEL ET) Routine 09/29/2023 7:44 AM RETAIL MAINTENANCE TECHNICIAN MAGNESIUM Timed Procedure 09/29/2023 12:19 AM RETAIL MAINTENANCE TECHNICIAN FENA % (SERUM/URINE) Routine 09/28/2023 9:19 PM RETAIL MAINTENANCE TECHNICIAN CBC (HGB,HCT,WBC,RBC,PLATEL ET) Routine 09/28/2023 7:49 AM RETAIL MAINTENANCE TECHNICIAN MAGNESIUM Routine 09/28/2023 7:48 AM RETAIL MAINTENANCE TECHNICIAN BASIC METAB PROFILE Routine 09/28/2023 7 :48 AM RETAIL MAINTENANCE TECHNICIAN ECHO W/ CONTRAST Routine 09/27/2023 11:14 AM RETAIL MAINTENANCE TECHNICIAN HBA1C / EAG Add On 09/27/2023 8:18 AM RETAIL MAINTENANCE TECHNICIAN LIPID PROFILE CASCADE Add On 09/27/2023 8:18 AM RETAIL MAINTENANCE TECHNICIAN IRON STATUS (INCLUDES IRON, TRANSFERRIN AND FERRITIN) Add On 09/27/2023 8:18 AM RETAIL MAINTENANCE TECHNICIAN THYROID STIMULATING HORMONE Add On 09/27/2023 8:18 AM RETAIL MAINTENANCE TECHNICIAN T4 FREE Add On 09/27/2023 8:18 AM RETAIL MAINTENANCE TECHNICIAN BASIC METAB PROFILE Routine 09/27/2023 8 :18 AM RETAIL MAINTENANCE TECHNICIAN CBC (HGB,HCT,WBC,RBC,PLATEL ET) Routine 09/27/2023 8:18 AM RETAIL MAINTENANCE TECHNICIAN SARS-COV-2 BY RAPID PCR STAT 09/26/19 5:59 [address] RETAIL MAINTENANCE TECHNICIAN CT CHEST PULMONARY ANGIO Routine 09/26/2023 5:13 PM RETAIL MAINTENANCE TECHNICIAN XR CHEST AP PORT STAT 09/26/2023 2:14 PM RETAIL MAINTENANCE TECHNICIAN BNP-BTYPE NA PEPTIDE Add On 09/26/2023 2:05 PM RETAIL MAINTENANCE TECHNICIAN PROCALCITONIN Add On 09/26/2023 2:04 PM RETAIL MAINTENANCE TECHNICIAN BASIC METAB PROFILE Routine 09/26/2023 2 :04 PM RETAIL MAINTENANCE TECHNICIAN CBC (HGB,HCT,WBC,RBC,PLATEL ET) Routine 09/26/2023 2:04 PM RETAIL MAINTENANCE TECHNICIAN ELECTROCARDIOGRAM Routine 09/26/2023 1:4 9 PM RETAIL MAINTENANCE TECHNICIAN SURGICAL PATHOLOGY Routine 09/26/2023 9: 46 AM RETAIL MAINTENANCE TECHNICIAN Malignant neoplasm of prostate (HCC) LAP,PELVIC LYMPHADENECTOMY 09/26/2023 6:54 AM RETAIL MAINTENANCE TECHNICIAN Malignant neoplasm of prostate (HCC) LAP,PROSTATECTOMY,RADIC AL,W/NERVE SPARE,INCL ROBOTIC 09/26/2023 6:54 AM RETAIL MAINTENANCE TECHNICIAN Malignant neoplasm of prostate (HCC) documented in this encounter Results * (ABNORMAL) CBC (HGB,HCT,WBC,RBC,Platelet) (10/03/2023 8:17 AM RETAIL MAINTENANCE TECHNICIAN) Only the most recent of6 resultswithin the time period is included. WBC 11.3(H) 4.3 - 10.8 K/uL 10/03/2023 8:41 AM [facility] RBC 5.13 4.60 - 6.20 M/uL 10/03/2023 8:41 AM [facility] Hemoglobin 16.2 14.0 - 18.0 gm/dL 10/03/2023 8:41 AM [facility] Hematocrit 46.7 40.0 - 54.0 % 10/03/2023 8:41 AM [facility] MCV 91 80 - 100 fL 10/03/2023 8:41 AM [facility] MCH 32 27 - 33 pg 10/03/2023 8:41 AM [facility] MCHC 35 33 - 36 gm/dL 10/03/2023 8:41 AM [facility] RDW 13.0 11.5 - 14.5 % 10/03/2023 8:41 AM [facility] Platelet Count 248 150 - 400 K/UL 10/03/2023 8:41 AM [facility] MPV 9.7 6.5 - 12 fL 10/03/2023 8:41 AM [facility] Blood Venipuncture / Unknown 10/03/2023 8:17 AM RETAIL MAINTENANCE TECHNICIAN 10/03/2023 8:27 AM RETAIL MAINTENANCE TECHNICIAN Jericho Batista MD HEMATOLOGY ORDERABLE Performing Organization Address City/[facility]/ZIP Co de Phone Number [facility] [address] [place] [address] * Magnesium (10/03/2023 8:17 AM RETAIL MAINTENANCE TECHNICIAN) Only the most recent of10 resultswithin the time period is included. Magnesium 1.9 1.6 - 2.6 mg/dL 10/03/2023 8:57 AM [facility] Blood Venipuncture / Unknown 10/03/2023 8:17 AM RETAIL MAINTENANCE TECHNICIAN 10/03/2023 8:27 AM RETAIL MAINTENANCE TECHNICIAN Jericho Batista MD CHEMISTRY ORDERABLE Performing Organization Address [facility] Co de Phone Number [facility] [address] [place] [address] * (ABNORMAL) Basic Metab Profile (10/03/2023 8:17 AM RETAIL MAINTENANCE TECHNICIAN) Only the most recent of8 resultswithin the time period is included. Sodium 137 136 - 145 mmol/L 10/03/2023 8:58 AM [facility] Potassium 4.2 3.4 - 5.1 mmol/L 10/03/2023 8:58 AM [facility] Chloride 107 98 - 108 mmol/L 10/03/2023 8:58 AM [facility] Carbon Dioxide 23 20 - 31 mmol/L 10/03/2023 8:58 AM [facility] BUN (Urea Nitro) 21 9 - 23 mg/dL 10/03/2023 8:58 AM [facility] [facility] Creatinine 1.38(H) 0.73 - 1.18 mg/dL 10/03/2023 8:58 AM [facility] Est GFR (CKD-EPI) 57.82(L) >60.00 mL/min/1. 73m2 10/03/2023 8:58 AM [facility] Comment:Calculation based on the Chronic Kidney Disease Epidemiology Collaboration (CKD-EPI) equation refit without adjustment for race. Glucose 97 74 - 106 mg/dL 10/03/2023 8:58 AM [facility] Calcium, Serum 9.4 8.7 - 10.4 mg/dL 10/03/2023 8:58 AM [facility] Anion Gap 7.0 0.0 - 15.0 mmol/L 10/03/2023 8:58 AM [facility] Blood Venipuncture / Unknown 10/03/2023 8:17 AM RETAIL MAINTENANCE TECHNICIAN 10/03/2023 8:27 AM [facility] Jericho Batista MD CHEMISTRY ORDERABLE Performing Organization Address City/State/[facility] Co de Phone Number [facility] [address] [place] [address] * (ABNORMAL) Immunoglobulin Free Light Chains, Serum (10/02/2023 3:49 PM RETAIL MAINTENANCE TECHNICIAN) Rodriguez Hevia Free Light Chain, S 2.38(H) 0.3300 - 1.94 mg/dL 10/04/2023 9:51 AM [facility] Lambda Free Light Chain, S 2.12 0.5700 - 2.63 mg/dL 10/04/2023 9:51 AM [facility] Rodriguez Hevia/Lambda FLC Ratio 1.12 0.2600 - 1.65 10/04/2023 9:51 AM [facility] Comment: Test Performed by: [facility] [address] [place] [id number] Press Setter: Waldo Merida M.D. Ph.D.; CLIA# [id number] Blood 10/02/2023 3:49 PM RETAIL MAINTENANCE TECHNICIAN 10/02/2023 4:07 PM RETAIL MAINTENANCE TECHNICIAN Lance Loza MD SEND OUT ORDERAB [facility] [address] [place] [address] * Extra Tube-EDTA (Lab Use Only) (10/02/2023 8:05 AM RETAIL MAINTENANCE TECHNICIAN) Only the most recent of2 resultswithin the time period is included. Blood 10/02/2023 8:05 AM RETAIL MAINTENANCE TECHNICIAN 10/02/2023 8:40 AM RETAIL MAINTENANCE TECHNICIAN Fabian John MD HEMATOLOGY ORDERABLE Performing Organization Address City/[facility]/ZIP Co de Phone Number [facility] [address] [place] [phone] * Hemoglobin (10/01/2023 7:55 PM RETAIL MAINTENANCE TECHNICIAN) Hemoglobin 15.4 14.0 - 18.0 gm/dL 10/01/2023 8:16 PM RETAIL MAINTENANCE TECHNICIAN [facility] Blood 10/01/2023 7:55 PM RETAIL MAINTENANCE TECHNICIAN 10/01/2023 8:12 PM RETAIL MAINTENANCE TECHNICIAN Ovidio Doshi MD HEMATOLOGY ORDERABLE Performing Organization Address City/[facility] de Phone Number [facility] [address] [place] [phone] * (ABNORMAL) Creatinine / eGFR (10/01/2023 7:55 PM RETAIL MAINTENANCE TECHNICIAN) Creatinine 1.53(H) 0.73 - 1.18 mg/dL 10/01/2023 8:37 PM RETAIL MAINTENANCE TECHNICIAN [facility] Est GFR (CKD-EPI) 51.08(L) >60.00 mL/min/1. 73m2 10/01/2023 8:37 PM RETAIL MAINTENANCE TECHNICIAN [facility] Comment:Calculation based on the Chronic Kidney Disease Epidemiology Collaboration (CKD-EPI) equation refit without adjustment for race. Blood 10/01/2023 7:55 PM RETAIL MAINTENANCE TECHNICIAN 10/01/2023 8:12 PM RETAIL MAINTENANCE TECHNICIAN Stephanie Edwards RN CHEMISTRY ORDERABLE [facility] [address] [place] [address] * Potassium, Serum (10/01/2023 7:55 PM RETAIL MAINTENANCE TECHNICIAN) Only the most recent of2 resultswithin the time period is included. Potassium 4.0 3.4 - 5.1 mmol/L 10/01/2023 8:29 PM RETAIL MAINTENANCE TECHNICIAN [facility] Blood 10/01/2023 7:55 PM RETAIL MAINTENANCE TECHNICIAN 10/01/2023 8:12 PM RETAIL MAINTENANCE TECHNICIAN Stephanie Edwards RN CHEMISTRY ORDERABLE Performing Organization Address City/[facility] Co de Phone Number [facility] [address] [place] [address] * HANSEL W/ BUBBLE STUDY & COLOR (09/30/2023 2:22 PM RETAIL MAINTENANCE TECHNICIAN) 09/30/2023 1:07 PM RETAIL MAINTENANCE TECHNICIAN Narrative TEST - 09/30/2023 3:38 PM RETAIL MAINTENANCE TECHNICIAN Interpretation Summary ??* Mobile thrombus foration in the left atrial appendage. ??* Agitated saline/dextrose study is negative, with no evidence of intracardiac shunt. ??* The left ventricle is normal size. ??* The left ventricular systolic function is severely decreased, estimated LVEF 20-25%. ??* Left ventricular wall motion is abnormal with severe global hypokinesis. ??* There is moderate mitral regurgitation. Patient Info Name: ? Aleks Moura Age: ? 63 years : ? 1960 Gender: ? Male Accession #: ? [id number] Ht: ? 75 in Wt: ? 262 lbs BSA: ? 2.54 m2 HR: ? 97 bpm Systolic BP: ? 97 mmHg Diastolic BP: ? 76 mmHg Heart Rhythm: ? Atrial fibrillation Technical Quality: ? Diagnostic quality Exam Date/Time: ? 09/30/2023 1:07 PM Primary Loc: ? [facility] Patient Status: ? Inpatient Exam Type: ? TRANSESOPHAGEAL ECHOCARDIOGRAM Study Info Indications ?Unspecified atrial fibrillation - Procedure ??After discussion of the risks and benefits of the HANSEL, an informed consent was obtained. Local oropharyngeal anesthetic was provided with viscous lidocaine. Intravenous conscious sedation was provided with 4 mg Midazolam and 50 mcg Fentanyl. The HANSEL probe was passed without difficulty. Images were obtained with the patient in the left lateral decubitus position. Complete two-dimensional, color flow Doppler transesophageal echocardiogram is performed with bubble study. The patients vital signs; including heart rate, blood pressure, and oxygen saturation; were monitored continuously and remained stable throughout the procedure. The patient tolerated the procedure well and without complications. Procedure Details Contrast/Agitated Saline Agent: ? Dextrose Echo Contrast Reaction: ? None Staff Ordering Physician: ? Ana ??Madison Greene MD Reading Physician: ? Ana ??Madison Greene MD Primary Care Physician: ? Shama Olmstead Human Resources Benefits Manager: ? Laura Moreno [facility] Findings Left Ventricle ??The left ventricular systolic function is severely decreased, estimated LVEF 20-25%. The left ventricle is normal size. Left ventricular wall motion is abnormal with severe global hypokinesis. There is no left ventricular hypertrophy. Right Ventricle ??Low normal right ventricular systolic function. The right ventricle is normal size. Left Atrium ??The left atrium is severely enlarged. Mobile thrombus foration in the left atrial appendage. Right Atrium ??The right atrium is enlarged. No mass or thrombus formation in the right atrium. Aortic Valve ??The aortic valve is trileaflet. There is no aortic valve sclerosis. There is no aortic valve stenosis. There is no significant aortic regurgitation. Pulmonary Valve ??The pulmonic valve is structurally normal. There is no significant pulmonic regurgitation. Mitral Valve ??The mitral valve leaflets are mildly thickened. There is moderate mitral regurgitation. Tricuspid Valve ??The tricuspid valve leaflets are mildly thickened. There is mild tricuspid regurgitation. Septae ??Agitated saline/dextrose study is negative, with no evidence of intracardiac shunt. Pericardium/Pleura ??There is no pericardial effusion. Vessels ??The aortic measurements are indexed to age and body surface area. The aortic root is normal in size measuring 4.0 cm. The proximal ascending aorta is normal in size measuring 3.3 cm. Mild sessile plaque in the ascending through transverse and descending aorta. The pulmonary veins are normal. 2D Measurements Name ? Value ?Normal Parasternal 2D Sinus of Valsalva Diameter ?4.0 cm ? 3.1-3.7 Prox Asc Ao Diameter ?3.3 cm ? 2.6-3.4 Ao Annulus Diameter ? 3.0 cm ? 2.3-2.9 Report Signatures Finalized by Ana Greene ??MD on 09/30/2023 03:38 PM Procedure Note Ana Greene MD - 09/30/2023 Interpretation Summary * Mobile thrombus foration in the left atrial appendage. * Agitated saline/dextrose study is negative, with no evidence of intracardiac shunt. * The left ventricle is normal size. * The left ventricular systolic function is severely decreased,estimated LVEF 20-25%. * Left ventricular wall motion is abnormal with severe globalhypokinesis. * There is moderate mitral regurgitation. Patient Info Name: Aleks Moura Age: 63 years : 1960 Gender: Male Ht: 75 in Wt: 262 lbs BSA: 2.54 m2 HR: 97 bpm Systolic BP: 97 mmHg Diastolic BP: 76 mmHg Heart Rhythm: Atrial fibrillation Technical Quality: Diagnostic quality Exam Date/Time: 09/30/2023 1:07 PM Primary Loc: [facility] Patient Status: Inpatient Exam Type: TRANSESOPHAGEAL ECHOCARDIOGRAM Study Info Indications Unspecified atrial fibrillation - Procedure After discussion of the risks and benefits of the HANSEL, an informedconsent was obtained. Local oropharyngeal anesthetic was provided with viscous lidocaine. Intravenous conscious sedation was provided with 4 mg Midazolamand 50 mcg Fentanyl. The HANSEL probe was passed without difficulty. Imageswere obtained with the patient in the left lateral decubitus position.Complete two-dimensional, color flow Doppler transesophageal echocardiogram is performed with bubble study. The patients vital signs; including heartrate, blood pressure, and oxygen saturation; were monitored continuously and remained stable throughout the procedure. The patient tolerated theprocedure well and without complications. Procedure Details Contrast/Agitated Saline Agent: Dextrose Echo Contrast Reaction: None Staff Ordering Physician: Ana Greene MD Reading Physician: Ana Greene MD Primary Care Physician: Shama Olmstead Human Resources Benefits Manager: Laura Moreno [facility] Findings Left Ventricle The left ventricular systolic function is severely decreased, estimatedLVEF 20-25%. The left ventricle is normal size. Left ventricular wall motionis abnormal with severe global hypokinesis. There is no left ventricular hypertrophy. Right Ventricle Low normal right ventricular systolic function. The right ventricle is normal size. Left Atrium The left atrium is severely enlarged. Mobile thrombus foration in theleft atrial appendage. Right Atrium The right atrium is enlarged. No mass or thrombus formation in theright atrium. Aortic Valve The aortic valve is trileaflet. There is no aortic valve sclerosis.There is no aortic valve stenosis. There is no significant aortic regurgitation. Pulmonary Valve The pulmonic valve is structurally normal. There is no significantpulmonic regurgitation. Mitral Valve The mitral valve leaflets are mildly thickened. There is moderatemitral regurgitation. Tricuspid Valve The tricuspid valve leaflets are mildly thickened. There is mildtricuspid regurgitation. Septae Agitated saline/dextrose study is negative, with no evidence ofintracardiac shunt. Pericardium/Pleura There is no pericardial effusion. Vessels The aortic measurements are indexed to age and body surface area. Theaortic root is normal in size measuring 4.0 cm. The proximal ascending aorta is normal in size measuring 3.3 cm. Mild sessile plaque in the ascendingthrough transverse and descending aorta. The pulmonary veins are normal. 2D Measurements Name Value Normal Parasternal 2D Sinus of Valsalva Diameter 4.0 cm 3.1-3.7 Prox Asc Ao Diameter 3.3 cm 2.6-3.4 Ao Annulus Diameter 3.0 cm 2.3-2.9 Report Signatures Finalized by Ana Greene MD on 09/30/2023 03:38 PM Ana Greene MD ECHO ORDERABLE TEST * EKG (09/30/2023 12:58 PM RETAIL MAINTENANCE TECHNICIAN) Only the most recent of2 resultswithin the time period is included. EKG JULIOElida BARKERSHMUEL Comment: ?[facility] ? Test Date: ?2023-09-30 Pat Name: ? ALEKS MOURA ? Department: ?? 5NW ?Room: ? 511 Gender: ? 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 [id number] : ?1960 ? Requested By: JERICHO BATISTA MD Order Number: [id number] ?Chantel SANCHEZ: ?? Luis Enrique Barkley MD ? Measurements Intervals ?[place] ? Rate: ? 96 ? P: ? ME: ? 0 ?QRS: ?73 QRSD: ? 98 ? T: ?160 QT: ? 356 ? QTc: ?410 ? Interpretive Statements ATRIAL FIBRILLATION ST DEVIATION AND MODERATE T-WAVE ABNORMALITY, CONSIDER ANTEROLATERAL ISCHEMIA [-0.1+ mV T WAVE IN V3-V6] Compared to ECG 09/26/2023 13:49:14 No significant changes Electronically Signed On 10-07-2023 14:19:43 RETAIL MAINTENANCE TECHNICIAN by Luis Enrique Barkley MD 09/30/2023 12:5 8 PM RETAIL MAINTENANCE TECHNICIAN Jericho Batista MD EKG ORDERABLE SAMANTHA CHEN [address] [place] [address] * Extra Tube-Coag (Lab Use Only) (09/30/2023 7:46 AM RETAIL MAINTENANCE TECHNICIAN) Blood 09/30/2023 7:46 AM RETAIL MAINTENANCE TECHNICIAN 09/30/2023 8:19 AM RETAIL MAINTENANCE TECHNICIAN Jose L Cruz MD COAGULATION ORDERABL E Performing Organization Address [facility] Co de Phone Number [facility] [address] [place] [address] * (ABNORMAL) FENa % (09/28/2023 9:19 PM RETAIL MAINTENANCE TECHNICIAN) SODIUM 141 136 - 145 mmol/L 09/28/2023 10:07 PM [facility] Creatinine, Urine 201.2 mg/dL 09/28/2023 10:07 PM [facility] Creatinine 1.39(H) 0.73 - 1.18 mg/dL 09/28/2023 10:07 PM [facility] FENA % 0.7(L) 1.0 - 2.0 % 09/28/2023 10:07 PM [facility] SODIUM URINE 135.0 mmol/L 09/28/2023 10:07 PM [facility] Urine URINE SPECIMEN OBTAINED VIA [facility] URINARY CATHETER / Unknown 09/28/2023 9:19 PM RETAIL MAINTENANCE TECHNICIAN 09/28/2023 9:36 PM RETAIL MAINTENANCE TECHNICIAN Jericho Batista MD CHEMISTRY ORDERABLE Performing Organization Address [facility] de Phone Number [facility] [place] [address] * ECHO W/ CONTRAST (09/27/2023 11:14 AM RETAIL MAINTENANCE TECHNICIAN) 09/27/2023 10:4 3 AM RETAIL MAINTENANCE TECHNICIAN Narrative TEST - 09/27/2023 12:22 PM RETAIL MAINTENANCE TECHNICIAN Interpretation Summary ??* The left ventricular systolic function is severely reduced, quantified ejection fraction is 26%. ??* Bi-atrial enlargement. ??* There is mild to moderate mitral regurgitation. ??* No prior study. Patient Info Name: ? Aleks Moura Age: ? 63 years : ? 1960 Gender: ? Male Accession #: ? [id number] Ht: ? 75 in Wt: ? 262 lbs BSA: ? 2.54 m2 HR: ? 117 bpm Systolic BP: ? 88 mmHg Diastolic BP: ? 71 mmHg Heart Rhythm: ? Atrial fibrillation Technical Quality: ? Technically difficult Exam Date/Time: ? 09/27/2023 10:43 AM Patient Status: ? Inpatient Exam Type: ? ECHO W/ CONTRAST Primary Loc: ? 5NW Study Info Indications ?Shortness of breath - Procedure ??Complete two-dimensional, color flow, and Doppler transthoracic echocardiogram is performed with contrast. Comments ??Contrast agent was administered to enhance endocardial definition. Procedure Details Contrast/Agitated Saline Agent: ? Optison Echo Contrast Reaction: ? None Staff Ordering Physician: ? Yaneth Cornelius Reading Physician: ? Tej Werner MD Primary Care Provider: ? Shama Olmstead Human Resources Benefits Manager: ? Sonia Delcid RCS Findings Left Ventricle ??The left ventricular systolic function is severely reduced, quantified ejection fraction is 26%. The left ventricle is normal size. Left ventricular wall motion is abnormal with severe global hypokinesis. There is no left ventricular hypertrophy. Right Ventricle ??The right ventricle is quantitatively enlarged with normal right ventricular systolic function. Diastolic Function/Strain ??The left ventricular diastolic function is indeterminate secondary to atrial fibrillation/flutter. Left atrial pressure indeterminate. Left Atrium ??The left atrium is mildly enlarged by quantification. Right Atrium ??The right atrium is enlarged. Aortic Valve ??The aortic valve is not well visualized. There is no aortic valve sclerosis. There is no aortic valve stenosis. There is no significant aortic regurgitation. Pulmonary Valve ??The pulmonic valve is not well visualized. There is no significant pulmonic valve stenosis. There is mild pulmonic regurgitation. Mitral Valve ??The mitral valve leaflets are structurally normal. There is no significant mitral valve stenosis. There is mild to moderate mitral regurgitation. Tricuspid Valve ??The tricuspid valve leaflets are structurally normal. There is no significant tricuspid valve stenosis. There is no significant tricuspid regurgitation. Hemodynamics ??The inferior vena cava is dilated (> 2.1 cm), < 50% respiratory variance, RA pressure elevated at 15 mmHg. Due to inadequate tricuspid regurgitant velocity, unable to calculate right ventricular systolic pressure. Septae ??There is no evidence of ASD/PFO by color Doppler; however no bubble study was performed. Pericardium/Pleura ??There is no pericardial effusion. Vessels ??The aortic measurements are indexed to age and body surface area. The aortic root is normal in size measuring 3.8 cm. The proximal ascending aorta is mildly dilated measuring 3.7 cm. 2D Measurements Name ? Value ?Normal Parasternal 2D IVS Diastolic Thickness (2D) ?1.0 cm ?<1.0 LVID Diastole (2D) ?6.2 cm ? <=5.5 LVPW Diastolic Thickness (2D) ?0.9 cm ? 0.6-1.0 LVID Systole (2D) ? 5.0 cm ? 2.5-4.0 LVOT Diameter ? 2.9 cm ? LV Fractional Shortening (2D) ?20 % ? 25-43 LA Dimension (2D) ? 5.2 cm ? 3.0-4.1 Sinus of Valsalva Diameter ?3.8 cm ? 3.1-3.7 Prox Asc Ao Diameter ?3.7 cm ? 2.6-3.4 Ao Annulus Diameter ? 2.7 cm ? 2.3-2.9 LV Ejection Fraction 2D LV EF (4C MOD) ?24 % ? LV EF (2C MOD) ?29 % ? LV Diastolic Volume Index (BP MOD) ?68.0 ml/m2 ? 34.0-74.0 LV EF (BP MOD) ?26 % ? 52-72 Apical 2D Dimensions RV Basal Diastolic Dimension ? 4.7 cm ? 2.5-4.1 RV Mid-Cavity Diastolic Dimension ? 3.2 cm ? 1.9-3.5 LA Volume (4C MOD) ? 86.4 ml ? LA Volume (2C MOD) ? 60.2 ml ? LA Volume (BP MOD) ? 87.32 cm3 ? LA Volume Index (BP MOD) ?34.39 ml/m2 ?? 16.00-34.00 RA Area (4C) ?26.7 cm2 ?<=18.0 M-mode Measurements Name ? Value ?Normal M-Mode TAPSE ?17.1 mm ?>=17.0 LVOT/Aortic Valve Doppler Measurements Name ? Value ?Normal LVOT Doppler LVOT VTI ?5.9 cm ? LVOT Peak Gradient ?0.8 mmHg ? LVOT Mean Gradient ?0.4 mmHg ? LVOT Stroke Volume ? 38 ml ? LVOT Stroke Volume Index ?15.12 ml/m2 ? AoV Doppler AV VTI ? 10.3 cm ? AV Peak Velocity ? 0.9 m/s ? AV Peak Gradient ?3.3 mmHg ? AV Mean Gradient ?1.6 mmHg ? <10.0 AV Area (Cont Eq Jatinder) ?3.3 cm2 ? AV Area Index (Cont Eq Jatinder) ? 1.3 cm2/m2 ? AV Area (Cont Eq VTI) ?3.7 cm2 ? >=3.0 AV Area Index (Cont Eq VTI) ? 1.5 cm2/m2 ? Dimensionless Index VTI ? 0.58 Mitral Valve Measurements Name ? Value ?Normal MV Doppler MV E Peak Velocity ? 73.0 cm/s ? MV A Peak Velocity ? 31.8 cm/s ? MV E/A ? 2.3 ? MV Decel Rice (PW) ? 698.9 cm/s2 ? MV Decel Time (PW) ?106 ms ?>200 MV Annular TDI MV Septal e' Velocity ? 5.9 cm/s ? >=8.0 MV E/e' (Septal) ?12.3 ? <=8.0 MV Lateral e' Velocity ? 11.1 cm/s ?>=10.0 MV E/e' (Lateral) ?6.6 ? <=8.0 Tricuspid Valve Measurements Name ? Value ?Normal TV Regurgitation Doppler RA Pressure ?15.0 mmHg ? <=5.0 TV Annular TDI TV Lateral Ifrah s' Velocity ?8.7 cm/s ?9.5-18.7 Aorta / Venous Measurements Name ? Value ?Normal IVC/SVC IVC Diameter (Exp 2D) ? 2.2 cm ? <=2.1 Report Signatures Finalized by Tej Werner ?? on 09/27/2023 12:22 PM Procedure Note Tej Werner MD - 09/27/2023 Interpretation Summary * The left ventricular systolic function is severely reduced,quantified ejection fraction is 26%. * Bi-atrial enlargement. * There is mild to moderate mitral regurgitation. * No prior study. Patient Info Name: Aleks Moura Age: 63 years : 1960 Gender: Male Ht: 75 in Wt: 262 lbs BSA: 2.54 m2 HR: 117 bpm Systolic BP: 88 mmHg Diastolic BP: 71 mmHg Heart Rhythm: Atrial fibrillation Technical Quality: Technically difficult Exam Date/Time: 09/27/2023 10:43 AM Patient Status: Inpatient Exam Type: ECHO W/ CONTRAST Primary Loc: 5[facility] Study Info Indications Shortness of breath - Procedure Complete two-dimensional, color flow, and Doppler transthoracic echocardiogram is performed with contrast. Comments Contrast agent was administered to enhance endocardial definition. Procedure Details Contrast/Agitated Saline Agent: Optison Echo Contrast Reaction: None Staff Ordering Physician: Yaneth Cornelius Reading Physician: Tej Werner MD Primary Care Provider: Shama Olmstead Human Resources Benefits Manager: Sonia ARREDONDO Findings Left Ventricle The left ventricular systolic function is severely reduced, quantified ejection fraction is 26%. The left ventricle is normal size. Leftventricular wall motion is abnormal with severe global hypokinesis. There is no left ventricular hypertrophy. Right Ventricle The right ventricle is quantitatively enlarged with normal rightventricular systolic function. Diastolic Function/Strain The left ventricular diastolic function is indeterminate secondary toatrial fibrillation/flutter. Left atrial pressure indeterminate. Left Atrium The left atrium is mildly enlarged by quantification. Right Atrium The right atrium is enlarged. Aortic Valve The aortic valve is not well visualized. There is no aortic valvesclerosis. There is no aortic valve stenosis. There is no significant aortic regurgitation. Pulmonary Valve The pulmonic valve is not well visualized. There is no significantpulmonic valve stenosis. There is mild pulmonic regurgitation. Mitral Valve The mitral valve leaflets are structurally normal. There is nosignificant mitral valve stenosis. There is mild to moderate mitral regurgitation. Tricuspid Valve The tricuspid valve leaflets are structurally normal. There is no significant tricuspid valve stenosis. There is no significant tricuspid regurgitation. Hemodynamics The inferior vena cava is dilated (> 2.1 cm), < 50% respiratoryvariance, RA pressure elevated at 15 mmHg. Due to inadequate tricuspid regurgitant velocity, unable to calculate right ventricular systolic pressure. Septae There is no evidence of ASD/PFO by color Doppler; however no bubblestudy was performed. Pericardium/Pleura There is no pericardial effusion. Vessels The aortic measurements are indexed to age and body surface area. Theaortic root is normal in size measuring 3.8 cm. The proximal ascending aorta is mildly dilated measuring 3.7 cm. 2D Measurements Name Value Normal Parasternal 2D IVS Diastolic Thickness (2D) 1.0 cm <1.0 LVID Diastole (2D) 6.2 cm <=5.5 LVPW Diastolic Thickness (2D) 0.9 cm 0.6-1.0 LVID Systole (2D) 5.0 cm 2.5-4.0 LVOT Diameter 2.9 cm LV Fractional Shortening (2D) 20 % 25-43 LA Dimension (2D) 5.2 cm 3.0-4.1 Sinus of Valsalva Diameter 3.8 cm 3.1-3.7 Prox Asc Ao Diameter 3.7 cm 2.6-3.4 Ao Annulus Diameter 2.7 cm 2.3-2.9 LV Ejection Fraction 2D LV EF (4C MOD) 24 % LV EF (2C MOD) 29 % LV Diastolic Volume Index (BP MOD) 68.0 ml/m2 34.0-74.0 LV EF (BP MOD) 26 % 52-72 Apical 2D Dimensions RV Basal Diastolic Dimension 4.7 cm 2.5-4.1 RV Mid-Cavity Diastolic Dimension 3.2 cm 1.9-3.5 LA Volume (4C MOD) 86.4 ml LA Volume (2C MOD) 60.2 ml LA Volume (BP MOD) 87.32 cm3 LA Volume Index (BP MOD) 34.39 ml/m2 16.00-34.00 RA Area (4C) 26.7 cm2 <=18.0 M-mode Measurements Name Value Normal M-Mode TAPSE 17.1 mm >=17.0 LVOT/Aortic Valve Doppler Measurements Name Value Normal LVOT Doppler LVOT VTI 5.9 cm LVOT Peak Gradient 0.8 mmHg LVOT Mean Gradient 0.4 mmHg LVOT Stroke Volume 38 ml LVOT Stroke Volume Index 15.12 ml/m2 AoV Doppler AV VTI 10.3 cm AV Peak Velocity 0.9 m/s AV Peak Gradient 3.3 mmHg AV Mean Gradient 1.6 mmHg <10.0 AV Area (Cont Eq Jatinder) 3.3 cm2 AV Area Index (Cont Eq Jatinder) 1.3 cm2/m2 AV Area (Cont Eq VTI) 3.7 cm2 >=3.0 AV Area Index (Cont Eq VTI) 1.5 cm2/m2 Dimensionless Index VTI 0.58 Mitral Valve Measurements Name Value Normal MV Doppler MV E Peak Velocity 73.0 cm/s MV A Peak Velocity 31.8 cm/s MV E/A 2.3 MV Decel Rice (PW) 698.9 cm/s2 MV Decel Time (PW) 106 ms >200 MV Annular TDI MV Septal e' Velocity 5.9 cm/s >=8.0 MV E/e' (Septal) 12.3 <=8.0 MV Lateral e' Velocity 11.1 cm/s >=10.0 MV E/e' (Lateral) 6.6 <=8.0 Tricuspid Valve Measurements Name Value Normal TV Regurgitation Doppler RA Pressure 15.0 mmHg <=5.0 TV Annular TDI TV Lateral Ifrah s' Velocity 8.7 cm/s 9.5-18.7 Aorta / Venous Measurements Name Value Normal IVC/SVC IVC Diameter (Exp 2D) 2.2 cm <=2.1 Report Signatures Finalized by Tej Werner MD on 09/27/2023 12:22 PM Yaneth Cornelius MD ECHO ORDERABLE TEST * (ABNORMAL) Iron Status (Includes Iron, Transferrin and Ferritin) (09/27/2023 8:18 AM RETAIL MAINTENANCE TECHNICIAN) TIBC 231(L) 250 - 425 ug/dL 09/27/2023 5:22 PM RETAIL MAINTENANCE TECHNICIAN [facility] IRON SATURATION 37 15 - 50 % 5:22 PM RETAIL MAINTENANCE TECHNICIAN [facility] FERRITIN, SERUM 174.0 10.5 - 307.3 ng/mL 09/27/2023 5:22 PM RETAIL MAINTENANCE TECHNICIAN [facility] Iron 85 65 - 175 ug/dL 09/27/2023 5:22 PM [facility] TRANSFERRIN, SERUM 150(L) 185 - 280 mg/dL 09/27/2023 5:22 PM [facility] Blood Venipuncture / Unknown 09/27/2023 8:18 AM RETAIL MAINTENANCE TECHNICIAN 09/27/2023 8:38 AM RETAIL MAINTENANCE TECHNICIAN Westley Dangelo Obi, MD CHEMISTRY ORDERABLE Performing Organization Address City/[facility] Co de Phone Number [facility] [address] [place] [address] * T4 Free (09/27/2023 8:18 AM RETAIL MAINTENANCE TECHNICIAN) T4 FREE 1.05 0.89 - 1.76 ng/dL 09/27/2023 5:22 PM RETAIL MAINTENANCE TECHNICIAN [facility] Blood Venipuncture / Unknown 09/27/2023 8:18 AM RETAIL MAINTENANCE TECHNICIAN 09/27/2023 8:38 AM RETAIL MAINTENANCE TECHNICIAN Westley Dangelo Obi, MD CHEMISTRY ORDERABLE Performing Organization Address City/[facility] Co de Phone Number [facility] [address] [place] [address] * (ABNORMAL) Thyroid Stimulating Hormone (TSH) (09/27/2023 8:18 AM RETAIL MAINTENANCE TECHNICIAN) TSH 0.499(L) 0.550 - 4.780 uIU/mL 09/27/2023 5:22 PM RETAIL MAINTENANCE TECHNICIAN [facility] Blood Venipuncture / Unknown 09/27/2023 8:18 AM RETAIL MAINTENANCE TECHNICIAN 09/27/2023 8:38 AM RETAIL MAINTENANCE TECHNICIAN Westley Dangelo Obi, MD CHEMISTRY ORDERABLE Performing Organization Address City/[facility]/ZIP Co de Phone Number [facility] [address] [place] [phone] * (ABNORMAL) Lipid Profile Graham (09/27/2023 8:18 AM RETAIL MAINTENANCE TECHNICIAN) SPECIMEN TYPE 09/27/2023 2:26 PM [facility] CHOLESTEROL 144 <200 mg/dL 09/27/2023 2:26 PM [facility] Triglycerides Profile 123 <150 mg/dL 09/27/2023 2:26 PM [facility] LDL CHOL, CALC 81 <100 mg/dL 09/27/2023 2:26 PM [facility] HDL CHOLESTEROL 38(L) >=40 mg/dL 2:26 PM [facility] CHOL/HDL RATIO 3.8 0.0 - 4.9 09/27/2023 2:26 PM [facility] Blood Venipuncture / Unknown 09/27/2023 8:18 AM RETAIL MAINTENANCE TECHNICIAN 09/27/2023 8:38 AM RETAIL MAINTENANCE TECHNICIAN [facility] - 09/27/2023 2:26 PM [facility] LDL CHOLESTEROL REFERENCE RANGES: (FOR PATIENTS W/O HEART DISEASE) <100 mg/dL = Optimal 100-129 mg/dL = Near/Above Optimal 130-159 mg/dL = Borderline High 160-189 mg/dL = High >/= 190 mg/dL = Very High Jericho Batista MD CHEMISTRY ORDERABLE Performing Organization Address [facility]/ZIP Co de Phone Number [facility] [address] [place] [phone] * (ABNORMAL) Hgb A1c (Glycosolated Hgb) (09/27/2023 8:18 AM RETAIL MAINTENANCE TECHNICIAN) HBA1C (GLYCOSOLATED HGB) 5.9(H) <5.7 % 09/29/2023 9:25 AM RETAIL MAINTENANCE TECHNICIAN [facility] EAG (EST. AVERAGE GLUCOSE) 123(H) <117 mg/dL 09/29/2023 9:25 AM RETAIL MAINTENANCE TECHNICIAN [facility] Blood Venipuncture / Unknown 09/27/2023 8:18 AM RETAIL MAINTENANCE TECHNICIAN 09/27/2023 8:39 AM RETAIL MAINTENANCE TECHNICIAN Jericho Batista MD CHEMISTRY ORDERABLE Performing Organization Address City/[facility]/ZIP Co de Phone Number [facility] [address] [place] [address] [place] [address] * COVID-19 (Screening) (09/26/2023 5:59 PM RETAIL MAINTENANCE TECHNICIAN) Pathologist [facility] SARS-CoV-2 by PCR Negative for SARS-CoV-2 RNA by PCR Negative for SARS-CoV-2 RNA by PCR 09/26/2023 7:12 PM RETAIL MAINTENANCE TECHNICIAN [facility] Nasopharynx 09/26/2023 5:59 PM RETAIL MAINTENANCE TECHNICIAN 09/26/2023 6:12 PM RETAIL MAINTENANCE TECHNICIAN Yaneth Cornelius MD MICROBIOLOGY ORDERAB LE Performing Organization Address [facility]/ZIP Co de Phone Number [facility] [address] [place] [address] [place] [address] * CT Chest Pulmonary Angio (09/26/2023 5:13 PM RETAIL MAINTENANCE TECHNICIAN) Anatomical Region Laterality Modality Chest Computed Tomogra phy 09/26/2023 5:18 PM RETAIL MAINTENANCE TECHNICIAN Impressions 09/26/2023 5:21 PM RETAIL MAINTENANCE TECHNICIAN IMPRESSION: 1. ??No pulmonary embolus identified. 2. ??Bilateral lower lobe infiltrates left greater than right. 3. ??Postoperative free air in the upper abdomen. REPORT SIGNED BY DR. Fabio Wesley Narrative 09/26/2023 5:21 PM RETAIL MAINTENANCE TECHNICIAN EXAM: CT CHEST PULMONARY ANGIO DATE: 09/26/2023 [...] Fabio Wesley Yaneth Cornelius MD CT ORDERABLE * XR CHEST AP PORT (09/26/2023 2:14 PM RETAIL MAINTENANCE TECHNICIAN) Anatomical Region Laterality Modality Chest Computed Radiogr aphy 09/26/2023 2:13 PM RETAIL MAINTENANCE TECHNICIAN Impressions 09/26/2023 2:13 PM RETAIL MAINTENANCE TECHNICIAN IMPRESSION: 1. ??Vascular congestion with perihilar atelectasis versus infiltrates. Recommend follow-up. REPORT SIGNED BY DR. Fabio Wesley Narrative 09/26/2023 2:13 PM RETAIL MAINTENANCE TECHNICIAN EXAM: XR CHEST AP PORT ?? DATE: 09/26/2023 1:55 PM CLINICAL DATA: Shortness of Breath, Additional Info: Bedside please, none VIEWS: An AP view of the chest was obtained. Lungs: Mild vascular congestion. Bilateral perihilar opacities. Mediastinum: Unremarkable Pleural Spaces: No evidence of pneumothorax or effusion. Osseous structures: No acute bony abnormality. Procedure Note de Fabio Noonan MD - 09/26/2023 EXAM: XR CHEST AP PORT DATE: 09/26/2023 1:55 PM CLINICAL DATA: Shortness of Breath, Additional Info: Bedside please,none VIEWS: An AP view of the chest was obtained. Lungs: Mild vascular congestion. Bilateral perihilar opacities. Mediastinum: Unremarkable Pleural Spaces: No evidence of pneumothorax or effusion. Osseous structures: No acute bony abnormality. IMPRESSION IMPRESSION: 1. Vascular congestion with perihilar atelectasis versus infiltrates.Recommend follow-up. REPORT SIGNED BY DR. Fabio Wesley Jose L Cruz MD XRAY ORDERABLE * (ABNORMAL) B-Type Natriuretic Peptide (09/26/2023 2:05 PM RETAIL MAINTENANCE TECHNICIAN) BNP-BTYPE NA PEPTIDE 336(H) <100 pg/mL 09/26/2023 2:54 PM RETAIL MAINTENANCE TECHNICIAN [facility] Comment:Interpret with cauti on, specimen slightly hemolyzed. Results may be affected Plasma 09/26/2023 2:05 PM RETAIL MAINTENANCE TECHNICIAN 09/26/2023 2:25 PM RETAIL MAINTENANCE TECHNICIAN Yaneth Cornelius MD CHEMISTRY ORDERABLE [facility] [address] [place] [address] * (ABNORMAL) Procalcitonin (09/26/2023 2:04 PM RETAIL MAINTENANCE TECHNICIAN) Procalcitonin 0.13(H) <=0.05 ng/mL 09/26/2023 7:08 PM RETAIL MAINTENANCE TECHNICIAN [facility] Blood 09/26/2023 2:04 PM RETAIL MAINTENANCE TECHNICIAN 09/26/2023 2:09 PM RETAIL MAINTENANCE TECHNICIAN Narrative [facility] - 09/26/2023 7:08 PM RETAIL MAINTENANCE TECHNICIAN PROCALCITONIN REFERENCE RANGE <0.1 ng/mL: ?Bacterial infection very unlikely, ?antibiotics strongly discouraged. ? 0.1-0.25 ng/mL: ??Bacterial infection unlikely, ?antibiotics discouraged. ? 0.25-0.5 ng/mL: ??Local bacterial infection likely, antibiotics ?recommended. There is a low risk of progression to ?severe systemic infection (severe sepsis/septic shock). ? 0.5-2.0 ng/mL: ?? Bacterial infection is very likely and ?antibiotics are strongly recommended. Systemic infection is ?possible. There is a moderate risk for progression to ?severe systemic infection or sepsis. Repeat testing in ?6-24 hrs should be considered to evaluate further for sepsis. >2 ng/mL: ?? Systemic infection is likely. There is a high risk ?for progression to severe systemic infection or sepsis. ? >10 ng/mL: ??Level almost exclusive due to severe bacterial ?sepsis. High likelihood of severe sepsis or septic shock. ? Yaneth Cornelius MD CHEMISTRY ORDERABLE [facility] [address] [place] [address] * Surgical Pathology (09/26/2023 9:46 AM RETAIL MAINTENANCE TECHNICIAN) Case Report Surgical Pathology ?Case: [id number] ? Authorizing Provider: ??Jose L Cruz MD ?Collected: ? 09/26/2023 09:46 AM ? Ordering Location: ? [facility] ?Received: ?09/26/2023 11:13 AM ? Hospital Operating Room ? Pathologist: ? Denise Curiel MD ? Specimens: ?? A) - Prostate, Radical Resection ? B) - Lymph node (specify site), Left Lymph Node ? C) - Lymph node (specify site), Right Lymph Node ? 10/03/2023 9:42 AM RETAIL MAINTENANCE TECHNICIAN [facility] Final Diagnosis A.Prostate, prostatectomy: Milagros 3+4=7 adenocarcinoma, acinar type B. Lymph node, left, NOS biopsy:1 lymph node negative for malignancy C. Lymph node, right, NOS biopsy:1 lymph node negative for malignancy CAP Synoptic Report (v4.3.0.0) Procedure: Radical prostatectomy Histologic Type: Acinar adenocarcinoma, conventional (usual) Histologic Grade Grade group and Milagros score: Grade group 2 (Milagros score 3+4=7) Percentage of pattern 4 in Milagros Score 7: 6 - 10% Minor Tertiary Pattern 5 (less than 5%) in overall Amar[place] score 7: Not applicable Intraductal Carcinoma (not incorporated into grade): Not identified Cribriform Glands (Amarillo score 7 or 8 cancer only): Not applicable Treatment Effect: No known presurgical therapy Tumor Quantitation Estimated percentage of prostate involved: 11 - 20% Dominant nodule: 9 mm Extraprostatic Extension: Not identified Urinary Bladder Neck Invasion: Cannot be determined Seminal Vesicle Invasion: Not identified Lymphatic and / or Vascular Invasion: Not identified Perineural Invasion: Present Margin Status: Invasive carcinoma present at margin(s); less than 3 mm (limited); location(s) left bladder base Regional Lymph Node Status: 0/2 (number involved/examined ) Distant Metastasis: Not applicable Tumor block(s) for molecular/send out tests: A12 Pathologic Stage Classification (AJCC 8th ed): pT2 N 0 10/03/2023 9:42 AM RETAIL MAINTENANCE TECHNICIAN [facility] iMapData Gross Description A. Prostate: Is a 35 g, radical prostatectomy specimen with the following dimensions 3.3 cm (superior to inferior) 4.2 cm (right-left) 3.9 cm (anterior to posterior). The specimen is inked as follows: right-yellow, left-blue, posterior-black, orange-posterior aspect (not true margin). The adnexa measure as follows: Right seminal vesicle = 1.8 x 1.2 x 0.7 cm; right vas deferens = 3.2 cm in length by 0.6 cm in diameter; left seminal vesicle = 3.9 x 1.5 x 0.8 cm; left vas deferens = 5 cm in length by 0.6 cm in diameter. A portion of the right seminal vesicle grossly appears absent. The apex and base margin are shaved and sectioned perpendicularly. The specimen is serially sectioned from the posterior aspect from inferior to superior into 7 slices to reveal a quijano, rubbery cut surface. Blocks: A1 - right apex margin A2 - left apex margin A3 - right bladder base margin A4-A5- left bladder base margin A6 - right inferior prostate (anterior and posterior), slice 1 A7 - left inferior prostate (anterior and posterior), slice 1 A8 - right mid posterior prostate, slice 4 A9 - left mid posterior prostate, slice 4 A10 - right superior posterior prostate, slice 7 A11 - left superior posterior prostate, slice 7 A12 - right prostatic gland to seminal vesicles A13 - left prostatic gland to seminal vesicles [id number] e left seminal vesicle B. Left lymph node: Is a 3.5 x 1.4 x 1 cm yellow-pink possible lymph node with attached yellow, lobulated adipose tissue. Blocks: B1-B2-1 bisected lymph node C. Right lymph node: Is a 1.9 x 1.1 x 0.7 cm pink possible lymph node with attached yellow, lobulated adipose tissue. NH Blocks: C1-1 bisected lymph node 10/03/2023 9:42 AM [facility] Microscopic Description A. Milagros 3+4 adenocarcinoma is identified involving the bilateral prostate in the inferior, mid and superior prostate bilaterally. Tumor extends to involve the cauterized surgical margin of the left bladder base margin. The majority of the tumor is comprised of small irregular glands with prominent nucleoli and a lack of a myoepithelial layer. There is mucin formation with crystals. A smaller component of Amarillo 4 is identified. B. 1 lymph node, negative for malignancy. C. 1 lymph node, negative for malignancy. The microscopic examination portion of this test was performed at [facility], [address] [place] [address], [place] [address]. 10/03/2023 9:42 AM RETAIL MAINTENANCE TECHNICIAN [facility] Tissue STRUCTURE OF LYMPH NODE / Unknown 09/26/2023 9:46 AM RETAIL MAINTENANCE TECHNICIAN 09/26/2023 11:13 AM RETAIL MAINTENANCE TECHNICIAN Comment:Pre-op diagnosis: Malignant neoplasm of prostate (HCC) [C61] Tissue specimen (specimen) STRUCTURE OF LYMPH NODE / Unknown 09/26/2023 9:48 AM RETAIL MAINTENANCE TECHNICIAN 09/26/2023 11:13 AM RETAIL MAINTENANCE TECHNICIAN Comment:Pre-op diagnosis: Malignant neoplasm of prostate (HCC) [C61] Tissue specimen (specimen) RESECTED PROSTATE SPECIMEN / Unknown 09/26/2023 10:20 AM RETAIL MAINTENANCE TECHNICIAN 09/26/2023 11:13 AM RETAIL MAINTENANCE TECHNICIAN Comment:Pre-op diagnosis: Malignant neoplasm of prostate (HCC) [C61] Jose L Cruz MD PATHOLOGY/CYTOLOGY O RDERABLE Performing Organization Address City/State/[facility] Co de Phone Number [facility] [address] [place] [address] documented in this encounter Visit Diagnoses Diagnosis Prostate cancer (HCC)- Primary Malignant neoplasm of prostate Malignant neoplasm of prostate (HCC) Malignant neoplasm of prostate Atrial fibrillation with rapid ventricular response (HCC) Atrial fibrillation HFrEF (heart failure with reduced ejection fraction) (HCC) NOÉ (obstructive sleep apnea) Obstructive sleep apnea (adult) (pediatric) Acute hypoxic respiratory failure (HCC) HFrEF (heart failure with reduced ejection fraction) (HCC) Atrial fibrillation with rapid ventricular response (HCC) Atrial fibrillation Elevated serum creatinine Other nonspecific findings on examination of blood Atrial fibrillation with rapid ventricular response (HCC) Atrial fibrillation documented in this encounter Admitting Diagnoses Diagnosis Prostate cancer (HCC) Malignant neoplasm of prostate documented in this encounter Administered Medications Inactive Administered Medications - up to 3 most recent administrations Medication Order MAR Action Action Date Dose Rate Site saline FLUSH syringe 10 mL 10 mL, Intravenous, EVERY 8 HOURS, First dose on Tue09/26/23 at 0630, Until Discontinued, Pre-Op Given 09/26/2023 6:35 AM RETAIL MAINTENANCE TECHNICIAN 10 mL acetaminophen (TYLENOL) rectal suppository 650 mg 650 mg, Rectal, EVERY 6 HOURS NEEDED, Starting on Tue09/30/23 at 0845, Until Tue10/03/23 at 205, Post-Op, pain, fever acetaminophen (TYLENOL) tablet 1,000 mg 1,000 mg, oral, EVERY 6 HOURS (NS), First dose on Tue09/26/23 at 1330, Until Discontinued, Post-Op Given 09/30/2023 8:09 AM RETAIL MAINTENANCE TECHNICIAN 1,000 mg Given 09/29/2023 1:47 AM RETAIL MAINTENANCE TECHNICIAN 1,000 mg Given 09/26/2023 8:44 PM RETAIL MAINTENANCE TECHNICIAN 1,000 mg acetaminophen (TYLENOL) tablet 1,000 mg 1,000 mg, oral, EVERY 6 HOURS NEEDED, Starting on Tue09/30/23 at 0845, Until Tue10/03/23 at 2057, Post-Op, fever, pain albumin (human) 25% injection 12.5 g 12.5 g (50 mL), Intravenous, ONCE, 1 dose, On Tue10/01/23 at 2000, Administer over 1 Hours, Order in 50mL (12.5g) increments each to be given over 1 hour. Example for 100mL (25g) - order as 50mL every 1-hour x2 doses. May decrease infusion time to give each 50mL over 30 minutes in patients with hypoproteinemia. New Bag 10/01/2023 8:06 PM RETAIL MAINTENANCE TECHNICIAN 12.5 g 50 mL/hr apixaban (ELIQUIS) tablet 5 mg 5 mg, oral, TWICE A DAY, First dose on Tue09/28/23 at 1145, Until Discontinued Given 10/03/2023 8:58 AM RETAIL MAINTENANCE TECHNICIAN 5 mg Given 10/02/2023 7:38 PM RETAIL MAINTENANCE TECHNICIAN 5 mg Given 10/02/2023 8:20 AM RETAIL MAINTENANCE TECHNICIAN 5 mg azithromycin (ZITHROMAX) 500 mg in 0.9% sodium chloride IV piggyback 500 mg 500 mg, Intravenous, EVERY 24 HOURS (NS), First dose on Tue09/26/23 at 1930, Until Discontinued, Administer over 60 Minutes New Bag 09/26/2023 9:47 PM RETAIL MAINTENANCE TECHNICIAN 500 mg 250 mL/hr bacitracin (BACIGUENT) packet 1 Application topical, TWICE A DAY NEEDED, Starting on Tue09/26/23 at 1320, Until Tue10/03/23 at 2057, Post-Op, for discomfort Given 10/02/2023 12:40 PM RETAIL MAINTENANCE TECHNICIAN 1 Application bisacodyl (DULCOLAX) delayed released tablet 5-15 mg 5-15 mg, oral, DAILY NEEDED, Starting on Tue09/27/23 at 1144, Until Tue10/03/23 at 2058, constipation ceFAZolin (Ancef) 2 g in sodium chloride 0.9 % 100 mL IV piggyback 2 g, Intravenous, EVERY 8 HOURS (NS), 2 doses, First dose on Tue09/26/23 at 1600, Last dose on Tue09/27/23 at 0000, Post-Op, Administer over 30 Minutes New Bag 09/26/2023 5:56 PM RETAIL MAINTENANCE TECHNICIAN 2 g 200 mL/hr cefTRIAXone (Rocephin) 2 g in sodium chloride 0.9 % 100 mL IV piggyback 2 g, at 200 mL/hr, Intravenous, EVERY 24 HOURS (NS), First dose on Tue09/26/23 at 1930, Until Discontinued Auto Rate Verify 09/26/2023 8:57 PM RETAIL MAINTENANCE TECHNICIAN 200 mL/hr New Bag 09/26/2023 8:46 PM RETAIL MAINTENANCE TECHNICIAN 2 g 200 mL/hr digoxin (Lanoxin) tablet 250 mcg 250 mcg, oral, EVERY 6 HOURS, 3 doses, First dose on 10/01/23 at 2000, Last dose on Tue10/02/23 at 0400 Given 10/01/2023 9:43 PM RETAIL MAINTENANCE TECHNICIAN 250 mcg digoxin (Lanoxin) tablet 250 mcg 250 mcg, oral, EVERY 6 HOURS, 2 doses, First dose (after last modification) on 10/02/23 at 0400, Last dose on 10/02/23 at 1000 Given 10/02/2023 10:54 AM RETAIL MAINTENANCE TECHNICIAN 250 mcg Given 10/02/2023 4:10 AM RETAIL MAINTENANCE TECHNICIAN 250 mcg digoxin (Lanoxin) tablet 250 mcg 250 mcg, oral, ONCE, 1 dose, On 10/02/23 at 1600, The typical starting maintenance dose for patients with normal renal function is 125mcg daily. Dose adjustment may be needed if CrCl <60 mL/minute or weight extremes. Given 10/02/2023 4:37 PM RETAIL MAINTENANCE TECHNICIAN 250 mcg digoxin (Lanoxin) tablet 62.5 mcg 62.5 mcg, oral, DAILY, First dose on Tue10/03/23 at 0800, Until Discontinued, The typical starting maintenance dose for patients with normal renal function is 125mcg daily. Dose adjustment may be needed if CrCl <60 mL/minute or weight extremes. Given 10/03/2023 10:37 AM RETAIL MAINTENANCE TECHNICIAN 62.5 mcg docusate sodium (COLACE) capsule 100 mg 100 mg, oral, TWICE A DAY, First dose on Tue09/26/23 at 1330, Until Discontinued, Post-Op Given 10/01/2023 8:01 AM RETAIL MAINTENANCE TECHNICIAN 100 mg Given 09/30/2023 8:09 AM RETAIL MAINTENANCE TECHNICIAN 100 mg Given 09/27/2023 7:52 PM RETAIL MAINTENANCE TECHNICIAN 100 mg fentaNYL (SUBLIMAZE) injection 25-50 mcg 25-50 mcg, Intravenous, EVERY 5 MINUTES NEEDED, 8 doses, Starting on Tue09/26/23 at 1016, Until Tue09/26/23 at 1303, Phase 1, ACUTE SURGICAL PAIN Given 09/26/2023 11:59 AM RETAIL MAINTENANCE TECHNICIAN 50 mcg Given 09/26/2023 11:33 AM RETAIL MAINTENANCE TECHNICIAN 50 mcg hydrALAZINE (APRESOLINE) tablet 10 mg 10 mg, oral, THREE TIMES A DAY, First dose on Tue09/28/23 at 0830, Until Discontinued Given 09/29/2023 10:02 PM RETAIL MAINTENANCE TECHNICIAN 10 mg Given 09/28/2023 2:29 PM RETAIL MAINTENANCE TECHNICIAN 10 mg Given 09/28/2023 9:24 AM RETAIL MAINTENANCE TECHNICIAN 10 mg HYDROmorphone (DILAUDID) 20 mg/100 mL MACHINE CANDLE MOLDER IV infusion (PREMIX) Intravenous, CONTINUOUS, Starting on Tue09/26/23 at 1100, Until Tue09/27/23 at 0921, Continue other ordered opioids while MACHINE CANDLE MOLDER is ongoing. Continue other ordered sedatives while MACHINE CANDLE MOLDER is ongoing. Initial Clinician Bolus Dose: 0 mg Subsequent Clinician Bolus Dose: 0.1 mg every 20 minutes as needed for uncontrolled pain. Continuous rate: zero mg/hour MACHINE CANDLE MOLDER Dose: 0.1 mg MACHINE CANDLE MOLDER Lockout: 15 minutes One Hour Limit: 3 mg/hour After 30 minutes, if patient persistently complains of inadequate pain control, check pump for malfunction, verify pump settings with orders and assess integrity of IV site. After 1 hour, if patient continues to experience inadequate pain control and without respiratory or mental status compromise, and IV is patent and MACHINE CANDLE MOLDER is functioning properly, RN may make a ONE TIME increase in MACHINE CANDLE MOLDER Dose by 0.1 mg and keep at this increased dose. Contact prescriber if patient continues to express inadequate pain control after 2 hours of this increase. If patient becomes overly sedated with single MACHINE CANDLE MOLDER Dose, turn off continuous rate [if active], decrease MACHINE CANDLE MOLDER Dose by 50% and contact prescriber for further instructions. RNs: Use 'IV MACHINE CANDLE MOLDER - Adult > Opioid Na??ve > HYDROmorphone 0.2 mg/mL' entry in MACHINE CANDLE MOLDER pump If the patient is using cassettes more frequently than every 3 hours please contact pharmacy. Rate Verify 09/27/2023 7:18 AM RETAIL MAINTENANCE TECHNICIAN Rate Verify 09/26/2023 7:07 PM RETAIL MAINTENANCE TECHNICIAN New Bag 09/26/2023 11:44 AM RETAIL MAINTENANCE TECHNICIAN hydrOXYzine HCl (VISTARIL) injection 25 mg 25 mg, IntraMUSCULAR, ONCE NEEDED, MAY REPEAT X 1, 2 doses, Starting on Tue09/26/23 at 1016, Until Tue09/26/23 at 1303, Phase 1/2, for augmentation of narcotic based analgesia while in recovery area and unable to take PO. Not to be given within the past 6 hours. Given 09/26/2023 11:27 AM RETAIL MAINTENANCE TECHNICIAN 25 mg Right Lateral Thigh iohexol 350 mgI/mL (OMNIPAQUE) 1-150 mL 1-150 mL, Intravenous, INTRA-PROCEDURE ONE TIME DOSE NEEDED, 1 dose, Starting on Tue09/26/23 at 1711, Until Tue09/26/23 at 1711, per procedure Given 09/26/2023 5:11 PM RETAIL MAINTENANCE TECHNICIAN 100 mL isosorbide dinitrate (ISORDIL) tablet 2.5 mg 2.5 mg, oral, THREE TIMES A DAY, First dose (after last modification) on Tue09/28/23 at 0830, Until Discontinued Given 09/29/2023 10:02 PM RETAIL MAINTENANCE TECHNICIAN 2.5 mg Given 09/28/2023 2:29 PM RETAIL MAINTENANCE TECHNICIAN 2.5 mg Given 09/28/2023 9:24 AM RETAIL MAINTENANCE TECHNICIAN 2.5 mg lactated ringers (LR) IV BOLUS 500 mL 500 mL, Intravenous, ONCE, 1 dose, On Tue09/28/23 at 1015, Administer over 61 Minutes New Bag 09/28/2023 10:54 AM RETAIL MAINTENANCE TECHNICIAN 500 mL 491.8 mL/hr lactated ringers (LR) IV BOLUS 500 mL 500 mL, Intravenous, ONCE, 1 dose, On Neli 09/29/23 at 0815, Administer over 4 Hours New Bag 09/29/2023 8:42 AM RETAIL MAINTENANCE TECHNICIAN 500 mL 125 mL/hr lactated Ringers (LR) IV infusion at 100 mL/hr, Intravenous, CONTINUOUS, Starting on Tue09/26/23 at 1030, Until Tue09/26/23 at 1303, Phase 1 No Change 09/26/2023 11:10 AM RETAIL MAINTENANCE TECHNICIAN 100 mL/hr levalbuteroL (Xopenex) nebulizer solution 1.25 mg 1.25 mg, Nebulization, FOUR TIMES A DAY-RESPIRATORY, First dose on Tue09/26/23 at 1600, Until Discontinued Given 09/26/2023 7:35 PM RETAIL MAINTENANCE TECHNICIAN 1.25 mg magnesium hydroxide (MILK OF MAGNESIA) suspension 30 mL 30 mL, oral, DAILY NEEDED, Starting on Tue09/27/23 at 1144, Until Tue10/03/23 at 2057, constipation, if no response after polyethylene glycol MAGNESIUM REPLACEMENT INTRAVENOUS - NOT FOR DOCUMENTATION PURPOSES Intravenous, PER PROTOCOL, Starting on Tue09/28/23 at 1208, Until Tue10/03/23 at 2057 magnesium sulfate 2 gram / 50mL (4%) IV piggyback (PREMIX) 2 g 2 g, Intravenous, EVERY 2 HOURS (NS), 2 doses, First dose on Tue09/28/23 at 1230, Last dose on Tue09/28/23 at 1430, Administer over 2 Hours, 1 g magnesium replacement should be given over 1 hour (may give 2 g over 1 hour in ICU/ED setting). 4 grams should NOT be used for magnesium replacement. New Bag 09/28/2023 2:29 PM RETAIL MAINTENANCE TECHNICIAN 2 g 25 mL/hr New Bag 09/28/2023 1:03 PM RETAIL MAINTENANCE TECHNICIAN 2 g 25 mL/hr magnesium sulfate 2 gram / 50mL (4%) IV piggyback (PREMIX) 2 g 2 g, Intravenous, ONCE, 1 dose, On [facility] 09/29/23 at 1430, Administer over 2 Hours, 1 g magnesium replacement should be given over 1 hour (may give 2 g over 1 hour in ICU/ED setting). 4 grams should NOT be used for magnesium replacement. New Bag 09/29/2023 2:06 PM RETAIL MAINTENANCE TECHNICIAN 2 g 25 mL/hr magnesium sulfate 2 gram / 50mL (4%) IV piggyback (PREMIX) 2 g 2 g, Intravenous, ONCE, 1 dose, On [facility] 10/01/23 at 0945, Administer over 2 Hours, 1 g magnesium replacement should be given over 1 hour (may give 2 g over 1 hour in ICU/ED setting). 4 grams should NOT be used for magnesium replacement. New Bag 10/01/2023 10:42 AM RETAIL MAINTENANCE TECHNICIAN 2 g 25 mL/hr magnesium sulfate 2 gram / 50mL (4%) IV piggyback (PREMIX) 2 g 2 g, Intravenous, ONCE, 1 dose, On Tue10/02/23 at 1000, Administer over 2 Hours, 1 g magnesium replacement should be given over 1 hour (may give 2 g over 1 hour in ICU/ED setting). 4 grams should NOT be used for magnesium replacement. New Bag 10/02/2023 10:50 AM RETAIL MAINTENANCE TECHNICIAN 2 g 25 mL/hr metoprolol (LOPRESSOR) injection 2.5 mg 2.5 mg, Intravenous, NEEDED, MAY REPEAT X1, 2 doses, Starting on Tue09/26/23 at 1150, Until Tue09/26/23 at 1206, Phase 1, Keep Ventricular response in the low 100's Given 09/26/2023 12:06 PM RETAIL MAINTENANCE TECHNICIAN 2.5 mg Given 09/26/2023 11:55 AM RETAIL MAINTENANCE TECHNICIAN 2.5 mg metoprolol (LOPRESSOR) injection 5 mg 5 mg, Intravenous, EVERY 6 HOURS NEEDED, Starting on Tue09/26/23 at 1703, Until Tue10/03/23 at 2058, HR>120 Given 09/29/2023 4:26 PM RETAIL MAINTENANCE TECHNICIAN 5 mg Given 09/28/2023 10:06 AM RETAIL MAINTENANCE TECHNICIAN 5 mg Given 09/27/2023 2:38 AM RETAIL MAINTENANCE TECHNICIAN 5 mg metoprolol (LOPRESSOR) injection 5 mg 5 mg, Intravenous, ONCE, 1 dose, On Tue09/27/23 at 0245 Given 09/27/2023 2:46 AM RETAIL MAINTENANCE TECHNICIAN 5 mg metoprolol (LOPRESSOR) injection 5 mg 5 mg, Intravenous, ONCE, 1 dose, On Tue09/27/23 at 0330 Given 09/27/2023 3:38 AM RETAIL MAINTENANCE TECHNICIAN 5 mg metoprolol succinate (XL) (TOPROL XL) extended release tablet 24 HR 100 mg 100 mg, oral, TWICE A DAY, First dose on Tue10/03/23 at 2000, Until Discontinued metoprolol succinate (XL) (TOPROL XL) extended release tablet 24 HR 25 mg 25 mg, oral, DAILY, First dose on Tue09/28/23 at 0830, Until Discontinued Given 09/28/2023 9:24 AM RETAIL MAINTENANCE TECHNICIAN 25 mg metoprolol tartrate (LOPRESSOR) tablet 12.5 mg 12.5 mg, oral, TWICE A DAY, First dose (after last modification) on Tue09/26/23 at 1515, Until Discontinued Given 09/27/2023 7:51 PM RETAIL MAINTENANCE TECHNICIAN 12.5 mg Given 09/26/2023 3:28 PM RETAIL MAINTENANCE TECHNICIAN 12.5 mg metoprolol tartrate (LOPRESSOR) tablet 50 mg 50 mg, oral, ONCE, 1 dose, On Tue09/27/23 at 0145 Given 09/27/2023 3:37 AM RETAIL MAINTENANCE TECHNICIAN 50 mg metoprolol tartrate (LOPRESSOR) tablet 50 mg 50 mg, oral, ONCE, 1 dose, On Tue09/28/23 at 0115 Given 09/28/2023 1:11 AM RETAIL MAINTENANCE TECHNICIAN 50 mg metoprolol tartrate (LOPRESSOR) tablet 50 mg 50 mg, oral, FOUR TIMES A DAY, First dose on Tue09/28/23 at 1200, Until Discontinued Given 10/03/2023 10:39 AM RETAIL MAINTENANCE TECHNICIAN 50 mg Given 10/02/2023 10:08 PM RETAIL MAINTENANCE TECHNICIAN 50 mg Given 10/02/2023 12:40 PM RETAIL MAINTENANCE TECHNICIAN 50 mg metoprolol tartrate (LOPRESSOR) tablet 50 mg 50 mg, oral, ONCE, 1 dose, On Tue10/03/23 at 1215 Given 10/03/2023 12:37 PM RETAIL MAINTENANCE TECHNICIAN 50 mg perflutren protein-a microsphr (OPTISON) IV solution 0.66 mg 0.66 mg (3 mL), Intravenous, INTRA-PROCEDURE ONE TIME DOSE NEEDED, 1 dose, Starting on Tue09/27/23 at 1114, Until Tue09/27/23 at 1115, per procedure Given 09/27/2023 11:15 AM RETAIL MAINTENANCE TECHNICIAN 0.66 mg polyethylene glycol (MIRALAX) packet 17 g 17 g, oral, DAILY NEEDED, Starting on Tue09/27/23 at 1144, Until Tue10/03/23 at 2058, constipation, if no response to bisacodyl 15mg. potassium chloride (K-DUR) extended release tablet 20 mEq 20 mEq, oral, ONCE, 1 dose, On Tue09/29/23 at 1430 Given 09/29/2023 2:30 PM RETAIL MAINTENANCE TECHNICIAN 20 mEq potassium chloride (K-DUR) extended release tablet 20 mEq 20 mEq, oral, ONCE, 1 dose, On 10/01/23 at 0930 Given 10/01/2023 10:33 AM RETAIL MAINTENANCE TECHNICIAN 20 mEq potassium chloride 20 mEq in [id number] chloride 0.45% IV infusion 1000 mL at 75 mL/hr, Intravenous, CONTINUOUS, Starting on Tue09/26/23 at 1330, Until Tue09/28/23 at 1000, Post-Op New Bag 09/28/2023 5:37 AM RETAIL MAINTENANCE TECHNICIAN 75 mL/hr Rate Verify 09/27/2023 7:55 PM RETAIL MAINTENANCE TECHNICIAN 75 mL/hr New Bag 09/27/2023 5:21 PM RETAIL MAINTENANCE TECHNICIAN 75 mL/hr POTASSIUM REPLACEMENT INTRAVENOUS - NOT FOR DOCUMENTATION PURPOSES Intravenous, PER PROTOCOL, Starting on Tue09/28/23 at 1208, Until Tue10/03/23 at 2058 POTASSIUM REPLACEMENT ORAL - NOT FOR DOCUMENTATION PURPOSES oral, PER PROTOCOL, Starting on Tue09/28/23 at 1208, Until Tue10/03/23 at 2058, May request packets if patient requires liquid potassium. senna (SENOKOT) tablet 8.6-17.2 mg 8.6-17.2 mg (1-2 tablet), oral, TWICE A DAY, First dose on Tue09/27/23 at 1145, Until Discontinued Given 10/01/2023 8:02 AM RETAIL MAINTENANCE TECHNICIAN 8.6 mg Given 09/30/2023 7:47 PM RETAIL MAINTENANCE TECHNICIAN 8.6 mg Given 09/30/2023 8:09 AM RETAIL MAINTENANCE TECHNICIAN 8.6 mg sodium chloride 0.9 % IV BOLUS 1,000 mL 1,000 mL, Intravenous, ONCE, 1 dose, On Tue09/27/23 at 0330, Administer over 61 Minutes New Bag 09/27/2023 3:42 AM RETAIL MAINTENANCE TECHNICIAN 1,000 mL 983. 6 mL/hr sodium chloride 0.9 % IV BOLUS 1,000 mL 1,000 mL, Intravenous, ONCE, 1 dose, On Tue09/27/23 at 0515, Administer over 61 Minutes New Bag 09/27/2023 5:18 AM RETAIL MAINTENANCE TECHNICIAN 1,000 mL 983. 6 mL/hr documented in this encounter Active and Recently Administered Medications Times are shown in RETAIL MAINTENANCE TECHNICIAN. Scheduled Medication Order 10/01/2023 10/02/2023 10/03/2023 albumin (human) 25% injection 12.5 g (COMPLETED) 12.5 g (50 mL), Intravenous, ONCE, 1 dose, On 10/01/23 at 2000, Administer over 1 Hours, Order in 50mL (12.5g) increments each to be given over 1 hour. Example for 100mL (25g) - order as 50mL every 1-hour x2 doses. May decrease infusion time to give each 50mL over 30 minutes in patients with hypoproteinemia. 2005 (New Bag - Provider: Stephanie Edwards RN)2055 (Stopped - Provider: Shonna Hill, FAVIOLA) apixaban (ELIQUIS) tablet 5 mg 5 mg, oral, TWICE A DAY, First dose on Tue09/28/23 at 1145, Until Discontinued 08 (Given - Provider: Krista Rodriguez RN)1953 (Given - Provider: Stephanie Edwards RN) 0820 (Given - Provider: Shonna Hill RN)193 (Given - Provider: Del De La Torre) 0858 (Given - Provider: Emerita Reno RN) digoxin (Lanoxin) tablet 250 mcg (CANCELED) 250 mcg, oral, EVERY 6 HOURS, 3 doses, First dose on 10/01/23 at 2000, Last dose on 10/02/23 at 0400 1952 (Not Given - Provider: Stephanie Edwards RN - Reason: Clinically appropriate (comment) - Comment: stated to hold med d/t low BP)2142 (Given - Provider: Stephanie Edwards RN)220 (Canceled Entry - Provider: Stephanie Edwards RN) digoxin (Lanoxin) tablet 250 mcg (COMPLETED) 250 mcg, oral, EVERY 6 HOURS, 2 doses, First dose (after last modification) on 10/02/23 at 0400, Last dose on 10/02/23 at 1000 0410 (Given - Provider: Stephanie Edwards RN)1054 (Given - Provider: Shonna Hill RN) digoxin (Lanoxin) tablet 250 mcg (COMPLETED) 250 mcg, oral, ONCE, 1 dose, On 10/02/23 at 1600, The typical starting maintenance dose for patients with normal renal function is 125mcg daily. Dose adjustment may be needed if CrCl <60 mL/minute or weight extremes. 1637 (Given - Provider: Del De La Torre) digoxin (Lanoxin) tablet 62.5 mcg 62.5 mcg, oral, DAILY, First dose on Tue10/03/23 at 0800, Until Discontinued, The typical starting maintenance dose for patients with normal renal function is 125mcg daily. Dose adjustment may be needed if CrCl <60 mL/minute or weight extremes. 0857 (Not Given - Provider: Emerita Reno RN - Reason: Clinically appropriate (comment) - Comment: hr -49)1037 (Given - Provider: Emerita Reno RN) docusate sodium (COLACE) capsule 100 mg 100 mg, oral, TWICE A DAY, First dose on Tue09/26/23 at 1330, Until Discontinued, Post-Op 0801 (Given - Provider: Krista Rodriguez RN)195 (Declined - Provider: Stephanie Edwards RN) 0815 (Declined - Provider: Shonna Hill, FAVIOLA)194 (Declined - Provider: Del De La Torre) 0857 (Not Given - Provider: Emerita Reno RN - Reason: Clinically appropriate (comment)) MAGNESIUM REPLACEMENT INTRAVENOUS - NOT FOR DOCUMENTATION PURPOSES Intravenous, PER PROTOCOL, Starting on Tue09/28/23 at 1208, Until Tue10/03/23 at 2058 magnesium sulfate 2 gram / 50mL (4%) IV piggyback (PREMIX) 2 g (COMPLETED) 2 g, Intravenous, ONCE, 1 dose, On 10/01/23 at 0945, Administer over 2 Hours, 1 g magnesium replacement should be given over 1 hour (may give 2 g over 1 hour in ICU/ED setting). 4 grams should NOT be used for magnesium replacement. 1042 (New Bag - Provider: Krista Rodriguez RN)1219 (Stopped - Provider: Shonna Hill, FAVIOLA) magnesium sulfate 2 gram / 50mL (4%) IV piggyback (PREMIX) 2 g (COMPLETED) 2 g, Intravenous, ONCE, 1 dose, On 10/02/23 at 1000, Administer over 2 Hours, 1 g magnesium replacement should be given over 1 hour (may give 2 g over 1 hour in ICU/ED setting). 4 grams should NOT be used for magnesium replacement. 1050 (New Bag - Provider: Shonna Hill RN)1235 (Stopped - Provider: Shonna Hill RN) metoprolol succinate (XL) (TOPROL XL) extended release tablet 24 HR 100 mg 100 mg, oral, TWICE A DAY, First dose on Tue10/03/23 at 2000, Until Discontinued metoprolol tartrate (LOPRESSOR) tablet 50 mg (CANCELED) 50 mg, oral, FOUR TIMES A DAY, First dose on Tue09/28/23 at 1200, Until Discontinued 0801 (Given - Provider: Krista Rodriguez RN)1246 (Given - Provider: Krista Rodriguez RN)1755 (Given - Provider: Krista Rodriguez RN)2200 (Not Given - Provider: Stephanie Edwards RN - Reason: Clinically appropriate (comment) - Comment: stated to hold med) 0800 (Not Given - Provider: Shonna Hill RN - Reason: Clinically appropriate (comment))1240 (Given - Provider: Shonna Hill RN)1938 (Not Given - Provider: Del De La Torre - Reason: Clinically appropriate (comment))2208 (Given - Provider: Del De La Torre) 0853 (Not Given - Provider: Emerita Reno RN - Reason: Clinically appropriate (comment))1039 (Given - Provider: Emerita Reno RN)1200 (Not Given - Provider: Emerita Reno RN - Reason: Clinically appropriate (comment)) metoprolol tartrate (LOPRESSOR) tablet 50 mg (COMPLETED) 50 mg, oral, ONCE, 1 dose, On Tue10/03/23 at 1215 1237 (Given - Provider: Emerita Reno RN) potassium chloride (K-DUR) extended release tablet 20 mEq (COMPLETED) 20 mEq, oral, ONCE, 1 dose, On Tue10/01/23 at 0930 1033 (Given - Provider: Krista Rodriguez RN) POTASSIUM REPLACEMENT INTRAVENOUS - NOT FOR DOCUMENTATION PURPOSES(Linked Group 1) Intravenous, PER PROTOCOL, Starting on Tue09/28/23 at 1208, Until Tue10/03/23 at 2057 POTASSIUM REPLACEMENT ORAL - NOT FOR DOCUMENTATION PURPOSES(Linked Group 1) oral, PER PROTOCOL, Starting on Tue09/28/23 at 1208, Until Tue10/03/23 at 2057, May request packets if patient requires liquid potassium. senna (SENOKOT) tablet 8.6-17.2 mg 8.6-17.2 mg (1-2 tablet), oral, TWICE A DAY, First dose on Tue09/27/23 at 1145, Until Discontinued 0802 (Given - Provider: Krista Rodriguez, RN)1953 (Declined - Provider: Stephanie Edwards, FAVIOLA) 0815 (Declined - Provider: Shonna Hill, FAVIOLA)1942 (Declined - Provider: Del De La Torre) 0857 (Declined - Provider: Emerita Reno RN) PRN Medication Order 10/01/2023 10/02/2023 10/03/2023 acetaminophen (TYLENOL) rectal suppository 650 mg(Linked Group 2) 650 mg, Rectal, EVERY 6 HOURS NEEDED, Starting on Tue09/30/23 at 0845, Until Tue10/03/23 at 2057, Post-Op, pain, fever acetaminophen (TYLENOL) tablet 1,000 mg(Linked Group 2) 1,000 mg, oral, EVERY 6 HOURS NEEDED, Starting on Tue09/30/23 at 0845, Until Tue10/03/23 at 2057, Post-Op, fever, pain bacitracin (BACIGUENT) packet 1 Application topical, TWICE A DAY NEEDED, Starting on Tue09/26/23 at 1320, Until Tue10/03/23 at 2057, Post-Op, for discomfort 1240 (Given - Provider: Shonna Hill, FAVIOLA) bisacodyl (DULCOLAX) delayed released tablet 5-15 mg 5-15 mg, oral, DAILY NEEDED, Starting on Tue09/27/23 at 1144, Until Tue10/03/23 at 2057, constipation diphenhydrAMINE (BENADRYL) injection 12.5-25 mg 12.5-25 mg, Intravenous, EVERY 4 HOURS NEEDED, Starting on Tue09/26/23 at 1320, Until Tue10/03/23 at 2057, itching glycopyrrolate (ROBINUL) injection 0.1 mg 0.1 mg, IntraMUSCULAR, EVERY 4 HOURS NEEDED, Starting on Tue09/26/23 at 1320, Until Tue10/03/23 at 2057, Post-Op, for bladder spasms magnesium hydroxide (MILK OF MAGNESIA) suspension 30 mL 30 mL, oral, DAILY NEEDED, Starting on Tue09/27/23 at 1144, Until Tue10/03/23 at 2057, constipation, if no response after polyethylene glycol metoprolol (LOPRESSOR) injection 5 mg 5 mg, Intravenous, EVERY 6 HOURS NEEDED, Starting on Tue09/26/23 at 1703, Until Tue10/03/23 at 2057, HR>120 naloxone (NARCAN) injection 0.1 mg 0.1 mg, Intravenous, EVERY 1 MINUTE PRN, 50 doses, Starting on Tue09/26/23 at 1320, Until Tue10/03/23 at 2057, Opiate Reversal naloxone (NARCAN) injection 0.1 mg 0.1 mg, Intravenous, EVERY 1 MINUTE PRN, Starting on Tue09/26/23 at 1320, Until Tue10/03/23 at 2057, Post-Op, Opiate Reversal ondansetron (ZOFRAN) injection 4 mg 4 mg, Intravenous, EVERY 12 HOURS NEEDED, Starting on Tue09/26/23 at 1320, Until Tue10/03/23 at 2057, Post-Op, nausea oxyCODONE (immediate release) (ROXICODONE) tablet 5-10 mg 5-10 mg, oral, EVERY 4 HOURS NEEDED, Starting on Tue09/26/23 at 1320, Until Tue10/03/23 at 2057, Post-Op, Pain, when taking PO polyethylene glycol (MIRALAX) packet 17 g 17 g, oral, DAILY NEEDED, Starting on Tue09/27/23 at 1144, Until Tue10/03/23 at 2057, constipation, if no response to bisacodyl 15mg. sodium chloride 0.9 % IV solution at 10 mL/hr, Intravenous, CONTINUOUS PRN, Starting on Tue09/26/23 at 1320, Until Tue10/03/23 at 2057 sodium chloride 0.9% irrigation solution 250 mL 250 mL, Irrigation, NEEDED, Starting on Tue09/26/23 at 1320, Until Tue10/03/23 at 2057, Post-Op, for catheter clots, Use dose field to specify volume of NS 0.9% to be dispensed from pharmacy. Linked Groups Order Group 1: POTASSIUM REPLACEMENT ORAL - NOT FOR DOCUMENTATION PURPOSESJump to med oral, PER PROTOCOL, Starting on Tue09/28/23 at 1208, Until Tue10/03/23 at 2057, May request packets if patient requires liquid potassium. Or POTASSIUM REPLACEMENT INTRAVENOUS - NOT FOR DOCUMENTATION PURPOSESJump to med Intravenous, PER PROTOCOL, Starting on Tue09/28/23 at 1208, Until Tue10/03/23 at 2057 Group 2: acetaminophen (TYLENOL) tablet 1,000 mgJump to med 1,000 mg, oral, EVERY 6 HOURS NEEDED, Starting on Tue09/30/23 at 0845, Until Tue10/03/23 at 2057, Post-Op, fever, pain Or acetaminophen (TYLENOL) rectal suppository 650 mgJump to med 650 mg, Rectal, EVERY 6 HOURS NEEDED, Starting on Tue09/30/23 at 0845, Until Tue10/03/23 at 2057, Post-Op, pain, fever documented in this encounter Care Teams Solvent Mixer Relationship Specialty Start Date End Date Shama Olmstead MD [address] [place] [address] PCP - General Family Medicine 05/13/23 documented as of this encounter
--- OUTSIDE RECORDS SUMMARY | 2024-01-11 20:11 | XMS_ITS | Data Portability ---
Author Name Unknown Address [address] [place] [address] Phone [phone] Organization [facility], [facility] Address [address] [place] [address] Care Team Providers Care Coating Inspector Name Role Phone SHAMA LOMSTEAD Primary Care Provider Assessment Encounter Date Assessment Date Assessment LastModified by Organization Details LastModified Time 04/18/2023 04/18/2023 Patient presents for the following blood tests: PSA Patient drawn without difficulty and sample kept for in-house testing. Drawn by: FELIZ Trivedi [email or web address] Not available 04/18/2023 15:10:21 01/09/2024 01/09/2024 Patient presents for the following blood tests: PSA Patient drawn without difficulty and sample kept for in-house testing. Drawn by: FAVIOLA Davila Not available 01/09/2024 14:25:36 Plan of Treatment Reminders Order Date Submit Date Provider Last Modified By Organization Details Last Modified Time Details Appointments ESTABLISH ED 10 2023 01:10P M Jose L Marion Jr, MD Not available Not available Not available Lab PSA, serum or plasma 2023 024 [email or web address] [facility] [facility], [address], [address], [place], [address], Ph [phone] 01/09/2024 15:10:13 PSA, serum or plasma 2022 023 [email or web address] [facility], [address], [address], [place], [address], Ph 04/18/2023 15:10:22 Referral None recorded. Procedures None recorded. Surgeries None recorded. Imaging None recorded. Medication Orders ceftriaxo ne 1 gram solution for injection 2022 023 [email or web address] [facility], [place], [place], [address] [place], [address], 06/13/2023 16:42:42 levofloxa ruperto 500 mg tablet 2022 023 [email or web address] [facility], [place], [place], [address] [place], [address], 06/13/2023 16:42:44 Patient TargetsNo targets recorded. Patient Instructions Encounter Date Encounter Id Patient Instructions Last Modified By Organization Details Last Modified Time 01/09/2024 [id number] His PSA today is 0.05. He is recovering well from surgery and is free of leakage. He does mention some nocturia but is not interested in medication at this time. See in 3 months with PSA. Not available 01/09/2024 14:33:19 10/10/2023 [id number] Delatorre catheter a nd earl removed. Exercises. Path reviewed. See in 3 months with PSA. Not available 10/10/2023 10:31:40 06/13/2023 [id number] I spent {{Time 5 0 minutes#}} with the patient and his today discussing treatment options for prostate cancer. Overall he has favorable intermediate risk disease. We talked of: active surveillance, cryotherapy, brachytherapy, external beam radiation, HIFU radical prostatectomy including robotics, hormonal therapy, and nutritional supplements. The risks and benefits including incontinence, erectile dysfunction, infection and bleeding were discussed. The [facility] [place] nomogram was used to compare cancer control rates of the various treatment options. The patient is most interested in having the prostate surgically removed. We talked about the various methods of surgical removal and the risks and benefits of the procedure. Specifically we discussed robotic-assisted surgery. There is always a risk with laparascopic surgery that we will need to convert to an open procedure. We talked about the potential for post-op incontinence, impotence, bleeding, infection, damage to the bowel, bladder or ureters. I gave him ample time to ask questions and provided literature on the procedure and post-op care. We talked about recovery and the necessity for a catheter. We talked about the possibility of urine leak, prolonged catheterization and bladder neck contracture. I provided him with literature. I also offered him a chance to seek a second opinion. He will call to schedule. Would need 6 weeks off given his job. Not available 06/15/2023 12:54:23 05/04/2023 [id number] Will complete hi s course of antibiotics. Will call with biopsy results within a week. He will call the office if he develops a fever and chills. Not available 05/04/2023 11:08:35 04/18/2023 [id number] His PSA today is 8.3 We agree this should be pursued. Discussed prostate biopsy including risks, benefits, complications, alternatives, and anticipated outcomes. Handout provided. Hold ASA. Will schedule. Not available 04/18/2023 15:16:32 02/14/2023 [id number] We discussed iss ues with PSA. Reviewed biopsy vs repeat measurement- FH discussed. He prefers to have his PSA rechecked prior to moving forward with evaluation. See in 2 months with PSA. Not available 02/14/2023 15:11:49 Reason for Referral None Reported. Results Created Date Observation Date Name Description Value Unit Range Abnormal Flag LastModifiedBy Organization Detail LastModifiedTime 04/18/2004/18/2023 PSA, serum or plasm a PSA 8.3 0-4.0 Not Available [facility] [address], [place], [address], Ph 04/18/2023 15:09:50 01/09/20 24 01/09/2024 PSA, serum or plasm a PSA 0.05 0-4.0 NG/mL Not Available [facility] [address], [place], [address], Ph [phone] 01/09/2024 14:03:21 05/26/20 23 05/26/2023 CT, abdom en + pelvi s, w/ contr ast No observ ation record ed. [facility] [address] [place] [address], [address], 06/13/2023 16:39:47 05/26/20 23 05/26/2023 NM, bone scan, whole body No observ ation record ed. [address], [place], [address], 06/13/2023 16:39:37 10/04/19 24 09/26/2023 XR, chest , 1 view No observ ation record ed. [email or web address] [place] [address], [address], 10/04/2023 15:12:53 Result Notes None recorded. Problems Name Status Onset Date Resolution Date Notes Provider Name and Address Organization Details Recorded Time Malignant tumor of prostate Active 06/13/20 23 [place] 3+4 from left apex and 3+3 in other sites. RALP 09/26/23 [place] 3+4 pT2 with neg nodes and positive limited margin. Jose L Marion Jr, MD [address] [place] [address],[address], [address] , [facility] 01/09/2024 11:19:49 Nocturia Active 01/09/20 24 Jose L Marion Jr, MD [address] [place] [address],[address], [address] , [facility] 01/09/2024 14:32:57 Problem Notes None recorded. Procedures Surgical History Date Name Laterality Status Provider Name and Address Organization Details Recorded Time 3 ZULEIKA Trus completed Jose L Marion Jr, MD [address] [place] [address],[facility] [address], [place], [address], [facility] 05/04/2023 11:29:40 9 [facility] 14:55:43 Imaging Results Imaging Date Name Status LastModified by Organiz ation Details LastModified Time 05/26/2023 CT, abdomen + pelvis, w/ contrast completed [facility] [address] [facility], [place], [address], 06/13/2023 16:39:47 05/26/2023 NM, bone scan, whole body completed [facility] [address] [place], [address], 06/13/2023 16:39:37 09/26/2023 XR, chest, 1 view completed [address] [place], [address], 10/04/2023 15:12:53 Procedure Notes None recorded. Medical Equipment None Reported. Allergies No known drug allergies Medications Name Sig Start Date Stop Date Status Note LastModified by Organization Details LastModified Time azithromyci n 250 mg tablet TAKE TWO TABLETS BY MOUTH ONE DOSE ON THE FIRST DAY, THEN TAKE ONE DAILY THEREAFTE R. 02/14 completed Not Available Not Available Not Available amiodarone 200 mg tablet TAKE AMIODARON E 400MG (2 TABLETS) TWICE DAILY. ON 12/19/23 DECREASE TO 200MG (1 TABLET) TWICE DAILY. ON 01/02/24 DECREASE AMIODARON E TO 200MG active Not Available Not Available No t Available metoprolol succinate ER 100 mg tablet,exte nded release 24 hr TAKE ONE-HALF TABLET BY MOUTH EVERY DAY active Not Available Not Available No t Available ceftriaxone 1 gram solution for injection Take 1 g by injection route. 06/13 completed Not Available Not Available Not Available losartan 25 mg tablet TAKE ONE-HALF TABLET BY MOUTH EVERY DAY active Not Available Not Available No t Available codeine 10 mg-guaifene sin 100 mg/5 mL oral liquid TAKE 10MLS BY MOUTH EVERY 6 HOURS NEEDED FOR COUGH 02/14 completed Not Available Not Available Not Available digoxin 125 mcg (0.125 mg) tablet active Not Available Not Available N ot Available metoprolol succinate ER 25 mg tablet,exte nded release 24 hr TAKE ONE TABLET BY MOUTH EVERY DAY active Not Available Not Available No t Available cefuroxime axetil 500 mg tablet 01/08 completed Not Available Not Available Not Available levofloxaci n 500 mg tablet TAKE ONE TABLET BY MOUTH DAILY FOR 3 DAYS, STARTING THE DAY BEFORE THE PROCEDURE . 06/13 completed Not Available Not Available Not Available amoxicillin 875 mg-manolo vickers clavulanate 125 mg tablet TAKE ONE TABLET BY MOUTH TWICE A DAY WITH MEALS FOR 10 DAYS 01/08 completed Not Available Not Available Not Available oxycodone 5 mg tablet TAKE ONE TABLET BY MOUTH EVERY 6 HOURS NEEDED FOR PAIN 02/14 completed Not Available Not Available Not Available Eliquis 5 mg tablet TAKE ONE TABLET BY MOUTH TWICE A DAY active Not Available Not Available No t Available Farxiga 5 mg tablet TAKE TWO TABLETS BY MOUTH EVERY DAY active Not Available Not Available No t Available Vitals Date Recorded Body height Body mass index (BMI) Body weight Provider Name and Address Organization Details Last Updated DateTime 02/14/2023 190.5 cm 32.5 kg/m2 728404.02 g Altagracia Dillon [facility] 02/14/2023 14:53:36 Date Recorded Body height Body mass index (BMI) Body weight Respiratory rate Provider Name and Address Organization Details Last Updated DateTime 04/18/2023 190.5 cm 32.5 kg/m2 488578.02 g 18 /min Kristina Olivo [facility] 04/18/2023 15:03:47 Date Recorded Body height Body mass index (BMI) Body weight Respiratory rate Provider Name and Address Organization Details Last Updated DateTime 05/04/2023 190.5 cm 32.5 kg/m2 208413.02 g 16 /min January Pressley [facility] 05/04/2023 11:12:59 Date Recorded Body height Body mass index (BMI) Body weight Provider Name and Address Organization Details Last Updated DateTime 06/13/2023 190.5 cm 32.5 kg/m2 991771.02 ted Dillon [facility] 06/13/2023 16:42:37 Date Recorded Body height Body mass index (BMI) Body weight Provider Name and Address Organization Details Last Updated DateTime 10/10/2023 190.5 cm 32.5 kg/m2 443765.02 g Dianna Escobedo [facility] 10/10/2023 14:15:35 Date Recorded Body height Body mass index (BMI) Body weight Provider Name and Address Organization Details Last Updated DateTime 01/09/2024 190.5 cm 32.5 kg/m2 319123.02 g Mily Nobles [facility] 01/09/2024 14:12:41 Social History Question Answer Notes LastModified by Organizat ion Details LastModified Time Tobacco Smoking Status Current Every Day Smoker Altagracia shields [facility] 02/14/2023 14:55:17 What Is Your Level Of Alcohol Consumption? Occasional [email or web address] Information not available 02/14/2023 How Many Times Per Week Do You Consume Alcohol? Less Than 1 Time Per Week [email or web address] Information not available 02/14/2023 What Was The Date Of Your Most Recent Tobacco Screening? 01/09/2024 [email or web address] Information not available 01/09/2024 Has Tobacco Cessation Counseling Been Provided? Yes [email or web address] Information not available 02/14/2023 On What Date Was Tobacco Cessation Counseling Provided? 10/10/2023 [email or web address] Information not available 10/10/2023 How Many Days In The Past Year Have You Consumed 5 Or More Drinks? 0 [email or web address] Information not available 06/13/2023 Sex: Male Functional Status None recorded. Mental Status None recorded. Family History Relationship Description Onset Age of this Age Resolved Age Notes Father Family history of pr ostate cancer Medical History Condition Response High Blood Pressure N Kidney Stones N Depression N Lung Disease N GERD/Acid Reflux N Diabetes N Sexually Transmitted Infection N Bleeding Disorder N Cancer Y High Cholesterol Y Heart Disease N Immunizations Vaccine Type Date Status Provider Name and Address Organization Details Recorded Time zoster recombinant 11/24/2022 completed Not Available [facility] 10/04/2023 16:02:54 COVID-19, mRNA, LNP-S, PF, 30 mcg/0.3 mL dose 12/05/2020 completed Not Available [facility] 10/04/2023 16:02:54 COVID-19, mRNA, LNP-S, PF, 30 mcg/0.3 mL dose 12/26/2020 completed Not Available [facility] 10/04/2023 16:02:54 Tdap 11/24/2022 completed Not Available [facility] 16:02:54 Past Encounters Encounter ID Performer Location Encounter Start Date Encounter Closed Date Diagnosis/Indication Diagnosis SNOMED-CT Code [id number] MD JOHNIE Greer [facility] [address] [place] [address] 02/14/2023 14:47:04 02/16/2023 15:03:51 Prostate specific antigen above reference range [id number] MD JOHNIE [facility] [address] [place] [address] 04/18/2023 14:46:13 04/25/2023 14:59:37 Prostate specific antigen above reference range [id number] MD JOHNIE [facility]er [facility] [place] [address] [place] [address] 05/04/2023 10:59:59 05/10/2023 11:26:17 Prostate specific antigen above reference range [id number] MD JOHNIE [facility] [address] [place] [address] 06/13/2023 16:32:36 06/16/2023 10:15:41 Malignant tumor of prostate 551326947 [id number] MD JOHNIE [facility] [address] [place] [address] 10/10/2023 14:11:30 10/11/2023 07:30:40 Malignant tumor of prostate 548178984 [id number] MD JOHNIE [facility] [address] [place] [address] 01/09/2024 14:01:09 01/10/2024 13:24:44 Malignant tumor of prostate 307693335 Nocturia [id number] Health Concerns Section Related Observation LastModified by Organization Detai ls LastModified Time None Recorded Concern Status LastModified by Organization Details LastModified Time None Recorded Advance Directives Directive None Recorded Payers Encounter Date Sequence Insurance Name Policy Number Policy Patel Covered Member ID Patel Member ID Guarantor Name 01/09/2024 1 [place] [employer] [place] [id number] Moo F Romel [id number] Moo F Romel 10/10/2023 1 [place] [employer] [place] [id number] Moo F Romel [id number] Moo F Urena 06/13/2023 1 [place] [id number] Moo F Romel [id number] Moo F Urena 05/04/2023 1 [place] [id number] Moo F Romel [id number] 89 Moo F Urena 04/18/2023 1 [place] [id number] Moo F Romel [id number] 89 Moo F Urena 02/14/2023 1 [place] [id number] Moo F Romel [id number] Moo F Urena Notes Date Note Type Note Provider Name and Address Organization Details Recorded Time 02/14/2023 text/html HPI Notes: Here for elevated PSA. PSA 6.18. No priors that he is aware of. Father from prostate cancer- chose not to have treatment. Minimal urinary complaints. Jose L Marion Jr, MD [address] [place] [address],[address], [address], [facility] 02/14/2023 15:12:00 04/18/2023 text/html HPI Notes: Here for PSA recheck. Doing well. No new issues. Jose L Marion Jr, MD [address] [place] [address],[address], [address], [facility] 04/18/2023 15:18:13 05/04/2023 text/html HPI Notes: Prostate Biopsy Jose L Marion Jr, MD [address] [place] [address],[address], [address], [facility] 05/04/2023 11:37:05 06/13/2023 text/html HPI Notes: Here for prostate cancer talk. Biopsy shows [place] 3+4 from left apex and 3+[address] and Bone scan are negative. Jose L Marion Jr, MD [address] [place] [address],[address], [address], [facility] 06/15/2023 12:54:33 10/10/2023 text/html HPI Notes: Statu s post RALP 2 weeks ago. Doing well urologically although had a significant hospital stay due to cardiac issues. Jose L Marion Jr, MD [address] [facility],[address], [place], [address], [facility] 10/10/2023 14:45:22 01/09/2024 text/html HPI Notes: Prostate cancer recheck. First visit since RALP on September 26, 2023. No leakage. He does mention some nocturia. Jose L Marion Jr, MD [address] [facility],[address], [place], [address], [facility] 01/09/2024 14:33:37
--- OUTSIDE RECORDS SUMMARY | 2024-01-11 20:11 | XMS_ITS | Continuity of Care Document ---
Author Name Unknown Address [address] [place] [address] Phone [phone] Organization [facility], [facility] Address [address] [place] [address] Care Team Providers Care Sustainability Coordinator Name Role Phone SHAMA OLMSTEAD Primary Care Provider [phone] Assessment Encounter Date Assessment Date Assessment LastModified by Organization Details LastModified Time 01/09/2024 01/09/2024 Patient presents for the following [...] PSA, serum or plasma 2023 024 [email or web address] [facility], [address] [facility] [address], [place], [address], Ph 01/09/2024 15:10:13 Referral None recorded. Procedures None recorded. Surgeries None recorded. Imaging None recorded. Medication Orders None recorded. Patient TargetsNo targets recorded. Patient Instructions Encounter Date Encounter Id Patient Instructions Last Modified By Organization Details Last Modified Time 01/09/2024 [id number] His PSA today is 0.05. He is recovering well from surgery and is free of leakage. He does mention some nocturia but is not interested in medication at this time. See in 3 months with PSA. Not available 01/09/2024 14:33:19 Reason for Referral None Reported. Results Created Date Observation Date Name Description Value Unit Range Abnormal Flag LastModifiedBy Organization Detail LastModifiedTime 01/09/20 24 01/09/2024 PSA, serum or plasm a PSA 0.05 0-4.0 NG/mL Not Available Frederick powell [address], [place], [address], Ph 01/09/2024 14:03:21 Result Notes None recorded. Problems Name Status Onset Date Resolution Date Notes Provider Name and Address Organization Details Recorded Time Malignant tumor of prostate Active 06/13/20 23 [place] 3+4 from left apex and 3+3 in other sites. RALP 09/26/23 [place] 3+4 pT2 with neg nodes and positive limited margin. Jose L Marion Jr, MD [address] [place] [address],[facility] [address], [place], [address] , [facility] 01/09/2024 11:19:49 Nocturia Active 01/09/20 24 Jose L Marion Jr, MD [address] [place] [address],[facility] [address], [place], [address] , [facility] 01/09/2024 14:32:57 Problem Notes None recorded. Procedures Surgical History Date Name Laterality Status Provider Name and Address Organization Details Recorded Time 3 ZULEIKA Trus completed Jose L Marion Jr, MD [address] [place] [address],[facility] [address], [place], [address], [facility] 05/04/2023 11:29:40 9 Colonoscopy completed Altagracia Dillon [facility] 02/14/2023 14:55:43 Imaging Results None recorded. Procedure Notes None recorded. Medical Equipment None Reported. Allergies No known drug allergies Medications Name Sig Start Date Stop Date Status Note LastModified by Organization Details LastModified Time azithromyci n 250 mg tablet TAKE TWO TABLETS BY MOUTH ONE DOSE ON THE FIRST DAY, THEN TAKE ONE DAILY THERECHRISTIANOE RAvtar 02/14 completed Not Available Not Available Not [...] Available Not Available Not Available amoxicillin 875 mg-potassiu m clavulanate 125 mg tablet TAKE ONE TABLET [...] Updated DateTime 01/09/2024 190.5 cm 32.5 kg/m2 636473.02 g Mily Nobles [facility] 01/09/2024 14:12:41 Social History Question Answer Notes LastModified by Organizat ion Details LastModified Time Tobacco Smoking Status Current Every Day Smoker Altagracia shields [facility] 02/14/2023 14:55:17 What Is Your Level Of Alcohol Consumption? Occasional [email or web address] Information not available 02/14/2023 How Many Times Per Week Do You Consume Alcohol? Less Than 1 Time Per Week [email or web address] Information not available 02/14/2023 What Was The Date Of Your Most Recent Tobacco Screening? 01/09/2024 [email or web address] Information not available 01/09/2024 Has Tobacco Cessation Counseling Been Provided? Yes [email or web address] Information not available 02/14/2023 On What Date Was Tobacco Cessation Counseling Provided? 10/10/2023 [email or web address] Information not available 10/10/2023 How Many Days In The Past Year Have You Consumed 5 Or More Drinks? 0 [email or web address] Information not available 06/13/2023 Sex: Male Functional Status None recorded. Mental Status None recorded. Family History Relationship Description Onset Age of this Age Resolved Age Notes Father Family history of pr ostate cancer Medical History Condition Response High Blood Pressure N Kidney Stones N Depression N Lung Disease N GERD/Acid Reflux N Sexually Transmitted Infection N Cancer Y High Cholesterol Y Diabetes N Bleeding Disorder N Heart Disease N Immunizations Vaccine Type Date Status Provider Name and Address Organization Details Recorded Time zoster recombinant 11/24/2022 completed Not Available [facility] 10/04/2023 16:02:54 COVID-19, mRNA, LNP-S, PF, 30 mcg/0.3 mL dose 12/05/2020 completed Not Available [facility] 10/04/2023 16:02:54 COVID-19, mRNA, LNP-S, PF, 30 mcg/0.3 mL dose 12/26/2020 completed Not Available [facility] 10/04/2023 16:02:54 Tdap 11/24/2022 completed Not Available [facility] 16:02:54 Past Encounters Encounter ID Performer Location Encounter Start Date Encounter Closed Date Diagnosis/Indication Diagnosis SNOMED-CT Code [id number] MD JOHNIE Greer Jr[facility] [address] [place] [address] 01/09/2024 14:01:09 01/10/2024 13:24:44 Malignant tumor of prostate [id number] Nocturia [id number] Health Concerns Section Related Observation LastModified by Organization Detai ls LastModified Time None Recorded Concern Status LastModified by Organization Details LastModified Time None Recorded Payers Encounter Date Sequence Insurance Name Policy Number Policy Patel Covered Member ID Patel Member ID Guarantor Name 01/09/2024 1 [place] [employer] [place] [id number] Moo Urena [id number] Moo Lucio Romel Notes Date Note Type Note Provider Name and Address Organization Details Recorded Time 01/09/2024 text/html HPI Notes: Prostate cancer recheck. First visit since RALP on September 26, 2023. No leakage. He does mention some nocturia[place] [address] [place] [address],[address], [place], [address], [facility] 01/09/2024 14:33:37
== END 2024-01-11 20:07 | disposition home or self-care (01) ==
LOC: SLEEP 20:09
PROVIDERS: PCP Internal Medicine; Visit Provider Internal Medicine
DX: G47.33 Obstructive sleep apnea (adult) (pediatric) (principal)
CPT/HCPCS: 95811